=== PATIENT | male | born 1955 | race Caucasian/White ===

== ENCOUNTER 2020-06-22 22:18 | Emergency (ER) | payer OTHER, SELFPAY ==
[2020-06-22] VITALS (7 sets, daily range): BP systolic 136–199; BP diastolic 69–107; PULSE 109–160; RESP 16; TEMP 37.4; O2SAT 99–100; BMI 31.0; BMI 33.5
--- NOTE | 2020-06-22 | ECG_ITS ---
Test Reason : EKG CHANGES Blood Pressure : / mmHG Vent. Rate : 103 BPM Atrial Rate : 441 BPM P-R Int : 000 ms QRS Dur : 088 ms QT Int : 320 ms P-R-T Axes : 000 035 109 degrees QTc Int : 419 ms Atrial fibrillation with rapid ventricular response Anteroseptal infarct , age undetermined Nonspecific ST abnormality Lateral leads ST elevation in Anterior leads Abnormal ECG When compared with ECG of 17-NOV-2008 07:01, Atrial fibrillation has replaced Atrial flutter with 2 to 1 block Heart rate has decreased Nonspecific T wave abnormality Lateral leads Referred By: Daily Rivas Electronically Signed By:VITOR MATHEW MD
--- NOTE | 2020-06-22 | ECG_ITS ---
Test Reason : CP Blood Pressure : / mmHG Vent. Rate : 107 BPM Atrial Rate : 312 BPM P-R Int : 000 ms QRS Dur : 086 ms QT Int : 308 ms P-R-T Axes : 000 038 100 degrees QTc Int : 411 ms Atrial fibrillation with rapid ventricular response Anteroseptal infarct (cited on or before 22-JUN-2020) ST elevation in Anterior leads Nonspecific T wave abnormality Lateral leads Abnormal ECG When compared with ECG of 22-JUN-2020 23:03, No significant change was found Referred By: Daily Rivas Electronically Signed By:VITOR MATHEW MD
--- NOTE | 2020-06-22 22:44 | ED_ITS ---
HPI - Arrhythmia/Palpitations General Chief Complaint: Abdominal Pain Stated Complaint: abdominal pain Time Seen by Provider: 06/22/20 22:41 Source: patient Mode of arrival: ambulatory Limitations: no limitations History of Present Illness HPI narrative: chest pain, dyspnea, palpitations x 6 hours onset at home complaint: rapid heart beat and heart racing Onset (ago): hour(s) (6) Duration: constant Severity: moderate Context: occurred during rest Arrhythmia history: other (noted palpitations in the past but they went away - no workups) Associated symptoms: chest pain, shortness of breath, nausea, anxiety and other (acid reflux) Treatments prior to arrival: other (has been taking 1,000mg turmeric a day) Related Data Allergies Allergy/AdvReac Type Severity Reaction Status Date / Time No Known Allergies Allergy Verified 06/22/20 22:24 [No Known Allergies*] Review of Systems Review of Systems: Constitutional : No Weight loss, No Fever, No Chills ENT/Mouth : No sore throat, No Rhinorrhea Eyes: No Swelling, No Redness Cardiovascular : pos Chest Pain, pos SOB, NoEdema, pos palpitations Respiratory : No Cough, No Sputum, No Wheezing Gastrointestinal : Positive Nausea, no Vomiting, no Diarrhea, positive abdominal Pain, No Hematochezia, No Melena Genitourinary : No Dysuria, No Urinary Frequency, No Hematuria, No Urgency Musculoskeletal : No joint pain, No Myalgias, No Joint Swelling Skin : No Skin Lesions, No rash Neuro : No Weakness, No Numbness, No Dizziness, No Headache Psych : No Anxiety/Panic, No Depression Heme/Lymph: No Bruising, No Lymphadenopathy Endocrine : No Polyuria, No Polydipsia All other systems reviewed and are negative. [facility] Past Medical History Medical History (Updated 06/23/20 @ 00:51 by Daily Rivas DO) Hernia No active medical problems No known health problems Social History Social History (Updated 06/22/20 @ 22:47 by Daily Rivas DO) Alcohol intake: current Smoking Status: Never smoker Smoked in Last 30 Days: No Use of substances other than those prescribed or required for medical reasons: No Advance Directives: No Advance Directives Information Provided: No Physical Exam Vital Signs: Vital Signs: Vital Signs Temp Pulse Resp BP Pulse Ox 06/23/20 01:08 83 11 L 147/76 H 100 06/23/20 01:02 85 18 122/73 100 06/23/20 00:57 88 71/53 L 06/23/20 00:43 88 16 144/81 H 100 06/23/20 00:28 16 06/23/20 00:27 88 155/89 H 06/22/20 23:53 150 H 146/96 H 99 06/22/20 23:42 112 H 16 136/89 99 06/22/20 23:39 16 06/22/20 23:15 109 H 145/88 H 06/22/20 23:07 122 H 147/69 H 06/22/20 22:50 155 H 154/101 H 06/22/20 22:25 99.3 F 160 H 16 199/107 H 100 Body Mass Index 33.5 Appearance: Alert. Oriented X3. Mild acute distress. Anxious Eyes: Pupils equal, round and reactive to light. ENT: Pharynx normal. Neck: Normal inspection. Neck supple. CVS: irregular tachycardic heart rate and rhythm. Pulses normal. Respiratory: No respiratory distress. Breath sounds normal. Abdomen: Soft and mild epigastric ttp Skin: Skin warm and dry. Normal skin color. Normal skin turgor. Extremities: No lower extremity edema. No calf ttp Neuro: Oriented X 3. No motor deficit. No sensory deficit. Course Course Course Narrative: on dilt gtt, responding well BP stable HR down to low 100s still has CP, stat CTA ordered, IV fentanyl for pain, cardiology consulted given his EKG and DIANNA in V1-V3 concerning for STEMI once his rate has slowed down, pen shlomo call back from Dr. Fang 11:22pm Dr. Fang reviewed EKGs - not a STEMI though ?V1 and V3 morphology discussed EKG Cardiology felt not a STEMI patient broke now in NSR - c/o some mild chest pressure, dilt gtt held, ordered PO dilt 30mg, ASA, IV morphine labs pending anticipate admission will start on heparin at this time, troponin markedly elevated will discuss transfer for NSTEMI/UA his initial EKGs were concerning for ischemia though deemed not a STEMI by cardiology, HR in 150s x 6 hours, will consult [facility] Cardiology for possible transfer 1232am, statin, plavix load ordered accepted to [facility] 1245am for NSTEMI/UA - discussed with Dr. Nunez from Cardiology and Hiro from hospitalist team no chest pain after morphine but transient hypotension with dizziness - giving IVF x 1L now transient drop BP now 106/63 HR 70s NSR, chest pain resolved at this time COVID negative - transfer to [facility] now, patient stable on transfer no complaints MDM - Arrhythmia/Palpitations MDM Narrative Medical decision making narrative: 64 yo male with no significant PMH here with palpitations and gastritis x 6 hours, prior palpitations but resolved at home, no NSAID use, no AC therapy - will need labs, troponin, CXR, IV diltiazem, rate control likely admit dispo per results and findings Lab Data Result diagrams: 06/22/20 22:51 06/23/20 00:40 Labs: Lab Results 06/22/20 06/22/20 06/22/20 Range/Units 22:51 22:52 22:52 WBC 13.7 H (4.8-10.8) X10*3/uL RBC 5.10 (4.60-5.80) X10*6/uL Hgb 15.3 (14.0-18.0) g/dl Hct 45.2 (42-52) % MCV 88.6 (80-98) fL MCH 30.0 (27.0-33.0) pg MCHC 33.8 (31.0-36.0) g/dl RDW 12.0 (11.0-16.0) % Plt Count 400 (160-400) X10*3/uL MPV 9.8 (9.4-12.4) fL Immature Gran % (Auto) 0.4 (0.0-0.4) % Neut % (Auto) 70.8 (45-73) % Lymph % (Auto) 18.2 L (20-40) % Garza % (Auto) 9.5 (2-11) % Eos % (Auto) 0.9 (0-4) % Baso % (Auto) 0.2 (0-2) % Lymph # (Auto) 2.5 (1.2-4.9) X10*3/uL Garza # (Auto) 1.3 H (0.1-1.2) X10*3/uL Eos # (Auto) 0.1 (0.0-0.4) X10*3/uL Baso # (Auto) 0.0 (0.0-0.2) X10*3/uL Abs Immat Gran (auto) 0.05 H (0.00-0.03) X10*3/uL Absolute Neuts (auto) 9.7 H (2.0-8.3) X10*3/uL Absolute Nucleated RBC 0.000 (0.0-0.012) X10*3/uL Nucleated RBC % (auto) 0.0 (0.0-0.2) /100WBC PT INR APTT D-Dimer NG/ML Sodium Cancelled Potassium Cancelled Chloride Cancelled Carbon Dioxide Cancelled Anion Gap Cancelled BUN Cancelled Creatinine Cancelled Estim Creat Clear Calc Cancelled Estimated GFR Cancelled Random Glucose Cancelled Calcium Cancelled Magnesium Cancelled Total Bilirubin Cancelled Direct Bilirubin Cancelled AST Cancelled ALT Cancelled Alkaline Phosphatase Cancelled Troponin I High Sens 1777.6 H (<3.5-35.0) ng/L Total Protein Cancelled Albumin Cancelled Lipase Cancelled TSH Ethyl Alcohol mg/dL Coronavirus (PCR) (Negative) 06/22/20 06/22/20 06/22/20 Range/Units 22:52 22:53 23:04 WBC (4.8-10.8) X10*3/uL RBC (4.60-5.80) X10*6/uL Hgb (14.0-18.0) g/dl Hct (42-52) % MCV (80-98) fL MCH (27.0-33.0) pg MCHC (31.0-36.0) g/dl RDW (11.0-16.0) % Plt Count (160-400) X10*3/uL MPV (9.4-12.4) fL Immature Gran % (Auto) (0.0-0.4) % Neut % (Auto) (45-73) % Lymph % (Auto) (20-40) % Garza % (Auto) (2-11) % Eos % (Auto) (0-4) % Baso % (Auto) (0-2) % Lymph # (Auto) (1.2-4.9) X10*3/uL Garza # (Auto) (0.1-1.2) X10*3/uL Eos # (Auto) (0.0-0.4) X10*3/uL Baso # (Auto) (0.0-0.2) X10*3/uL Abs Immat Gran (auto) (0.00-0.03) X10*3/uL Absolute Neuts (auto) (2.0-8.3) X10*3/uL Absolute Nucleated RBC (0.0-0.012) X10*3/uL Nucleated RBC % (auto) (0.0-0.2) /100WBC PT Cancelled 12.1 INR Cancelled 1.0 APTT Cancelled 29.5 D-Dimer < 200 NG/ML Sodium Potassium Chloride Carbon Dioxide Anion Gap BUN Creatinine Estim Creat Clear Calc Estimated GFR Random Glucose Calcium Magnesium Total Bilirubin Direct Bilirubin AST ALT Alkaline Phosphatase Troponin I High Sens (<3.5-35.0) ng/L Total Protein Albumin Lipase TSH Cancelled Ethyl Alcohol mg/dL Coronavirus (PCR) (Negative) 06/22/20 06/23/20 06/23/20 Range/Units 23:04 00:16 00:40 WBC (4.8-10.8) X10*3/uL RBC (4.60-5.80) X10*6/uL Hgb (14.0-18.0) g/dl Hct (42-52) % MCV (80-98) fL MCH (27.0-33.0) pg MCHC (31.0-36.0) g/dl RDW (11.0-16.0) % Plt Count (160-400) X10*3/uL MPV (9.4-12.4) fL Immature Gran % (Auto) (0.0-0.4) % Neut % (Auto) (45-73) % Lymph % (Auto) (20-40) % Garza % (Auto) (2-11) % Eos % (Auto) (0-4) % Baso % (Auto) (0-2) % Lymph # (Auto) (1.2-4.9) X10*3/uL Garza # (Auto) (0.1-1.2) X10*3/uL Eos # (Auto) (0.0-0.4) X10*3/uL Baso # (Auto) (0.0-0.2) X10*3/uL Abs Immat Gran (auto) (0.00-0.03) X10*3/uL Absolute Neuts (auto) (2.0-8.3) X10*3/uL Absolute Nucleated RBC (0.0-0.012) X10*3/uL Nucleated RBC % (auto) (0.0-0.2) /100WBC PT INR APTT D-Dimer NG/ML Sodium Potassium Chloride Carbon Dioxide Anion Gap BUN Creatinine Estim Creat Clear Calc Estimated GFR Random Glucose Calcium Magnesium Total Bilirubin 0.8 Direct Bilirubin 0.2 AST 62 H ALT 21 Alkaline Phosphatase 50 Troponin I High Sens (<3.5-35.0) ng/L Total Protein 6.6 Albumin 4.1 Lipase TSH 0.82 Ethyl Alcohol < 10 mg/dL Coronavirus (PCR) NEGATIVE (Negative) ECG Data Attestation: I personally reviewed and interpreted this ECG as follows: ECG interpretation date: 06/22/20 ECG interpretation time: 22:46 Interpretation: Rate: 150s Rhythm: narrow regular complex tachycardia [place]: normal Normal P waves. Normal YE. Normal QRS complex. ST T wave : nonspecific qTC: normal prior studies: not available The study has been interpreted contemporaneously by me. . EKG #2 Rate: 103 Rhythm: afib with RVR [place]: normal Normal P waves. Normal YE. Normal QRS complex. Poor R wave progression ST T wave : T waves tall V1-V3 qTC: normal prior studies: slower rate The study has been interpreted contemporaneously by me. . EKG #3 Rate: 107 Rhythm: afib with RVR [place]: normal Normal P waves. Normal YE. Normal QRS complex. Poor R wave progression ST T wave : T waves tall V1-V3, nonspecific qTC: normal prior studies: unchanged The study has been interpreted contemporaneously by me. . Critical Care Time Critical Care Time Critical Care Time: Yes Total Critical Care Time: 90 Attestation: labs, transfer, IV dilt, medical consult I personally attest to this time spent taking care of the patient Discharge Plan Discharge Clinical Impression: Non-ST elevation [place] (NSTEMI), Atrial fibrillation and flutter Patient Disposition: [facility]
[2020-06-22] MEDS: Famotidine/PF 20 MG/2 ML VIAL IVPUSH (22:50)
[2020-06-22] MEDS: dilTIAZem HCL 50 MG/10 ML VIAL 10 MG IVPUSH (22:50)
[2020-06-22] MEDS: ondansetron HCL 4 MG/2 ML VIAL IVPUSH (22:50)
[2020-06-22] MEDS: dilTIAZem HCL 125 MG in 0.9 % Sodium Chloride 100 ML IVCONT (23:07)
[2020-06-22 23:09] LABS: MANUAL DIFF FLAG NO
[2020-06-22 23:10] LABS: Basophils Percent Auto 0.2 % (0-2); Eosinophils Absolute Auto 0.1 X10*3/uL (0.0-0.4); Eosinophils Percent Auto 0.9 % (0-4); Hematocrit 45.2 % (42-52); Hemoglobin 15.3 g/dl (14.0-18.0); Imm Gran Abs Auto 0.05 X10*3/uL (0.00-0.03); Imm Gran Pct Auto 0.4 % (0.0-0.4); Lymphocytes Absolute Auto 2.5 X10*3/uL (1.2-4.9); Lymphocytes Percent Auto 18.2 % (20-40); Mean Corpuscular HGB Conc 33.8 g/dl (31.0-36.0); Mean Corpuscular Volume 88.6 fL (80-98); Mean Platelet Volume 9.8 fL (9.4-12.4); Monocytes Absolute Auto 1.3 X10*3/uL (0.1-1.2); Monocytes Percent Auto 9.5 % (2-11); Neutrophils Absolute Auto 9.7 X10*3/uL (2.0-8.3); Neutrophils Percent Auto 70.8 % (45-73); Platelet Count 400 X10*3/uL (160-400); White Blood Count 13.7 X10*3/uL (4.8-10.8)
--- NOTE | 2020-06-22 23:15 | CT_ITS ---
EXAMINATION: CT ANGIOGRAM OF THE CHEST WITH AND WITHOUT CONTRAST (CT PULMONARY ANGIOGRAM FOR PE) CLINICAL INFORMATION: Chest pain COMPARISON: None TECHNIQUE: Prior to contrast administration, noncontrast localization images were obtained. Subsequently, multidetector volumetric imaging was performed from the thoracic inlet to below the diaphragms following the administration of 71 mLOmnipaque 350 intravenous contrast. No contrast reaction reported Sagittal, coronal, and MIP oblique sagittal reformatted images were obtained on the CT workstation, uploaded to PACS, and reviewed. This CT examination was performed using dose optimization techniques as appropriate, variously including the following: *Automated exposure control *Adjustment of mA and/or kV according to patient size (this includes techniques or standardized protocols for targeted exams where dose is matched to indication/reason for exam; i.e. extremities or head) *Use of iterative reconstruction technique Total exam dose-length product 388 mGy-cm FINDINGS: QUALITY OF STUDY/CONTRAST BOLUS: Satisfactory. PULMONARY ARTERIES: No central or segmental pulmonary emboli. THORACIC AORTA: No aneurysm or dissection. LUNG: No focal consolidation, nodules or masses. The central airways are patent. Minimal linear groundglass opacity in the lingula and right lower lobe, favoring atelectasis or scarring. PLEURA: No pleural effusion or pneumothorax. MEDIASTINUM: Normal heart size. No pericardial effusion. No hilar or mediastinal lymphadenopathy. No evidence of septal bowing or right heart strain. CHEST WALL/AXILLA: No axillary or internal mammary lymphadenopathy. OSSEOUS STRUCTURES: No acute or suspicious osseous abnormality. Degenerative changes of the spine. UPPER ABDOMEN: Left upper pole 1.8 cm renal cyst. No acute abnormality seen in the visualized upper abdomen. No reflux of contrast into the hepatic veins to suggest elevated right heart pressures. CT/CT angio chest PE protocol IMPRESSION: No pulmonary embolism or other acute intrathoracic abnormality. VTE: negative
[2020-06-22 23:29] LABS: Prothrombin Time 12.1 SEC (10.8-13.0)
[2020-06-22 23:32] LABS: Partial Thromboplastin Time 29.5 SEC (24.1-38.0)
[2020-06-22] MEDS: fentaNYL citrate/PF 100 MCG/2 ML VIAL 50 MCG IVPUSH (23:39)
[2020-06-22 23:47] LABS: D Dimer < 200 NG/ML
[2020-06-22] MEDS: iohexoL 350 MG/ML 100 ML INFUS..BTL 71 ML IV (23:49)
[2020-06-22 23:57] LABS: Ethanol < 10 mg/dL
--- NOTE | 2020-06-23 | ECG_ITS ---
Test Reason : CP Blood Pressure : / mmHG Vent. Rate : 157 BPM Atrial Rate : 314 BPM P-R Int : 000 ms QRS Dur : 084 ms QT Int : 228 ms P-R-T Axes : 250 030 128 degrees QTc Int : 368 ms Atrial flutter with 2:1 A-V conduction Anteroseptal infarct , age undetermined Marked ST abnormality, possible lateral subendocardial injury Abnormal ECG Significant changes have occurred Referred By: Daily Rivas Electronically Signed By:VITOR MATHEW MD
[2020-06-23 00:27] VITALS: BP 155/89; PULSE 88
[2020-06-23] MEDS: dilTIAZem HCL 30 MG TABLET PO (00:27)
[2020-06-23 00:28] VITALS: RESP 16
[2020-06-23] MEDS: Morphine Sulfate 4 MG/ML CARTRIDGE IVPUSH (00:28)
[2020-06-23] MEDS: Aspirin 81 MG TAB.CHEW 324 MG PO (00:28)
[2020-06-23 00:31] LABS: Troponin-I High Sensitivity 1777.6 ng/L (<3.5-35.0)
[2020-06-23 00:43] VITALS: BP 144/81; PULSE 88; RESP 16; O2SAT 100
[2020-06-23] MEDS: Clopidogrel Bisulfate 300 MG TABLET PO (00:54)
[2020-06-23] MEDS: Heparin Sodium,Porcine 5,000 UNIT/ML VIAL 4120 UNIT IVPUSH (00:55)
[2020-06-23 00:57] VITALS: BP 71/53; PULSE 88
[2020-06-23] MEDS: 0.9 % Sodium Chloride 1,000 ML 999 ML IVCONT (00:59)
[2020-06-23] MEDS: Heparin Sodium,Porcine/1/2NS 25,000 UNIT/250 ML IV.SOLN 10 UNIT IVCONT (01:00)
[2020-06-23 01:02] VITALS: BP 122/73; PULSE 85; RESP 18; O2SAT 100
--- NOTE | 2020-06-23 01:04 | PC.NURSE ---
Pt became light headed approx 7 mins s/p morphine, c/o near syncope head lowered and 1l ns infusing for hypotension of 70s/30s. Pt lightheadedness since resolved. pt reports his pain is 2/10 at this time. plan for transfer to [facility]. pt aware and agreeable to plan of care.,
[2020-06-23 01:08] VITALS: BP 147/76; PULSE 83; RESP 11; O2SAT 100
[2020-06-23 01:09] LABS: Alanine Aminotransferase 21 U/L (0-40); Albumin Level 4.1 g/dL (3.5-5.0); Alkaline Phosphatase 50 U/L (39-117); Aspartate Amino Transferase 62 U/L (5-37); Bilirubin Direct 0.2 mg/dL (0.0-0.5); Bilirubin Total 0.8 mg/dL (0.0-1.0); Total Protein 6.6 g/dL (6.5-8.0)
[2020-06-23 01:31] LABS: Thyroid Stimulating Hormone 0.82 mIU/mL (0.32-4.0)
[2020-06-23 01:43] LABS: SARS COV2 PCR INHOUSE NEGATIVE (Negative)
[2020-06-23 02:14] LABS: Anion Gap 17 (12-20); Blood Urea Nitrogen 13 mg/dL (9-16); Calcium 8.7 mg/dL (8.4-10.2); Carbon Dioxide 20 mmol/L (22-29); Chloride 99 mmol/L (96-108); Creatinine Clr Calc Pharmacy 107.6; Estimated Glomerular Filt Rate > 60; Glucose Random 125 mg/dL (60-115); Lipase 19 U/L (8-78); Magnesium 1.9 mg/dL (1.6-2.6); Potassium 4.7 mmol/l (3.3-5.1); Sodium 131 mmol/L (135-145)
--- NOTE | 2020-06-24 | ECG_ITS ---
Test Reason : CP Blood Pressure : / mmHG Vent. Rate : 080 BPM Atrial Rate : 080 BPM P-R Int : 144 ms QRS Dur : 092 ms QT Int : 340 ms P-R-T Axes : 047 024 094 degrees QTc Int : 392 ms Normal sinus rhythm Possible Inferior infarct , age undetermined Anteroseptal infarct (cited on or before 22-JUN-2020) ST elevation in Inferior leads Anterior leads Abnormal ECG When compared with ECG of 22-JUN-2020 23:11, Sinus rhythm has replaced Atrial fibrillation Borderline criteria for Inferior infarct are now Present ST less elevated in Anterior leads Referred By: Daily Rivas Electronically Signed By:VITOR MATHEW MD
== END 2020-06-23 02:20 | disposition short-term general hospital (02) ==
PROVIDERS: Emergency Provider Emergency Medicine; PCP Internal Medicine
DX: I21.4 Non-ST elevation (NSTEMI) myocardial infarction (principal); I48.91 Unspecified atrial fibrillation; I48.92 Unspecified atrial flutter; Z20.828 Contact with and (suspected) exposure to other viral communicable diseases; Z79.899 Other long term (current) drug therapy
CPT/HCPCS: 36415; 71275; 80048; 80076; 80320; 83690; 83735; 84443; 84484; 85025; 85379; 85610; 85730; 87635; 93005; 96361; 96374; 96375; 96376; 99285; 99291; 99292; J2270; J2405; J3010; Q9967

== ENCOUNTER 2020-07-13 10:35 | Outpatient (REF) | payer OTHER, SELFPAY | END 2020-07-13 10:36 | disposition home or self-care (01) | LOC: HO.LAB 10:35 | PROVIDERS: Visit Provider Internal Medicine | DX: Z20.828 Contact with and (suspected) exposure to other viral communicable diseases (principal) | CPT/HCPCS: C9803; U0003 ==

== ENCOUNTER 2020-12-26 08:01 | Day surgery (SDC) | payer BC, SELFPAY ==
[2020-12-19 14:48] VITALS: BMI 33.6
--- NOTE | 2020-12-21 12:22 | MHC.SHP ---
Pre-Procedural Eval Section A The patient is an INPATIENT: No The History & Physical has been completed within 30 days and I have reviewed it.: Yes Section B Chief Complaint: Cataract Right Eye Allergies: Allergies Allergy/AdvReac Type Severity Reaction Status Date / Time No Known Allergies Allergy Verified 12/19/20 13:30 [No Known Allergies*] Plan Diagnosis/Plan: Unchanged I have reviewed the history and physical and performed a pertinent physical examination on my patient. No changes have occurred unless specified.
--- NOTE | 2020-12-23 09:32 | HO.ANESPROP2 ---
Documented by User: Diana Geiger 12/23/20 09:33 HPI - Anesthesia Eval Consult details Narrative: 65yo M for Right Cataract Extraction IOL Insertion No prev cataract on record PCP cleared Eliquis for afib [facility] Past Medical History Medical History (Updated 12/26/20 @ 09:41 by Aliyah Her) Atrial fibrillation CAD (coronary artery disease) Gout Myocardial infarct On anticoagulant therapy Retinal tear of right eye Surgical History Surgical History History of surgery on right wrist History of tonsillectomy History of vitrectomy Hx of coronary artery bypass graft Hx of left inguinal hernia repair Hx of repair of left rotator cuff Hx of repair of right rotator cuff [place] teeth extracted Social History Social History Are you a primary home health care respiratory therapist to a significant other at home: No Do you presently have visiting nurse or other home services: No Alcohol intake: current Alcohol intake frequency: 0-2 drinks per day Smoking Status: Never smoker Smoked in Last 30 Days: No Second Hand Smoke Exposure: No Use of substances other than those prescribed or required for medical reasons: No Have you been hit, kicked, punched, or otherwise hurt by someone within the past year? If so, by whom?: No Are you DNR?: No Advance Directives: No Advance Directives Information Provided: No Advance Directives on File: No Recently lost weight without trying: No Eating poorly because of decreased appetite: No Nutrition Risks: No Nutritional Risk Poor oral hygiene: No Meds Allergies Allergy/AdvReac Type Severity Reaction Status Date / Time No Known Allergies Allergy Verified 12/19/20 13:30 [No Known Allergies*] Home Medications Medication Instructions Recorded Confirmed Last Taken Type apixaban [Eliquis] 1 tab PO BID 12/19/20 12/19/20 Unknown History aspirin 1 tab PO DAILY 12/19/20 12/19/20 Unknown History atorvastatin 1 tab PO BEDTIME 12/19/20 12/19/20 Unknown History carvedilol 1 tab PO BID 12/19/20 12/19/20 Unknown History lisinopril 1 tab PO DAILY 12/19/20 12/19/20 Unknown History Exam Exam Date and Time: December 23, 2020 0932 Height,Weight and Vital Signs: Height 5 ft 7 in Weight 97.522 kg Assessment and Plan Assessment Anesthesia Assessment: Chart Reviewed Documented by User: Aliyah Her 12/26/20 09:42 [facility] Past Medical History Medical History (Updated 12/26/20 @ 09:41 by Aliyah Her) Atrial fibrillation CAD (coronary artery disease) Gout Myocardial infarct On anticoagulant therapy Retinal tear of right eye Family History Family history of problems with anesthesia: No Surgical History Surgical History History of surgery on right wrist History of tonsillectomy History of vitrectomy Hx of coronary artery bypass graft Hx of left inguinal hernia repair Hx of repair of left rotator cuff Hx of repair of right rotator cuff [place] teeth extracted History of Problems with Anesthesia: No Social History Social History Are you a primary home health care respiratory therapist to a significant other at home: No Do you presently have visiting nurse or other home services: No Alcohol intake: current Alcohol intake frequency: 0-2 drinks per day Smoking Status: Never smoker Smoked in Last 30 Days: No Second Hand Smoke Exposure: No Use of substances other than those prescribed or required for medical reasons: No Have you been hit, kicked, punched, or otherwise hurt by someone within the past year? If so, by whom?: No Are you DNR?: No Advance Directives: No Advance Directives Information Provided: No Advance Directives on File: No Recently lost weight without trying: No Eating poorly because of decreased appetite: No Nutrition Risks: No Nutritional Risk Poor oral hygiene: No Meds Allergies Allergy/AdvReac Type Severity Reaction Status Date / Time No Known Allergies Allergy Verified 12/19/20 13:30 [No Known Allergies*] Home Medications Medication Instructions Recorded Confirmed Last Taken Type apixaban [Eliquis] 1 tab PO BID 12/19/20 12/19/20 Unknown History aspirin 1 tab PO DAILY 12/19/20 12/19/20 Unknown History atorvastatin 1 tab PO BEDTIME 12/19/20 12/19/20 Unknown History carvedilol 1 tab PO BID 12/19/20 12/19/20 Unknown History lisinopril 1 tab PO DAILY 12/19/20 12/19/20 Unknown History Exam Height,Weight and Vital Signs: Vital Signs Temp Pulse Resp BP Pulse Ox 12/26/20 09:32 98.2 F 62 20 134/69 99 Airway Mallampati Class: II TM Dist: >3cm Neck ROM: Full Heart: RRR Lungs: CTAB Assessment and Plan Assessment Anesthesia Assessment: Anesthesia Plan Discussed and Chart Reviewed Final Anesthetic Review NPO: Yes ASA Class: III Final Preanesthetic Review: No Changes in Pt Med Stat, Meds/Allgs Chart Reviewed, Consent Obtained/Reviewed and Anes Risks/Benef Reviewed Patient Risk: Intermediate Procedure Risk: Low Assessment/Block/Sedation in SS: Assess/Block/Sedation-SS Anesthetic Plan Anesthetic Plan: MAC: Disposition: Standard PACU
[2020-12-26] MEDS: Tetracaine HCl/PF 0.5% Oph Sol 4 ML DROPS 1 DROP EYE-RIGHT (09:19)
[2020-12-26] MEDS: Tropicamide 1 % Ophth Sol 3 ML BTL 1 DROP EYE-RIGHT ×3 (09:20→09:31)
[2020-12-26] MEDS: Phenylephrine HCL 2.5% Oph SoL 2 ML BOTTLE 1 DROP EYE-RIGHT ×2 (09:20→09:25)
[2020-12-26 09:32] VITALS: BP 134/69; PULSE 62; RESP 20; TEMP 36.8; O2SAT 99
--- NOTE | 2020-12-26 10:01 | HO.PNOPHT ---
Ophthalmology Procedure Procedure Date of Service: 12/26/20 Ophthalmology Viscoelastic: Kamila Dialt Dual Pack Pro Ophthalmology Lenses: TECAFUA [id number] (16) Procedure Notes: PREOPERATIVE DIAGNOSIS: Decreased visual acuity right eye secondary to cataract POSTOPERATIVE DIAGNOSIS: Same PROCEDURE: Right cataract extraction with intraocular lens insertion SURGEON: Scotty Mendez M.D. ANESTHESIA: Topical/MAC ESTIMATED BLOOD LOSS: None COMPLICATIONS: None After obtaining informed consent, the patient was brought to the operating room suite and placed in the supine position. After adequate sedation per anesthesia, topical drops of Tetracaine were given to the right eye. The eye was then prepped and draped in the usual sterile fashion. The operating room microscope was then positioned over the operative eye and a lid speculum placed. A paracentesis was created. Viscoelastic was then instilled into the anterior chamber. A three plane incision was then created temporally, utilizing a 2.85 mm keratome. Capsulotomy forceps were then utilized to create a circular tear capsulotomy. Hydrodissection and hydrodelineation were carried out until adequate mobilization of the nucleus occurred. Phacoemulsification was then utilized to remove the dense central nucleus followed by removal of the cortical material utilizing the automated aspiration irrigation unit. Viscoelastic was instilled into the posterior capsular bag followed by placement of a posterior chamber intraocular lens without difficulty. The residual Viscoelastic was then removed utilizing the automated IA machine. The wound was checked and found to be watertight. The patient tolerated the procedure well and the lid speculum was removed. Intracameral injection of Vigamox 0.1 mL followed by a subtenon injection of Kenalog-40 0.2 mL were administered. The patient will be seen in the a.m.
[2020-12-26 10:05] VITALS: BP 151/73; PULSE 65; RESP 16; TEMP 36.5; O2SAT 99
== END 2020-12-26 10:39 | disposition home or self-care (01) ==
PROVIDERS: PCP Internal Medicine; Visit Provider Ophthalmology
PROC: (CPT 66985; principal; 2020-12-26 10:00)
DX: H25.11 Age-related nuclear cataract, right eye (principal); H54.7 Unspecified visual loss; Z83.511 Family history of glaucoma; I25.2 Old myocardial infarction; I48.0 Paroxysmal atrial fibrillation; I25.10 Atherosclerotic heart disease of native coronary artery without angina pectoris; Z95.1 Presence of aortocoronary bypass graft; Z79.01 Long term (current) use of anticoagulants; Z79.82 Long term (current) use of aspirin; Z79.899 Other long term (current) drug therapy; Z87.891 Personal history of nicotine dependence
CPT/HCPCS: 66984; J2250; J3010; J3300; V2632

== ENCOUNTER 2021-01-09 07:39 | Day surgery (SDC) | payer MEDICARE, SELFPAY ==
[2020-12-19 15:03] VITALS: BMI 33.4
--- NOTE | 2021-01-04 12:29 | P.CONAN_ITS ---
Documented by User: Diana Geiger 01/04/21 12:30 HPI - Anesthesia Eval Consult details Narrative: 65yo M for Left Cataract Extraction IOL Insertion Right eye 5/3 with TIVA: Fent 50, Midaz 2 PCP cleared Eliquis for afib PMFSH Past Medical History Medical History Atrial fibrillation CAD (coronary artery disease) Gout Myocardial infarct On anticoagulant therapy Retinal tear of right eye Family History Family history of problems with anesthesia: No Surgical History Surgical History History of surgery on right wrist History of tonsillectomy History of vitrectomy Hx of cataract extraction Hx of coronary artery bypass graft Hx of left inguinal hernia repair Hx of repair of left rotator cuff Hx of repair of right rotator cuff [place] teeth extracted History of Problems with Anesthesia: No Social History Social History Are you a primary career professional to a significant other at home: No Do you presently have visiting nurse or other home services: No Alcohol intake: current Alcohol intake frequency: 0-2 drinks per day Smoking Status: Never smoker Second Hand Smoke Exposure: No Use of substances other than those prescribed or required for medical reasons: No Have you been hit, kicked, punched, or otherwise hurt by someone within the past year? If so, by whom?: No Are you DNR?: No Advance Directives: No Advance Directives Information Provided: No Advance Directives on File: No Recently lost weight without trying: No Eating poorly because of decreased appetite: No Nutrition Risks: No Nutritional Risk Poor oral hygiene: No Meds Allergies Allergy/AdvReac Type Severity Reaction Status Date / Time No Known Allergies Allergy Verified 12/19/20 13:30 [No Known Allergies*] Home Medications Medication Instructions Recorded Confirmed Last Taken Type apixaban [Eliquis] 1 tab PO BID 12/19/20 01/09/21 01/08/21 19:00 History aspirin 1 tab PO DAILY 12/19/20 01/09/21 01/08/21 06:45 History atorvastatin 1 tab PO BEDTIME 12/19/20 12/19/20 Unknown History carvedilol 1 tab PO BID 12/19/20 01/09/21 01/09/21 History lisinopril 1 tab PO DAILY 12/19/20 12/19/20 Unknown History Exam Exam Date and Time: January 04, 2021 1229 Height,Weight and Vital Signs: Height 5 ft 7.25 in Weight 97.522 kg Assessment and Plan Assessment Anesthesia Assessment: Chart Reviewed Documented by User: Aliyah Her 01/09/21 08:39 PMFSH Past Medical History Medical History Atrial fibrillation CAD (coronary artery disease) Gout Myocardial infarct On anticoagulant therapy Retinal tear of right eye Surgical History Surgical History History of surgery on right wrist History of tonsillectomy History of vitrectomy Hx of cataract extraction Hx of coronary artery bypass graft Hx of left inguinal hernia repair Hx of repair of left rotator cuff Hx of repair of right rotator cuff [place] teeth extracted Social History Social History Are you a primary career professional to a significant other at home: No Do you presently have visiting nurse or other home services: No Alcohol intake: current Alcohol intake frequency: 0-2 drinks per day Smoking Status: Never smoker Second Hand Smoke Exposure: No Use of substances other than those prescribed or required for medical reasons: No Have you been hit, kicked, punched, or otherwise hurt by someone within the past year? If so, by whom?: No Are you DNR?: No Advance Directives: No Advance Directives Information Provided: No Advance Directives on File: No Recently lost weight without trying: No Eating poorly because of decreased appetite: No Nutrition Risks: No Nutritional Risk Poor oral hygiene: No Meds Allergies Allergy/AdvReac Type Severity Reaction Status Date / Time No Known Allergies Allergy Verified 12/19/20 13:30 [No Known Allergies*] Home Medications Medication Instructions Recorded Confirmed Last Taken Type apixaban [Eliquis] 1 tab PO BID 12/19/20 01/09/21 01/08/21 19:00 History aspirin 1 tab PO DAILY 12/19/20 01/09/21 01/08/21 06:45 History atorvastatin 1 tab PO BEDTIME 12/19/20 12/19/20 Unknown History carvedilol 1 tab PO BID 12/19/20 01/09/21 01/09/21 History lisinopril 1 tab PO DAILY 12/19/20 12/19/20 Unknown History Exam Height,Weight and Vital Signs: Vital Signs Temp Pulse Resp BP Pulse Ox 01/09/21 08:32 97.3 F 62 16 137/71 99 Airway Mallampati Class: II TM Dist: >3cm Neck ROM: Full Heart: RRR Lungs: CTAB Assessment and Plan Assessment Anesthesia Assessment: Anesthesia Plan Discussed and Chart Reviewed Final Anesthetic Review NPO: Yes ASA Class: III Final Preanesthetic Review: No Changes in Pt Med Stat, Meds/Allgs Chart Reviewed, Consent Obtained/Reviewed and Anes Risks/Benef Reviewed Patient Risk: Intermediate Procedure Risk: Low Assessment/Block/Sedation in SS: Assess/Block/Sedation-SS Anesthetic Plan Anesthetic Plan: MAC: Disposition: Standard PACU
--- NOTE | 2021-01-04 14:54 | MHC.SHP ---
Pre-Procedural Eval Section A The patient is an INPATIENT: No The History & Physical has been completed within 30 days and I have reviewed it.: Yes Section B Chief Complaint: Cataract Left Eye Allergies: Allergies Allergy/AdvReac Type Severity Reaction Status Date / Time No Known Allergies Allergy Verified 12/19/20 13:30 [No Known Allergies*] Plan Diagnosis/Plan: Unchanged I have reviewed the history and physical and performed a pertinent physical examination on my patient. No changes have occurred unless specified.
[2021-01-09] MEDS: Tetracaine HCl/PF 0.5% Oph Sol 4 ML DROPS 1 DROP EYE-LEFT (08:21)
[2021-01-09] MEDS: Tropicamide 1 % Ophth Sol 3 ML BTL 1 DROP EYE-LEFT ×3 (08:23→08:35)
[2021-01-09] MEDS: Phenylephrine HCL 2.5% Oph SoL 2 ML BOTTLE 1 DROP EYE-LEFT ×3 (08:27→08:42)
[2021-01-09 08:32] VITALS: BP 137/71; PULSE 62; RESP 16; TEMP 36.3; O2SAT 99
[2021-01-09] MEDS: Lactated Ringers 500 ML 50 ML IV (08:42)
--- NOTE | 2021-01-09 09:18 | HO.PNOPHT ---
Ophthalmology Procedure Procedure Date of Service: 01/09/21 Ophthalmology Viscoelastic: Healon Duet Dual Pack Pro Ophthalmology Lenses: TECNIS [id number] (15.5) Procedure Notes: PREOPERATIVE DIAGNOSIS: Decreased visual acuity left eye secondary to cataract POSTOPERATIVE DIAGNOSIS: Same PROCEDURE: Left cataract extraction with intraocular lens insertion SURGEON: Scotty Mendez M.D. ANESTHESIA: Topical/MAC ESTIMATED BLOOD LOSS: None COMPLICATIONS: None After obtaining informed consent, the patient was brought to the operation room suite and placed in the supine position. After adequate sedation per anesthesia, topical drops of Tetracaine were given to the left eye. The eye was then prepped and draped in the usual sterile fashion. The operating room microscope was then positioned over the operative eye and a lid speculum placed. A paracentesis was created. Viscoelastic was then instilled into the anterior chamber. A three plane incision was then created temporally, utilizing a 2.85 mm keratome. Capsulotomy forceps were then utilized to create a circular tear capsulotomy. Hydrodissection and hydrodelineation were carried out until adequate mobilization of the nucleus occurred. Phacoemulsification was then utilized to remove the dense central nucleus followed by removal of the cortical material utilizing the automated aspiration irrigation unit. Viscoat elastic was instilled into the posterior capsular bag followed by placement of a posterior chamber intraocular lens without difficulty. The residual Viscoat elastic was then removed utilizing the automated IA machine. The wound was check and found to be watertight. The patient tolerated the procedure well and the lid speculum was removed. Intracameral injection of Vigamox 0.1 mL followed by a subtenon injection of Kenalog-40 0.2 mL were administered. The patient will be seen in the a.m.
[2021-01-09 09:38] VITALS: BP 145/61; PULSE 57; RESP 18; TEMP 36.2; O2SAT 99
== END 2021-01-09 09:59 | disposition home or self-care (01) ==
PROVIDERS: PCP Internal Medicine; Visit Provider Ophthalmology
PROC: (CPT 66985; principal; 2021-01-09 09:30)
DX: H25.12 Age-related nuclear cataract, left eye (principal); H54.7 Unspecified visual loss; Z83.511 Family history of glaucoma; I48.91 Unspecified atrial fibrillation; I25.10 Atherosclerotic heart disease of native coronary artery without angina pectoris; Z95.1 Presence of aortocoronary bypass graft; Z79.01 Long term (current) use of anticoagulants; Z79.899 Other long term (current) drug therapy; Z87.891 Personal history of nicotine dependence
CPT/HCPCS: 66984; J2250; J3010; J3300; V2632

== ENCOUNTER 2021-07-26 07:57 | Outpatient (REF) | payer MEDICARE, SELFPAY ==
[2021-07-26 11:19] LABS: MANUAL DIFF FLAG NO
[2021-07-26 11:23] LABS: Basophils Percent Auto 0.4 % (0-2); Eosinophils Absolute Auto 0.3 X10*3/uL (0.0-0.4); Hematocrit 42.7 % (42.0-52.0); Hemoglobin 13.8 g/dl (14.0-18.0); Imm Gran Abs Auto 0.03 X10*3/uL (0.00-0.03); Imm Gran Pct Auto 0.4 % (0.0-0.4); Lymphocytes Percent Auto 23.3 % (20-40); Mean Corpuscular HGB Conc 32.3 g/dl (31.0-36.0); Mean Corpuscular Hemoglobin 30.2 pg (27.0-33.0); Mean Corpuscular Volume 93.4 fL (80.0-98.0); Mean Platelet Volume 10.6 fL (9.4-12.4); Monocytes Absolute Auto 0.7 X10*3/uL (0.1-1.2); Monocytes Percent Auto 8.6 % (2-11); Neutrophils Absolute Auto 5.4 x10*3/uL (2.0-8.3); Neutrophils Percent Auto 64.3 % (45-73); Platelet Count 309 X10*3/uL (160-400); Red Blood Count 4.57 X10*6/uL (4.60-5.80); Red Cell Distribution Width 12.1 % (11.0-16.0); White Blood Count 8.4 X10*3/uL (4.8-10.8)
[2021-07-26 11:59] LABS: Alanine Aminotransferase 33 U/L (0-40); Albumin Level 4.1 g/dL (3.5-5.0); Alkaline Phosphatase 64 U/L (39-117); Anion Gap 16 (12-20); Aspartate Amino Transferase 17 U/L (5-37); Bilirubin Total 0.6 mg/dL (0.0-1.0); Blood Urea Nitrogen 21 mg/dL (9-16); Calcium 9.3 mg/dL (8.4-10.2); Carbon Dioxide 21 mmol/L (22-29); Chloride 109 mmol/L (96-108); Cholesterol 117 mg/dL; Estimated Glomerular Filt Rate > 60; Glucose Fasting 113 mg/dL (60-99); HDL Cholesterol 34 mg/dL; LDL Cholesterol Calculated 68 mg/dl; Potassium 4.8 mmol/L (3.3-5.1); Sodium 141 mmol/L (135-145); Total Protein 6.8 g/dL (6.5-8.0); Triglycerides 78 mg/dL
[2021-07-26 12:26] LABS: Thyroid Stimulating Hormone 0.79 uIU/mL (0.32-4.0); Vitamin D 25-OH Total 17.4 ng/mL (>30)
[2021-07-26 12:34] LABS: PSA,Total (Free>4and<10) 1.12 ng/mL (0.00-4.00)
== END 2021-07-26 07:58 | disposition home or self-care (01) ==
LOC: HO.HMGCLDS 07:57
PROVIDERS: PCP Internal Medicine; Visit Provider Internal Medicine
DX: Z00.00 Encounter for general adult medical examination without abnormal findings (principal); Z12.5 Encounter for screening for malignant neoplasm of prostate; I25.10 Atherosclerotic heart disease of native coronary artery without angina pectoris; I48.0 Paroxysmal atrial fibrillation; M10.00 Idiopathic gout, unspecified site; E66.01 Morbid (severe) obesity due to excess calories; Z68.35 Body mass index [BMI] 35.0-35.9, adult
CPT/HCPCS: 36415; 80053; 80061; 82306; 84153; 84443; 84550; 85025

== ENCOUNTER 2021-12-23 20:40 | Inpatient (IN) | payer MEDICARE, SELFPAY ==
--- NOTE | 2021-12-23 | ECG_ITS ---
Test Reason : nausea/vomitting Blood Pressure : / mmHG Vent. Rate : 148 BPM Atrial Rate : 000 BPM P-R Int : 000 ms QRS Dur : 078 ms QT Int : 286 ms P-R-T Axes : 000 048 025 degrees QTc Int : 449 ms Atrial fibrillation with rapid ventricular response Septal infarct (cited on or before 22-JUN-2020) Abnormal ECG When compared with ECG of 23-JUN-2020 00:03, Atrial fibrillation has replaced Sinus rhythm Vent. rate has increased BY 68 BPM Borderline criteria for Inferior infarct are no longer Present Referred By: Generic ED Physician Electronically Signed By:HELIO SERNA
--- NOTE | ~2021-12-23 | US_ITS ---
EXAMINATION: US ABDOMEN LIMITED CLINICAL INFORMATION: Cholecystitis.. COMPARISON: CT abdomen pelvis 12/23/2021. TECHNIQUE: Real-time imaging of the right upper quadrant abdominal viscera. FINDINGS: Targeted sonography of the gallbladder is performed. Partial visualization is made of anomaly anechoic free fluid along the anterior aspect of the gallbladder. Free fluid appears to communicate with the gallbladder lumen on several signs sales representative grayscale images (image 14/30). Within the gallbladder lumen, echogenic dependent sludge is noted. Furthermore, a 2.4 cm intermediate echogenicity region without posterior acoustic shadowing is present anteriorly in a nondependent configuration contiguous with the wall the gallbladder. No flow is noted within this region on color Doppler interrogation. The common bile duct measures 6 mm in diameter. US/US abdomen limited IMPRESSION: *Findings suspicious for perforation of the gallbladder. Free fluid is present adjacent to the gallbladder corresponding to findings noted on the comparison CT of 12/23/2021. Sonographic evaluation demonstrates possible communication between the free fluid and the lumen of the gallbladder suspicious for perforation. *Echogenic sludge within the gallbladder lumen. Furthermore, a 2.4 cm echogenic focus contiguous with the nondependent wall of the fundus of the gallbladder is present and may represent adherent sludge. No flow is noted in this region to specifically suggest the presence of a gallbladder wall tumor. This finding is without a definitive correlate on the CT of the abdomen and pelvis from 12/23/2021 based on contemporaneous review of that exam. *No cholelithiasis noted. *Normal common bile duct caliber.
--- NOTE | ~2021-12-23 | XR_ITS ---
EXAMINATION: XR ABDOMEN KUB CLINICAL INDICATION: Postop open cholecystectomy. Check for foreign body, right upper quadrant. COMPARISON: Selected images CT abdomen 12/23/2021. TECHNIQUE: AP view of the abdomen. 3 images. FINDINGS: Median sternotomy wires are demonstrated. A surgical drain is seen in the right upper quadrant with surgical clips and skin [place] identified. Detail is limited on these images provided without evidence of radiopaque/retained foreign body identified. No dilated bowel loops are seen. XR/XR KUB IMPRESSION: Abdominal skin [place], surgical clips and surgical drain are noted. No unexpected radiopaque foreign body is appreciated.
--- NOTE | ~2021-12-23 | XR_ITS ---
EXAMINATION: PORTABLE CHEST 1 VIEW CLINICAL INFORMATION: cough . COMPARISON: 06/14/[address] TECHNIQUE: Portable frontal view of the chest was obtained. FINDINGS: Hypoexpanded with linear basilar markings more likely reflecting a component of atelectasis. No superimposed focal infiltrate, edema, or pneumothorax. Patient status post sternotomy and CABG. No acute bony abnormality XR/XR chest 1V IMPRESSION: Hypoexpanded with linear basilar markings more likely due to atelectasis
--- NOTE | ~2021-12-23 | MR_ITS ---
EXAMINATION: MR ABDOMEN WITHOUT CONTRAST CLINICAL INFORMATION: Elevated liver enzymes COMPARISON: Previous CT of the abdomen and pelvis 12/23/2021 and limited abdominal ultrasound 12/24/2021 TECHNIQUE: MR abdomen is performed without gadolinium contrast. MRCP sequences were performed. FINDINGS: LUNG BASES: There is small bilateral pleural effusions. LIVER, GALLBLADDER, AND BILIARY TREE: The gallbladder is upper normal in size. The gallbladder wall appears thickened and there is wall edema. There is heterogeneous signal within the lumen of the gallbladder. No definite gallstones are seen. There is infiltration of the fat seen surrounding the gallbladder and a small focal fluid collection adjacent to the gallbladder left lobe of the liver, distal stomach and proximal duodenum. This measures approximately 1.5 x 4.5 cm for example axial image 9 series 5. This abuts the gallbladder wall and again there is question of discontinuity of the gallbladder wall and gallbladder perforation or pericholecystic abscess. This is similar to previous ultrasound and CT scan. There is low insertion of the cystic duct. There is mild intrahepatic biliary duct dilatation. There is infiltration of the fat in the juan hepatis. There is narrowing of the proximal extrahepatic bile ducts/common hepatic duct. This may be related to extrinsic compression from inflammatory process related to the gallbladder or Mirizzi syndrome. The distal extrahepatic bile duct/common bile duct is normal in caliber and measures 3 mm. No common bile duct stone is seen. PANCREAS: There is a tiny probable cyst in the tail the pancreas measuring 3 mm. The pancreas is otherwise normal in signal. The main pancreatic duct is normal in caliber measuring 2 mm. SPLEEN: Unremarkable. ADRENAL GLANDS: Unremarkable. KIDNEYS AND URETERS: There are small bilateral renal cysts. The kidneys are normal in size and shape. No hydronephrosis. No perinephric stranding. GASTROINTESTINAL TRACT: No bowel obstruction. No free ascites. ABDOMINAL WALL: No significant hernia is appreciated. LYMPH NODES: No lymphadenopathy. VASCULAR: Unremarkable. OSSEOUS STRUCTURES: Marrow signal normal. MR/MR MRCP IMPRESSION: Upper normal-size gallbladder with abnormally thickened edematous gallbladder wall and infiltration of the pericholecystic fat. Adjacent 1.5 x 4.5 cm fluid collection questionable for gallbladder perforation or pericholecystic abscess. Mild intrahepatic biliary duct dilatation. Narrowed proximal extrahepatic bile duct/common hepatic duct, question secondary to extrinsic extrinsic compression related to inflammatory changes from the gallbladder or Mirizzi syndrome. These findings were communicated to Dr. Bowman in person on 12/25/2021 exam 3:45 PM.
--- NOTE | ~2021-12-23 | CT_ITS ---
EXAMINATION: CT ABDOMEN AND PELVIS WITH CONTRAST CLINICAL INFORMATION: Abdominal pain. COMPARISON: None TECHNIQUE: Multidetector volumetric images were obtained from the superior aspect of the liver through the pubic symphysis following administration 85 mL of Omnipaque 350 intravenous contrast. Sagittal and coronal reformatted images were obtained on the technologist's workstation. Oral Contrast: No. This CT examination was performed using dose optimization techniques as appropriate, variously including the following: *Automated exposure control. *Adjustment of mA and/or kV according to patient size (this includes techniques or standardized protocols for targeted exams where dose is matched to indication/reason for exam; i.e. extremities or head). *Use of iterative reconstruction technique. DLP: 826 mGy-cm FINDINGS: LUNG BASES: Linear scarring within the lingula. LIVER, GALLBLADDER, AND BILIARY TREE: The liver is normal in size, shape, and attenuation. No focal hepatic lesion. The gallbladder is distended with mild circumferential wall thickening and adjacent fat stranding. There is lobulated, encapsulated fluid anterior to the gallbladder measuring up to 5.6 cm in AP dimension, likely representing a contained perforation. There is central biliary duct dilatation extending into the hepatic parenchyma and common bile ducts. A distal duct obstruction/ampullary lesion could be considered. PANCREAS: No pancreatic parenchymal lesion. No pancreatic inflammatory change or ductal dilatation. SPLEEN: Unremarkable. ADRENAL GLANDS: Unremarkable. KIDNEYS AND URETERS: The kidneys are normal in size, shape, and attenuation. No hydronephrosis, hydroureter, or calculi seen. Simple left upper pole renal cyst. Findings are not clinically significant and no follow-up imaging is recommended. Left midpole renal hypodensity, too small to characterize. No perinephric stranding. BLADDER: Unremarkable. GASTROINTESTINAL TRACT: Mild circumferential wall thickening of the distal esophagus. There is circumferential wall thickening involving the gastric antrum as well as the first and second portions of the duodenum. Findings may be reactive to the adjacent gallbladder pathology. There is mild adjacent fat stranding. No small or large bowel obstruction. Unremarkable appendix. Sigmoid diverticulosis without evidence of acute diverticulitis. ABDOMINAL WALL: Small, fat-containing left inguinal hernia. PERITONEAL CAVITY: No intra-abdominal free air or free fluid. LYMPH NODES: Small retroperitoneal lymph nodes. No significant lymphadenopathy. VASCULAR: Unremarkable. PELVIC VISCERA: The prostate and seminal vesicles are unremarkable. OSSEOUS STRUCTURES: Unremarkable. CT/CT abdomen pelvis w con IMPRESSION: 1. Distention of the central bile ducts and gallbladder with circumferential wall thickening and adjacent inflammatory change consistent with acute cholecystitis. There is loculated fluid extending anterior to the gallbladder which could indicate a contained perforation. Mild dilatation of the common bile duct. A distal duct obstruction/ampullary lesion could be considered. 2. Circumferential wall thickening of the gastric antrum as well as the adjacent duodenum, which is likely reactive to the gallbladder pathology. 3. Circumferential wall thickening of the distal esophagus. An underlying lesion could be considered and direct visualization could help further evaluate. Sigmoid diverticulosis without evidence of acute diverticulitis. 4. No intra-abdominal free air or free fluid. No significant lymphadenopathy. Fleischner guidelines were followed.
[2021-12-23 20:51] VITALS: BP 137/70; PULSE 70; RESP 14; TEMP 36.6; O2SAT 96; BMI 31.0
[2021-12-23 22:08] LABS: Basophils Absolute Auto 0.1 X10*3/uL (0.0-0.2); Basophils Percent Auto 0.2 % (0-2); Eosinophils Percent Auto 0.1 % (0-4); Hematocrit 38.3 % (42.0-52.0); Hemoglobin 12.8 g/dl (14.0-18.0); Imm Gran Abs Auto 0.18 X10*3/uL (0.00-0.03); Imm Gran Pct Auto 0.7 % (0.0-0.4); Lymphocytes Absolute Auto 1.2 X10*3/uL (1.2-4.9); Lymphocytes Percent Auto 4.6 % (20-40); MANUAL DIFF FLAG SCAN; Mean Corpuscular HGB Conc 33.4 g/dl (31.0-36.0); Mean Corpuscular Hemoglobin 30.1 pg (27.0-33.0); Mean Corpuscular Volume 90.1 fL (80.0-98.0); Monocytes Absolute Auto 1.7 X10*3/uL (0.1-1.2); Monocytes Percent Auto 6.9 % (2-11); Neutrophils Absolute Auto 22.1 x10*3/uL (2.0-8.3); Neutrophils Percent Auto 87.5 % (45-73); Platelet Count 442 X10*3/uL (160-400); Red Blood Count 4.25 X10*6/uL (4.60-5.80); Red Cell Distribution Width 13.7 % (11.0-16.0); SCAN SMEAR FLAG 1; White Blood Count 25.2 X10*3/uL (4.8-10.8)
[2021-12-23 22:15] LABS: INTERNATIONAL NORM RATIO 1.5 (0.9-1.1); Prothrombin Time 16.8 SEC (9.9-13.0)
--- NOTE | 2021-12-23 22:16 | ED.NAVMDI ---
HPI - Nausea/Vomiting/Diarrhea General Chief complaint: Nausea/Vomiting/Diarrhea Stated complaint: vomiting Time Seen by Provider: 12/23/21 21:46 History of Present Illness HPI Narrative: Patient is a 66-year-old male with a history of atrial fibrillation history hypertension history of coronary artery disease status post bypass. Currently on Eliquis. Presents today with having generalized malaise nausea vomiting diarrhea this been ongoing for about a week. Getting worse today patient claims symptoms got especially worse at approximately 16:00. He feels like he is skipping beats. Having epigastric pain. Feels diaphoretic. Diarrhea is mostly brown in color vomitings mostly food. There was no blood in the stool. Patient denies any loss of consciousness. Presents to the ED for further evaluation. Immunized for COVID. Related Data Home Medications Medication Instructions Recorded Confirmed apixaban 5 mg tablet (Eliquis) 1 tab PO BID 12/19/20 12/24/21 aspirin 81 mg tablet,delayed 1 tab PO DAILY 12/19/20 12/24/21 release atorvastatin 80 mg tablet 1 tab PO BEDTIME 12/19/20 12/24/21 carvedilol 12.5 mg tablet 1 tab PO BID 12/19/20 12/24/21 lisinopril 10 mg tablet 1 tab PO DAILY 12/19/20 12/24/21 Allergies Allergy/AdvReac Type Severity Reaction Status Date / Time No Known Allergies Allergy Verified 12/19/20 13:30 [No Known Allergies*] Review of Systems Review of Systems: Positive epigastric pain positive generalized malaise. Positive nausea vomiting. Positive abdominal pain. Positive diarrhea. Yes all other systems are reviewed and are negative PMFSH Past Medical History Attestation statement: The following information was validated with the patient. Medical History Atrial fibrillation CAD (coronary artery disease) Gout Myocardial infarct On anticoagulant therapy Retinal tear of right eye Surgical History History of surgery on right wrist History of tonsillectomy History of vitrectomy Hx of cataract extraction Hx of coronary artery bypass graft Hx of left inguinal hernia repair Hx of repair of left rotator cuff Hx of repair of right rotator cuff [place] teeth extracted Social History Social History Are you a primary housekeeper caregiver to a significant other at home: No Do you presently have visiting nurse or other home services: No Alcohol intake: current Alcohol intake frequency: 0-2 drinks per day Second Hand Smoke Exposure: No Advance Directives: No Advance Directives Information Provided: No Physical Exam Vital Signs: Vital Signs: Last Vital Signs Temp 97.9 F 12/23/21 20:51 Pulse 112 H 12/23/21 22:33 Resp 16 12/23/21 22:33 BP 115/56 L 12/23/21 22:33 Pulse Ox 97 12/23/21 22:33 BMI result Body Mass Index 31.0 Appearance: Alert. Oriented X3. No acute distress. Eyes: Pupils equal, round and reactive to light. ENT: Pharynx normal. Neck: Normal inspection. Neck supple. No lymph nodes noted. No crepitus CVS: Irregularly irregular. Pulses normal. Normal S1 and S2 Respiratory: No respiratory distress. Breath sounds normal. No Wheezing. No rales Abdomen: Soft and nontender. No rigidity. No distention. good BS x4 Skin: Skin warm and dry. Normal skin color. Normal skin turgor. Extremities: No lower extremity edema. Neurovascular intact to all extremities. No Lacerations. No Rash Neuro: Oriented X 3. No motor deficit. No sensory deficit. Moving all extermities. No slurred speech MDM - Nausea/Vomiting/Diarrhea MDM Narrative Medical decision making narrative: Patient in rapid atrial fibrillation heart rate was 140 initially on EKG. Given IV fluid as patient grossly appear dehydrated. Given Zofran for nausea. LFTs appears to have an obstructive picture. Has an elevated white count of 25. CT scan of the abdomen consistent with having acute cholecystitis. Cultures were ordered at 12:05 am. We suspect infection, likely cholecystitis. Heart rate however is most likely secondary to atrial fibrillation. Cultures were obtained. Patient in atrial fibrillation which is what is causing patient's elevated heart rate. Patient does not appear to be septic. Three doses metoprolol 5 mg was given. Heart rate is down to 110-130. Case discussed with surgery. Wanted patient to be admitted to the medical service as patient cannot be operated on acutely because of his Eliquis. Case discussed with the hospitalist team for admission. After 3 doses of Lopressor patient converted into a sinus pattern heart rate was 90 HI QRS QT within normal limits there is nonspecific ST segment elevation which is old in the anteriorly noted. Patient is in stable condition awaiting admission at point Medical Records Attestation: I reviewed the patient's medical records. Lab Data Attestation: I reviewed the patient's lab results. Result diagrams: 12/23/21 22:00 12/23/21 22:00 Labs: Lab Results 12/23/21 12/23/21 12/23/21 Range/Units 21:59 22:00 22:00 WBC 25.2 H (4.8-10.8) X10*3/uL RBC 4.25 L (4.60-5.80) X10*6/uL Hgb 12.8 L (14.0-18.0) g/dl Hct 38.3 L (42.0-52.0) % MCV 90.1 (80.0-98.0) fL MCH 30.1 (27.0-33.0) pg MCHC 33.4 (31.0-36.0) g/dl RDW 13.7 (11.0-16.0) % Plt Count 442 H D (160-400) X10*3/uL MPV 9.0 L (9.4-12.4) fL Immature Gran % (Auto) 0.7 H (0.0-0.4) % Neut % (Auto) 87.5 H (45-73) % Lymph % (Auto) 4.6 L (20-40) % [place] % (Auto) 6.9 (2-11) % Eos % (Auto) 0.1 (0-4) % Baso % (Auto) 0.2 (0-2) % Lymph # (Auto) 1.2 (1.2-4.9) X10*3/uL [place] # (Auto) 1.7 H (0.1-1.2) X10*3/uL Eos # (Auto) 0.0 (0.0-0.4) X10*3/uL Baso # (Auto) 0.1 (0.0-0.2) X10*3/uL Abs Immat Gran (auto) 0.18 H (0.00-0.03) X10*3/uL Absolute Neuts (auto) 22.1 H (2.0-8.3) x10*3/uL Absolute Nucleated RBC 0.000 (0.0-0.012) X10*3/uL Nucleated RBC % (auto) 0.0 (0.0-0.2) /100WBC Smear Tech's Comments VERIFIED PT (9.9-13.0) SEC INR (0.9-1.1) Sodium 138 (135-145) mmol/L Potassium 5.0 (3.3-5.1) mmol/L Chloride 103 (96-108) mmol/L Carbon Dioxide 22 (22-29) mmol/L Anion Gap 18 (12-20) BUN 19 H (9-16) mg/dL Creatinine 1.24 (0.5-1.4) mg/dL Estim Creat Clear Calc 66.7 Estimated GFR 58 Random Glucose 135 H (60-115) mg/dL Lactic Acid (0.5-2.0) mmol/L Calcium 9.1 (8.4-10.2) mg/dL Total Bilirubin 1.4 H (0.0-1.0) mg/dL AST 113 H (5-37) U/L ALT 105 H (0-40) U/L Alkaline Phosphatase 265 H D (39-117) U/L Troponin I High Sens 6.0 (<3.5-35.0) ng/L Total Protein 6.8 (6.5-8.0) g/dL Albumin 3.5 (3.5-5.0) g/dL Lipase 41 (8-78) U/L Influenza Type A (PCR) (Negative) Influenza Type B (PCR) (Negative) RSV RNA Qual (PCR) (Negative) SARS-CoV-2 RNA (RT-PCR) (Negative) 12/23/21 12/23/21 12/24/21 Range/Units 22:02 22:39 00:32 WBC (4.8-10.8) X10*3/uL RBC (4.60-5.80) X10*6/uL Hgb (14.0-18.0) g/dl Hct (42.0-52.0) % MCV (80.0-98.0) fL MCH (27.0-33.0) pg MCHC (31.0-36.0) g/dl RDW (11.0-16.0) % Plt Count (160-400) X10*3/uL MPV (9.4-12.4) fL Immature Gran % (Auto) (0.0-0.4) % Neut % (Auto) (45-73) % Lymph % (Auto) (20-40) % [place] % (Auto) (2-11) % Eos % (Auto) (0-4) % Baso % (Auto) (0-2) % Lymph # (Auto) (1.2-4.9) X10*3/uL [place] # (Auto) (0.1-1.2) X10*3/uL Eos # (Auto) (0.0-0.4) X10*3/uL Baso # (Auto) (0.0-0.2) X10*3/uL Abs Immat Gran (auto) (0.00-0.03) X10*3/uL Absolute Neuts (auto) (2.0-8.3) x10*3/uL Absolute Nucleated RBC (0.0-0.012) X10*3/uL Nucleated RBC % (auto) (0.0-0.2) /100WBC Smear Tech's Comments PT 16.8 H (9.9-13.0) SEC INR 1.5 H (0.9-1.1) Sodium (135-145) mmol/L Potassium (3.3-5.1) mmol/L Chloride (96-108) mmol/L Carbon Dioxide (22-29) mmol/L Anion Gap (12-20) BUN (9-16) mg/dL Creatinine (0.5-1.4) mg/dL Estim Creat Clear Calc Estimated GFR Random Glucose (60-115) mg/dL Lactic Acid 1.1 (0.5-2.0) mmol/L Calcium (8.4-10.2) mg/dL Total Bilirubin (0.0-1.0) mg/dL AST (5-37) U/L ALT (0-40) U/L Alkaline Phosphatase (39-117) U/L Troponin I High Sens (<3.5-35.0) ng/L Total Protein (6.5-8.0) g/dL Albumin (3.5-5.0) g/dL Lipase (8-78) U/L Influenza Type A (PCR) NEGATIVE (Negative) Influenza Type B (PCR) NEGATIVE (Negative) RSV RNA Qual (PCR) NEGATIVE (Negative) SARS-CoV-2 RNA (RT-PCR) NEGATIVE (Negative) Discharge Plan Discharge Clinical Impression: Cholecystitis Patient Disposition: Admitted As Inpatient
[2021-12-23] MEDS: 0.9 % Sodium Chloride 1,000 ML 999 ML IV (22:22)
[2021-12-23 22:24] VITALS: BP 124/57
[2021-12-23] MEDS: ondansetron HCL 4 MG/2 ML VIAL IVPUSH (22:24)
[2021-12-23] MEDS: Metoprolol Tartrate 5 MG/5 ML VIAL IVPUSH ×2 (22:24→23:52)
[2021-12-23 22:30] LABS: Alanine Aminotransferase 105 U/L (0-40); Albumin Level 3.5 g/dL (3.5-5.0); Alkaline Phosphatase 265 U/L (39-117); Anion Gap 18 (12-20); Aspartate Amino Transferase 113 U/L (5-37); Bilirubin Total 1.4 mg/dL (0.0-1.0); Blood Urea Nitrogen 19 mg/dL (9-16); Calcium 9.1 mg/dL (8.4-10.2); Carbon Dioxide 22 mmol/L (22-29); Chloride 103 mmol/L (96-108); Creatinine Clr Calc Pharmacy 66.7; Estimated Glomerular Filt Rate 58; Glucose Random 135 mg/dL (60-115); Lipase 41 U/L (8-78); SLIDE REVIEW VERIFIED; Sodium 138 mmol/L (135-145); Total Protein 6.8 g/dL (6.5-8.0)
[2021-12-23 22:33] VITALS: BP 115/56; PULSE 112; RESP 16; O2SAT 97
[2021-12-23] MEDS: iohexoL 350 MG/ML 100 ML INFUS..BTL IV (23:04)
[2021-12-23 23:21] LABS: Influenza A PCR NEGATIVE (Negative); Influenza B PCR NEGATIVE (Negative); Resp Syncy Virus RNA Qual PCR NEGATIVE (Negative); SARS COV2 PCR INHOUSE NEGATIVE (Negative)
[2021-12-24] VITALS (8 sets, daily range): BP systolic 106–139; BP diastolic 50–68; PULSE 67–85; RESP 12–16; TEMP 36.8–37.1; O2SAT 95–98; BMI 32.5
--- NOTE | 2021-12-24 | ECG_ITS ---
Test Reason : sinus Blood Pressure : / mmHG Vent. Rate : 093 BPM Atrial Rate : 093 BPM P-R Int : 154 ms QRS Dur : 084 ms QT Int : 348 ms P-R-T Axes : 048 056 024 degrees QTc Int : 432 ms Normal sinus rhythm Septal infarct (cited on or before 22-JUN-2020) Abnormal ECG When compared with ECG of 23-DEC-2021 21:35, Sinus rhythm has replaced Atrial fibrillation Vent. rate has decreased BY 55 BPM Referred By: Nadege Borges Electronically Signed By:HELIO SERNA
[2021-12-24] MEDS: Metoprolol Tartrate 5 MG/5 ML VIAL IVPUSH (00:42)
[2021-12-24] MEDS: cefTRIAXone sodium 2 GM in 0.9 % Sodium Chloride 50 ML IV ×2 (00:42→22:07)
[2021-12-24 00:49] LABS: Lactic Acid 1.1 mmol/L (0.5-2.0)
--- NOTE | 2021-12-24 01:24 | P.HPHOSP_ITS ---
History of Present Illness Date of Service: 12/24/21 Chief Complaint: Abd pain 66-year-old male with a past medical history of hypertension, hyperlipidemia, CAD, paroxysmal AFib on Eliquis presented to the hospital with a chief complaint of nausea/ vomiting /diarrhea /abdominal pain. Patient reported that on Saturday he had branch outside said that he has been having episodes of nausea vomiting and diarrhea; initially thought it is possibly viral gastroenteritis; slightly improved in the symptoms but continued to have nausea vomiting and diarrhea; had multiple episodes each day; Also had intermittent abdominal pain, body aches, chills at home. Today he had brought in the morning followed by the head severe abdominal pain located on the right upper quadrant; subsequently presented to the ER for further evaluation. Denies any blood in the vomitus or the stool. Denies any chest pain or palpitations. Mentions that he has been complaint with his home medications; has been taking his Eliquis- last dose was prior to coming to the hospital. Review of all other systems is negative except mentioned above ER course: Per ER team patient noted a right upper quadrant tenderness; also on the tele noted to be in AFib with rapid ventricular response; given metoprolol IV x3; on labs noted to elevated liver enzymes; CT abdomen consistent with possible acute cholecystitis. Spoke to General surgery- recommended admission to the medicine service [facility] Medical History Atrial fibrillation CAD (coronary artery disease) Gout Myocardial infarct On anticoagulant therapy Retinal tear of right eye Pertinent family history: father has COPD Mother has heart disease Surgical History History of surgery on right wrist History of tonsillectomy History of vitrectomy Hx of cataract extraction Hx of coronary artery bypass graft Hx of left inguinal hernia repair Hx of repair of left rotator cuff Hx of repair of right rotator cuff [place] teeth extracted Social History Are you a primary rehab care assistant to a significant other at home: No Do you presently have visiting nurse or other home services: No Alcohol intake: current Alcohol intake frequency: 0-2 drinks per day Second Hand Smoke Exposure: No Advance Directives: No Advance Directives Information Provided: No Meds Allergies Allergy/AdvReac Type Severity Reaction Status Date / Time No Known Allergies Allergy Verified 12/19/20 13:30 [No Known Allergies*] Active Medications: Current Medications Atorvastatin Calcium (Atorvastatin Calcium 80 Mg Tablet) 80 mg PO BEDTIME ANGELES Carvedilol (Carvedilol 3.125 Mg Tablet) 6.25 mg PO BID ANGELES; Protocol Hydromorphone HCl (Hydromorphone Hcl 1 Mg/Ml Syringe) 0.5 mg IVPUSH Q4H PRN; Protocol PRN Reason: Pain, Severe (Pain Scale 7-10) Dextrose/Sodium Chloride (D51/2ns) 1,000 mls @ 50 mls/hr IVCONT .Q20H ANGELES Ceftriaxone Sodium 2 gm/ (Sodium Chloride) 50 mls @ 100 mls/hr IV Q24H ANGELES Metronidazole (Flagyl) 500 mg in 100 mls @ 100 mls/hr IV Q8H [facility] Melatonin (Melatonin 3 Mg Tablet) 6 mg PO BEDTIME PRN PRN Reason: Insomnia Metoprolol Tartrate (Metoprolol Tartrate 5 Mg/5 Ml Vial) 5 mg IVPUSH Q4H PRN PRN Reason: HR>125 Sodium Chloride (0.9 % Sodium Chloride Flush 3 Ml Syringe) 3 ml IVFLUSH QSHIFT [facility] Home Medications Medication Instructions Recorded Confirmed Last Taken Type apixaban 5 mg tablet (Eliquis) 1 tab PO BID 12/19/20 12/24/21 01/08/21 19:00 History aspirin 81 mg tablet,delayed 1 tab PO DAILY 12/19/20 12/24/21 01/08/21 06:45 History release atorvastatin 80 mg tablet 1 tab PO BEDTIME 12/19/20 12/24/21 Unknown History carvedilol 12.5 mg tablet 1 tab PO BID 12/19/20 12/24/21 01/09/21 History lisinopril 10 mg tablet 1 tab PO DAILY 12/19/20 12/24/21 Unknown History Physical Exam Vital Signs and Narrative: Vital Signs: Last Vital Signs Temp 97.9 F 12/23/21 20:51 Pulse 112 H 12/23/21 22:33 Resp 16 12/23/21 22:33 BP 115/56 L 12/23/21 22:33 Pulse Ox 97 12/23/21 22:33 BMI result Body Mass Index 31.0 Gen: Appears be in no acute distress HEENT: NCAT, Moist mucosa. Pulmonary: Vesicular breath sounds, fair air entry CVS: Normal S1-S2 Abdomen: BS+, Soft, Tender in the right upper quadrant. No guarding or rigidity. Valdes sign positive. Extremities: Warm well perfused Neuro: Alert and awake. Grossly nonfocal Results Labs CBC and Chem 7: 12/23/21 22:00 12/23/21 22:00 Labs: Laboratory Results - last 24 hr 12/23/21 12/23/21 12/23/21 21:59 22:00 22:00 MCV 90.1 MCH 30.1 MCHC 33.4 RDW 13.7 Plt Count 442 H D MPV 9.0 L Immature Gran % (Auto) 0.7 H Neut % (Auto) 87.5 H Lymph % (Auto) 4.6 L Garland % (Auto) 6.9 Eos % (Auto) 0.1 Baso % (Auto) 0.2 Lymph # (Auto) 1.2 Garland # (Auto) 1.7 H Eos # (Auto) 0.0 Baso # (Auto) 0.1 Abs Immat Gran (auto) 0.18 H Absolute Neuts (auto) 22.1 H Absolute Nucleated RBC 0.000 Nucleated RBC % (auto) 0.0 Smear Tech's Comments VERIFIED PT INR Anion Gap 18 Estim Creat Clear Calc 66.7 Estimated GFR 58 Random Glucose 135 H Lactic Acid Calcium 9.1 Total Bilirubin 1.4 H AST 113 H ALT 105 H Alkaline Phosphatase 265 H D Troponin I High Sens 6.0 Total Protein 6.8 Albumin 3.5 Lipase 41 Influenza Type A (PCR) Influenza Type B (PCR) RSV RNA Qual (PCR) SARS-CoV-2 RNA (RT-PCR) 12/23/21 12/23/21 12/24/21 22:02 22:39 00:32 MCV MCH MCHC RDW Plt Count MPV Immature Gran % (Auto) Neut % (Auto) Lymph % (Auto) Garland % (Auto) Eos % (Auto) Baso % (Auto) Lymph # (Auto) Garland # (Auto) Eos # (Auto) Baso # (Auto) Abs Immat Gran (auto) Absolute Neuts (auto) Absolute Nucleated RBC Nucleated RBC % (auto) Smear Tech's Comments PT 16.8 H INR 1.5 H Anion Gap Estim Creat Clear Calc Estimated GFR Random Glucose Lactic Acid 1.1 Calcium Total Bilirubin AST ALT Alkaline Phosphatase Troponin I High Sens Total Protein Albumin Lipase Influenza Type A (PCR) NEGATIVE Influenza Type B (PCR) NEGATIVE RSV RNA Qual (PCR) NEGATIVE SARS-CoV-2 RNA (RT-PCR) NEGATIVE Imaging Radiologist's Impressions: Impressions Chest X-Ray 12/23/21 22:22 IMPRESSION: Hypoexpanded with linear basilar markings more likely due to atelectasis Abdomen/Pelvis CT 12/23/21 23:00 IMPRESSION: 1. Distention of the central bile ducts and gallbladder with circumferential wall thickening and adjacent inflammatory change consistent with acute cholecystitis. There is loculated fluid extending anterior to the gallbladder which could indicate a contained perforation. Mild dilatation of the common bile duct. A distal duct obstruction/ampullary lesion could be considered. 2. Circumferential wall thickening of the gastric antrum as well as the adjacent duodenum, which is likely reactive to the gallbladder pathology. 3. Circumferential wall thickening of the distal esophagus. An underlying lesion could be considered and direct visualization could help further evaluate. Sigmoid diverticulosis without evidence of acute diverticulitis. 4. No intra-abdominal free air or free fluid. No significant lymphadenopathy. Fleischner guidelines were followed. Assessment and Plan (1) Cholecystitis: Status: Acute (2) Atrial fibrillation with RVR: Status: Acute Plan 66-year-old male with a past medical history of hypertension, hyperlipidemia, paroxysmal AFib presented to the hospital with a chief complaint of nausea /vomiting / diarrhea/right upper quadrant abdominal pain. Noted to be in AFib with RVR/acute cholecystitis. Admitted for further management. Acute cholecystitis: CT scan showed ?Distention of the central bile ducts and gallbladder with circumferential wall thickening and adjacent inflammatory change consistent with acute cholecystitis. There is loculated fluid extending anterior to the gallbladder which could indicate a contained perforation. Mild dilatation of the common bile duct. A distal duct o bstruction/ampullary lesion could be considered. Dr. Bowman general surgery was notified -mentioned doesnot appear to be p erforation. No acute intervention for tonight. Pt has no peritoneal signs currently. Pain control NPO IV fluids Will obtain stool studies if any further episodes of diarrhea. Transaminitis: Trend liver enzymes. Will obtain acute hepatitis panel. Hold home statin for now. Distal esophageal wall thickening: pt denies any dysphagia. GI consult for possible EGD. Gall bladder wall tumor/Ampullary lesion: GI consult; Surgery consult for possible CCY AFib with RVR: patient heart rate went up as high as 150s. Received metoprolol IV x3; converted to sinus. with heart rate improved to 90s. But patient is in and out of AFib. Denies any palpitations or chest pain. Continue metoprolol IV p.r.n. continue home carvedilol - dose reduced to 6.25 mg BID with holding parameters given normal blood pressure and concerns for sepsis. home Eliquis on hold in anticipation for procedure ( large dose of Eliquis was on PM but pt reports that he probably vomited it.) cardiology consult preop evaluation: Patient is moderate to high risk for high risk surgery. Continue home beta-jade see the perioperative period. Cardiology consulted history of hypertension: Hold home lisinopril. Reduced dose of carvedilol given blood pressure of the soft side. History of CAD: Aspirin on hold in anticipation for procedure. DVT prophylaxis: SCD boots Code status: Full code plan of care discussed with the patient and patient's family at bedside, expressed agreement to the above plan Quality Stroke Does the patient have a stroke diagnosis?: No VTE Prior VTE?: No VTE Risk Level:: Medical - moderate - high VTE Device Contraindication: N/A - Device Ordered VTE Drug Contraindication: Treatment Not Indicated
[2021-12-24] MEDS: HYDROmorphone HCl 1 MG/ML SYRINGE 0.5 MG IVPUSH ×2 (01:39→05:28)
[2021-12-24] MEDS: 0.9 % Sodium Chloride 1,000 ML 999 ML IV (01:41)
[2021-12-24] MEDS: metroNIDAZOLE/NS 500 MG/100 ML PIGGYBACK 100 MG IV ×3 (01:53→18:45)
[2021-12-24] MEDS: Dextrose 5 % and 0.45 % NaCl 1,000 ML 50 ML IVCONT (01:53)
--- NOTE | 2021-12-24 03:21 | PC.NURSE ---
I assumed care of Rashaad at 2300. At that time he was sitting upright in bed, alert and oriented x 3, admittedly grumpy due to feeling unwell. He appeared pale, clammy and was having occcasional dry heaving and diffuse abdominal pain. At that time his was at the bedside with him and he was fully monitored. Bedside monitor revealed Afib with a rate mostly in the 130's and 140's. Due to this RVR three doses of Metoprolol 5mg IVP were requested by Dr Borges and they were all given (see Emar for times of administration.) His HR did not respond well until approximately ten minutes after the third dose at which time he converted from Afib/Aflutter in the 140's to a SR in the 80's and 90's. Repeat EKG was performed and MD Borges and hospitalist aware. Rashaad is now sleeping, wakes to verbal stimuli at which time he is oriented x 3. There is no chest pain. Skin remains pale and intermittently clammy. Dry heaving has subsided. IVF's are infusing. Rashaad is aware that he has been admitted to the hospital and verbalizes an understanding of this. He has been to ultrasound and has returned without incident, continues to await a bed assignment.
[2021-12-24] MEDS: ondansetron HCL 4 MG/2 ML VIAL IVPUSH ×2 (04:53→10:21)
[2021-12-24 06:50] LABS: Basophils Percent Auto 0.1 % (0-2); Hematocrit 36.6 % (42.0-52.0); Hemoglobin 12.1 g/dl (14.0-18.0); Imm Gran Abs Auto 0.32 X10*3/uL (0.00-0.03); Imm Gran Pct Auto 1.1 % (0.0-0.4); Lymphocytes Absolute Auto 0.9 X10*3/uL (1.2-4.9); Lymphocytes Percent Auto 2.9 % (20-40); MANUAL DIFF FLAG SCAN; Mean Corpuscular HGB Conc 33.1 g/dl (31.0-36.0); Mean Corpuscular Hemoglobin 30.1 pg (27.0-33.0); Mean Platelet Volume 9.3 fL (9.4-12.4); Monocytes Absolute Auto 1.8 X10*3/uL (0.1-1.2); Neutrophils Absolute Auto 26.5 x10*3/uL (2.0-8.3); Neutrophils Percent Auto 89.9 % (45-73); Platelet Count 447 X10*3/uL (160-400); Red Blood Count 4.02 X10*6/uL (4.60-5.80); Red Cell Distribution Width 13.9 % (11.0-16.0); SCAN SMEAR FLAG 1; White Blood Count 29.5 X10*3/uL (4.8-10.8)
[2021-12-24 07:17] LABS: Anion Gap 15 (12-20); Blood Urea Nitrogen 18 mg/dL (9-16); Calcium 8.4 mg/dL (8.4-10.2); Carbon Dioxide 21 mmol/L (22-29); Chloride 106 mmol/L (96-108); Creatinine Clr Calc Pharmacy 75.2; Estimated Glomerular Filt Rate > 60; Glucose Random 148 mg/dL (60-115); Potassium 4.8 mmol/L (3.3-5.1); Sodium 137 mmol/L (135-145)
[2021-12-24 07:23] LABS: SLIDE REVIEW VERIFIED
[2021-12-24] MEDS: carvediloL 3.125 MG TABLET 6.25 MG PO (09:02)
--- NOTE | 2021-12-24 10:05 | P.CONGS_ITS ---
History of Present Illness Consult details Consult date: 12/24/21 Narrative: 66M admitted early this morning for vomitting and abdominal pain. He says he has had vague abdominal pain on the upper abdomen for a week now. He says he has had periodic vomitting with this along with diarrhea. He had thought that he had some food poisoning or a stomach bug so he had been hoping this would resolve. This had persisted throughout the week and seemed to improve markedly last Saturday. However, yesterday, he says this seemed to worsen again, with pain on the upper abdomen and multiple episodes of vomitting, so he decided to come to the ED. He denies any fever but says he did have some chills about 6 days ago. He has a hx of an CT in the past. He has atrial fibrillation and is on Eliquis. He says he took Eliquis last night. 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 He says he feels much better this morning. He says his pain is down to minimal and that he has no nausea or vomitting currently. Review of Systems Constitutional: Constitutional: Reports chills and Denies fever(s) Cardiovascular: Cardiovascular: Denies chest pain, Denies dyspnea and Denies dyspnea on exertion Respiratory: Respiratory: Denies cough, Denies dyspnea and Denies dyspnea on exertion Gastrointestinal: Gastrointestinal: Denies hematochezia, Denies change in bowel habits and Reports diarrhea Genitourinary: Genitourinary: Denies hematuria and Denies difficulty urinating Musculoskeletal: Musculoskeletal: Denies back pain and Denies limited range of motion Neurologic: Denies focal weakness and Denies convulsions Psychiatric: Psychiatric: Denies depression and Denies mood swings [facility] Past Medical History Medical History (Updated 12/26/21 @ 12:37 by Avril Rivas RN) Atrial fibrillation CAD (coronary artery disease) Gout Hypercholesteremia Myocardial infarct On anticoagulant therapy Retinal tear of right eye Family History Family History (Updated 12/24/21 @ 12:10 by Xiang Fang MD) Mother CAD (coronary artery disease) Surgical History Surgical History (Updated 12/24/21 @ 12:12 by Xiang Fang MD) History of surgery on right wrist History of tonsillectomy History of vitrectomy Hx of cataract extraction Hx of coronary artery bypass graft Hx of left inguinal hernia repair Hx of repair of left rotator cuff Hx of repair of right rotator cuff [place] teeth extracted Social History Social History Household Members: Spouse Housing: House Are you a primary child care supervisor to a significant other at home: No Do you presently have visiting nurse or other home services: No Alcohol intake: current Alcohol intake frequency: 0-2 drinks per day Patient Tobacco Use Status: Never used Tobacco Second Hand Smoke Exposure: No service: No Current occupational status: retired [employer] Allergies Allergy/AdvReac Type Severity Reaction Status Date / Time No Known Allergies Allergy Verified 12/19/20 13:30 [No Known Allergies*] Active Medications: Current Medications Carvedilol (Carvedilol 3.125 Mg Tablet) 6.25 mg PO BID [facility]; Protocol Last Admin: 12/24/21 09:02 Dose: 6.25 mg Documented by: Hydromorphone HCl (Hydromorphone Hcl 1 Mg/Ml Syringe) 0.5 mg IVPUSH Q4H PRN; Protocol PRN Reason: Pain, Severe (Pain Scale 7-10) Last Admin: 12/24/21 05:28 Dose: 0.5 mg Documented by: Dextrose/Sodium Chloride (D51/2ns) 1,000 mls @ 50 mls/hr IVCONT .Q20H [facility] Last Admin: 12/24/21 01:53 Dose: 50 mls/hr Documented by: Ceftriaxone Sodium 2 gm/ (Sodium Chloride) 50 mls @ 100 mls/hr IV Q24H [place] Metronidazole (Flagyl) 500 mg in 100 mls @ 100 mls/hr IV Q8H [facility] Last Admin: 12/24/21 09:03 Dose: 100 mls/hr Documented by: Melatonin (Melatonin 3 Mg Tablet) 6 mg PO BEDTIME PRN PRN Reason: Insomnia Metoprolol Tartrate (Metoprolol Tartrate 5 Mg/5 Ml Vial) 5 mg IVPUSH Q4H PRN PRN Reason: HR>125 Ondansetron HCl (Ondansetron Hcl 4 Mg/2 Ml Vial) 4 mg IVPUSH Q8H PRN PRN Reason: Nausea and Vomiting Last Admin: 12/24/21 04:53 Dose: 4 mg Documented by: Sodium Chloride (0.9 % Sodium Chloride Flush 3 Ml Syringe) 3 ml IVFLUSH QSHIFT [facility] Last Admin: 12/24/21 06:56 Dose: Not Given Documented by: Home Medications Medication Instructions Recorded Confirmed Last Taken Type apixaban 5 mg tablet (Eliquis) 1 tab PO BID 12/19/20 12/24/21 01/08/21 19:00 History aspirin 81 mg tablet,delayed 1 tab PO DAILY 12/19/20 12/24/21 01/08/21 06:45 History release atorvastatin 80 mg tablet 1 tab PO BEDTIME 12/19/20 12/24/21 Unknown History carvedilol 12.5 mg tablet 1 tab PO BID 12/19/20 12/24/21 01/09/21 History lisinopril 10 mg tablet 1 tab PO DAILY 12/19/20 12/24/21 Unknown History Physical Exam Vital Signs: Vital Signs: Last Vital Signs Temp 97.9 F 12/23/21 20:51 Pulse 85 12/24/21 06:09 Resp 12 12/24/21 06:09 BP 111/55 L 12/24/21 06:09 Pulse Ox 95 12/24/21 06:09 BMI result Body Mass Index 31.0 Const: General: comfortable and no acute distress Orienta tion/consciousness: patient oriented x3 Neck: Neck: Yes no lymphadenopathy Resp: Auscultation: clear to auscultation bilaterally Cardio: Rate: regular rate Rhythm: abnormal rhythm GI: Other: minimal tenderness to deep palpation, RUQ, no Valdes's sign Palpation (GI): Soft to palpation, nontender and no guarding Neuro: General: patient oriented x3 Results Labs Result diagrams: 12/27/21 06:56 12/25/21 06:24 Labs: Abnormal lab results 12/23/21 12/23/21 12/23/21 Range/Units 22:00 22:00 22:02 WBC 25.2 H (4.8-10.8) X10*3/uL RBC 4.25 L (4.60-5.80) X10*6/uL Hgb 12.8 L (14.0-18.0) g/dl Hct 38.3 L (42.0-52.0) % Plt Count 442 H D (160-400) X10*3/uL MPV 9.0 L (9.4-12.4) fL Immature Gran % (Auto) 0.7 H (0.0-0.4) % Neut % (Auto) 87.5 H (45-73) % Lymph % (Auto) 4.6 L (20-40) % Lymph # (Auto) (1.2-4.9) X10*3/uL [place] # (Auto) 1.7 H (0.1-1.2) X10*3/uL Abs Immat Gran (auto) 0.18 H (0.00-0.03) X10*3/uL Absolute Neuts (auto) 22.1 H (2.0-8.3) x10*3/uL PT 16.8 H (9.9-13.0) SEC INR 1.5 H (0.9-1.1) Carbon Dioxide (22-29) mmol/L BUN 19 H (9-16) mg/dL Random Glucose 135 H (60-115) mg/dL Total Bilirubin 1.4 H (0.0-1.0) mg/dL AST 113 H (5-37) U/L ALT 105 H (0-40) U/L Alkaline Phosphatase 265 H D (39-117) U/L 12/24/21 12/24/21 Range/Units 06:16 06:16 WBC 29.5 H (4.8-10.8) X10*3/uL RBC 4.02 L (4.60-5.80) X10*6/uL Hgb 12.1 L (14.0-18.0) g/dl Hct 36.6 L (42.0-52.0) % Plt Count 447 H (160-400) X10*3/uL MPV 9.3 L (9.4-12.4) fL Immature Gran % (Auto) 1.1 H (0.0-0.4) % Neut % (Auto) 89.9 H (45-73) % Lymph % (Auto) 2.9 L (20-40) % Lymph # (Auto) 0.9 L (1.2-4.9) X10*3/uL [place] # (Auto) 1.8 H (0.1-1.2) X10*3/uL Abs Immat Gran (auto) 0.32 H (0.00-0.03) X10*3/uL Absolute Neuts (auto) 26.5 H (2.0-8.3) x10*3/uL PT (9.9-13.0) SEC INR (0.9-1.1) Carbon Dioxide 21 L (22-29) mmol/L BUN 18 H (9-16) mg/dL Random Glucose 148 H (60-115) mg/dL Total Bilirubin (0.0-1.0) mg/dL AST (5-37) U/L ALT (0-40) U/L Alkaline Phosphatase (39-117) U/L Short CBC 12/23/21 12/24/21 Range/Units 22:00 06:16 WBC 25.2 H 29.5 H (4.8-10.8) X10*3/uL Hgb 12.8 L 12.1 L (14.0-18.0) g/dl Hct 38.3 L 36.6 L (42.0-52.0) % Plt Count 442 H D 447 H (160-400) X10*3/uL BMP 12/23/21 12/24/21 22:00 06:16 Sodium 138 137 Potassium 5.0 4.8 Chloride 103 106 Carbon Dioxide 22 21 L BUN 19 H 18 H Creatinine 1.24 1.10 Calcium 9.1 8.4 D Liver Function 12/23/21 Range/Units 22:00 Total Bilirubin 1.4 H (0.0-1.0) mg/dL AST 113 H (5-37) U/L ALT 105 H (0-40) U/L Alkaline Phosphatase 265 H D (39-117) U/L Albumin 3.5 (3.5-5.0) g/dL All other labs normal. Imaging Additional studies: Laboratory Results WBC 29.5 X10*3/uL (4.8-10.8) H 12/24/21 06:16 RBC 4.02 X10*6/uL (4.60-5.80) L 12/24/21 06:16 Hgb 12.1 g/dl (14.0-18.0) L 12/24/21 06:16 Hct 36.6 % (42.0-52.0) L 12/24/21 06:16 MCV 91.0 fL (80.0-98.0) 12/24/21 06:16 MCH 30.1 pg (27.0-33.0) 12/24/21 06:16 MCHC 33.1 g/dl (31.0-36.0) 12/24/21 06:16 RDW 13.9 % (11.0-16.0) 12/24/21 06:16 Plt Count 447 X10*3/uL (160-400) H 12/24/21 06:16 MPV 9.3 fL (9.4-12.4) L 12/24/21 06:16 Immature Gran % (Auto) 1.1 % (0.0-0.4) H 12/24/21 06:16 Neut % (Auto) 89.9 % (45-73) H 12/24/21 06:16 Lymph % (Auto) 2.9 % (20-40) L 12/24/21 06:16 [place] % (Auto) 6.0 % (2-11) 12/24/21 06:16 Eos % (Auto) 0.0 % (0-4) 12/24/21 06:16 Baso % (Auto) 0.1 % (0-2) 12/24/21 06:16 Lymph # (Auto) 0.9 X10*3/uL (1.2-4.9) L 12/24/21 06:16 [place] # (Auto) 1.8 X10*3/uL (0.1-1.2) H 12/24/21 06:16 Eos # (Auto) 0.0 X10*3/uL (0.0-0.4) 12/24/21 06:16 Baso # (Auto) 0.0 X10*3/uL (0.0-0.2) 12/24/21 06:16 Abs Immat Gran (auto) 0.32 X10*3/uL (0.00-0.03) H 12/24/21 06:16 Absolute Neuts (auto) 26.5 x10*3/uL (2.0-8.3) H 12/24/21 06:16 Absolute Nucleated RBC 0.000 X10*3/uL (0.0-0.012) 12/24/21 06:16 Nucleated RBC % (auto) 0.0 /100WBC (0.0-0.2) 12/24/21 06:16 Smear Tech's Comments VERIFIED 12/24/21 06:16 PT 16.8 SEC (9.9-13.0) H 12/23/21 22:02 INR 1.5 (0.9-1.1) H 12/23/21 22:02 Sodium 137 mmol/L (135-145) 12/24/21 06:16 Potassium 4.8 mmol/L (3.3-5.1) 12/24/21 06:16 Chloride 106 mmol/L (96-108) 12/24/21 06:16 Carbon Dioxide 21 mmol/L (22-29) L 12/24/21 06:16 Anion Gap 15 (12-20) 12/24/21 06:16 BUN 18 mg/dL (9-16) H 12/24/21 06:16 Creatinine 1.10 mg/dL (0.5-1.4) 12/24/21 06:16 Estim Creat Clear Calc 75.2 12/24/21 06:16 Estimated GFR > 60 12/24/21 06:16 Random Glucose 148 mg/dL (60-115) H 12/24/21 06:16 Lactic Acid 1.1 mmol/L (0.5-2.0) 12/24/21 00:32 Calcium 8.4 mg/dL (8.4-10.2) D 12/24/21 06:16 Total Bilirubin 1.4 mg/dL (0.0-1.0) H 12/23/21 22:00 AST 113 U/L (5-37) H 12/23/21 22:00 ALT 105 U/L (0-40) H 12/23/21 22:00 Alkaline Phosphatase 265 U/L (39-117) H D 12/23/21 22:00 Troponin I High Sens 6.0 ng/L (<3.5-35.0) 12/23/21 21:59 Total Protein 6.8 g/dL (6.5-8.0) 12/23/21 22:00 Albumin 3.5 g/dL (3.5-5.0) 12/23/21 22:00 Lipase 41 U/L (8-78) 12/23/21 22:00 Influenza Type A (PCR) NEGATIVE (Negative) 12/23/21 22:39 Influenza Type B (PCR) NEGATIVE (Negative) 12/23/21 22:39 RSV RNA Qual (PCR) NEGATIVE (Negative) 12/23/21 22:39 SARS-CoV-2 RNA (RT-PCR) NEGATIVE (Negative) 12/23/21 22:39 Impressions Chest X-Ray 12/23/21 22:22 IMPRESSION: Hypoexpanded with linear basilar markings more likely due to atelectasis Abdomen/Pelvis CT 12/23/21 23:00 IMPRESSION: 1. Distention of the central bile ducts and gallbladder with circumferential wall thickening and adjacent inflammatory change consistent with acute cholecystitis. There is loculated fluid extending anterior to the gallbladder which could indicate a contained perforation. Mild dilatation of the common bile duct. A distal duct obstruction/ampullary lesion could be considered. 2. Circumferential wall thickening of the gastric antrum as well as the adjacent duodenum, which is likely reactive to the gallbladder pathology. 3. Circumferential wall thickening of the distal esophagus. An underlying lesion could be considered and direct visualization could help further evaluate. Sigmoid diverticulosis without evidence of acute diverticulitis. 4. No intra-abdominal free air or free fluid. No significant lymphadenopathy. Fleischner guidelines were followed. Abdomen Ultrasound 12/24/21 03:05 IMPRESSION: *Findings suspicious for perforation of the gallbladder. Free fluid is present adjacent to the gallbladder corresponding to findings noted on the comparison CT of 12/23/2021. Sonographic evaluation demonstrates possible communication between the free fluid and the lumen of the gallbladder suspicious for perforation. *Echogenic sludge within the gallbladder lumen. Furthermore, a 2.4 cm echogenic focus contiguous with the nondependent wall of the fundus of the gallbladder is present and may represent adherent sludge. No flow is noted in this region to specifically suggest the presence of a gallbladder wall tumor. This finding is without a definitive correlate on the CT of the abdomen and pelvis from 12/23/2021 based on contemporaneous review of that exam. *No cholelithiasis noted. *Normal common bile duct caliber. Assessment and Plan (1) Cholecystitis: Status: Acute He has had upper abdominal pain and vomitting for [address] shows thickening of the GB wall with distension c/w acute cholecystitis. There is sympathetic inflammatory changes of the adjacent stomach. There is question of a contained perforation, but review of his images to not reveal any free fluid. His current exam is benign. and he feels much more comfortable. he does have markedly elevated WBC but does not have any fever. I would await for about 48 hours after cessation of Eliquis prior to surgical intervention. He should be continued on IV abx. He should be evaluated by the ophthalmic lens inspector as well for possible optimization prior to surgical intervention. I reviewed with him the technqiue of lap cassandra and possible conversion to open. I explained the risks including but not limited to bleeding, infections, injury to bowel,liver and bile duct, as well as the benefits and alternatives. His otherwise looks comfortable now and clinically stable. I have discussed the above with his Mely Love. (2) Atrial fibrillation with RVR: Status: Acute Currently his heart rate is well controlled. He will be seen by the ophthalmic lens inspector. Procedures Date of Service Date of Service: 12/24/21
--- NOTE | 2021-12-24 10:13 | PM.EVENT ---
Event Note Date of Service: 12/24/21 Event Note: 66-year-old male with a past medical history of hypertension, hyperlipidemia, paroxysmal AFib presented to the hospital with a chief complaint of nausea /vomiting / diarrhea/right upper quadrant abdominal pain.? Noted to be in AFib with RVR/acute cholecystitis.? Admitted for further management. Acute cholecystitis General surgery was notified -mentioned does not appear to be perforation that was mentioned on CT. No acute? intervention overnight Pt has no peritoneal signs Pain control NPO changed to clears as procedure will likely be on Saturday after Eliquis held for 48hrs IV fluids Transaminitis Trend liver enzymes.? Will obtain acute hepatitis panel.? Hold home statin for now. AFib with RVR. HR 150's Received metoprolol IV x3; converted to sinus Continue metoprolol? IV p.r.n. continue home carvedilol - dose reduced to 6.25 mg BID with holding parameters given normal blood pressure and concerns for sepsis. home Eliquis on hold in anticipation for procedure (last dose of Eliquis was on? PM cardiology consult Hypertension Hold home lisinopril.? Reduced dose of carvedilol given blood pressure of the soft side. History of CAD Aspirin on hold in anticipation for procedure. DVT prophylaxis: SCD boots Code status:? Full code Attending Dr. Delong
--- NOTE | 2021-12-24 11:11 | PC.NURSE ---
Addendum entered by Maria Ines Truong 12/24/21 11:40: pt is alert and oriented. resting in bed. no signs of acute distress notice. breathing equally unlabored. pt on continous cardiac monitoring Original Note: report received from PARKER Rodriguez.
--- NOTE | 2021-12-24 11:18 | MHC.CM.PN ---
CM met with Patient at bedside and addressed IMM with him, providing him with the original and placing a copy on the chart. 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 Home/no services is the goal for dc and CM has initiated and will follow for dc planning and possible need to adjust the dc plan. Patient has received [employer] CovHydrocapsule vax X4 and his PCP is Dr. Shree Gonzalez.
--- NOTE | 2021-12-24 12:03 | PM.CNCAR ---
History of Present Illness History of Present Illness Date of Service: 12/24/21 Chief complaint: Afib with RVR Narrative: This is a cardiology consultation regarding preoperative risk stratification for gallbladder surgery. He also has a history of paroxysmal atrial fibrillation and had atrial fibrillation rapid rate here-but now back in sinus rhythm. Old records reviewed. He has a history of coronary disease. In 2019, he underwent coronary artery bypass surgery. The follow-up echocardiogram after that had shown significant improvement in LVEF to near normal as described in the office note. He did have anteroseptal/inferior wall motion abnormalities. Otherwise, he also has paroxysmal atrial fibrillation for which she is on anticoagulation with Eliquis. Currently, he is hospitalized mainly for GI discomfort including nausea/vomiting and diarrhea and in that context found to have acute cholecystitis. From the cardiac standpoint, denies any angina or in fact any cardiac symptoms whatsoever. He did have atrial fibrillation episodes since arrival but now back in sinus rhythm. Review of Systems Review of Systems: Yes all other systems are reviewed and are negative Constitutional: Constitutional: Reports as per HPI Eyes: Eyes: Reports as per HPI ENT: Reports as per HPI Cardiovascular: Cardiovascular: Reports as per HPI, Denies acrocyanosis, Denies cool extremities, Denies chest pain, Denies leg edema, Denies lightheadedness, Denies palpitations and Denies dyspnea Respiratory: Respiratory: Reports as per HPI, Reports no additional respiratory complaints and Denies dyspnea Gastrointestinal: Gastrointestinal: Reports as per HPI, Reports no additional gastrointestinal complaints, Reports abdominal pain, Reports GI cramping, Reports nausea and Reports vomiting Genitourinary: Genitourinary: Reports no additional male genitourinary complaints and Reports as per HPI Musculoskeletal: Musculoskeletal: Reports no additional musculoskeletal complaints and Reports as per HPI Integumentary/Breasts: Skin/Breast: Reports system reviewed and no additional complaints, except as docu Neurologic: Reports system reviewed and no additional complaints, except as documented and Reports as per HPI Psychiatric: Psychiatric: Reports no additional psychiatric complaints and Reports as per HPI Endocrine: Endocrine: Reports no additional endocrine complaints, Reports as per HPI and Denies palpitations Hematologic/Lymphatic: Hematologic/Lymphatic: Reports no additional hematologic/lymphatic complaints and Reports as per HPI Allergic/Immunologic: Allergic/Immunologic: Reports no additional allergic/immunologic complaints and Reports as per HPI [facility] Past Medical History Medical History (Updated 12/24/21 @ 12:12 by Xiang Fang MD) Atrial fibrillation CAD (coronary artery disease) Gout Myocardial infarct On anticoagulant therapy Retinal tear of right eye Family History Family History (Updated 12/24/21 @ 12:10 by Xiang Fang MD) Mother CAD (coronary artery disease) Surgical History Surgical History (Updated 12/24/21 @ 12:12 by Xiang Fang MD) History of surgery on right wrist History of tonsillectomy History of vitrectomy Hx of cataract extraction Hx of coronary artery bypass graft Hx of left inguinal hernia repair Hx of repair of left rotator cuff Hx of repair of right rotator cuff [place] teeth extracted Social History Social History Are you a primary animal caretaker supervisor to a significant other at home: No Do you presently have visiting nurse or other home services: No Alcohol intake: current Alcohol intake frequency: 0-2 drinks per day Second Hand Smoke Exposure: No Advance Directives: No Advance Directives Information Provided: No service: No Current occupational status: retired [employer] Allergies Allergy/AdvReac Type Severity Reaction Status Date / Time No Known Allergies Allergy Verified 12/19/20 13:30 [No Known Allergies*] Active Medications: Current Medications Carvedilol (Carvedilol 3.125 Mg Tablet) 6.25 mg PO BID ANGELES; Protocol Last Admin: 12/24/21 09:02 Dose: 6.25 mg Documented by: Hydromorphone HCl (Hydromorphone Hcl 1 Mg/Ml Syringe) 0.5 mg IVPUSH Q4H PRN; Protocol PRN Reason: Pain, Severe (Pain Scale 7-10) Last Admin: 12/24/21 05:28 Dose: 0.5 mg Documented by: Dextrose/Sodium Chloride (D51/2ns) 1,000 mls @ 50 mls/hr IVCONT .Q20H ANGELES Last Admin: 12/24/21 01:53 Dose: 50 mls/hr Documented by: Ceftriaxone Sodium 2 gm/ (Sodium Chloride) 50 mls @ 100 mls/hr IV Q24H ANGELES Metronidazole (Flagyl) 500 mg in 100 mls @ 100 mls/hr IV Q8H ANGELES Last Admin: 12/24/21 09:03 Dose: 100 mls/hr Documented by: Melatonin (Melatonin 3 Mg Tablet) 6 mg PO BEDTIME PRN PRN Reason: Insomnia Metoprolol Tartrate (Metoprolol Tartrate 5 Mg/5 Ml Vial) 5 mg IVPUSH Q4H PRN PRN Reason: HR>125 Ondansetron HCl (Ondansetron Hcl 4 Mg/2 Ml Vial) 4 mg IVPUSH Q4H PRN PRN Reason: Nausea and Vomiting Last Admin: 12/24/21 10:21 Dose: 4 mg Documented by: Sodium Chloride (0.9 % Sodium Chloride Flush 3 Ml Syringe) [facility] Last Admin: 12/24/21 06:56 Dose: Not Given Documented by: Home Medications Medication Instructions Recorded Confirmed Last Taken Type apixaban 5 mg tablet (Eliquis) 1 tab PO BID 12/19/20 12/24/21 01/08/21 19:00 History aspirin 81 mg tablet,delayed 1 tab PO DAILY 12/19/20 12/24/21 01/08/21 06:45 History release atorvastatin 80 mg tablet 1 tab PO BEDTIME 12/19/20 12/24/21 Unknown History carvedilol 12.5 mg tablet 1 tab PO BID 12/19/20 12/24/21 01/09/21 History lisinopril 10 mg tablet 1 tab PO DAILY 12/19/20 12/24/21 Unknown History Physical Exam Vital Signs: Vital Signs: Last Vital Signs Temp 98.6 F 12/24/21 11:39 Pulse 81 12/24/21 11:39 Resp 16 12/24/21 11:39 BP 135/68 12/24/21 11:39 Pulse Ox 97 12/24/21 11:39 BMI result Body Mass Index 31.0 Const: General: cooperative, alert, awake and tired appearing Orientation/consciousness: patient oriented x3 HEENT: Other: Unremarkable Head: Yes normal to inspection Neck: Neck: Yes normal visual inspection Chest: Chest palpation & inspection: normal inspection of the chest Resp: Auscultation: clear to auscultation bilaterally Cardio: Palpation: normal PMI Heart sounds: S1 normal heart sound present, S2 normal heart sound present, no gallops, no murmurs and no rubs GI: Inspection: Yes distended Back/Spine/Pelvis: Other: unremarkable Skin: General skin exam: no rashes or lesions noted Neuro: General: patient oriented x3 Extrem: General: Yes normal to inspection Psych: Mental Status: mental status grossly normal Objective Labs and Meds Result diagrams: 12/24/21 06:16 12/24/21 06:16 Lab results: Laboratory Results - last 24 hr 12/23/21 12/23/21 12/23/21 21:59 22:00 22:00 WBC 25.2 H RBC 4.25 L Hgb 12.8 L Hct 38.3 L MCV 90.1 MCH 30.1 MCHC 33.4 RDW 13.7 Plt Count 442 H D MPV 9.0 L Immature Gran % (Auto) 0.7 H Neut % (Auto) 87.5 H Lymph % (Auto) 4.6 L Cannon % (Auto) 6.9 Eos % (Auto) 0.1 Baso % (Auto) 0.2 Lymph # (Auto) 1.2 Cannon # (Auto) 1.7 H Eos # (Auto) 0.0 Baso # (Auto) 0.1 Abs Immat Gran (auto) 0.18 H Absolute Neuts (auto) 22.1 H Absolute Nucleated RBC 0.000 Nucleated RBC % (auto) 0.0 Smear Tech's Comments VERIFIED PT INR Sodium 138 Potassium 5.0 Chloride 103 Carbon Dioxide 22 Anion Gap 18 BUN 19 H Creatinine 1.24 Estim Creat Clear Calc 66.7 Estimated GFR 58 Random Glucose 135 H Lactic Acid Calcium 9.1 Total Bilirubin 1.4 H AST 113 H ALT 105 H Alkaline Phosphatase 265 H D Troponin I High Sens 6.0 Total Protein 6.8 Albumin 3.5 Lipase 41 Influenza Type A (PCR) Influenza Type B (PCR) RSV RNA Qual (PCR) SARS-CoV-2 RNA (RT-PCR) 12/23/21 12/23/21 12/24/21 22:02 22:39 00:32 WBC RBC Hgb Hct MCV MCH MCHC RDW Plt Count MPV Immature Gran % (Auto) Neut % (Auto) Lymph % (Auto) Cannon % (Auto) Eos % (Auto) Baso % (Auto) Lymph # (Auto) Cannon # (Auto) Eos # (Auto) Baso # (Auto) Abs Immat Gran (auto) Absolute Neuts (auto) Absolute Nucleated RBC Nucleated RBC % (auto) Smear Tech's Comments PT 16.8 H INR 1.5 H Sodium Potassium Chloride Carbon Dioxide Anion Gap BUN Creatinine Estim Creat Clear Calc Estimated GFR Random Glucose Lactic Acid 1.1 Calcium Total Bilirubin AST ALT Alkaline Phosphatase Troponin I High Sens Total Protein Albumin Lipase Influenza Type A (PCR) NEGATIVE Influenza Type B (PCR) NEGATIVE RSV RNA Qual (PCR) NEGATIVE SARS-CoV-2 RNA (RT-PCR) NEGATIVE 12/24/21 12/24/21 06:16 06:16 WBC 29.5 H RBC 4.02 L Hgb 12.1 L Hct 36.6 L MCV 91.0 MCH 30.1 MCHC 33.1 RDW 13.9 Plt Count 447 H MPV 9.3 L Immature Gran % (Auto) 1.1 H Neut % (Auto) 89.9 H Lymph % (Auto) 2.9 L Cannon % (Auto) 6.0 Eos % (Auto) 0.0 Baso % (Auto) 0.1 Lymph # (Auto) 0.9 L Cannon # (Auto) 1.8 H Eos # (Auto) 0.0 Baso # (Auto) 0.0 Abs Immat Gran (auto) 0.32 H Absolute Neuts (auto) 26.5 H Absolute Nucleated RBC 0.000 Nucleated RBC % (auto) 0.0 Smear Tech's Comments VERIFIED PT INR Sodium 137 Potassium 4.8 Chloride 106 Carbon Dioxide 21 L Anion Gap 15 BUN 18 H Creatinine 1.10 Estim Creat Clear Calc 75.2 Estimated GFR > 60 Random Glucose 148 H Lactic Acid Calcium 8.4 D Total Bilirubin AST ALT Alkaline Phosphatase Troponin I High Sens Total Protein Albumin Lipase Influenza Type A (PCR) Influenza Type B (PCR) RSV RNA Qual (PCR) SARS-CoV-2 RNA (RT-PCR) ECG Interpretation: EKG from his today with atrial fibrillation with rapid rate 148/Min; old septal infarct and nonspecific ST-T changes. In the repeat EKG, sinus rhythm at 93/Min with old septal infarct. Imaging Radiologist's impression: Impressions Chest X-Ray 12/23/21 22:22 IMPRESSION: Hypoexpanded with linear basilar markings more likely due to atelectasis Abdomen/Pelvis CT 12/23/21 23:00 IMPRESSION: 1. Distention of the central bile ducts and gallbladder with circumferential wall thickening and adjacent inflammatory change consistent with acute cholecystitis. There is loculated fluid extending anterior to the gallbladder which could indicate a contained perforation. Mild dilatation of the common bile duct. A distal duct obstruction/ampullary lesion could be considered. 2. Circumferential wall thickening of the gastric antrum as well as the adjacent duodenum, which is likely reactive to the gallbladder pathology. 3. Circumferential wall thickening of the distal esophagus. An underlying lesion could be considered and direct visualization could help further evaluate. Sigmoid diverticulosis without evidence of acute diverticulitis. 4. No intra-abdominal free air or free fluid. No significant lymphadenopathy. Fleischner guidelines were followed. Abdomen Ultrasound 12/24/21 03:05 IMPRESSION: *Findings suspicious for perforation of the gallbladder. Free fluid is present adjacent to the gallbladder corresponding to findings noted on the comparison CT of 12/23/2021. Sonographic evaluation demonstrates possible communication between the free fluid and the lumen of the gallbladder suspicious for perforation. *Echogenic sludge within the gallbladder lumen. Furthermore, a 2.4 cm echogenic focus contiguous with the nondependent wall of the fundus of the gallbladder is present and may represent adherent sludge. No flow is noted in this region to specifically suggest the presence of a gallbladder wall tumor. This finding is without a definitive correlate on the CT of the abdomen and pelvis from 12/23/2021 based on contemporaneous review of that exam. *No cholelithiasis noted. *Normal common bile duct caliber. Assessment and Plan (1) Preoperative cardiovascular examination: Status: Acute (2) Atrial fibrillation with RVR: Status: Acute (3) Atherosclerotic cardiovascular disease: Status: Acute (4) Status post coronary artery bypass graft: Status: Acute Plan Currently, he is in sinus rhythm on telemetry. High sensitivity troponin is 6 which is well within normal limits. Other labs reviewed including abnormal LFTs. Old records from [facility] reviewed as well including the last office note. Overall, it seems that he has acute cholecystitis and will require cholecystectomy. His cardiac issues include history of coronary artery disease and coronary artery bypass surgery from 2020 as well as paroxysmal atrial fibrillation. Prior to this hospitalization, he states that he was actually doing quite well with no limitations from cardiac standpoint and was unrestricted in his physical activity capacity. Hence cardiac risk would be considered intermediate. With regard to beta-blockers use, Coreg has the higher propensity to cause low blood pressures and hence can switch to metoprolol at 25 mg q.6 for rate as well as rhythm control. He is currently in sinus rhythm. However there is an increased risk of developing atrial fibrillation episodes perioperatively. Discussed about this specifically with the patient as well as at the bedside. Rationale for perioperative cardiac care/cardiac risks from surgery discussed as well. All questions answered to their satisfaction. Procedures Date of Service Date of Service: 12/24/21
[2021-12-24] MEDS: Metoprolol Tartrate 25 MG TABLET PO ×3 (12:56→22:44)
--- NOTE | 2021-12-24 15:06 | PM.EVENT ---
Event Note Date of Service: 12/24/21 Event Note: feels ok very minimal pain some nausea vitals stable HR remains well controlled abd soft, minimal tenderness RUQ to deep palpation looks comfortable continue IV abx follow CBC, LFTs plan cholecystectomy this admission
[2021-12-25] MEDS: metroNIDAZOLE/NS 500 MG/100 ML PIGGYBACK 100 MG IV ×3 (02:16→17:27)
[2021-12-25 03:46] VITALS: BP 124/59; PULSE 65; RESP 16; TEMP 37; O2SAT 95
[2021-12-25] MEDS: Dextrose 5 % and 0.45 % NaCl 1,000 ML 50 ML IVCONT ×2 (04:34→17:28)
[2021-12-25 07:07] LABS: Hematocrit 33.3 % (42.0-52.0); Hemoglobin 10.8 g/dl (14.0-18.0); Mean Corpuscular HGB Conc 32.4 g/dl (31.0-36.0); Mean Corpuscular Volume 92.5 fL (80.0-98.0); Mean Platelet Volume 9.5 fL (9.4-12.4); Platelet Count 367 X10*3/uL (160-400); Red Cell Distribution Width 13.8 % (11.0-16.0); White Blood Count 18.6 X10*3/uL (4.8-10.8)
[2021-12-25 07:32] LABS: Anion Gap 11 (12-20); Blood Urea Nitrogen 13 mg/dL (9-16); Carbon Dioxide 21 mmol/L (22-29); Chloride 107 mmol/L (96-108); Creatinine Clr Calc Pharmacy 87.2; Estimated Glomerular Filt Rate > 60; Glucose Random 121 mg/dL (60-115); Potassium 4.1 mmol/L (3.3-5.1); Sodium 135 mmol/L (135-145)
[2021-12-25 08:00] VITALS: BP 116/68; PULSE 75; RESP 20; TEMP 36.6; O2SAT 98
[2021-12-25 08:44] LABS: HBS Num1 7.97 mIU/mL (0-7.99); HBc Num1 0.19 S/CO (0.00-0.79); HBsAGNum1 0.17 S/CO (0.00-0.99); Hepatitis B Core Antibody Nonreactive (Nonreactive); Hepatitis B Surface Antigen Negative (Negative); ~HepC Num1 0.07 S/CO (0.00-0.79); ~Hepatitis B Surface Antibody NONREACTIVE (Nonreactive); ~Hepatitis C Antibody Nonreactive (Nonreactive)
[2021-12-25] MEDS: Omeprazole 20 MG CAPSULE.DR PO (09:56)
[2021-12-25] MEDS: Metoprolol Tartrate 25 MG TABLET PO ×4 (09:56→21:08)
--- NOTE | 2021-12-25 10:06 | HO.PM.IMPN ---
Subjective Subjective Date of Service: 12/25/21 Review of Systems Follow up Cholecystitis No pain, nausea Sitting up in a chair Physical Exam Vital Signs: Vital Signs: Last Vital Signs Temp 97.8 F 12/25/21 08:00 Pulse 75 12/25/21 08:00 Resp 20 12/25/21 08:00 BP 116/68 12/25/21 08:00 Pulse Ox 98 12/25/21 08:00 BMI result Body Mass Index 32.5 Appearing in no acute distress lung sounds are clear to auscultation heart regular rate rhythm, clear S1, S2 positive bowel sounds, abdomen is soft, nontender neuro patient is alert x3, no focal deficits Objective Data Active Medications Hydromorphone HCl (Hydromorphone Hcl 1 Mg/Ml Syringe) 0.5 mg IVPUSH Q4H PRN; Protocol PRN Reason: Pain, Severe (Pain Scale 7-10) Last Admin: 12/24/21 05:28 Dose: 0.5 mg Documented by: ELIGIO Dextrose/Sodium Chloride (D51/2ns) 1,000 mls @ 50 mls/hr IVCONT .Q20H [facility] Last Admin: 12/25/21 04:34 Dose: 50 mls/hr Documented by: ANDCORY Ceftriaxone Sodium 2 gm/ (Sodium Chloride) 50 mls @ 100 mls/hr IV Q24H [facility] Last Infusion: 12/24/21 22:47 Dose: 0 mls/hr Documented by: ANDCORY Metronidazole (Flagyl) 500 mg in 100 mls @ 100 mls/hr IV Q8H [facility] Last Admin: 12/25/21 09:56 Dose: 100 mls/hr Documented by: NATALIE Melatonin (Melatonin 3 Mg Tablet) 6 mg PO BEDTIME PRN PRN Reason: Insomnia Metoprolol Tartrate (Metoprolol Tartrate 25 Mg Tablet) 25 mg PO QID [facility]; Protocol Last Admin: 12/25/21 09:56 Dose: 25 mg Documented by: NATALIE Omeprazole (Omeprazole 20 Mg Capsule.) 20 mg PO DAILY@0630 [facility] Last Admin: 12/25/21 09:56 Dose: 20 mg Documented by: NATALIE Ondansetron HCl (Ondansetron Hcl 4 Mg/2 Ml Vial) 4 mg IVPUSH Q4H PRN PRN Reason: Nausea and Vomiting Last Admin: 12/24/21 10:21 Dose: 4 mg Documented by: SIL Sodium Chloride (0.9 % Sodium Chloride Flush 3 Ml Syringe) 3 ml IVFLUSH QSHIFT ANGEL[facility] Last Admin: 12/25/21 09:57 Dose: Not Given Documented by: NATALIE Non-Admin Reason: IV Running Labs CBC & Chem 7: 12/25/21 06:24 12/25/21 06:24 Labs: Laboratory Results - last 24 hr 12/24/21 12/25/21 12/25/21 06:16 06:24 06:24 MCV 92.5 MCH 30.0 MCHC 32.4 RDW 13.8 Plt Count 367 MPV 9.5 Absolute Nucleated RBC 0.000 Nucleated RBC % (auto) 0.0 Anion Gap 11 L Estim Creat Clear Calc 87.2 Estimated GFR > 60 Random Glucose 121 H Calcium 8.0 L Hep Bs Antigen Negative Hep Bs Antibody NONREACTIVE Hep B Core Total Ab Nonreactive Hepatitis C Ab (EIA) Nonreactive Microbiology Microbiology Results: Microbiology 12/24/21 01:57 Blood Culture - Preliminary Blood - Venous No growth after 24 hours. 12/24/21 00:32 Blood Culture - Preliminary Blood - Venous No growth after 24 hours. Assessment and Plan (1) Cholecystitis: Status: Acute Plan 66-year-old male with a past medical history of hypertension, hyperlipidemia, paroxysmal AFib presented to the hospital with a chief complaint of nausea /vomiting / diarrhea/right upper quadrant abdominal pain.? Noted to be in AFib with RVR/acute cholecystitis.? Admitted for further management. Acute cholecystitis General surgery was notified -mentioned does not appear to be perforation that was mentioned on CT. No acute? intervention overnight Pt has no peritoneal signs Pain control NPO changed to clears as procedure will likely be on Saturday after Eliquis held for 48hrs IV fluids abd MRI today NPO after midnight Transaminitis Trend liver enzymes.? acute hepatitis panel neg Hold home statin for now. AFib with RVR. HR 150's Received metoprolol IV x3; converted to sinus started metoprolol 25mg Q6 home Eliquis on hold in anticipation for procedure (last dose of Eliquis was on? PM cardiology following Hypertension Hold home lisinopril.? Reduced dose of carvedilol given blood pressure of the soft side. History of CAD Aspirin on hold in anticipation for procedure. DVT prophylaxis: SCD boots Code status:? Full code Attending Dr. Delong Quality Stroke Does the patient have a stroke diagnosis?: No VTE Prior VTE?: No VTE Risk Level:: Medical - moderate - high VTE Device Contraindication: N/A - Device Ordered VTE Drug Contraindication: Treatment Not Indicated
[2021-12-25 10:48] LABS: Alanine Aminotransferase 43 U/L (0-40); Albumin Level 2.7 g/dL (3.5-5.0); Alkaline Phosphatase 139 U/L (39-117); Aspartate Amino Transferase 18 U/L (5-37); Bilirubin Direct 0.2 mg/dL (0.0-0.5); Bilirubin Total 0.4 mg/dL (0.0-1.0); Total Protein 5.1 g/dL (6.5-8.0)
--- NOTE | 2021-12-25 11:56 | P.PNGS_ITS ---
Subjective Subjective Date of Service: 12/26/21 Interval history: Feels well Says he slept well overnight Denies any abdominal pain now No further vomiting Physical Exam Vital Signs: Vital Signs: Last Vital Signs Temp 97.8 F 12/25/21 08:00 Pulse 75 12/25/21 08:00 Resp 20 12/25/21 08:00 BP 116/68 12/25/21 08:00 Pulse Ox 98 12/25/21 08:00 BMI result Body Mass Index 32.5 Const: Other: Sitting up on chair General: comfortable and no acute distress Resp: Effort & Inspection: normal respiratory effort Cardio: Other: irregular rhythm GI: Other: Soft, nontender, nondistended, no Valdes sign Objective Data Active Medications Hydromorphone HCl (Hydromorphone Hcl 1 Mg/Ml Syringe) 0.5 mg IVPUSH Q4H PRN; Protocol PRN Reason: Pain, Severe (Pain Scale 7-10) Last Admin: 12/24/21 05:28 Dose: 0.5 mg Documented by: ELIGIO Dextrose/Sodium Chloride (D51/2ns) 1,000 mls @ 50 mls/hr IVCONT .Q20H [facility] Last Admin: 12/25/21 04:34 Dose: 50 mls/hr Documented by: MARIA L Ceftriaxone Sodium 2 gm/ (Sodium Chloride) 50 mls @ 100 mls/hr IV Q24H [facility] Last Infusion: 12/24/21 22:47 Dose: 0 mls/hr Documented by: MARIA L Metronidazole (Flagyl) 500 mg in 100 mls @ 100 mls/hr IV Q8H [facility] Last Infusion: 12/25/21 10:58 Dose: 0 mls/hr Documented by: NATALIE Melatonin (Melatonin 3 Mg Tablet) 6 mg PO BEDTIME PRN PRN Reason: Insomnia Metoprolol Tartrate (Metoprolol Tartrate 25 Mg Tablet) 25 mg PO QID [facility]; Pro tocol Last Admin: 12/25/21 09:56 Dose: 25 mg Documented by: NATALIE Omeprazole (Omeprazole 20 Mg Capsule.) 20 mg PO DAILY@0630 [facility] Last Admin: 12/25/21 09:56 Dose: 20 mg Documented by: NATALIE Ondansetron HCl (Ondansetron Hcl 4 Mg/2 Ml Vial) 4 mg IVPUSH Q4H PRN PRN Reason: Nausea and Vomiting Last Admin: 12/24/21 10:21 Dose: 4 mg Documented by: SIL Sodium Chloride (0.9 % Sodium Chloride Flush 3 Ml Syringe) [facility] Last Admin: 12/25/21 09:57 Dose: Not Given Documented by: NATALIE Non-Admin Reason: IV Running Labs CBC & Chem 7: 12/25/21 06:24 12/25/21 06:24 Labs: Laboratory Results - last 24 hr 12/24/21 12/25/21 12/25/21 06:16 06:24 06:24 MCV 92.5 MCH 30.0 MCHC 32.4 RDW 13.8 Plt Count 367 MPV 9.5 Absolute Nucleated RBC 0.000 Nucleated RBC % (auto) 0.0 Anion Gap 11 L Estim Creat Clear Calc 87.2 Estimated GFR > 60 Random Glucose 121 H Calcium 8.0 L Total Bilirubin 0.4 Direct Bilirubin 0.2 AST 18 D ALT 43 H Alkaline Phosphatase 139 H D Total Protein 5.1 L D Albumin 2.7 L D Hep Bs Antigen Negative Hep Bs Antibody NONREACTIVE Hep B Core Total Ab Nonreactive Hepatitis C Ab (EIA) Nonreactive Microbiology Microbiology Results: Microbiology 12/24/21 01:57 Blood Culture - Preliminary Blood - Venous No growth after 24 hours. 12/24/21 00:32 Blood Culture - Preliminary Blood - Venous No growth after 24 hours. Procedures Date of Service Date of Service: 12/25/21 Progress Note: A&P Assessment and plan (1) Cholecystitis: Status: Acute (2) Atrial fibrillation with RVR: Status: Acute Assessment and Plan: Cholecystitis on CT scan Currently much improved No abdominal pain or tenderness Eliquis held White count much improved Check LFTs Possible OR tomorrow/Wed Looks well Seen by Cardiology Mely updated Time Spent With Patient Time: Total time spent is greater than 50% in coordination of care (as documented) at patient's floor/unit and/or counseling patient: Quality Stroke Does the patient have a stroke diagnosis?: No VTE Prior VTE?: No VTE Risk Level:: Medical - moderate - high VTE Device Contraindication: N/A - Device Ordered VTE Drug Contraindication: Treatment Not Indicated
[2021-12-25 12:00] VITALS: BP 134/72; PULSE 66; RESP 20; TEMP 36.4; O2SAT 100
[2021-12-25 15:33] VITALS: BP 149/68; PULSE 64; RESP 18; TEMP 37.1; O2SAT 97
[2021-12-25] MEDS: 0.9 % Sodium Chloride Flush 3 ML SYRINGE IVFLUSH (17:28)
[2021-12-25 19:42] VITALS: BP 150/70; PULSE 61; RESP 18; TEMP 36.9; O2SAT 99
--- NOTE | 2021-12-25 20:32 | CONS_ITS ---
DATE OF SERVICE: 12/25/2021 REFERRING PHYSICIAN: Gabriel Rivero MD REASON FOR CONSULTATION: Cholecystitis with elevated liver function tests and abnormal imaging of the GI tract. HISTORY OF PRESENT ILLNESS: The patient is a pleasant 66-year-old man, who was admitted to the hospital after presenting to the emergency room on December 24 with complaints of abdominal pain, vomiting, and diarrhea. Symptoms began a couple of weeks prior to admission when he thought was a GI bug with diarrhea and nausea and vomiting. He had recurrent symptoms the day of admission and presented to the emergency room. He was evaluated with laboratory studies and imaging, which are reviewed. CT scanning and ultrasound imaging are obtained and are interpreted as showing changes of acute cholecystitis with mild dilation of the common bile duct as well as gastric antral thickening and thickening of the duodenum. Also noted was thickening of the distal esophagus. The patient has had some reflux symptoms recently and has taken [id number] antacids. He denies undergoing prior endoscopy. He did have a colonoscopy with removal of polyps several years ago. PAST MEDICAL HISTORY: 1. Hypertension. 2. Hyperlipidemia. 3. Atrial fibrillation. 4. Coronary artery disease with history of ID. 5. Gout. CURRENT MEDICATIONS: Current medication list is reviewed in the chart. ALLERGIES: THERE ARE NONE REPORTED. FAMILY HISTORY: This is reviewed with the patient and is noncontributory. SOCIAL HISTORY: There is no current tobacco, alcohol, or substance abuse. REVIEW OF SYSTEMS: SKIN: No pruritus. HEENT: Negative. CARDIOPULMONARY: He denies shortness of breath or chest pain. GASTROINTESTINAL: As above. GENITOURINARY: Negative. NEUROPSYCHIATRIC: Negative. PHYSICAL EXAMINATION: GENERAL: Shows a pleasant male, in no acute distress. VITAL SIGNS: Reviewed in electronic medical record and are stable. Skin: Pale. HEENT: Shows no scleral icterus. NECK: Without lymphadenopathy or thyromegaly. LUNGS: Clear. HEART: Shows a regular rate and rhythm. S1, S2. No murmur. ABDOMEN: Soft. No focal masses or tenderness. Bowel sounds are present. No organomegaly is noted. EXTREMITIES: Without edema. LABORATORY DATA: Shows a white blood cell count of 18.6, down from 29 on admission. Liver function tests are elevated with a total bilirubin of 1.4. IMPRESSION: 1. Cholecystitis with elevated liver function tests. 2. Distal esophageal thickening. His elevated liver function tests may simply represent his underlying cholecystitis. I have recommended MRI for further evaluation of his biliary tree. If this does show a common duct stone, then ERCP would be recommended. I discussed the ERCP with him including risks and benefits. His distal esophageal thickening likely represents reflux changes and I have recommended treatment with a proton pump inhibitor. Thanks for asking me to see him. I will follow him in the hospital with you. MD MIRYAM Bryant/SHADI / [id number]
[2021-12-25] MEDS: cefTRIAXone sodium 2 GM in 0.9 % Sodium Chloride 50 ML IV (21:08)
[2021-12-26] VITALS (13 sets, daily range): BP systolic 110–157; BP diastolic 50–74; PULSE 54–65; RESP 12–20; TEMP 36.2–37.1; O2SAT 95–99
[2021-12-26] MEDS: metroNIDAZOLE/NS 500 MG/100 ML PIGGYBACK 100 MG IV ×3 (02:09→18:18)
--- NOTE | 2021-12-26 09:36 | P.PNIM_ITS ---
Subjective Subjective Date of Service: 12/26/21 Review of Systems Follow up Cholecystitis No pain, nausea Sitting up in a chair Physical Exam Vital Signs: Vital Signs: Last Vital Signs Temp 97.6 F 12/26/21 07:42 Pulse 59 12/26/21 07:42 Resp 20 12/26/21 07:42 BP 151/74 H 12/26/21 07:42 Pulse Ox 98 12/26/21 07:42 BMI result Body Mass Index 32.5 Appearing in no acute distress lung sounds are clear to auscultation heart regular rate rhythm, clear S1, S2 positive bowel sounds, abdomen is soft, nontender neuro patient is alert x3, no focal deficits Objective Data Active Medications Hydromorphone HCl (Hydromorphone Hcl 1 Mg/Ml Syringe) 0.5 mg IVPUSH Q4H PRN; Protocol PRN Reason: Pain, Severe (Pain Scale 7-10) Last Admin: 12/24/21 05:28 Dose: 0.5 mg Documented by: ELIGIO Dextrose/Sodium Chloride (D51/2ns) 1,000 mls @ 50 mls/hr IVCONT .Q20H [facility] Last Admin: 12/25/21 17:28 Dose: 50 mls/hr Documented by: GINGER-KAYLEY Ceftriaxone Sodium 2 gm/ (Sodium Chloride) 50 mls @ 100 mls/hr IV Q24H [facility] Last Infusion: 12/25/21 21:50 Dose: 0 mls/hr Documented by: DELVIN Metronidazole (Flagyl) 500 mg in 100 mls @ 100 mls/hr IV Q8H [facility] Last Infusion: 12/26/21 03:12 Dose: 0 mls/hr Documented by: DELVIN Cefotetan Disodium 2 gm/ (Sodium Chloride) 50 mls @ 100 mls/hr IV PREOP ONE Stop: 12/26/21 14:26 Melatonin (Melatonin 3 Mg Tablet) 6 mg PO BEDTIME PRN PRN Reason: Insomnia Metoprolol Tartrate (Metoprolol Tartrate 25 Mg Tablet) 25 mg PO QID [facility]; Protocol Last Admin: 12/25/21 21:08 Dose: 25 mg Documented by: DELVIN Omeprazole (Omeprazole 20 Mg Capsule.Dr) 20 mg PO DAILY@0630 [facility] Last Admin: 12/26/21 06:31 Dose: Not Given Documented by: DELVIN Non-Admin Reason: NPO Ondansetron HCl (Ondansetron Hcl 4 Mg/2 Ml Vial) 4 mg IVPUSH Q4H PRN PRN Reason: Nausea and Vomiting Last Admin: 12/24/21 10:21 Dose: 4 mg Documented by: SIL Sodium Chloride (0.9 % Sodium Chloride Flush 3 Ml Syringe) 3 ml IVFLUSH QSHIFT [facility] Last Admin: 12/26/21 09:17 Dose: Not Given Documented by: KEEGAN Non-Admin Reason: IV Running Labs CBC & Chem 7: 12/25/21 06:24 12/25/21 06:24 Labs: Laboratory Results - last 24 hr 12/25/21 12/26/21 06:24 08:04 Total Bilirubin 0.4 Direct Bilirubin 0.2 AST 18 D ALT 43 H Alkaline Phosphatase 139 H D Total Protein 5.1 L D Albumin 2.7 L D Blood Type A Positive Antibody Screen NEGATIVE Microbiology Microbiology Results: Microbiology 12/24/21 01:57 Blood Culture - Preliminary Blood - Venous No growth after 48 hours. 12/24/21 00:32 Blood Culture - Preliminary Blood - Venous No growth after 48 hours. Assessment and Plan (1) Cholecystitis: Status: Acute Plan 66-year-old male with a past medical history of hypertension, hyperlipidemia, paroxysmal AFib presented to the hospital with a chief complaint of nausea /vomiting / diarrhea/right upper quadrant abdominal pain.? Noted to be in AFib with RVR/acute cholecystitis.? Admitted for further management. Acute cholecystitis Pain control Eliquis held for 48hrs IV fluids abd MRI done NPO after midnight, CCY today Transaminitis secondary to acute cassandra Trend liver enzymes.? acute hepatitis panel neg Hold home statin for now. AFib with RVR. HR 150's. resolved Received metoprolol IV x3; converted to sinus started metoprolol 25mg Q6 home Eliquis on hold in anticipation for procedure (last dose of Eliquis was on? PM cardiology following Hypertension Hold home lisinopril for now in anticipation of surgery History of CAD Aspirin on hold in anticipation for procedure. DVT prophylaxis: SCD boots Code status:? Full code Attending Dr. Silverman Patient requires continued hospitalization for cholecystectomy today Quality Stroke Does the patient have a stroke diagnosis?: No VTE Prior VTE?: No VTE Risk Level:: Medical - moderate - high VTE Device Contraindication: N/A - Device Ordered VTE Drug Contraindication: Treatment Not Indicated
[2021-12-26] MEDS: Metoprolol Tartrate 25 MG TABLET PO ×2 (09:49→20:45)
--- NOTE | 2021-12-26 13:38 | P.CONAN_ITS ---
HPI - Anesthesia Eval Consult details Narrative: Lap cholecystectomy PMFSH Active Problems Active Problems: All Active Problems (Updated 12/24/21 @ 12:12 by Xiang Fang MD) Cholecystitis (Acute) Atrial fibrillation with RVR (Acute) Preoperative cardiovascular examination (Acute) Atherosclerotic cardiovascular disease (Acute) Status post coronary artery bypass graft (Acute) Past Medical History Medical History (Updated 12/26/21 @ 12:37 by Avril Rivas RN) Atrial fibrillation CAD (coronary artery disease) Gout Hypercholesteremia Myocardial infarct On anticoagulant therapy Retinal tear of right eye Family History Family History (Updated 12/24/21 @ 12:10 by Xiang Fang MD) Mother CAD (coronary artery disease) Family history of problems with anesthesia: No Surgical History Surgical History (Updated 12/24/21 @ 12:12 by Xiang Fang MD) History of surgery on right wrist History of tonsillectomy History of vitrectomy Hx of cataract extraction Hx of coronary artery bypass graft Hx of left inguinal hernia repair Hx of repair of left rotator cuff Hx of repair of right rotator cuff [place] teeth extracted History of Problems with Anesthesia: No Social History Social History Household Members: Spouse Housing: House Are you a primary nursing care attendant to a significant other at home: No Do you presently have visiting nurse or other home services: No Alcohol intake: current Alcohol intake frequency: 0-2 drinks per day Patient Tobacco Use Status: Never used Tobacco Second Hand Smoke Exposure: No service: No Current occupational status: retired Meds Allergies Allergy/AdvReac Type Severity Reaction Status Date / Time No Known Allergies Allergy Verified 12/19/20 13:30 [No Known Allergies*] Active Medications: Current Medications Hydromorphone HCl (Hydromorphone Hcl 1 Mg/Ml Syringe) 0.5 mg IVPUSH Q4H PRN; Protocol PRN Reason: Pain, Severe (Pain Scale 7-10) Last Admin: 12/24/21 05:28 Dose: 0.5 mg Documented by: Dextrose/Sodium Chloride (D51/2ns) 1,000 mls @ 50 mls/hr IVCONT .Q20H [facility] Last Admin: 12/25/21 17:28 Dose: 50 mls/hr Documented by: Ceftriaxone Sodium 2 gm/ (Sodium Chloride) 50 mls @ 100 mls/hr IV Q24H [facility] Last Infusion: 12/25/21 21:50 Dose: Infused Documented by: Metronidazole (Flagyl) 500 mg in 100 mls @ 100 mls/hr IV Q8H [facility] Last Infusion: 12/26/21 11:10 Dose: Infused Documented by: Cefotetan Disodium 2 gm/ (Sodium Chloride) 50 mls @ 100 mls/hr IV PREOP ONE Stop: 12/26/21 14:26 Melatonin (Melatonin 3 Mg Tablet) 6 mg PO BEDTIME PRN PRN Reason: Insomnia Metoprolol Tartrate (Metoprolol Tartrate 25 Mg Tablet) 25 mg PO QID [facility]; Protocol Last Admin: 12/26/21 13:22 Dose: Not Given Documented by: Omeprazole (Omeprazole 20 Mg Capsule.Dr) 20 mg PO DAILY@0630 [facility] Last Admin: 12/26/21 06:31 Dose: Not Given Documented by: Ondansetron HCl (Ondansetron Hcl 4 Mg/2 Ml Vial) 4 mg IVPUSH Q4H PRN PRN Reason: Nausea and Vomiting Last Admin: 12/24/21 10:21 Dose: 4 mg Documented by: Sodium Chloride (0.9 % Sodium Chloride Flush 3 Ml Syringe) 3 ml IVFLUSH QSHIFT [facility] Last Admin: 12/26/21 09:17 Dose: Not Given Documented by: Home Medications Medication Instructions Recorded Confirmed Last Taken Type apixaban 5 mg tablet (Eliquis) 1 tab PO BID 12/19/20 12/24/21 01/08/21 19:00 History aspirin 81 mg tablet,delayed 1 tab PO DAILY 12/19/20 12/24/21 01/08/21 06:45 History release atorvastatin 80 mg tablet 1 tab PO BEDTIME 12/19/20 12/24/21 Unknown History carvedilol 12.5 mg tablet 1 tab PO BID 12/19/20 12/24/21 01/09/21 History lisinopril 10 mg tablet 1 tab PO DAILY 12/19/20 12/24/21 Unknown History Exam Exam Date and Time: December 26, 2021 1338 Height,Weight and Vital Signs: Height 5 ft 9 in Weight 99.9 kg Last Vital Signs Temp 98.4 F 12/26/21 12:42 Pulse 63 12/26/21 12:42 Resp 16 05/03/22 12:42 BP 157/71 H 12/26/21 12:42 Pulse Ox 99 12/26/21 12:42 Pertinent Lab Results Pertinent Lab Results: Laboratory Tests 12/23/21 12/23/21 12/23/21 21:59 22:00 22:00 WBC 25.2 H RBC 4.25 L Hgb 12.8 L Hct 38.3 L MCV 90.1 MCH 30.1 MCHC 33.4 RDW 13.7 Plt Count 442 H D MPV 9.0 L Immature Gran % (Auto) 0.7 H Neut % (Auto) 87.5 H Lymph % (Auto) 4.6 L [place] % (Auto) 6.9 Eos % (Auto) 0.1 Baso % (Auto) 0.2 Lymph # (Auto) 1.2 [place] # (Auto) 1.7 H Eos # (Auto) 0.0 Baso # (Auto) 0.1 Abs Immat Gran (auto) 0.18 H Absolute Neuts (auto) 22.1 H Absolute Nucleated RBC 0.000 Nucleated RBC % (auto) 0.0 Smear Tech's Comments VERIFIED PT INR Sodium 138 Potassium 5.0 Chloride 103 Carbon Dioxide 22 Anion Gap 18 BUN 19 H Creatinine 1.24 Estim Creat Clear Calc 66.7 Estimated GFR 58 Random Glucose 135 H Lactic Acid Calcium 9.1 Total Bilirubin 1.4 H Direct Bilirubin AST 113 H ALT 105 H Alkaline Phosphatase 265 H D Troponin I High Sens 6.0 Total Protein 6.8 Albumin 3.5 Lipase 41 Hep Bs Antigen Hep Bs Antibody Hep B Core Total Ab Hepatitis C Ab (EIA) Influenza Type A (PCR) Influenza Type B (PCR) RSV RNA Qual (PCR) SARS-CoV-2 RNA (RT-PCR) Blood Type Antibody Screen 12/23/21 12/23/21 12/24/21 22:02 22:39 00:32 WBC RBC Hgb Hct MCV MCH MCHC RDW Plt Count MPV Immature Gran % (Auto) Neut % (Auto) Lymph % (Auto) [place] % (Auto) Eos % (Auto) Baso % (Auto) Lymph # (Auto) [place] # (Auto) Eos # (Auto) Baso # (Auto) Abs Immat Gran (auto) Absolute Neuts (auto) Absolute Nucleated RBC Nucleated RBC % (auto) Smear Tech's Comments PT 16.8 H INR 1.5 H Sodium Potassium Chloride Carbon Dioxide Anion Gap BUN Creatinine Estim Creat Clear Calc Estimated GFR Random Glucose Lactic Acid 1.1 Calcium Total Bilirubin Direct Bilirubin AST ALT Alkaline Phosphatase Troponin I High Sens Total Protein Albumin Lipase Hep Bs Antigen Hep Bs Antibody Hep B Core Total Ab Hepatitis C Ab (EIA) Influenza Type A (PCR) NEGATIVE Influenza Type B (PCR) NEGATIVE RSV RNA Qual (PCR) NEGATIVE SARS-CoV-2 RNA (RT-PCR) NEGATIVE Blood Type Antibody Screen 12/24/21 12/24/21 12/24/21 06:16 06:16 06:16 WBC 29.5 H RBC 4.02 L Hgb 12.1 L Hct 36.6 L MCV 91.0 MCH 30.1 MCHC 33.1 RDW 13.9 Plt Count 447 H MPV 9.3 L Immature Gran % (Auto) 1.1 H Neut % (Auto) 89.9 H Lymph % (Auto) 2.9 L [place] % (Auto) 6.0 Eos % (Auto) 0.0 Baso % (Auto) 0.1 Lymph # (Auto) 0.9 L [place] # (Auto) 1.8 H Eos # (Auto) 0.0 Baso # (Auto) 0.0 Abs Immat Gran (auto) 0.32 H Absolute Neuts (auto) 26.5 H Absolute Nucleated RBC 0.000 Nucleated RBC % (auto) 0.0 Smear Tech's Comments VERIFIED PT INR Sodium 137 Potassium 4.8 Chloride 106 Carbon Dioxide 21 L Anion Gap 15 BUN 18 H Creatinine 1.10 Estim Creat Clear Calc 75.2 Estimated GFR > 60 Random Glucose 148 H Lactic Acid Calcium 8.4 D Total Bilirubin Direct Bilirubin AST ALT Alkaline Phosphatase Troponin I High Sens Total Protein Albumin Lipase Hep Bs Antigen Negative Hep Bs Antibody NONREACTIVE Hep B Core Total Ab Nonreactive Hepatitis C Ab (EIA) Nonreactive Influenza Type A (PCR) Influenza Type B (PCR) RSV RNA Qual (PCR) SARS-CoV-2 RNA (RT-PCR) Blood Type Antibody Screen 12/25/21 12/25/21 12/26/21 06:24 06:24 08:04 WBC 18.6 H RBC 3.60 L Hgb 10.8 L Hct 33.3 L MCV 92.5 MCH 30.0 MCHC 32.4 RDW 13.8 Plt Count 367 MPV 9.5 Immature Gran % (Auto) Neut % (Auto) Lymph % (Auto) [place] % (Auto) Eos % (Auto) Baso % (Auto) Lymph # (Auto) [place] # (Auto) Eos # (Auto) Baso # (Auto) Abs Immat Gran (auto) Absolute Neuts (auto) Absolute Nucleated RBC 0.000 Nucleated RBC % (auto) 0.0 Smear Tech's Comments PT INR Sodium 135 Potassium 4.1 Chloride 107 Carbon Dioxide 21 L Anion Gap 11 L BUN 13 Creatinine 0.97 Estim Creat Clear Calc 87.2 Estimated GFR > 60 Random Glucose 121 H Lactic Acid Calcium 8.0 L Total Bilirubin 0.4 Direct Bilirubin 0.2 AST 18 D ALT 43 H Alkaline Phosphatase 139 H D Troponin I High Sens Total Protein 5.1 L D Albumin 2.7 L D Lipase Hep Bs Antigen Hep Bs Antibody Hep B Core Total Ab Hepatitis C Ab (EIA) Influenza Type A (PCR) Influenza Type B (PCR) RSV RNA Qual (PCR) SARS-CoV-2 RNA (RT-PCR) Blood Type A Positive Antibody Screen NEGATIVE Airway Mallampati Class: II TM Dist: >3cm Neck ROM: Full Loose/Missing/Broken Teeth: No Heart: ok Lungs: ok Assessment and Plan Final Anesthetic Review Family History of Problems with Anesthesia: No History of Problems with Anesthesia: No NPO: Yes ASA Class: III Final Preanesthetic Review: No Changes in Pt Med Stat, Meds/Allgs Chart Reviewed, Consent Obtained/Reviewed and Anes Risks/Benef Reviewed Patient Risk: High Procedure Risk: Intermediate Anesthetic Plan Anesthetic Plan: GA and Agree w/ Assess. and Plan Disposition: Standard PACU
--- NOTE | 2021-12-26 16:11 | P.OP_ITS ---
Operative Note Operative Note Date of Service: 12/26/21 Narrative: Preop diagnosis: acute cholecystitis Postop diagnosis: acute cholecystitis, with the GB encased in omentum and indurated fatty areolar tissue; GB did not appear distended; unable to expose the gallbladder - severe bleeding from a torn vein, controlled by Dr. Pham of Vascular surgery with clips Procedure: attempted laparoscopic cholecystectomy, attempted open cholecystectomy, control of vigorousbleeding vein; cholecystectomy aborted in view of severe bleeding, markedly indurated fat encasing the GB Surgeon: MD Danika Iraheta asst: MD RAFA Johnson Intraop consult - Vascular surgery - Dr. Ras Pham The patient is a 66M admitted for a 1 week hx of RUQ pain and vomtting. His CT scan showed what appeared to be a markedly distended GB with wallthickening, pericholecystic inflammatory changes, and what appeared to be a possible contained perforation. he also had a WBC of 25. His Eliquis was stopped for 48 hours. He actually imrpoved markedly with resolution of his pain and tenderness. He however wanted to proceed with cheolcystectomy. I had multiple discussions with him and his Harmony about the technique of lap cassandra/open cassandra along with the risks, benefits an alternatives. I had also explained to them that I anticipated a difficult procedure in view of CT images. I had reviewed this CT scan images with the radiologist Dr. Mendoza. He was brought to the OR and placed supine under general anesthesia via ET tube. The abdomen was prepped and draped in the usual fashion. A surgical timeout was done. The patient received Cefotan 2 g IV. I made a short supraumbilical incision using a blae 15 and this was carried down through the ful thickness of the skin and subcutaneout. The fascia was incised and peritoneum was entered. Through this incision a Otto port introduced. Pneumoperitoneum was introduced to a pressure of 15 mmHg. With laparoscopic visualization I proceeded to insert a 5/12 mm port in the epigastric area just below the subcostal margin. 5 mm port introduced the small incisions below the subcostal margin along the anterior axillary and the midclavicular line. Graspers were placed through these working ports I examined the subhepatic space. There was note of a lot of matted omentum this area. We attempted release this from the liver edge but there was note of just a lot of densely adherent and indurated fat the do the area. We could not even identify the gallbladder or visualize the wall so I decided at this point that we would convert to an open procedure. I therefore made a generous subcostal incision using blade number 15 and this was carried down through the full-thickness skin subcutaneous fat. I incised the anterior with electrocautery and divided the anterior rectus way to just lateral to this. I then incised the posterior sheath to enter the peritoneum. The Bookwalter retractor was then positioned. Examination of the subhepatic space showed very densely adherent omentum in indurated fatty tissue. There was no free fluid. There is no pus that was seen. I proceeded to apply a packing surrounding the area of the indurated gallbladder to allow visualization exposure. However, there was note of a lot of indurated fatty tissue surrounding the entire gallbladder so with to proceed slowly to free this up. After packing the colon and most of the omentum, I e xamined the area of the subhepatic space. Again, the gallbladder seemed to be encased in very thickened, indurated fatty tissue. The gallbladder did not appear to be dilated, and this did not correlate with the initial CT scan finding. We therefore attempted to peel off this thick indurated fatty areolar tissue surrounding the gallbladder. We had to proceed mm by mm fashion using the right angle clamp because of bleeding each time we were peeling off this tissue. We were really unable to really visualize the gallbladder wall. During the dissection of this dated fat, we encountered some bleeding on the medial inferior aspect. We applied clamps on the indurated fat tied off this bleeding air but we had no success. It then appeared that the bleeding seemed to be coming from underneath this fatty areolar tissue. We attempted appose this by dissecting the fat on this with no success. We encountered more bleeding. At some point, we had to apply pressure medial to this area of bleeding using the sponge on a stick. We could actually see the bleeding area and this appeared to be for thin walled vessel with a tear consistent with a vein. Initially, I attempted to apply a [id number] polyps are all stitch to control this without any success. We had persistent bleeding and at some point, I decided to call in the vascular surgeon. Dr. Pham therefore did an intraop consult. We applied packing around the area of the bleeding to explosive this. Eventually were able to identify this bleeding vessel. By isolating this, he was able to apply clips on this bleeding to achieve control. We observed for about 2 minutes and we had good hemostasis thereafter. At this point, who had lost about 350-400 cc of blood. Examination of the area of the subhepatic space showed more of this indurated fatty tissue casing the gallbladder. We had not actually achieved any visualization of the gallbladder. In view of the higher risk of bleeding again from all this indurated tissue, I decided to abort the procedure as that we would be exposing the patient to more risks of harm with potential bleeding with further dissection. Furthermore, the patient had actually improved significantly with IV antibiotics already. I therefore copiously irrigated. Position TRISTA 7. Drain on this area of the just adjacent to the area of the gallbladder in the subhepatic space. This was bro ught out through 1 of the port sites laterally as an exit site. This was secured to the skin with anchoring sutures using nylon 3-0 I then we observed the subhepatic space. This time it remained hemostatic. There was no evidence of any bowel injury or any bile leak. I therefore closed the posterior she has to running Dexon 0 stitch. The anterior sheath was closed with a Maxon 1 stitch. I also closed the fascia of the umbilical incision with a figure 8 Dexon 0 stitch Skin closure was achieved on all incisions using skin jamaica. All incisions were infiltrated with Marcaine 0.5% for postop analgesia. Dressings were applied and the procedure was completed The patient tolerated procedure well. The complication noted. Initial and final counts of sponges and instruments were correct. Estimated blood loss was about 350 cc to 400 cc. The patient was extubated without difficulty and transferred to the recovery room with stable vital signs
--- NOTE | 2021-12-26 16:37 | PM.OP ---
Brief Operative Note Date of Service: 12/26/21 <Emma Anthony PA-C - Last Filed: 12/26/21 16:40> Pre-op diagnosis: acute cholecystitis <Emma Anthony PA-C - Last Filed: 12/26/21 16:40> Post-op diagnosis: same <Emma Anthony PA-C - Last Filed: 12/26/21 16:40> Procedure: laparoscopic converted to open attempted cholecystectomy (aborted), ligation of bleeding vessel <Emma Anthony PA-C - Last Filed: 12/26/21 16:40> Surgeon: JANIE FORD MD OTHER ASSISTANTS: INOCENCIO RENE MD; PALMER PAPPAS MD <Emma Anthony PA-C - Last Filed: 12/26/21 16:40> Anesthesia: GETA <Emma Anthony PA-C - Last Filed: 12/26/21 16:40> Was an Deckhand Crab Boat used for this Procedure?: Yes <Emma Anthony PA-C - Last Filed: 12/26/21 16:40> No <Janie Ford MD - Last Filed: 12/26/21 16:54> Deckhand Crab Boat: Emma Anthony <KARLA Rosado Last Filed: 12/26/21 16:40> Estimated blood loss (mL): 350 <KARLA Rosado Last Filed: 12/26/21 16:40> Pathology: none sent <KARLA Rosado Last Filed: 12/26/21 16:40> Condition: stable <KARLA Rosado Last Filed: 12/26/21 16:40> Disposition: PACU <KARLA Rosado Last Filed: 12/26/21 16:40>
[2021-12-26] MEDS: Dextrose 5 % and 0.45 % NaCl 1,000 ML 50 ML IVCONT (17:55)
[2021-12-26] MEDS: 0.9 % Sodium Chloride Flush 3 ML SYRINGE IVFLUSH ×2 (17:59→23:30)
--- NOTE | 2021-12-26 18:03 | PM.EVENT ---
Event Note Date of Service: 12/26/21 Event Note: seen postop attempted cholecystectomy this afternoon - unsuccesful in view of the GB being encased in indurated fat with heavy bleeding cholecystectomy therefore aborted TRISTA in place seems to have adequate pain control TRISTA drain - dark old blood, not heavy output explained above to Harmony and to pt plan is to continue IV abx pain control clear liquids
[2021-12-26] MEDS: cefTRIAXone sodium 2 GM in 0.9 % Sodium Chloride 50 ML IV (20:45)
[2021-12-26] MEDS: oxyCODONE HCl Immed Release 5 MG TABLET 10 MG PO (21:06)
[2021-12-27] VITALS (8 sets, daily range): BP systolic 119–159; BP diastolic 58–71; PULSE 58–67; RESP 16–18; TEMP 35.5–36.6; O2SAT 97–100
[2021-12-27] MEDS: metroNIDAZOLE/NS 500 MG/100 ML PIGGYBACK 100 MG IV ×3 (01:50→17:39)
[2021-12-27] MEDS: Omeprazole 20 MG CAPSULE.DR PO (05:44)
[2021-12-27 07:41] LABS: Hepatitis A Antibody IgM 0.14 Index (0-0.79); ~Hepatitis A Antibody IgM Nonreactive (Nonreactive)
[2021-12-27 07:46] LABS: MANUAL DIFF FLAG NO
[2021-12-27 07:51] LABS: Basophils Percent Auto 0.2 % (0-2); Eosinophils Percent Auto 0.1 % (0-4); Hematocrit 38.3 % (42.0-52.0); Hemoglobin 12.4 g/dl (14.0-18.0); Imm Gran Pct Auto 0.6 % (0.0-0.4); Lymphocytes Percent Auto 5.8 % (20-40); Mean Corpuscular HGB Conc 32.4 g/dl (31.0-36.0); Mean Corpuscular Hemoglobin 30.8 pg (27.0-33.0); Mean Platelet Volume 10.8 fL (9.4-12.4); Monocytes Absolute Auto 0.6 X10*3/uL (0.1-1.2); Monocytes Percent Auto 3.3 % (2-11); Neutrophils Absolute Auto 15.1 x10*3/uL (2.0-8.3); Platelet Count 401 X10*3/uL (160-400); Red Blood Count 4.03 X10*6/uL (4.60-5.80); Red Cell Distribution Width 13.5 % (11.0-16.0); White Blood Count 16.8 X10*3/uL (4.8-10.8)
--- NOTE | 2021-12-27 07:55 | PM.PNGS ---
Subjective Subjective Date of Service: 12/27/21 Interval history: Says he has good pain control No events reported overnight No vomiting Report some burping Physical Exam Vital Signs: Vital Signs: Last Vital Signs Temp 96.5 F L 12/27/21 03:25 Pulse 58 12/27/21 03:25 Resp 18 12/27/21 03:25 BP 125/62 12/27/21 03:25 Pulse Ox 97 12/27/21 03:25 BMI result Body Mass Index 32.5 Const: Other: Sitting up on recliner General: comfortable and no acute distress Eyes: Sclerae: sclerae normal Resp: Effort & Inspection: normal respiratory effort Cardio: Rhythm: abnormal rhythm GI: Other: Soft, dressings dry, TRISTA drain with minimal dark old blood Objective Data Active Medications Hydromorphone HCl (Hydromorphone Hcl 0.5 Mg/0.5 Ml Syringe) 0.5 mg IVPUSH Q3H PRN; Protocol PRN Reason: Pain, Severe (Pain Scale 7-10) Dextrose/Sodium Chloride (D51/2ns) 1,000 mls @ 50 mls/hr IVCONT .Q20H [facility] Last Admin: 12/26/21 17:55 Dose: 50 mls/hr Documented by: KEEGAN Ceftriaxone Sodium 2 gm/ (Sodium Chloride) 50 mls @ 100 mls/hr IV Q24H [facility] Last Infusion: 12/26/21 21:48 Dose: 0 mls/hr Documented by: DELVIN Metronidazole (Flagyl) 500 mg in 100 mls @ 100 mls/hr IV Q8H [facility] Last Infusion: 12/27/21 03:00 Dose: 0 mls/hr Documented by: DELVIN Acetaminophen (Ofirmev) 1,000 mg in 100 mls @ 400 mls/hr IV Q6H [facility] Last Infusion: 12/27/21 06:07 Dose: 0 mls/hr Documented by: DELVIN Melatonin (Melatonin 3 Mg Tablet) 6 mg PO BEDTIME PRN PRN Reason: Insomnia Metoprolol Tartrate (Metoprolol Tartrate 25 Mg Tablet) 25 mg PO QID [facility]; Protocol Last Admin: 12/26/21 20:45 Dose: 25 mg Documented by: DELVIN Omeprazole (Omeprazole 20 Mg Capsule.) 20 mg PO DAILY@0630 [facility] Last Admin: 12/27/21 05:44 Dose: 20 mg Documented by: DELVIN Ondansetron HCl (Ondansetron Hcl 4 Mg/2 Ml Vial) 4 mg IVPUSH Q4H PRN PRN Reason: Nausea and Vomiting Last Admin: 12/24/21 10:21 Dose: 4 mg Documented by: SIL Oxycodone HCl (Oxycodone Hcl Immed Release 5 Mg Tablet) 5 mg PO Q4H PRN PRN Reason: Pain, Moderate (Pain Scale 4-6 Oxycodone HCl (Oxycodone Hcl Immed Release 5 Mg Tablet) 10 mg PO Q4H PRN PRN Reason: Pain, Severe (Pain Scale 7-10) Last Admin: 12/26/21 21:06 Dose: 10 mg Documented by: DELVIN Sodium Chloride (0.9 % Sodium Chloride Flush 3 Ml Syringe) 3 ml IVFLUSH QSHIFT [facility] Last Admin: 12/26/21 23:30 Dose: 3 ml Documented by: DELVIN Labs CBC & Chem 7: 12/27/21 06:56 12/25/21 06:24 Labs: Laboratory Results - last 24 hr 12/26/21 12/27/21 08:04 06:56 MCV 95.0 MCH 30.8 MCHC 32.4 RDW 13.5 Plt Count 401 H MPV 10.8 Immature Gran % (Auto) 0.6 H Neut % (Auto) 90.0 H Lymph % (Auto) 5.8 L [place] % (Auto) 3.3 Eos % (Auto) 0.1 Baso % (Auto) 0.2 Lymph # (Auto) 1.0 L [place] # (Auto) 0.6 Eos # (Auto) 0.0 Baso # (Auto) 0.0 Abs Immat Gran (auto) 0.10 H Absolute Neuts (auto) 15.1 H Absolute Nucleated RBC 0.000 Nucleated RBC % (auto) 0.0 Blood Type A Positive Antibody Screen NEGATIVE Crossmatch See Detail Microbiology Microbiology Results: Microbiology 12/24/21 01:57 Blood Culture - Preliminary Blood - Venous No growth after 48 hours. Procedures Date of Service Date of Service: 12/27/21 Progress Note: A&P Assessment and plan (1) Cholecystitis: Status: Acute Assessment and Plan: Status post attempted cholecystectomy, with difficult intraoperative bleeding due to inflammatory changes surrounding the gallbladder Procedure therefore aborted after repair of a bleeding vessel Pain management Clear liquids today, advance slowly as tolerated Continue IV antibiotics Otherwise he looks portable with good pain control at this time Incentive spirometry updated Time Spent With Patient Time: Total time spent is greater than 50% in coordination of care (as documented) at patient's floor/unit and/or counseling patient: Quality Stroke Does the patient have a stroke diagnosis?: No VTE Prior VTE?: No VTE Risk Level:: Medical - moderate - high VTE Device Contraindication: N/A - Device Ordered VTE Drug Contraindication: Treatment Not Indicated
--- NOTE | 2021-12-27 09:21 | HO.PM.IMPN ---
Subjective Subjective Date of Service: 12/27/21 Interval History: Unsuccessful cholecystectomy, heavy bleeding yesterday Review of Systems Has abdominal pain. Physical Exam Vital Signs: Vital Signs: Last Vital Signs Temp 96.5 F L 12/27/21 03:25 Pulse 63 12/27/21 08:00 Resp 16 12/27/21 08:00 BP 119/58 L 12/27/21 08:00 Pulse Ox 99 12/27/21 08:00 BMI result Body Mass Index 32.5 Appearing in no acute distress ?lung sounds are clear to auscultation ?heart regular rate rhythm, clear? S1, S2 ?positive bowel sounds, abdomen is soft, nontender-procedure site, clean no discharge has some soreness in the area, drain draining moderate amount of serosanguineous fluid. ?neuro patient is alert x3, no focal deficits Objective Data Active Medications Hydromorphone HCl (Hydromorphone Hcl 0.5 Mg/0.5 Ml Syringe) 0.5 mg IVPUSH Q3H PRN; Protocol PRN Reason: Pain, Severe (Pain Scale 7-10) Dextrose/Sodium Chloride (D51/2ns) 1,000 mls @ 50 mls/hr IVCONT .Q20H [facility] Last Admin: 12/26/21 17:55 Dose: 50 mls/hr Documented by: KEEGAN Ceftriaxone Sodium 2 gm/ (Sodium Chloride) 50 mls @ 100 mls/hr IV Q24H [facility]PL[facility] BY [facility] Last Infusion: 12/26/21 21:48 Dose: 0 mls/hr Documented by: DELVIN Metronidazole (Flagyl) 500 mg in 100 mls @ 100 mls/hr IV Q8H [facility] Last Infusion: 12/27/21 03:00 Dose: 0 mls/hr Documented by: DELVIN Acetaminophen (Ofirmev) 1,000 mg in 100 mls @ 400 mls/hr IV Q6H [facility] Last Infusion: 12/27/21 06:07 Dose: 0 mls/hr Documented by: DELVIN Melatonin (Melatonin 3 Mg Tablet) 6 mg PO BEDTIME PRN PRN Reason: Insomnia Metoprolol Tartrate (Metoprolol Tartrate 25 Mg Tablet) 25 mg PO QID [facility] BY [facility]; Protocol Last Admin: 12/26/21 20:45 Dose: 25 mg Documented by: DELVIN Omeprazole (Omeprazole 20 Mg Capsule.Dr) 20 mg PO DAILY@0630 [facility]PL[facility] Last Admin: 12/27/21 05:44 Dose: 20 mg Documented by: DELVIN Ondansetron HCl (Ondansetron Hcl 4 Mg/2 Ml Vial) 4 mg IVPUSH Q4H PRN PRN Reason: Nausea and Vomiting Last Admin: 12/24/21 10:21 Dose: 4 mg Documented by: SIL Oxycodone HCl (Oxycodone Hcl Immed Release 5 Mg Tablet) 5 mg PO Q4H PRN PRN Reason: Pain, Moderate (Pain Scale 4-6 Oxycodone HCl (Oxycodone Hcl Immed Release 5 Mg Tablet) 10 mg PO Q4H PRN PRN Reason: Pain, Severe (Pain Scale 7-10) Last Admin: 12/26/21 21:06 Dose: 10 mg Documented by: DELVIN Sodium Chloride (0.9 % Sodium Chloride Flush 3 Ml Syringe) 3 ml IVFLUSH QSHIFT [facility]PLACED BY [facility] Last Admin: 12/27/21 09:08 Dose: Not Given Documented by: KEEGAN Non-Admin Reason: IV Running Labs CBC & Chem 7: 12/27/21 06:56 12/25/21 06:24 Labs: Laboratory Results - last 24 hr 12/24/21 12/26/21 12/27/21 06:16 08:04 06:56 MCV 95.0 MCH 30.8 MCHC 32.4 RDW 13.5 Plt Count 401 H MPV 10.8 Immature Gran % (Auto) 0.6 H Neut % (Auto) 90.0 H Lymph % (Auto) 5.8 L [place] % (Auto) 3.3 Eos % (Auto) 0.1 Baso % (Auto) 0.2 Lymph # (Auto) 1.0 L [place] # (Auto) 0.6 Eos # (Auto) 0.0 Baso # (Auto) 0.0 Abs Immat Gran (auto) 0.10 H Absolute Neuts (auto) 15.1 H Absolute Nucleated RBC 0.000 Nucleated RBC % (auto) 0.0 Hepatitis A IgM Ab Nonreactive Blood Type A Positive Antibody Screen NEGATIVE Crossmatch See Detail Assessment and Plan (1) Atrial fibrillation with RVR: Status: Acute (2) Cholecystitis: Status: Acute Plan 66-year-old male with a past medical history of hypertension, hyperlipidemia, paroxysmal AFib presented to the hospital with a chief complaint of nausea /vomiting / diarrhea/right upper quadrant abdominal pain.? Noted to be in AFib with RVR/acute cholecystitis.? Admitted for further management. Acute cholecystitis Pain control Eliquis held for 48hrs since had bleeding during CCY and CCY unsuccessful. IV fluids and antibiotics surgery following Transaminitis secondary to acute cassandra Trend liver enzymes.? acute hepatitis panel neg Hold home statin for now. AFib with RVR. HR 150's. resolved Received metoprolol IV x3; converted to sinus started metoprolol 25mg Q6 home Eliquis on hold for now due to CCY (procedure bleeding) cardiology following Hypertension: acceptable Hold home lisinopril for now,may need to restart tomorrow. continue metoprolol. History of CAD Aspirin on hold in anticipation for procedure. DVT prophylaxis: SCD boots need for inaptient: CCY unsuccessful and bleeding yesterday during procedure-need monitering,iv antibiotics , Quality Stroke Does the patient have a stroke diagnosis?: No VTE Prior VTE?: No VTE Risk Level:: Medical - moderate - high VTE Device Contraindication: N/A - Device Ordered VTE Drug Contraindication: Treatment Not Indicated
[2021-12-27] MEDS: Metoprolol Tartrate 25 MG TABLET PO ×3 (09:44→17:39)
[2021-12-27] MEDS: Dextrose 5 % and 0.45 % NaCl 1,000 ML 50 ML IVCONT (14:15)
--- NOTE | 2021-12-27 15:24 | HO.POSTANES ---
Post Anesthesia Evaluation Post Anesthesia Evaluation Vital Signs: Vital Signs Temp Pulse Resp BP Pulse Ox 12/27/21 15:22 97.9 F 63 16 142/71 H 99 12/27/21 14:21 159/68 H 12/27/21 11:40 97.4 F 62 16 142/65 H 98 12/27/21 08:00 97.2 F 63 16 119/58 L 99 12/27/21 03:25 96.5 F L 58 18 125/62 97 Anesthesia: General Endotracheal-GETA Mental Status: Awake Pain Control: Satisfactory (pain) Nausea/Vomiting: Mild Hydration: Adequate Anesthesia-Related Issues: No Anes. Related Issues
[2021-12-27] MEDS: 0.9 % Sodium Chloride Flush 3 ML SYRINGE IVFLUSH ×2 (17:44→21:34)
[2021-12-27] MEDS: cefTRIAXone sodium 2 GM in 0.9 % Sodium Chloride 50 ML IV (21:27)
[2021-12-28] VITALS (7 sets, daily range): BP systolic 95–147; BP diastolic 60–76; PULSE 60–160; RESP 16–18; TEMP 36.4–36.7; O2SAT 96–100
[2021-12-28] MEDS: metroNIDAZOLE/NS 500 MG/100 ML PIGGYBACK 100 MG IV ×3 (01:10→18:25)
[2021-12-28] MEDS: Omeprazole 20 MG CAPSULE.DR PO (06:24)
[2021-12-28 06:33] LABS: Hematocrit 31.6 % (42.0-52.0); Hemoglobin 10.3 g/dl (14.0-18.0); Mean Corpuscular HGB Conc 32.6 g/dl (31.0-36.0); Mean Corpuscular Hemoglobin 29.9 pg (27.0-33.0); Mean Corpuscular Volume 91.6 fL (80.0-98.0); Mean Platelet Volume 9.4 fL (9.4-12.4); Platelet Count 402 X10*3/uL (160-400); Red Blood Count 3.45 X10*6/uL (4.60-5.80); Red Cell Distribution Width 13.5 % (11.0-16.0); White Blood Count 12.9 X10*3/uL (4.8-10.8)
[2021-12-28 06:49] LABS: Anion Gap 10 (12-20); Blood Urea Nitrogen 11 mg/dL (9-16); Calcium 8.1 mg/dL (8.4-10.2); Carbon Dioxide 23 mmol/L (22-29); Chloride 108 mmol/L (96-108); Creatinine Clr Calc Pharmacy 97.3; Estimated Glomerular Filt Rate > 60; Glucose Random 98 mg/dL (60-115); Potassium 4.1 mmol/L (3.3-5.1); Sodium 137 mmol/L (135-145)
--- NOTE | 2021-12-28 08:06 | P.PNGS_ITS ---
Subjective Subjective Date of Service: 12/28/21 <Emma Anthony PA-C - Last Filed: 12/28/21 08:12> 12/28/21 <Davide Bowman MD - Last Filed: 12/28/21 11:13> Interval history: Feeling better today. Hungry and wants solid food. Tolerating clear liquids without nausea, vomiting. Reports abdominal pain but only incisional. Has been OOB and ambulating. <Emma Anthony PA-C - Last Filed: 12/28/21 08:12> Physical Exam Vital Signs: Vital Signs: Last Vital Signs Temp 98.0 F 12/28/21 08:00 Pulse 79 12/28/21 08:00 Resp 16 12/28/21 08:00 BP 147/76 H 12/28/21 08:00 Pulse Ox 100 12/28/21 08:00 BMI result Body Mass Index 32.5 <KARLA Rosado Last Filed: 12/28/21 08:12> Const: General: comfortable, no acute distress and alert <KARLA Rosado Last Filed: 12/28/21 08:12> Orientation/consciousness: patient oriented x3 <KARLA Rosado Last Filed: 12/28/21 08:12> Resp: Effort & Inspection: normal respiratory effort <KARLA Rosado Last Filed: 12/28/21 08:12> GI: Other: TRISTA drain with scanty serosanguineous drainage <KARLA Rosado Last Filed: 12/28/21 08:12> Inspection: No distended and Yes incision (clean) <KARLA Rosado Last Filed: 12/28/21 08:12> Palpation (GI): Soft to palpation, Tenderness to palpation present (GI) (mild, incisional), no guarding and not rigid <KARLA Rosado Last Filed: 12/28/21 08:12> Skin: General skin exam: no rashes or lesions noted <KARLA Rosado Last Filed: 12/28/21 08:12> Neuro: General: patient oriented x3 <Emma Anthony PA-C - Last Filed: 12/28/21 08:12> Extrem: General: Yes no clubbing, cyanosis or edema <Emma Anthony PA-C - Last Filed: 12/28/21 08:12> Objective Data Active Medications Hydromorphone HCl (Hydromorphone Hcl 0.5 Mg/0.5 Ml Syringe) 0.5 mg IVPUSH Q3H PRN; Protocol PRN Reason: Pain, Severe (Pain Scale 7-10) Ceftriaxone Sodium 2 gm/ (Sodium Chloride) 50 mls @ 100 mls/hr IV Q24H [facility] Last Infusion: 12/27/21 22:13 Dose: 0 mls/hr Documented by: BECK Metronidazole (Flagyl) 500 mg in 100 mls @ 100 mls/hr IV Q8H [facility] Last Infusion: 12/28/21 02:11 Dose: 0 mls/hr Documented by: BECK Acetaminophen (Ofirmev) 1,000 mg in 100 mls @ 400 mls/hr IV Q6H [facility] Last Admin: 12/28/21 05:32 Dose: Not Given Documented by: BECK Non-Admin Reason: Patient Refused Melatonin (Melatonin 3 Mg Tablet) 6 mg PO BEDTIME PRN PRN Reason: Insomnia Metoprolol Tartrate (Metoprolol Tartrate 25 Mg Tablet) 25 mg PO QID [facility]; Protocol Last Admin: 12/27/21 20:10 Dose: Not Given Documented by: BECK Non-Admin Reason: Decreased Heart Rate Omeprazole (Omeprazole 20 Mg Capsule.) 20 mg PO DAILY@0630 [facility] Last Admin: 12/28/21 06:24 Dose: 20 mg Documented by: BECK Ondansetron HCl (Ondansetron Hcl 4 Mg/2 Ml Vial) 4 mg IVPUSH Q4H PRN PRN Reason: Nausea and Vomiting Last Admin: 12/24/21 10:21 Dose: 4 mg Documented by: SIL Oxycodone HCl (Oxycodone Hcl Immed Release 5 Mg Tablet) 5 mg PO Q4H PRN PRN Reason: Pain, Moderate (Pain Scale 4-6 Oxycodone HCl (Oxycodone Hcl Immed Release 5 Mg Tablet) 10 mg PO Q4H PRN PRN Reason: Pain, Severe (Pain Scale 7-10) Last Admin: 12/26/21 21:06 Dose: 10 mg Documented by: DELVIN Sodium Chloride (0.9 % Sodium Chloride Flush 3 Ml Syringe) [address] [facility] Last Admin: 12/27/21 21:34 Dose: 3 ml Documented by: BECK <Emma Anthony PA-C - Last Filed: 12/28/21 08:12> Labs CBC & Chem 7: : 12/28/21 06:11 12/28/21 06:11 <Emma Anthony PA-C - Last Filed: 12/28/21 08:12> Labs: Laboratory Results - last 24 hr 12/24/21 12/28/21 12/28/21 06:16 06:11 06:11 MCV 91.6 MCH 29.9 MCHC 32.6 RDW 13.5 Plt Count 402 H MPV 9.4 Absolute Nucleated RBC 0.000 Nucleated RBC % (auto) 0.0 Anion Gap 10 L Estim Creat Clear Calc 97.3 Estimated GFR > 60 Random Glucose 98 Calcium 8.1 L Hepatitis A IgM Ab Nonreactive <Emma Anthony PA-C - Last Filed: 12/28/21 08:12> Procedures Date of Service Date of Service: 12/28/21 <Emma Anthony PA-C - Last Filed: 12/28/21 08:12> Progress Note: A&P Assessment and plan (1) Cholecystitis: Status: Acute <Emma Anthony PA-C - Last Filed: 12/28/21 08:12> Assessment and Plan: Feels well Denies significant pain Wants to eat Good BMs TRISTA drain scanty He looks well Advance diet Likely DC drain tomorrow Okay to restart Eliquis tomorrow Seen and examined independently - agree with RAFA Anthony <Davide Bowman MD - Last Filed: 12/28/21 11:13> (2) Atrial fibrillation with RVR: Status: Acute <KARLA Rosado Last Filed: 12/28/21 08:12> Plan 66 year old male who presented to the ED for RUQ pain and admitted with a fib with RVR, on eliquis, and cholecystitis with possible perforation. He was treated with IV abx initially given last eliquis dose. He is now POD #2 s/p attempted cholecystectomy. Procedure aborted due to significant inflammatory changes surrounding the gallbladder. Patient continues to improve clinically with supportive measures. Only with incisional pain. WBC continues to improve. Continue IV antibiotics, pain control, OOB/ambulation. Will remove TRISTA drain tomorrow. Will advance to cardiac/low fat diet. Incentive spirometry <Emma Anthony PA-C - Last Filed: 12/28/21 08:12> Time Spent With Patient Time: Total time spent is greater than 50% in coordination of care (as documented) at patient's floor/unit and/or counseling patient: <Emma Anthony PA-C - Last Filed: 12/28/21 08:12> Quality Stroke Does the patient have a stroke diagnosis?: No <KARLA Rosado Last Filed: 12/28/21 08:12> VTE Prior VTE?: No <Emma Anthony PA-C - Last Filed: 12/28/21 08:12> VTE Risk Level:: Medical - moderate - high <KARLA Rosado Last Filed: 12/28/21 08:12> VTE Device Contraindication: N/A - Device Ordered <KARLA Rosado Last Filed: 12/28/21 08:12> VTE Drug Contraindication: Treatment Not Indicated <KARLA Rosado Last Filed: 12/28/21 08:12>
--- NOTE | 2021-12-28 08:22 | P.PNIM_ITS ---
Subjective Subjective Date of Service: 12/28/21 Interval History: acute cholecystitis, afib with rvr Review of Systems Unsuccessful cholecystectomy, heavy bleeding day before yesterday Denies any abdominal pain or fever chills or cough or phlegm. Physical Exam Vital Signs: Vital Signs: Last Vital Signs Temp 98.0 F 12/28/21 08:00 Pulse 79 12/28/21 08:00 Resp 16 12/28/21 08:00 BP 147/76 H 12/28/21 08:00 Pulse Ox 100 12/28/21 08:00 BMI result Body Mass Index 32.5 ?Appearing in no acute distress ?lung sounds are clear to auscultation ?heart regular rate rhythm, clear? S1, S2 ?positive bowel sounds, abdomen is soft, nontender-procedure site, clean no discharge has some soreness in the area, TRISTA drain with scanty serosanguineous drainage. ?neuro patient is alert x3, no focal deficits Objective Data Active Medications Hydromorphone HCl (Hydromorphone Hcl 0.5 Mg/0.5 Ml Syringe) 0.5 mg IVPUSH Q3H PRN; Protocol PRN Reason: Pain, Severe (Pain Scale 7-10) Ceftriaxone Sodium 2 gm/ (Sodium Chloride) 50 mls @ 100 mls/hr IV Q24H [facility] Last Infusion: 12/27/21 22:13 Dose: 0 mls/hr Documented by: BECK Metronidazole (Flagyl) 500 mg in 100 mls @ 100 mls/hr IV Q8H [facility] Last Infusion: 12/28/21 02:11 Dose: 0 mls/hr Documented by: BECK Acetaminophen (Ofirmev) 1,000 mg in 100 mls @ 400 mls/hr IV Q6H [facility] Last Admin: 12/28/21 05:32 Dose: Not Given Documented by: BECK Non-Admin Reason: Patient Refused Melatonin (Melatonin 3 Mg Tablet) 6 mg PO BEDTIME PRN PRN Reason: Insomnia Metoprolol Tartrate (Metoprolol Tartrate 25 Mg Tablet) 25 mg PO QID [facility]; Protocol Last Admin: 12/27/21 20:10 Dose: Not Given Documented by: BECK Non-Admin Reason: Decreased Heart Rate Omeprazole (Omeprazole 20 Mg Jaxon.) 20 mg PO DAILY@0630 [facility] Last Admin: 12/28/21 06:24 Dose: 20 mg Documented by: BECK Ondansetron HCl (Ondansetron Hcl 4 Mg/2 Ml Vial) 4 mg IVPUSH Q4H PRN PRN Reason: Nausea and Vomiting Last Admin: 12/24/21 10:21 Dose: 4 mg Documented by: TOCNAPOLEON Oxycodone HCl (Oxycodone Hcl Immed Release 5 Mg Tablet) 5 mg PO Q4H PRN PRN Reason: Pain, Moderate (Pain Scale 4-6 Oxycodone HCl (Oxycodone Hcl Immed Release 5 Mg Tablet) 10 mg PO Q4H PRN PRN Reason: Pain, Severe (Pain Scale 7-10) Last Admin: 12/26/21 21:06 Dose: 10 mg Documented by: NAUMOC Sodium Chloride (0.9 % Sodium Chloride Flush 3 Ml Syringe) [facility] Last Admin: 12/27/21 21:34 Dose: 3 ml Documented by: BECK Labs CBC & Chem 7: 12/28/21 12:50 12/28/21 06:11 Labs: Laboratory Results - last 24 hr 12/28/21 12/28/21 06:11 06:11 MCV 91.6 MCH 29.9 MCHC 32.6 RDW 13.5 Plt Count 402 H MPV 9.4 Absolute Nucleated RBC 0.000 Nucleated RBC % (auto) 0.0 Anion Gap 10 L Estim Creat Clear Calc 97.3 Estimated GFR > 60 Random Glucose 98 Calcium 8.1 L Assessment and Plan (1) Cholecystitis: Status: Acute (2) Atrial fibrillation with RVR: Status: Acute Plan 66-year-old male with a past medical history of hypertension, hyperlipidemia, paroxysmal AFib presented to the hospital with a chief complaint of nausea /vomiting / diarrhea/right upper quadrant abdominal pain.? Noted to be in AFib with RVR/acute cholecystitis.? Admitted for further management. Acute cholecystitis Pain control Eliquis held for 48hrs since had bleeding during? CCY and? CCY unsuccessful. IV antibiotics surgery following Transaminitis secondary to acute cassandra Trend liver enzymes.? acute hepatitis panel neg Hold home statin for now. AFib with RVR. HR 150-160s. resolved started on iv cardizem, also received IV Cardizem 10 mg before IV drip, Also received IV metoprolol earlier hold metoprolol 25mg Q6 Eliquis and AC on hold -due to recent bleed CCY unsuccessful and bleeding Discussed with surgery and patient- currently hold AC until tomorrow considering recent bleed, patient is in agreement-risks discussed with patient in detail. Hypertension: acceptable Hold home lisinopril for now,may need to restart tomorrow. continue metoprolol. History of CAD Aspirin on hold due to recent due to recent bleed as above. DVT prophylaxis: SCD boots need for inaptient: afib with rvr. Quality Stroke Does the patient have a stroke diagnosis?: No VTE Prior VTE?: No VTE Risk Level:: Medical - moderate - high VTE Device Contraindication: N/A - Device Ordered VTE Drug Contraindication: Treatment Not Indicated
[2021-12-28] MEDS: Metoprolol Tartrate 25 MG TABLET PO (10:21)
[2021-12-28] MEDS: 0.9 % Sodium Chloride Flush 3 ML SYRINGE IVFLUSH ×2 (10:22→23:28)
[2021-12-28] MEDS: Metoprolol Tartrate 5 MG in 0.9 % Sodium Chloride 50 ML 220 MG IV (10:57)
--- NOTE | 2021-12-28 11:31 | ECG_ITS ---
Test Reason : rhythm change Blood Pressure : / mmHG Vent. Rate : 139 BPM Atrial Rate : 000 BPM P-R Int : 000 ms QRS Dur : 072 ms QT Int : 308 ms P-R-T Axes : 000 008 058 degrees QTc Int : 468 ms Atrial fibrillation with rapid ventricular response Septal infarct (cited on or before 22-JUN-2020) Abnormal ECG When compared with ECG of 24-DEC-2021 01:01, Atrial fibrillation has replaced Sinus rhythm Vent. rate has increased BY 46 BPM Nonspecific T wave abnormality, worse in Lateral leads Referred By: Tom Manning Electronically Signed By:TOM MANNING MD
--- NOTE | 2021-12-28 11:46 | PM.PNCARD ---
Subjective Subjective Date of Service: 12/28/21 Principal diagnosis: cholecystitis, atrial fibrillation with rapid ventricular response Interval history: I was requested to see Shree again today because he developed atrial fibrillation on 10:00 this morning. He said he was doing well and then suddenly notice palpitations started noticing heart rate going fast and was confirm with developing atrial fibrillation. However currently despite his heart rate went to 150 beats per minute he is not feeling any palpitations. He is anxious about this finding. He currently has a percutaneous drain. He has not had any bleeding issues. Denies any anginal symptoms. No shortness of breath, orthopnea, PND, lightheadedness. Blood pressure stable Review of Systems Constitutional: Reports no additional constitutional complaints Eyes: Reports no additional eye complaints Cardiovascular: Denies chest pain, Denies lightheadedness, Denies Loss of Consciousness, Reports palpitations and Denies dyspnea Respiratory: Reports no additional respiratory complaints and Denies dyspnea Gastrointestinal: Reports no additional gastrointestinal complaints Musculoskeletal: Reports no additional musculoskeletal complaints Skin/Breast: Reports system reviewed and no additional complaints, except as docu Reports system reviewed and no additional complaints, except as documented Psychiatric: Reports no additional psychiatric complaints Endocrine: Reports no additional endocrine complaints and Reports palpitations Hematologic/Lymphatic: Reports no additional hematologic/lymphatic complaints Allergic/Immunologic: Reports no additional allergic/immunologic complaints Physical Exam Vital Signs: Last Vital Signs Temp 98.0 F 12/28/21 08:00 Pulse 79 12/28/21 08:00 Resp 16 12/28/21 08:00 BP 147/76 H 12/28/21 08:00 Pulse Ox 100 12/28/21 08:00 BMI result Body Mass Index 32.5 Const General: cooperative, comfortable, no acute distress, alert, awake and anxious Nutritional Appearance: overweight Orientation/consciousness: patient oriented x3 Neck Neck: Yes trachea midline, Yes supple and Yes no JVD Resp Effort & Inspection: normal respiratory effort Auscultation: clear to auscultation bilaterally Cardio Jugular venous distension: no JVD Rate: tachycardic Rhythm: abnormal rhythm irregularly irregular Heart sounds: S1 normal heart sound present, S2 normal heart sound present, no click, no gallops, no murmurs and no rubs GI Auscultation: normal bowel sounds Neuro General: patient oriented x3 and no focal motor deficits Extrem General: Yes no clubbing, cyanosis or edema Psych Appearance: grossly normal Affect: Anxious affect present Objective Labs and Meds Result diagrams: 12/28/21 06:11 12/28/21 06:11 Lab results: Laboratory Results - last 24 hr 12/28/21 12/28/21 06:11 06:11 WBC 12.9 H RBC 3.45 L Hgb 10.3 L Hct 31.6 L MCV 91.6 MCH 29.9 MCHC 32.6 RDW 13.5 Plt Count 402 H MPV 9.4 Absolute Nucleated RBC 0.000 Nucleated RBC % (auto) 0.0 Sodium 137 Potassium 4.1 Chloride 108 Carbon Dioxide 23 Anion Gap 10 L BUN 11 Creatinine 0.87 Estim Creat Clear Calc 97.3 Estimated GFR > 60 Random Glucose 98 Calcium 8.1 L Progress Note: A&P Assessment and plan (1) Atrial fibrillation with RVR: Status: Acute Assessment and Plan: atrial fibrillation rapid ventricular response in this gentleman with minimal symptoms at current time with no hemodynamic instability and no signs or symptoms of heart failure, triggered by his acute medical/ surgical illness with prior history of paroxysmal atrial fibrillation. At this point time will pursue rate control with IV Cardizem. Given a bolus of 10 mg followed by drip which can be escalated. Goal is to try to control his rate and he may convert to sinus rhythm which would be ideal. Continue p.o. metoprolol therapy. Also discussed with surgery to start anticoagulants, question IV heparin which can be held sensation can undergo removal of his percutaneous drain if necessary at this point time. If he remains difficult control and/or develops other symptoms may require synchronized cardioversion however this will probably need to be done with JAN guidance given that he is off anticoagulants since admission. Resume oral anticoagulant as soon as possible. (2) CAD (coronary artery disease): Status: Acute Assessment and Plan: CAD which is stable currently not having anginal symptoms despite rapid ventricular response with atrial fibrillation. Continue his usual medications. Continue high-intensity statin therapy. Continue metoprolol therapy. Patient advised to report any new symptoms. Will continue to follow with you Time Spent With Patient Time: Total time spent is greater than 50% in coordination of care (as documented) at patient's floor/unit and/or counseling patient: Progress Note: Quality Stroke Does the patient have a stroke diagnosis?: No Procedures Date of Service Date of Service: 12/28/21
[2021-12-28] MEDS: dilTIAZem HCL 50 MG/10 ML VIAL 10 MG IVPUSH (12:31)
[2021-12-28] MEDS: dilTIAZem HCL 125 MG in 0.9 % Sodium Chloride 100 ML 10 MG IVCONT (12:32)
[2021-12-28 13:28] LABS: Hematocrit 39.3 % (42.0-52.0); Hemoglobin 12.6 g/dl (14.0-18.0); Mean Corpuscular HGB Conc 32.1 g/dl (31.0-36.0); Mean Corpuscular Hemoglobin 29.6 pg (27.0-33.0); Mean Corpuscular Volume 92.5 fL (80.0-98.0); Mean Platelet Volume 10.1 fL (9.4-12.4); Platelet Count 533 X10*3/uL (160-400); Red Blood Count 4.25 X10*6/uL (4.60-5.80); Red Cell Distribution Width 13.6 % (11.0-16.0); White Blood Count 16.5 X10*3/uL (4.8-10.8)
[2021-12-28 13:35] LABS: INTERNATIONAL NORM RATIO 1.3 (0.9-1.1); Prothrombin Time 14.9 SEC (9.9-13.0)
[2021-12-28 13:38] LABS: PTT Heparin Drip 27.7 SEC (53-77.9)
[2021-12-28] MEDS: Melatonin 3 MG TABLET 6 MG PO (21:40)
[2021-12-28] MEDS: cefTRIAXone sodium 2 GM in 0.9 % Sodium Chloride 50 ML IV (21:40)
[2021-12-28] MEDS: dilTIAZem HCL 125 MG in 0.9 % Sodium Chloride 100 ML 15 MG IVCONT (22:17)
[2021-12-28] MEDS: traZODone HCL 50 MG TABLET PO (23:54)
--- NOTE | 2021-12-29 00:29 | PC.NURSE ---
Patient given melatonin for sleep, did not help. Pt requested something else, 50 mg PO trazodone ordered and pt noted to be snoring in bed at 0030.
[2021-12-29] MEDS: metroNIDAZOLE/NS 500 MG/100 ML PIGGYBACK 100 MG IV ×3 (01:43→17:38)
[2021-12-29 03:07] VITALS: BP 117/63; PULSE 89; RESP 16; TEMP 36.4; O2SAT 99
[2021-12-29] MEDS: Omeprazole 20 MG CAPSULE.DR PO (05:28)
[2021-12-29 05:30] VITALS: PULSE 90
[2021-12-29 06:48] LABS: Hematocrit 35.2 % (42.0-52.0); Hemoglobin 11.5 g/dl (14.0-18.0); Mean Corpuscular HGB Conc 32.7 g/dl (31.0-36.0); Mean Corpuscular Volume 91.9 fL (80.0-98.0); Mean Platelet Volume 9.4 fL (9.4-12.4); Platelet Count 407 X10*3/uL (160-400); Red Blood Count 3.83 X10*6/uL (4.60-5.80); Red Cell Distribution Width 13.5 % (11.0-16.0); White Blood Count 10.4 X10*3/uL (4.8-10.8)
[2021-12-29 07:11] LABS: Anion Gap 15 (12-20); Blood Urea Nitrogen 10 mg/dL (9-16); Carbon Dioxide 20 mmol/L (22-29); Chloride 108 mmol/L (96-108); Creatinine Clr Calc Pharmacy 99.6; Estimated Glomerular Filt Rate > 60; Glucose Random 115 mg/dL (60-115); Potassium 4.2 mmol/L (3.3-5.1); Sodium 139 mmol/L (135-145)
[2021-12-29 07:20] LABS: INTERNATIONAL NORM RATIO 1.3 (0.9-1.1); Prothrombin Time 14.8 SEC (9.9-13.0)
[2021-12-29 07:51] VITALS: BP 116/63; PULSE 100; RESP 20; TEMP 36.3; O2SAT 97
--- NOTE | 2021-12-29 08:34 | P.PNGS_ITS ---
Subjective Subjective Date of Service: 12/29/21 <Emma Anthony PA-C - Last Filed: 12/29/21 08:41> 12/29/21 <Davide Bowman MD - Last Filed: 12/29/21 11:00> Interval history: Did not have a good day yesterday due to A fib. He is tolerating a solid diet without worsening pain, nausea or vomiting. He is moving his bowels. Pain is minimal and at incision site. <Emma Anthony PA-C - Last Filed: 12/29/21 08:41> Physical Exam Vital Signs: Vital Signs: Last Vital Signs Temp 97.4 F 12/29/21 07:51 Pulse 100 12/29/21 07:51 Resp 20 12/29/21 07:51 BP 116/63 12/29/21 07:51 Pulse Ox 97 12/29/21 07:51 BMI result Body Mass Index 32.5 <KARLA Rosado Last Filed: 12/29/21 08:41> Const: General: comfortable, no acute distress and alert <Emma Anthony PA-C - Last Filed: 12/29/21 08:41> Orientation/consciousness: patient oriented x3 <KARLA Rosado Last Filed: 12/29/21 08:41> Resp: Effort & Inspection: normal respiratory effort <KARLA Rosado Last Filed: 12/29/21 08:41> GI: Other: TRISTA with scanty serous drainage <KARLA Rosado Last Filed: 12/29/21 08:41> Inspection: No distended, Yes incision ([place] intact, clean) and Yes obesity <KARLA Rosado Last Filed: 12/29/21 08:41> Palpation (GI): Soft to palpation, Tenderness to palpation present (GI) (mild, incisional), no guarding and not rigid <KARLA Rosado Last Filed: 12/29/21 08:41> Percussion: Yes normal to percussion <KARLA Rosado Last Filed: 12/29/21 08:41> Skin: General skin exam: no rashes or lesions noted <Emma Anthony PA-C - Last Filed: 12/29/21 08:41> Neuro: General: patient oriented x3 and moves all extremities <Emma Anthony PA-C - Last Filed: 12/29/21 08:41> Objective Data Active Medications Hydromorphone HCl (Hydromorphone Hcl 0.5 Mg/0.5 Ml Syringe) 0.5 mg IVPUSH Q3H PRN; Protocol PRN Reason: Pain, Severe (Pain Scale 7-10) Ceftriaxone Sodium 2 gm/ (Sodium Chloride) 50 mls @ 100 mls/hr IV Q24H [facility] Last Infusion: 12/28/21 22:18 Dose: 0 mls/hr Documented by: MARIA L Metronidazole (Flagyl) 500 mg in 100 mls @ 100 mls/hr IV Q8H [facility] Last Infusion: 12/29/21 02:49 Dose: 0 mls/hr Documented by: MARIA L Acetaminophen (Ofirmev) 1,000 mg in 100 mls @ 400 mls/hr IV Q6H [facility] Last Admin: 12/29/21 05:28 Dose: Not Given Documented by: MARIA L Non-Admin Reason: Patient Refused Diltiazem HCl 125 mg/ Sodium (Chloride) 125 mls @ 0 mls/hr IVCONT .Q0M [facility]; Protocol Last Titration: 12/29/21 05:29 Dose: 5 mg/hr, 5 mls/hr Documented by: MARIA L Melatonin (Melatonin 3 Mg Tablet) 6 mg PO BEDTIME PRN PRN Reason: Insomnia Last Admin: 12/28/21 21:40 Dose: 6 mg Documented by: MARIA L Metoprolol Tartrate (Metoprolol Tartrate 25 Mg Tablet) 25 mg PO QID [facility]; Protocol Last Admin: 12/28/21 10:21 Dose: 25 mg Documented by: DOBROB Omeprazole (Omeprazole 20 Mg Capsule.Dr) 20 mg PO DAILY@0630 [facility] Last Admin: 12/29/21 05:28 Dose: 20 mg Documented by: MARIA L Ondansetron HCl (Ondansetron Hcl 4 Mg/2 Ml Vial) 4 mg IVPUSH Q4H PRN PRN Reason: Nausea and Vomiting Last Admin: 12/24/21 10:21 Dose: 4 mg Documented by: TOCNAPOLEON Oxycodone HCl (Oxycodone Hcl Immed Release 5 Mg Tablet) 5 mg PO Q4H PRN PRN Reason: Pain, Moderate (Pain Scale 4-6 Oxycodone HCl (Oxycodone Hcl Immed Release 5 Mg Tablet) 10 mg PO Q4H PRN PRN Reason: Pain, Severe (Pain Scale 7-10) Last Admin: 12/26/21 21:06 Dose: 10 mg Documented by: NAUMOC Sodium Chloride (0.9 % Sodium Chloride Flush 3 Ml Syringe) 3 ml IVFLUSH QSHIFT [facility] Last Admin: 12/28/21 23:28 Dose: 3 ml Documented by: MARIA L <Emma Anthony PA-C - Last Filed: 12/29/21 08:41> Labs CBC & Chem 7: : 12/29/21 06:23 12/29/21 06:23 <Emma Anthony PA-C - Last Filed: 12/29/21 08:41> Labs: Laboratory Results - last 24 hr 12/28/21 12/28/21 12/29/21 12:50 12:50 06:23 MCV 92.5 MCH 29.6 MCHC 32.1 RDW 13.6 Plt Count 533 H D MPV 10.1 Absolute Nucleated RBC 0.000 Nucleated RBC % (auto) 0.0 PT 14.9 H INR 1.3 H aPTT Heparin Protocol 27.7 L Anion Gap 15 Estim Creat Clear Calc 99.6 Estimated GFR > 60 Random Glucose 115 Calcium 8.0 L 12/29/21 12/29/21 06:23 06:23 MCV 91.9 MCH 30.0 MCHC 32.7 RDW 13.5 Plt Count 407 H MPV 9.4 Absolute Nucleated RBC 0.000 Nucleated RBC % (auto) 0.0 PT 14.8 H INR 1.3 H aPTT Heparin Protocol Anion Gap Estim Creat Clear Calc Estimated GFR Random Glucose Calcium <Emma Anthony PA-C - Last Filed: 12/29/21 08:41> Microbiology Microbiology Results: Microbiology 12/24/21 01:57 Blood Culture - Final Blood - Venous No growth after 5 days. 12/24/21 00:32 Blood Culture - Final Blood - Venous No growth after 5 days. <Emma Anthony PA-C - Last Filed: 12/29/21 08:41> Procedures Date of Service Date of Service: 12/29/21 <Emma Anthony PA-C - Last Filed: 12/29/21 08:41> Progress Note: A&P Assessment and plan (1) Cholecystitis: Status: Acute <Emma Anthony PA-C - Last Filed: 12/29/21 08:41> Assessment and Plan: Looks well Denies significant pain TRISTA drain output scanty - removed Incision looks healing well Abdomen soft Tolerating diet Okay to start Eliquis Okay to DC home once medically cleared Follow-up in the office Seen and examined independently - agree with RAFA Anthony Harmony carey <Davide Bowman MD - Last Filed: 12/29/21 11:00> (2) Atrial fibrillation with RVR: Status: Acute <Emma Anthony PA-C - Last Filed: 12/29/21 08:41> Plan 66 year old male who presented to the ED for RUQ pain and admitted with a fib with RVR, on eliquis, and cholecystitis with possible perforation. He was treated with IV abx initially while awaiting surgery given last eliquis dose. He is now POD #3 s/p attempted cholecystectomy. Procedure aborted due to significant inflammatory changes surrounding the gallbladder. Patient continues to improve clinically with supportive measures. Tolerating solid diet without RUQ pain, nausea or vomiting. Only with incisional pain. WBC now normalized. Continue IV antibiotics, OOB/ambulation, IS use. TRISTA drain with scanty serous output and removed this morning. Remains on IV diltiazem for A fib. He is doing well from surgical standpoint. Can d/c to home on PO abx when medically cleared with f/u in office with Dr. Bowman. <Emma Anthony PA-C - Last Filed: 12/29/21 08:41> Time Spent With Patient Time: Total time spent is greater than 50% in coordination of care (as documented) at patient's floor/unit and/or counseling patient: <Emma Anthony PA-C - Last Filed: 12/29/21 08:41> Quality Stroke Does the patient have a stroke diagnosis?: No <Emma Anthony PA-C - Last Filed: 12/29/21 08:41> VTE Prior VTE?: No <Emma Anthony PA-C - Last Filed: 12/29/21 08:41> VTE Risk Level:: Medical - moderate - high <Emma Anthony PA-C - Last Filed: 12/29/21 08:41> VTE Device Contraindication: N/A - Device Ordered <Emma Anthony PA-C - Last Filed: 12/29/21 08:41> VTE Drug Contraindication: Treatment Not Indicated <Emma Anthony PA-C - Last Filed: 12/29/21 08:41>
--- NOTE | 2021-12-29 08:41 | P.PNIM_ITS ---
Subjective Subjective Date of Service: 12/29/21 Interval History: acute cholecystitis, afib with rvr Review of Systems Unsuccessful cholecystectomy, heavy [id number] back Denies any abdominal pain or fever chills or cough or phlegm. Physical Exam Vital Signs: Vital Signs: Last Vital Signs Temp 97.4 F 12/29/21 07:51 Pulse 100 12/29/21 07:51 Resp 20 12/29/21 07:51 BP 116/63 12/29/21 07:51 Pulse Ox 97 12/29/21 07:51 BMI result Body Mass Index 32.5 ?Appearing in no acute distress ?lung sounds are clear to auscultation ?heart irrgular rythem, clear? S1, S2 ?positive bowel sounds, abdomen is soft, nontender-procedure site, drain is out ?neuro patient is alert x3, no focal deficits Objective Data Active Medications Hydromorphone HCl (Hydromorphone Hcl 0.5 Mg/0.5 Ml Syringe) 0.5 mg IVPUSH Q3H PRN; Protocol PRN Reason: Pain, Severe (Pain Scale 7-10) Ceftriaxone Sodium 2 gm/ (Sodium Chloride) 50 mls @ 100 mls/hr IV Q24H [facility] Last Infusion: 12/28/21 22:18 Dose: 0 mls/hr Documented by: MARIA L Metronidazole (Flagyl) 500 mg in 100 mls @ 100 mls/hr IV Q8H [facility] Last Infusion: 12/29/21 02:49 Dose: 0 mls/hr Documented by: MARIA L Acetaminophen (Ofirmev) 1,000 mg in 100 mls @ 400 mls/hr IV Q6H [facility] Last Admin: 12/29/21 05:28 Dose: Not Given Documented by: MARIA L Non-Admin Reason: Patient Refused Diltiazem HCl 125 mg/ Sodium (Chloride) 125 mls @ 0 mls/hr IVCONT .Q0M [facility]; Protocol Last Titration: 12/29/21 05:29 Dose: 5 mg/hr, 5 mls/hr Documented by: MARIA L Melatonin (Melatonin 3 Mg Tablet) 6 mg PO BEDTIME PRN PRN Reason: Insomnia Last Admin: 12/28/21 21:40 Dose: 6 mg Documented by: MARIA L Metoprolol Tartrate (Metoprolol Tartrate 25 Mg Tablet) 25 mg PO QID [facility]; Protocol Last Admin: 12/28/21 10:21 Dose: 25 mg Documented by: DOBROB Omeprazole (Omeprazole 20 Mg Capsule.Dr) 20 mg PO DAILY@0630 [facility] Last Admin: 12/29/21 05:28 Dose: 20 mg Documented by: MARIA L Ondansetron HCl (Ondansetron Hcl 4 Mg/2 Ml Vial) 4 mg IVPUSH Q4H PRN PRN Reason: Nausea and Vomiting Last Admin: 12/24/21 10:21 Dose: 4 mg Documented by: TOCNAPOLEON Oxycodone HCl (Oxycodone Hcl Immed Release 5 Mg Tablet) 5 mg PO Q4H PRN PRN Reason: Pain, Moderate (Pain Scale 4-6 Oxycodone HCl (Oxycodone Hcl Immed Release 5 Mg Tablet) 10 mg PO Q4H PRN PRN Reason: Pain, Severe (Pain Scale 7-10) Last Admin: 12/26/21 21:06 Dose: 10 mg Documented by: NAUMOC Sodium Chloride (0.9 % Sodium Chloride Flush 3 Ml Syringe) [facility] Admin: 12/28/21 23:28 Dose: 3 ml Documented by: MARIA L Labs CBC & Chem 7: 12/29/21 06:23 12/29/21 06:23 Labs: Laboratory Results - last 24 hr 12/28/21 12/28/21 12/29/21 12:50 12:50 06:23 MCV 92.5 MCH 29.6 MCHC 32.1 RDW 13.6 Plt Count 533 H D MPV 10.1 Absolute Nucleated RBC 0.000 Nucleated RBC % (auto) 0.0 PT 14.9 H INR 1.3 H aPTT Heparin Protocol 27.7 L Anion Gap 15 Estim Creat Clear Calc 99.6 Estimated GFR > 60 Random Glucose 115 Calcium 8.0 L 12/29/21 12/29/21 06:23 06:23 MCV 91.9 MCH 30.0 MCHC 32.7 RDW 13.5 Plt Count 407 H MPV 9.4 Absolute Nucleated RBC 0.000 Nucleated RBC % (auto) 0.0 PT 14.8 H INR 1.3 H aPTT Heparin Protocol Anion Gap Estim Creat Clear Calc Estimated GFR Random Glucose Calcium Microbiology Microbiology Results: Microbiology 12/24/21 01:57 Blood Culture - Final Blood - Venous No growth after 5 days. 12/24/21 00:32 Blood Culture - Final Blood - Venous No growth after 5 days. Assessment and Plan (1) Cholecystitis: Status: Acute (2) Atrial fibrillation with RVR: Status: Acute (3) Right arm cellulitis: Status: Acute Plan 66-year-old male with a past medical history of hypertension, hyperlipidemia, paroxysmal AFib presented to the hospital with a chief complaint of nausea /vomiting / diarrhea/right upper quadrant abdominal pain.? Noted to be in AFib with RVR/acute cholecystitis.? Admitted for further management. Acute cholecystitis Pain control Eliquis held for 48hrs since had bleeding during? CCY and? CCY unsuccessful. IV? antibiotics surgery following Right forearm clelulitis at iv site: already on ceftrixone,will add id eval. Transaminitis secondary to acute cassandra Trend liver enzymes.? acute hepatitis panel neg Hold home statin for now. AFib with RVR. Still started on IV Cardizem-converted to sinus rhythm, added Multaq, continuemetoprolol 25mg Q6 Discussed with the surgery-started on Eliquis back. Hypertension: acceptable Hold home lisinopril for now continue metoprolol. History of CAD Aspirin on hold due to recent due to recent bleed as above. DVT prophylaxis: Eliquis. need for inaptient: afib with rvr. Quality Stroke Does the patient have a stroke diagnosis?: No VTE Prior VTE?: No VTE Risk Level:: Medical - moderate - high VTE Device Contraindication: N/A - Device Ordered VTE Drug Contraindication: Treatment Not Indicated
[2021-12-29] MEDS: dilTIAZem HCL 125 MG in 0.9 % Sodium Chloride 100 ML 15 MG IVCONT (08:43)
[2021-12-29] MEDS: 0.9 % Sodium Chloride Flush 3 ML SYRINGE IVFLUSH ×3 (08:44→20:13)
--- NOTE | 2021-12-29 09:16 | MHC.CM.PN ---
Male 66dx s/p surg abort Renee 2 days ago. Now patient being treat for AFIB w RVR. He is on Cardizem and beta blockers. TRISTA drain removed this am. DP home with family support and transport.
--- NOTE | 2021-12-29 10:11 | ECG_ITS ---
Test Reason : rhythm change Blood Pressure : / mmHG Vent. Rate : 090 BPM Atrial Rate : 090 BPM P-R Int : 154 ms QRS Dur : 072 ms QT Int : 356 ms P-R-T Axes : 023 030 043 degrees QTc Int : 435 ms Normal sinus rhythm Septal infarct (cited on or before 22-JUN-2020) Abnormal ECG When compared with ECG of 28-DEC-2021 11:46, Sinus rhythm has replaced Atrial fibrillation Vent. rate has decreased BY 49 BPM Referred By: Tom Manning Electronically Signed By:TOM MANNING MD
--- NOTE | 2021-12-29 10:15 | PM.PNCARD ---
Subjective Subjective Date of Service: 12/29/21 Principal diagnosis: cholecystitis, atrial fibrillation with rapid ventricular response Interval history: Patient was having atrial fibrillation with rapid ventricular response all morning. He was on maximal Cardizem dose. His right arm IV was leaking and then was switched while I was in the room to the left arm. About 15 minutes after that patient converted back to sinus rhythm. He does have symptoms with atrial fibrillation and new when he converted back to sinus rhythm. Patient denies any other symptoms of chest pain or shortness of breath. No lightheadedness, syncope. Does complain of palpitations. Has been cleared by surgery to get oral anticoagulation. His drain was removed this morning. Review of Systems Constitutional: Reports no additional constitutional complaints Cardiovascular: Denies chest pain, Denies lightheadedness, Denies Loss of Consciousness, Reports palpitations and Denies dyspnea Respiratory: Reports no additional respiratory complaints and Denies dyspnea Gastrointestinal: Reports no additional gastrointestinal complaints Genitourinary: Reports no additional male genitourinary complaints Musculoskeletal: Reports no additional musculoskeletal complaints Skin/Breast: Reports system reviewed and no additional complaints, except as docu Reports system reviewed and no additional complaints, except as documented Psychiatric: Reports no additional psychiatric complaints Endocrine: Reports no additional endocrine complaints and Reports palpitations Hematologic/Lymphatic: Reports no additional hematologic/lymphatic complaints Physical Exam Vital Signs: Last Vital Signs Temp 97.4 F 12/29/21 07:51 Pulse 100 12/29/21 07:51 Resp 20 12/29/21 07:51 BP 116/63 12/29/21 07:51 Pulse Ox 97 12/29/21 07:51 BMI result Body Mass Index 32.5 Const General: cooperative, comfortable, alert and anxious Nutritional Appearance: obese Orientation/consciousness: patient oriented x3 Neck Neck: Yes trachea midline, Yes supple and Yes no JVD Resp Effort & Inspection: normal respiratory effort Auscultation: clear to auscultation bilaterally Cardio Jugular venous distension: no JVD Rate: tachycardic Rhythm: abnormal rhythm irregularly irregular Heart sounds: S1 normal heart sound present, S2 normal heart sound present, no click, no gallops, no murmurs and no rubs GI Auscultation: normal bowel sounds Skin General skin exam: no rashes or lesions noted Neuro General: patient oriented x3 and no focal motor deficits Extrem General: Yes no clubbing, cyanosis or edema Psych Appearance: grossly normal Affect: Anxious affect present Objective Labs and Meds Result diagrams: 12/29/21 06:23 12/29/21 06:23 Lab results: Laboratory Results - last 24 hr 12/28/21 12/28/21 12/29/21 12:50 12:50 06:23 WBC 16.5 H RBC 4.25 L D Hgb 12.6 L D Hct 39.3 L D MCV 92.5 MCH 29.6 MCHC 32.1 RDW 13.6 Plt Count 533 H D MPV 10.1 Absolute Nucleated RBC 0.000 Nucleated RBC % (auto) 0.0 PT 14.9 H INR 1.3 H aPTT Heparin Protocol 27.7 L Sodium 139 Potassium 4.2 Chloride 108 Carbon Dioxide 20 L Anion Gap 15 BUN 10 Creatinine 0.85 Estim Creat Clear Calc 99.6 Estimated GFR > 60 Random Glucose 115 Calcium 8.0 L 12/29/21 12/29/21 06:23 06:23 WBC 10.4 RBC 3.83 L Hgb 11.5 L Hct 35.2 L MCV 91.9 MCH 30.0 MCHC 32.7 RDW 13.5 Plt Count 407 H MPV 9.4 Absolute Nucleated RBC 0.000 Nucleated RBC % (auto) 0.0 PT 14.8 H INR 1.3 H aPTT Heparin Protocol Sodium Potassium Chloride Carbon Dioxide Anion Gap BUN Creatinine Estim Creat Clear Calc Estimated GFR Random Glucose Calcium Progress Note: A&P Assessment and plan (1) Atrial fibrillation with RVR: Status: Acute Assessment and Plan: Atrial fibrillation rapid ventricular response, triggered by his recent acute medical/surgical illness. With prior history of paroxysmal atrial fibrillation with patient symptomatic. Converted spontaneously this morning with rate control with IV Cardizem once he starts getting it. He has not received magnesium or digoxin. This will be discontinued. Because he has converted spontaneously to sinus rhythm and symptomatic I think he will benefit rhythm control agent with antiarrhythmic drug therapy. reports his last EF about 50%. Will start him on Multaq 400 mg b.i.d. given his post-conversion EKG shows normal QT interval in years no signs of heart failure. Continue full oral anticoagulation, patient has been cleared by surgery for Eliquis. He should be on Eliquis for long-term given his risk for recurrent atrial fibrillation as well as CHADSVASc score of at least 3. understands this management plan. Ambulate today after getting his oral doses and by tomorrow if his EKGs unremarkable can be discharged home. Follow-up with Dr. 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 No symptoms currently. Continue aggressive risk factor modification. Blood pressure is optimized. Continue high-intensity statin therapy. Continue full oral anticoagulation Eliquis. Will sign of the case at this point in time. Time Spent With Patient Time: Total time spent is greater than 50% in coordination of care (as documented) at patient's floor/unit and/or counseling patient: Progress Note: Quality Stroke Does the patient have a stroke diagnosis?: No Procedures Date of Service Date of Service: 12/29/21
[2021-12-29] MEDS: Dronedarone HCl 400 MG TABLET PO ×2 (10:57→20:13)
[2021-12-29] MEDS: Apixaban 5 MG TABLET PO ×2 (10:57→20:13)
--- NOTE | 2021-12-29 10:58 | W.PM.OPN ---
Operative Note Operative Note Date of Service: 12/29/21 Narrative: Operative note by [facility] Preoperative diagnosis: Acute cholecystitis Postoperative diagnosis: Same Procedure: Control of right upper quadrant venous bleeding Vascular Surgeon:Ras Pham M.D. Estimated blood loss: 350 cc Indications: This was a 66-year-old gentleman originally seen and treated by the General surgery team. The patient had acute cholecystitis with gallbladder encased in omentum and indurated fatty areolar tissue. Originally was a laparoscopic converted to open cholecystectomy. During the procedure they attempted to remove the gallbladder which was clearly indurated in adhesed with omentum. They attempted dissection and encountered venous bleeding. Intraoperative consult was requested by the General surgery team. Procedure in detail: At the time of my arrival bleeding was controlled with proximal and distal sponge sticks. The right upper quadrant was open and Bookwalter retractor was in position. We were able to obtain better visualization with fine malleable retractors. There appeared to be a right upper quadrant venous branch which was avulsed. We were able to get proximal and distal control once again with the sponge sticks. Initially we tried to place a figure of 8 suture with a 6 0 Prolene. Due to the location and the depth we were unable to get good control. At this time we decided to use clips we initially placed a small clip proximally. We continue to have bleeding. We were able to isolate the vein with a right angle. Medium size clips were placed proximally and distally. This appeared to provide control. The area was returned to its normal anatomic position. We packed the area with snow. And we packed the area and observed this for over 2 minutes in duration. This appeared to have completely control the venous bleeding. We thoroughly irrigated out the area. We noted clear affluent with no blood within. Snow was removed and a new piece of snow packing approximately posted stamp size was placed within the wound bed. Once adequate hemostasis was achieved care was returned to the general surgery team who did final closure. The patient was hemodynamically stable at that time. Thank you for allowing me to assist in the care of this patient. This note is constructed using voice recognition software. While every effort has been made to ensure accuracy, shift coordinator errors may have been included. Thank you for allowing me to participate in the care of your patient. Yours sincerely, Ras Pham MD, FACS, R.P.V.I.
[2021-12-29] MEDS: Metoprolol Tartrate 25 MG TABLET PO ×3 (14:26→20:14)
[2021-12-29 15:20] VITALS: BP 121/58; PULSE 91; RESP 16; TEMP 37.1; O2SAT 98
--- NOTE | 2021-12-29 18:03 | PM.DS ---
DS: Providers Provider Date of Service: 12/29/21 Date of admission: 12/24/21 01:20 Primary care physician: Shree Gonzalez MD, DO Consults: 12/24/21 01:20 Consult to Cardiology Routine Consulting Provider: Xiang Fang Reason for consultation: afib with RVR; pre op eval Consult to General Surgery Routine Consulting Provider: Davide Bowman Reason for consultation: cholecystitis 12/24/21 03:22 Consult to Gastroenterology Routine Consulting Provider: Jonn Yang Reason for consultation: Transaminitis; CBD dilated; Distal esophageal thickening; cholecystitis 12/29/21 11:17 Consult to Infectious Diseases Routine Consulting Provider: Jenniffer Nur Reason for consultation: right forearm cellulitis at iv site Has provider been notified: No DS: Diagnosis Discharge Diagnosis (1) Cholecystitis: Status: Acute (2) Atrial fibrillation with RVR: Status: Acute (3) Right arm cellulitis: Status: Acute DS: Summary Hospital Course Hospital Course: 66-year-old male with a past medical history of hypertension, hyperlipidemia, CAD, paroxysmal AFib on Eliquis presented to the hospital with a chief complaint of nausea/ vomiting /diarrhea /abdominal pain.? Patient reported that on Saturday he had branch outside said that he has been having episodes of nausea vomiting and diarrhea; initially thought it is possibly viral gastroenteritis; slightly improved in the symptoms but continued to have nausea vomiting and diarrhea; had multiple episodes each day; Also had intermittent abdominal pain, body aches, chills at home.? Today he had brought in the morning followed by the head severe abdominal pain located on the right upper quadrant; subsequently presented to the ER for further evaluation.? Denies any blood in the vomitus or the stool.? Denies any chest pain or palpitations.? Mentions that he has been complaint with his home medications; has been taking his Eliquis- last dose was prior to coming to the hospital.? Review of all other systems is negative except mentioned above Per ER team patient noted a right upper quadrant tenderness; also on the tele noted to be in AFib with rapid ventricular response; given metoprolol IV x3; on labs noted to elevated liver enzymes; CT abdomen consistent with possible acute cholecystitis.? Spoke to General surgery- recommended admission to the medicine service. Hospital course:Patient admitted due to abdominal pain found to to have acute cholecystitis, also AFib with RVR: Subsequently patient was started on IV antibiotic-abdominal pain seems to be improving and cholecystostomy was tried which was unsuccessful and had bleeding during procedure -initially abdominal drain was placed which was removed subsequently since the patient seem improved-received iv antibiotics for chlecystitis. His vitals are stable, H&H stable, no fever. Tolerating solid diet. Recommended cardiac/low-fat diet. AFib with RVR: Patient required IV Cardizem drip now converted back to sinus, her his Eliquis is also started-continue Multaq and metoprolol. Started Eliquis . start asprin back outpatiently in few days with pcp. Also patient has right forearm area mild cellulitis at IV site today : no fever and wbc normal, arm cellulitis area improving ,patient will go home with po antibiotics. blood cultures pending but patient seems improving ,so switched to po antibiotcs . moniter cbc , bmp anf lft's with pcp in 1 week outpatient with pcp. Spoke to patient and patient's : They want 2nd opinion for his cholecystectomy in [facility], discussed with the surgery yesterday initial plan was to transfer but patient is feeling better today family requested for discharge and they will take him to [facility] for 2nd opinion for cholecystectomy. Above management discussed with the patient and his in detail -both length she understand and in agreement with the above plan, time spent 50 minutes and 50% time spent on counseling. Significant findings: As above. Procedures performed: None. Treatment and response: As above. Complications: None. Time Spent with Patient Time attestation: Total time spent providing and/or coordinating discharge services: Discharge coordination time: Greater than 30 minutes Quality: Safe Use of Opioids Does Pt have an Active Cancer Diagnosis on the Problem List?: No Quality: Stroke Does the patient have a stroke diagnosis?: No Physical Exam Vital Signs: Vital Signs: Last Vital Signs Temp 98.8 F 12/29/21 15:20 Pulse 91 12/29/21 15:20 Resp 16 12/29/21 15:20 BP 121/58 L 12/29/21 15:20 Pulse Ox 98 12/29/21 15:20 BMI result Body Mass Index 32.5 ? Appearing in no acute distress ?lung :sounds are clear to auscultation ?heart: regular rate rhythm, clear? S1, S2 ?abdomen:positive bowel sounds, abdomen is soft, nontender-procedure site, clean no discharge has some soreness in the area, drain draining moderate amount of serosanguineous fluid. ?neuro patient is alert x3, no focal deficits DS: Data Data Completed and Pending Labs on day of discharge: Laboratory Results - last 24 hr 12/29/21 12/29/21 12/29/21 06:23 06:23 06:23 WBC 10.4 RBC 3.83 L Hgb 11.5 L Hct 35.2 L MCV 91.9 MCH 30.0 MCHC 32.7 RDW 13.5 Plt Count 407 H MPV 9.4 Absolute Nucleated RBC 0.000 Nucleated RBC % (auto) 0.0 PT 14.8 H INR 1.3 H Sodium 139 Potassium 4.2 Chloride 108 Carbon Dioxide 20 L Anion Gap 15 BUN 10 Creatinine 0.85 Estim Creat Clear Calc 99.6 Estimated GFR > 60 Random Glucose 115 Calcium 8.0 L Additional Comments Additional comments: Ordered: Blood Cult(2nd) Procedure Result Verified Site Blood Culture (Second) Final 12/29/21-401 No growth after 5 days. MR/MR MRCP IMPRESSION: Upper normal-size gallbladder with abnormally thickened edematous gallbladder wall and infiltration of the pericholecystic fat. Adjacent 1.5 x 4.5 cm fluid collection questionable for gallbladder perforation or pericholecystic abscess. Mild intrahepatic biliary duct dilatation. Narrowed proximal extrahepatic bile duct/common hepatic duct, question secondary to extrinsic extrinsic compression related to inflammatory changes from the gallbladder or Mirizzi syndrome. US/US abdomen limited IMPRESSION: *Findings suspicious for perforation of the gallbladder. Free fluid is present adjacent to the gallbladder corresponding to findings noted on the comparison CT of 12/23/2021. Sonographic evaluation demonstrates possible communication between the free fluid and the lumen of the gallbladder suspicious for perforation. *Echogenic sludge within the gallbladder lumen. Furthermore, a 2.4 cm echogenic focus contiguous with the nondependent wall of the fundus of the gallbladder is present and may represent adherent sludge. No flow is noted in this region to specifically suggest the presence of a gallbladder wall tumor. This finding is without a definitive correlate on the CT of the abdomen and pelvis from 12/23/2021 based on contemporaneous review of that exam. *No cholelithiasis noted. *Normal common bile duct caliber. CT/CT abdomen pelvis w con IMPRESSION: 1. Distention of the central bile ducts and gallbladder with circumferential wall thickening and adjacent inflammatory change consistent with acute cholecystitis. There is loculated fluid extending anterior to the gallbladder which could indicate a contained perforation. Mild dilatation of the common bile duct. A distal duct obstruction/ampullary lesion could be considered. ? 2. Circumferential wall thickening of the gastric antrum as well as the adjacent duodenum, which is likely reactive to the gallbladder pathology. ? 3. Circumferential wall thickening of the distal esophagus. An underlying lesion could be considered and direct visualization could help further evaluate. Sigmoid diverticulosis without evidence of acute diverticulitis. ? 4. No intra-abdominal free air or free fluid. No significant lymphadenopathy.? ? Fleischner guidelines were followed. Discharge Plan Discharge Patient Disposition: Home, Self-Care Discharge Diagnosis: Acute cholecystitis, AFib with RVR, right arm cellulitis. Referrals: Shree Gonzalez MD, DO [Primary Care Provider] - 1 Week Discharge Medications: New Multaq 400 mg Tablet 400 mg PO BID Qty: 60 0RF doxycycline hyclate 100 mg tablet 100 mg PO BID Qty: 14 0RF amoxicillin-pot clavulanate 875-125 mg tablet 1 tab PO BID Qty: 14 0RF metoprolol tartrate 50 mg Tablet 50 mg PO BID Qty: 60 0RF Protocol: Hold for SBP/HR < HOLD for SBP < : 90 HOLD for HR < : 60 omeprazole 20 mg Capsule,Delayed Release(Dr/Ec) 20 mg PO DAILY@0630 Qty: 30 0RF Continued atorvastatin 80 mg tablet 1 tab PO BEDTIME 0RF Eliquis 5 mg tablet 1 tab PO BID 0RF Changed lisinopril 10 mg tablet 0.5 tab PO DAILY Qty: 15 0RF Held aspirin 81 mg tablet,delayed release (DR/EC) 1 tab PO DAILY 0RF Hold Instructions: Resume on 01/01/22. Until cleared by surgery. Discontinued carvedilol 12.5 mg tablet 1 tab PO BID 0RF Discharge Orders: Discharge Order (Routine); Ordered 12/29/21 Ordered By: Ashley Molina Diet: advance to usual diet Activity on Discharge: As tolerated Stand Alone Forms: Patient Portal Discharge page Activity Restrictions/Additional Instructions: If the incision area is tender, you may apply an ice pack for short intervals (No more than 20 minutes on, followed by at least 20 minutes off). Do not apply heat. Do not use creams, lotions, or topical antibiotics unless instructed to do so by your surgeon. These can cause infection or allergic reaction. Ok to shower. You have jamaica closing your incision and these will be removed approximately 10-14 days after surgery. NO HEAVY LIFTING (>10lbs) or strenuous activity. Follow up in office with Dr. Bowman. ([phone]) Call Your Doctor If: -Your temperature exceeds 101.5? F -You experience excessive pain or swelling -You have an unexpected reaction to medication -You have excessive bleeding -You experience continued vomiting/nausea -Your incision begins to separate -Your incision shows signs of infection such as increased redness, swelling, excessive pain, drainage (light blood or clear fluid is normal) or heat Care Plan Goals: Patient admitted due to abdominal pain found to to have acute cholecystitis, also AFib with RVR: Subsequently patient was started on IV antibiotic-abdominal pain seems to be improving and cholecystostomy was tried which was unsuccessful and had some bleeding-initially abdominal drain was placed which was removed subsequently since the patient seem improved-received iv antibiotics for chlecystitis. AFib with RVR: Patient required IV Cardizem drip now converted back to sinus, her his Eliquis is also started-continue Multaq and metoprolol. Started Eliquis . start asprin back outpatiently in few days with pcp. Also patient has right forearm area mild cellulitis at IV site today : no fever and wbc normal, arm cellulitis area improving ,patient will go home with po antibiotics. blood cultures pending but patient seems improving ,so switched to po antibiotcs . moniter cbc , bmp anf lft's with pcp in 1 week outpatient with pcp. htn : lisinopril adjusted to 5 mg daily due to flacutaing blood pressure,may adjust further outpatiently if blood pressure consistently above 140's outpatiently. Health Concerns: As above. Plan of Treatment: As above. Assessment: As above. Discharge Date/Time: 12/30/21 13:28
[2021-12-29 18:59] VITALS: BP 121/62; PULSE 75; RESP 14; TEMP 36.8; O2SAT 99
--- NOTE | 2021-12-29 19:08 | MHC.CM.PN ---
Nursing supervisor roving department requested CM call this patient's insurance company, [employer], regarding insurance coverage for this patient to transfer to [facility] in [facility] for a second opinion. CM called [employer] at [phone] and was given the Service Center number. CM called the service center number at [phone]. The Service center is closed and requested to call back during regular business hours. CM then called the Medicare number at [phone]. The office is closed and requested that we call back during regular business hours. Regular business hours are Saturday through Saturday from 8-4pm. Nursing supervisor roving department aware of above.
[2021-12-29] MEDS: vancomycin HCL 1,500 MG in 0.9 % Sodium Chloride 500 ML 333.33 MG IV (20:08)
[2021-12-29] MEDS: cefTRIAXone sodium 2 GM in 0.9 % Sodium Chloride 50 ML IV (21:43)
[2021-12-30] VITALS: BP 115/67; PULSE 87; RESP 16; TEMP 36.7; O2SAT 97
--- NOTE | 2021-12-30 | ECG_ITS ---
Test Reason : aflutter Blood Pressure : / mmHG Vent. Rate : 065 BPM Atrial Rate : 065 BPM P-R Int : 170 ms QRS Dur : 076 ms QT Int : 424 ms P-R-T Axes : 033 015 038 degrees QTc Int : 440 ms Poor data quality, interpretation may be adversely affected Normal sinus rhythm Normal ECG When compared with ECG of 29-DEC-2021 10:12, Criteria for Septal infarct are no longer Present Referred By: Ashley Molina Electronically Signed By:Kevin Parks
[2021-12-30] MEDS: metroNIDAZOLE/NS 500 MG/100 ML PIGGYBACK 100 MG IV ×2 (02:56→10:46)
[2021-12-30 03:34] VITALS: BP 131/62; PULSE 71; RESP 16; TEMP 36.6; O2SAT 97
[2021-12-30] MEDS: Omeprazole 20 MG CAPSULE.DR PO (06:12)
[2021-12-30 08:00] VITALS: BP 141/64; PULSE 78; RESP 20; TEMP 36.9; O2SAT 97
[2021-12-30] MEDS: vancomycin HCL 1,000 MG in 0.9 % Sodium Chloride 250 ML 180 MG IV (08:27)
[2021-12-30] MEDS: Apixaban 5 MG TABLET PO (08:28)
[2021-12-30] MEDS: Dronedarone HCl 400 MG TABLET PO (08:28)
[2021-12-30] MEDS: 0.9 % Sodium Chloride Flush 3 ML SYRINGE IVFLUSH (08:28)
[2021-12-30] MEDS: Metoprolol Tartrate 50 MG TABLET PO (09:10)
--- NOTE | 2021-12-30 09:40 | MHC.CM.PN ---
CM MET WITH PTS WHO REPORTS THEY HAD REQUESTED PT BE TRANSFERRED TO ANOTHER HOSPITAL YESTERDAY HOWEVER DUE TO THE TIME OF DAY, INSURANCE AUTH WAS NOT AVAILABLE. SHE IS ALSO AWARE THAT BECAUSE THE TRANSFER WAS NOT INITIATED BY ONE OF THE [facility], IT MAY NOT BE AUTH'D. SHE REPORTS SHE DOES NOT WANT TO WAIT UNTIL SATURDAY (WHEN THE INSURANCE COMPANY OPENS) SHE WOULD PREFER TO JUST TAKE HIM THERE HERSELF. SHE REQUESTS PT BE DISCHARGED SOON POSSIBLE MD AND RN NOTIFIED VIA [facility] [employer]. PT WILL DC HOME TODAY WITH PLANS TO GET A SECOND OPINION AT ANOTHER HOSPITAL WILL TRANSPORT
[2021-12-30] MEDS: Amoxicillin/Potassium Clav 875 MG TABLET PO (10:46)
--- NOTE | 2021-12-30 13:09 | PM.PNCARD ---
Subjective Subjective Date of Service: 12/30/21 Principal diagnosis: cholecystitis, atrial fibrillation with rapid ventricular response Interval history: Feeling good, had run of atrial flutter overnight, Physical Exam Vital Signs: Last Vital Signs Temp 98.5 F 12/30/21 08:00 Pulse 78 12/30/21 08:00 Resp 20 12/30/21 08:00 BP 141/64 H 12/30/21 08:00 Pulse Ox 97 12/30/21 08:00 BMI result Body Mass Index 32.5 GENERAL APPEARANCE: in no acute distress, pleasant. NECK: no carotid bruit, no jugular venous distention. SKIN: no suspicious lesions, warm and dry. HEART: no murmurs, regular rate and rhythm. LUNGS: clear to auscultation bilaterally. ABDOMEN: soft, nontender. jamaica RUQ EXTREMITIES: 1+ edema. PERIPHERAL PULSES: equal. NEUROLOGIC: No gross deficits, AAO X 3 Objective Labs and Meds Result diagrams: 12/29/21 06:23 12/29/21 06:23 Progress Note: A&P Assessment and plan (1) Atrial fibrillation with RVR: Status: Acute Plan 66 year old gentleman with PAF. Was started on multaq yesterday. Overall stable. Can dc home with multaq and f/u with Dr Workman at [facility]. Time Spent With Patient Time: Total time spent is greater than 50% in coordination of care (as documented) at patient's floor/unit and/or counseling patient: Progress Note: Quality Stroke Does the patient have a stroke diagnosis?: No Procedures Date of Service Date of Service: 12/30/21
== END 2021-12-30 13:28 | disposition home or self-care (01) | DRG 421 ==
LOC: HO.ED 12-24 00:13 → HO.EDOVER 12-24 01:28 → HO.IMC 12-24 18:12
PROVIDERS: Nurse Practitioner Acute Care; Physician Assistant Surgical; Surgery; Admitting Provider Hospitalist; Emergency Provider Emergency Medicine Emergency Medical Services; PCP Internal Medicine; Visit Provider Internal Medicine
PROC: 0FT44ZZ Resection of Gallbladder, Percutaneous Endoscopic Approach (ICD-10-PCS; CPT 47562; principal; 2021-12-26 14:10)
DX: K81.0 Acute cholecystitis (principal); T82.7XXA Infection and inflammatory reaction due to other cardiac and vascular devices, implants and grafts, initial encounter; L03.113 Cellulitis of right upper limb; I97.52 Accidental puncture and laceration of a circulatory system organ or structure during other procedure; I25.10 Atherosclerotic heart disease of native coronary artery without angina pectoris; I10 Essential (primary) hypertension; E78.5 Hyperlipidemia, unspecified; E86.0 Dehydration; I48.0 Paroxysmal atrial fibrillation; Z20.822 Contact with and (suspected) exposure to COVID-19; I25.2 Old myocardial infarction; Z79.01 Long term (current) use of anticoagulants; Z79.82 Long term (current) use of aspirin; Z79.899 Other long term (current) drug therapy
CPT/HCPCS: 0241U; 36415; 71045; 74018; 74177; 74181; 76705; 80048; 80053; 80076; 83605; 83690; 84484; 85025; 85027; 85610; 85730; 86704; 86706; 86709; 86803; 86850; 86900; 86901; 86923; 87040; 87340; 93005; 96361; 96365; 96375; 96376; 99024; 99284; 99285; J0131; J0696; J1100; J1170; J2405; J3010; J3370; Q9967

== ENCOUNTER 2022-02-01 06:10 | Outpatient (REF) | payer MEDICARE, SELFPAY ==
[2022-02-01 11:23] LABS: MANUAL DIFF FLAG NO
[2022-02-01 11:33] LABS: Basophils Percent Auto 0.5 % (0-2); Eosinophils Absolute Auto 0.4 X10*3/uL (0.0-0.4); Hematocrit 33.8 % (42.0-52.0); Imm Gran Abs Auto 0.05 X10*3/uL (0.00-0.03); Imm Gran Pct Auto 0.6 % (0.0-0.4); Lymphocytes Absolute Auto 2.5 X10*3/uL (1.2-4.9); Lymphocytes Percent Auto 28.8 % (20-40); Mean Corpuscular HGB Conc 32.5 g/dl (31.0-36.0); Mean Corpuscular Hemoglobin 30.5 pg (27.0-33.0); Mean Corpuscular Volume 93.6 fL (80.0-98.0); Mean Platelet Volume 10.5 fL (9.4-12.4); Monocytes Absolute Auto 0.8 X10*3/uL (0.1-1.2); Monocytes Percent Auto 9.5 % (2-11); Neutrophils Percent Auto 56.6 % (45-73); Platelet Count 279 X10*3/uL (160-400); Red Blood Count 3.61 X10*6/uL (4.60-5.80); Red Cell Distribution Width 13.9 % (11.0-16.0); White Blood Count 8.8 X10*3/uL (4.8-10.8)
[2022-02-01 11:46] LABS: Alanine Aminotransferase 13 U/L (0-40); Albumin Level 3.7 g/dL (3.5-5.0); Alkaline Phosphatase 58 U/L (39-117); Anion Gap 11 (12-20); Aspartate Amino Transferase 11 U/L (5-37); Bilirubin Direct 0.2 mg/dL (0.0-0.5); Bilirubin Total 0.3 mg/dL (0.0-1.0); Blood Urea Nitrogen 24 mg/dL (9-16); Calcium 8.4 mg/dL (8.4-10.2); Carbon Dioxide 20 mmol/L (22-29); Chloride 112 mmol/L (96-108); Estimated Glomerular Filt Rate > 60; Glucose Random 113 mg/dL (60-115); Lipase 32 U/L (8-78); Potassium 4.1 mmol/L (3.3-5.1); Sodium 139 mmol/L (135-145); Total Protein 6.2 g/dL (6.5-8.0)
[2022-02-01 11:52] LABS: Amylase 44 U/L (28-100)
== END 2022-02-01 06:11 | disposition home or self-care (01) ==
LOC: HO.HMGCLDS 06:10
PROVIDERS: PCP Internal Medicine; Visit Provider Internal Medicine
DX: K81.9 Cholecystitis, unspecified (principal); I48.0 Paroxysmal atrial fibrillation; I25.10 Atherosclerotic heart disease of native coronary artery without angina pectoris
CPT/HCPCS: 36415; 80048; 80076; 82150; 83690; 85025

== ENCOUNTER 2022-07-26 06:04 | Outpatient (REF) | payer MEDICARE, SELFPAY ==
[2022-07-26 11:17] LABS: MANUAL DIFF FLAG NO
[2022-07-26 11:23] LABS: Basophils Percent Auto 0.3 % (0-2); Eosinophils Absolute Auto 0.2 X10*3/uL (0.0-0.4); Eosinophils Percent Auto 3.1 % (0-4); Hematocrit 41.1 % (42.0-52.0); Hemoglobin 13.1 g/dl (14.0-18.0); Imm Gran Abs Auto 0.02 X10*3/uL (0.00-0.03); Imm Gran Pct Auto 0.3 % (0.0-0.4); Lymphocytes Absolute Auto 2.3 X10*3/uL (1.2-4.9); Lymphocytes Percent Auto 30.9 % (20-40); Mean Corpuscular HGB Conc 31.9 g/dl (31.0-36.0); Mean Corpuscular Hemoglobin 29.7 pg (27.0-33.0); Mean Corpuscular Volume 93.2 fL (80.0-98.0); Mean Platelet Volume 10.6 fL (9.4-12.4); Monocytes Absolute Auto 0.9 X10*3/uL (0.1-1.2); Monocytes Percent Auto 11.7 % (2-11); Neutrophils Percent Auto 53.7 % (45-73); Platelet Count 266 X10*3/uL (160-400); Red Blood Count 4.41 X10*6/uL (4.60-5.80); Red Cell Distribution Width 12.8 % (11.0-16.0); White Blood Count 7.4 X10*3/uL (4.8-10.8)
[2022-07-26 12:20] LABS: Alanine Aminotransferase 19 U/L (0-40); Albumin Level 3.9 g/dL (3.5-5.0); Alkaline Phosphatase 65 U/L (39-117); Anion Gap 13 (12-20); Aspartate Amino Transferase 15 U/L (5-37); Bilirubin Total 0.6 mg/dL (0.0-1.0); Blood Urea Nitrogen 22 mg/dL (9-16); Carbon Dioxide 22 mmol/L (22-29); Chloride 108 mmol/L (96-108); Cholesterol 125 mg/dL; Estimated Glomerular Filt Rate > 60; Glucose Fasting 114 mg/dL (60-99); HDL Cholesterol 34 mg/dL; LDL Cholesterol Calculated 76 mg/dl; Potassium 4.8 mmol/L (3.3-5.1); Sodium 138 mmol/L (135-145); Thyroid Stimulating Hormone 1.37 uIU/mL (0.32-4.0); Total Protein 6.7 g/dL (6.5-8.0); Triglycerides 79 mg/dL
== END 2022-07-26 06:05 | disposition home or self-care (01) ==
LOC: HO.HMGCLDS 06:04
PROVIDERS: PCP Internal Medicine; Visit Provider Internal Medicine
DX: I48.0 Paroxysmal atrial fibrillation (principal); I25.10 Atherosclerotic heart disease of native coronary artery without angina pectoris
CPT/HCPCS: 36415; 80053; 80061; 84443; 85025

== ENCOUNTER → 2022-09-05 09:54 | Outpatient (BNVA) | payer MEDICARE, SELFPAY | PROVIDERS: PCP Internal Medicine; Visit Provider Internal Medicine | DX: G47.33 Obstructive sleep apnea (adult) (pediatric) (principal); E66.9 Obesity, unspecified; I48.91 Unspecified atrial fibrillation; Z95.1 Presence of aortocoronary bypass graft; Z68.33 Body mass index [BMI] 33.0-33.9, adult | CPT/HCPCS: 99202 ==

== ENCOUNTER → 2022-09-19 10:39 | Outpatient (REF) | payer MEDICARE, SELFPAY | LOC: HO.SL 10:39 | PROVIDERS: PCP Internal Medicine; Visit Provider Internal Medicine | DX: G47.33 Obstructive sleep apnea (adult) (pediatric) (principal); E66.9 Obesity, unspecified; I48.91 Unspecified atrial fibrillation | CPT/HCPCS: 95806 ==

== ENCOUNTER → 2022-10-31 10:24 | Outpatient (BNVA) | payer MEDICARE, SELFPAY | PROVIDERS: PCP Internal Medicine; Visit Provider Internal Medicine | DX: R06.83 Snoring (principal); I48.0 Paroxysmal atrial fibrillation; E66.9 Obesity, unspecified; Z68.33 Body mass index [BMI] 33.0-33.9, adult | CPT/HCPCS: 99212 ==

== ENCOUNTER 2022-11-19 06:52 | Outpatient (REF) | payer MEDICARE, SELFPAY ==
[2022-11-19 07:04] LABS: MANUAL DIFF FLAG NO
[2022-11-19 08:00] LABS: Basophils Absolute Auto 0.1 X10*3/uL (0.0-0.2); Basophils Percent Auto 0.6 % (0-2); Eosinophils Absolute Auto 0.3 X10*3/uL (0.0-0.4); Eosinophils Percent Auto 3.5 % (0-4); Hematocrit 41.1 % (42.0-52.0); Hemoglobin 13.2 g/dl (14.0-18.0); Imm Gran Abs Auto 0.03 X10*3/uL (0.00-0.03); Imm Gran Pct Auto 0.4 % (0.0-0.4); Lymphocytes Absolute Auto 2.2 X10*3/uL (1.2-4.9); Lymphocytes Percent Auto 27.1 % (20-40); Mean Corpuscular HGB Conc 32.1 g/dl (31.0-36.0); Mean Corpuscular Hemoglobin 29.5 pg (27.0-33.0); Mean Corpuscular Volume 91.7 fL (80.0-98.0); Monocytes Absolute Auto 0.7 X10*3/uL (0.1-1.2); Monocytes Percent Auto 8.9 % (2-11); Neutrophils Absolute Auto 4.9 x10*3/uL (2.0-8.3); Neutrophils Percent Auto 59.5 % (45-73); Platelet Count 280 X10*3/uL (160-400); Red Blood Count 4.48 X10*6/uL (4.60-5.80); Red Cell Distribution Width 12.9 % (11.0-16.0); White Blood Count 8.2 X10*3/uL (4.8-10.8)
[2022-11-19 08:10] LABS: Prothrombin Time 11.9 SEC (10.0-13.1)
[2022-11-19 08:33] LABS: Anion Gap 13 (12-20); Blood Urea Nitrogen 24 mg/dL (9-16); Calcium 8.9 mg/dL (8.4-10.2); Carbon Dioxide 22 mmol/L (22-29); Chloride 108 mmol/L (96-108); Estimated Glomerular Filt Rate > 60; Glucose Random 172 mg/dL (60-115); Potassium 4.9 mmol/L (3.3-5.1); Sodium 138 mmol/L (135-145)
== END 2022-11-19 06:53 | disposition home or self-care (01) ==
LOC: HO.LAB 06:52
PROVIDERS: PCP Internal Medicine; Visit Provider Internal Medicine
DX: R94.39 Abnormal result of other cardiovascular function study (principal); I25.2 Old myocardial infarction
CPT/HCPCS: 36415; 80048; 85025; 85610

== ENCOUNTER 2023-03-18 11:58 | Outpatient (REF) | payer MEDICARE, SELFPAY ==
[2023-03-18 12:54] VITALS: BP 107/64; PULSE 76; RESP 16; TEMP 36.3; O2SAT 98
[2023-03-18 12:55] VITALS: BMI 32.7
== END 2023-03-18 11:59 | disposition home or self-care (01) ==
LOC: HO.MS 11:58
PROVIDERS: PCP Internal Medicine; Visit Provider Ophthalmology
PROC: (CPT 66821; principal; 2023-03-18 14:10)
DX: H26.491 Other secondary cataract, right eye (principal)
CPT/HCPCS: 66821

== ENCOUNTER 2023-03-30 07:12 | Outpatient (REF) | payer MEDICARE, SELFPAY ==
[2023-03-30 07:32] LABS: MANUAL DIFF FLAG NO
[2023-03-30 07:41] LABS: Basophils Percent Auto 0.5 % (0-2); Eosinophils Absolute Auto 0.2 X10*3/uL (0.0-0.4); Eosinophils Percent Auto 3.2 % (0-4); Hematocrit 41.4 % (42.0-52.0); Hemoglobin 13.8 g/dl (14.0-18.0); Imm Gran Abs Auto 0.02 X10*3/uL (0.00-0.03); Imm Gran Pct Auto 0.3 % (0.0-0.4); Lymphocytes Absolute Auto 1.7 X10*3/uL (1.2-4.9); Lymphocytes Percent Auto 24.9 % (20-40); Mean Corpuscular HGB Conc 33.3 g/dl (31.0-36.0); Mean Corpuscular Hemoglobin 30.1 pg (27.0-33.0); Mean Corpuscular Volume 90.2 fL (80.0-98.0); Mean Platelet Volume 9.6 fL (9.4-12.4); Monocytes Absolute Auto 0.6 X10*3/uL (0.1-1.2); Monocytes Percent Auto 8.5 % (2-11); Neutrophils Absolute Auto 4.2 x10*3/uL (2.0-8.3); Neutrophils Percent Auto 62.6 % (45-73); Platelet Count 221 X10*3/uL (160-400); Red Blood Count 4.59 X10*6/uL (4.60-5.80); Red Cell Distribution Width 12.9 % (11.0-16.0); White Blood Count 6.6 X10*3/uL (4.8-10.8)
[2023-03-30 07:49] LABS: Estimated Average Glucose 126 mg/dL; Hemoglobin A1C 148.3537 umol/L
[2023-03-30 08:55] LABS: Alanine Aminotransferase 20 U/L (0-40); Albumin Level 3.6 g/dL (3.5-5.0); Alkaline Phosphatase 57 U/L (39-117); Anion Gap 14 (12-20); Aspartate Amino Transferase 16 U/L (5-37); Bilirubin Total 0.7 mg/dL (0.0-1.0); Blood Urea Nitrogen 19 mg/dL (9-16); Calcium 8.7 mg/dL (8.4-10.2); Carbon Dioxide 18 mmol/L (22-29); Chloride 111 mmol/L (96-108); Cholesterol 108 mg/dL; Estimated Glomerular Filt Rate > 60; Glucose Fasting 133 mg/dL (60-99); HDL Cholesterol 35 mg/dL; LDL Cholesterol Calculated 63 mg/dl; Potassium 4.3 mmol/L (3.3-5.1); Sodium 139 mmol/L (135-145); Total Protein 6.7 g/dL (6.5-8.0); Triglycerides 51 mg/dL
[2023-03-30 09:00] LABS: Appearance Urine Clear; Color Urine Yellow; Glucose Urine UA Negative (Negative); Leukocyte Esterase Urine Negative (Negative); Nitrite Urine Negative (Negative); PH 5.5 (5.0-9.0); Specific Gravity - Urine 1.015 (1.005-1.025); Urine Blood Negative (Negative); Urine Ketones Negative (Negative); Urine Protein Negative (Neg-Trace)
[2023-03-30 09:12] LABS: Thyroid Stimulating Hormone 0.97 uIU/mL (0.32-4.0)
[2023-03-30 09:17] LABS: Bacteria Urine None Seen (None Seen); Hyaline Casts Urine 0-2 /LPF (0-2); RBC Urine 0-2 /HPF (0-2); Squamous Epithelial Cell Urine 0-2 /HPF (0-2); WBC Urine 0-5 /HPF (0-5)
[2023-03-30 09:53] LABS: Creatinine Urine 93.37 mg/dL; Microalbumin Urine < 5.0 mg/L
[2023-04-02 11:54] LABS: Free Prostate Spec Ag 0.2 ng/mL; Percent Free Prostate Spec Ag 20 % (calc) (>25)
== END 2023-03-30 07:13 | disposition home or self-care (01) ==
LOC: HO.LAB 07:12
PROVIDERS: PCP Internal Medicine; Visit Provider Internal Medicine
DX: Z00.00 Encounter for general adult medical examination without abnormal findings (principal); I25.10 Atherosclerotic heart disease of native coronary artery without angina pectoris; I48.0 Paroxysmal atrial fibrillation; E66.01 Morbid (severe) obesity due to excess calories; R73.9 Hyperglycemia, unspecified
CPT/HCPCS: 36415; 80053; 80061; 81001; 82043; 83036; 84154; 84443; 85025

== ENCOUNTER 2023-04-04 11:27 | Outpatient (REF) | payer MEDICARE, SELFPAY ==
--- NOTE | ~2023-04-04 | XR_ITS ---
EXAMINATION: XR cervical spine 4V CLINICAL INFORMATION: Pain COMPARISON: CT cervical spine 04/01/2020 TECHNIQUE: 5 views of the cervical spine were obtained. FINDINGS: The cervical spine is visualized to the level of C6 on the lateral view. Vertebral body alignment is maintained. Vertebral body heights are maintained. Lateral masses of C1 are well aligned on C2. Visualized portion of the dens is intact. Mild degenerative disc disease at C4-C5 through C6-C7, manifested by small anterior disc osteophyte complexes with multilevel facet arthropathy similar to prior. Uncovertebral hypertrophy and facet arthropathy results in mild to moderate multilevel bilateral neural foraminal narrowing. No prevertebral soft tissue swelling. Partially imaged median sternotomy wires. XR/XR cervical spine 4V IMPRESSION: 1. Mild degenerative disc disease at C4-C5 through C6-C7, manifested by small anterior disc osteophyte complexes with multilevel facet arthropathy similar to prior. 2. Uncovertebral hypertrophy and facet arthropathy results in mild to moderate multilevel bilateral neural foraminal narrowing.
== END 2023-04-04 11:28 | disposition home or self-care (01) ==
LOC: HO.XRAY 11:27
PROVIDERS: Visit Provider Internal Medicine
DX: M54.2 Cervicalgia (principal)
CPT/HCPCS: 72050

== ENCOUNTER 2023-12-19 17:12 | Outpatient (REF) | payer MEDICARE, SELFPAY ==
--- NOTE | ~2023-12-19 | MR_ITS ---
EXAMINATION: MR CERVICAL SPINE WITHOUT CONTRAST CLINICAL INFORMATION: Cervicalgia, evaluate for herniated disc COMPARISON: Cervical radiographs 04/04/2023, CT cervical spine 04/01/2020 TECHNIQUE: MRI of the cervical spine was obtained using routine sequences without contrast. FINDINGS: Straightening of the normal cervical lordosis with dextrocurvature of the cervical spine. Trace retrolisthesis of C3-C4 and C5-C6. Cervical vertebral body heights are maintained. Mild degenerative marrow edema at C3-C4. Mild multilevel posterior element edema is likely on the basis of facet arthropathy. The cervical spinal cord is normal in signal intensity. C2-C3: The spinal canal is patent. Asymmetric left-sided uncovertebral and facet arthropathy with moderate to severe left neural foraminal stenosis. The right neural foramen is patent. C3-C4: No disc osteophyte complex and ligamentum flavum infolding with mild narrowing of the thecal sac. Uncovertebral and facet arthropathy with severe left and moderate right neural foraminal stenosis. C4-C5: Shallow disc osteophyte complex with mild narrowing of the thecal sac. Uncovertebral and facet arthropathy with moderate left and mild right neural foraminal stenosis. C5-C6: Disc osteophyte complex without significant spinal canal stenosis. Uncovertebral and facet arthropathy with minimal narrowing of the left neural foramen. C6-C7: Disc bulge and facet arthropathy. The spinal canal is patent. The neural foramen are not significantly narrowed. C7-T1: No significant spinal canal or neural foraminal stenosis. MR/MR cervical spine wo con IMPRESSION: Multilevel degenerative changes of the cervical spine without high-grade spinal canal stenosis. Neural foraminal stenoses as described above including moderate to severe left neural foraminal stenosis at C2-C3 and severe left neural foraminal stenosis at C3-C4.
== END 2023-12-19 17:13 | disposition home or self-care (01) ==
LOC: HO.MRI 17:12
PROVIDERS: PCP Internal Medicine; Visit Provider Physical Medicine & Rehabilitation
DX: M50.20 Other cervical disc displacement, unspecified cervical region (principal)
CPT/HCPCS: 72141

== ENCOUNTER 2024-07-14 06:03 | Outpatient (REF) | payer MEDICARE, SELFPAY ==
[2024-07-14 06:18] LABS: MANUAL DIFF FLAG NO
[2024-07-14 07:27] LABS: Basophils Percent Auto 0.4 % (0-2); Eosinophils Absolute Auto 0.4 X10*3/uL (0.0-0.4); Eosinophils Percent Auto 4.7 % (0-4); Hematocrit 42.8 % (42.0-52.0); Hemoglobin 14.1 g/dl (14.0-18.0); Imm Gran Abs Auto 0.02 X10*3/uL (0.00-0.03); Imm Gran Pct Auto 0.2 % (0.0-0.4); Lymphocytes Percent Auto 23.3 % (20-40); Mean Corpuscular HGB Conc 32.9 g/dl (31.0-36.0); Mean Corpuscular Hemoglobin 30.5 pg (27.0-33.0); Mean Corpuscular Volume 92.6 fL (80.0-98.0); Mean Platelet Volume 10.4 fL (9.4-12.4); Monocytes Absolute Auto 0.8 X10*3/uL (0.1-1.2); Monocytes Percent Auto 9.6 % (2-11); Neutrophils Absolute Auto 5.3 x10*3/uL (2.0-8.3); Neutrophils Percent Auto 61.8 % (45-73); Platelet Count 249 X10*3/uL (160-400); Red Blood Count 4.62 X10*6/uL (4.60-5.80); Red Cell Distribution Width 12.3 % (11.0-16.0); White Blood Count 8.6 X10*3/uL (4.8-10.8)
[2024-07-14 07:48] LABS: Alanine Aminotransferase 22 U/L (0-40); Alkaline Phosphatase 73 U/L (39-117); Anion Gap 11 (12-20); Aspartate Amino Transferase 20 U/L (5-37); Bilirubin Total 0.5 mg/dL (0.0-1.0); Blood Urea Nitrogen 16 mg/dL (9-16); Carbon Dioxide 21 mmol/L (22-29); Chloride 111 mmol/L (96-108); Cholesterol 123 mg/dL (<200); Estimated Glomerular Filt Rate > 60; Glucose Fasting 129 mg/dL (60-99); HDL Cholesterol 39 mg/dL (>40); LDL Cholesterol Calculated 70 mg/dL (<100); Potassium 4.1 mmol/L (3.3-5.1); Sodium 139 mmol/L (135-145); Triglycerides 73 mg/dL (<150)
[2024-07-14 08:07] LABS: Thyroid Stimulating Hormone 1.33 uIU/mL (0.32-4.0); Vitamin D 25-OH Total 13.8 ng/mL (>30)
[2024-07-15 11:04] LABS: Free Prostate Spec Ag 0.3 ng/mL; Percent Free Prostate Spec Ag 18 % (calc) (>25); Prostate Specific Ag Total 1.7 ng/mL (< OR = 4.0)
== END 2024-07-14 06:04 | disposition home or self-care (01) ==
LOC: HO.LAB 06:03
PROVIDERS: PCP Internal Medicine; Visit Provider Internal Medicine
DX: Z00.00 Encounter for general adult medical examination without abnormal findings (principal); I25.10 Atherosclerotic heart disease of native coronary artery without angina pectoris; I48.0 Paroxysmal atrial fibrillation
CPT/HCPCS: 36415; 80053; 80061; 82306; 84154; 84443; 85025

== ENCOUNTER → 2024-09-29 10:29 | Outpatient (BNVA) | payer MEDICARE, SELFPAY | PROVIDERS: PCP Internal Medicine; Visit Provider Physician Assistant Medical | DX: R05.9 Cough, unspecified (principal); R09.89 Other specified symptoms and signs involving the circulatory and respiratory systems; J32.9 Chronic sinusitis, unspecified; G47.33 Obstructive sleep apnea (adult) (pediatric); E66.9 Obesity, unspecified; I25.10 Atherosclerotic heart disease of native coronary artery without angina pectoris; I48.91 Unspecified atrial fibrillation; I25.2 Old myocardial infarction; E55.9 Vitamin D deficiency, unspecified; Z95.1 Presence of aortocoronary bypass graft | CPT/HCPCS: 99202 ==

== ENCOUNTER 2025-01-13 15:41 | Outpatient (AMB) | payer MEDICARE, SELFPAY ==
--- OUTSIDE RECORDS SUMMARY | 2025-01-13 15:44 | XMS_ITS | Encounter Summary ---
Author Organization [facility] Address [address] [place] [id number] Care Team Providers Care Bottom Scrubber Name Role Phone LisaShree DO Primary Care Provider + [phone] CaodaismCarmen sosa Unavailable Luis Glover MD Unavailable Unknown Primary Care Provider [phone] Reason for Referral * Cardiology (Routine) - Closed Specialty Diagnoses / Procedures Referred By Contact Referred To Contact Cardiac Electrophysiology / Cardiology Diagnoses Atrial fibrillation, unspecified type (HCC) Luis Glover MD [address] [place] [address] [address] [place] [address] Phone: tel:[phone] fax:[phone] [facility] V[facility] [place] - Electrophysiology [address] [place] [phone] Phone: tel: fax: Referral ID Status Reason Start Date Expiration Date V isits Requested Visits Authorized [id number] Closed Consult 04/17/2023 04/17/2024 1 1 Comments DX A FIB Encounter Details Date Type Department Care Team (Late st Contact Info) Description 04/17/2023 Community Orders Consulting Cardiologists, [address] [phone] Luis Glover MD [address] [place] [address] [address] [place] [address] Atrial fibrillation, unspecified type (HCC) (Primary Dx) Social History Tobacco Use Types Packs/Day Years Used Date Smoking Tobacco: Never Smokeless Tobacco: Never Alcohol Use Standard Drinks/Week Comments Not Currently 14 (1 standard drink = 0.6 oz pure alcohol) Used to drink, but has laid off caffeine and alcohol since being told. AUDIT-C Answer Date Recorded Q1: How often do you have a drink containing alcohol? Never 11/20/2022 Q2: How many drinks containi ng alcohol do you have on a typical day when you are drinking? Patient does not drink Q3: How often do you have si x or more drinks on one occasion? Never 11/20/2022 Sex and Gender Information Value Date Recorded Sex Assigned at Male 11/20/2022 8:05 AM EDT Legal Sex Male 9:04 AM EDT Gender Identity Male 11/20/2022 8:05 AM EDT Sexual Orientation Heterosexual (straight) 11/20 8:05 AM EDT documented as of this encounter Plan of Treatment Upcoming Encounters Date Type Department Care Team (Late st Contact Info) Description 02/08/2025 9:30 AM EDT Office Visit [facility] [place] - Electrophysiology [address] [place] [phone] Latasha Monsalve, TONY [address] [place] [address] Scheduled Referrals Name Type Priority Associated Diagnoses Order Schedule Amb Referral to Cardiac Electrophysiology Outpatient Referral Routine Atrial fibrillation, unspecified type (HCC) Ordered: 04/17/2023 documented as of this encounter Visit Diagnoses Diagnosis Atrial fibrillation, unspecified type (HCC)- Primary documented in this encounter Care Teams Bottom Scrubber Relationship Specialty Start Date End Date Shree Gonzalez DO [address] [place] [id number] PCP - General Internal Medicine 12/28/21 10/29/24 Unknown Unknow Provider Address PCP - General 10/30/24 Carmen Workman [address], [address] [place] [address] Senior Marketing Data Analyst 01/08/22 Luis Glover MD [address] [place] [address] [address] [place] [address] Primary Senior Marketing Data Analyst Cardiovascular Disease 06/29/22 documented as of this encounter
--- OUTSIDE RECORDS SUMMARY | 2025-01-13 15:44 | XMS_ITS | Encounter Summary ---
Author Organization [facility] Address [address] [place] [address] Care Team Providers Care Oyster Worker Name Role Phone Shree Gonzalze DO Primary Care Provider + [phone] Carmen Workman Unavailable Luis Glover MD Unavailable [phone] Unknown Primary Care Provider [phone] Encounter Details Date Type Department Care Team (Late st Contact Info) Description 06/21/2023 Prep for Surgery [facility] Heart & Vascular [place] - Electrophysiology [address] [facility] [address] [place] [address] Antonia Chilel, UNDERGRADUATE ADVISOR [address] [address] Social History Tobacco Use Types Packs/Day Years Used Date Smoking Tobacco: Never Smokeless Tobacco: Never Alcohol Use Standard Drinks/Week Comments Not Currently 14 (1 standard drink = 0.6 oz pure alcohol) Used to drink, but has laid off caffeine and alcohol since being told. [facility] Utilities Answer Date Recorded In the past 12 months has [employer], gas, oil, or water [facility] threatened to shut off services in your home? No 06/25/2023 AUDIT-C Answer Date Recorded Q1: How often do you have a drink containing alcohol? Never 06/24/2023 Q2: How many drinks containi ng alcohol do you have on a typical day when you are drinking? Patient does not drink Q3: How often do you have si x or more drinks on one occasion? Never 06/24/2023 PHQ-2 Answer Date Recorded PHQ-2 Total Score 0 06/24/2023 Hunger Vital Sign Answer Date Recorded Within the past 12 months, y ou worried that your food would run out before you got the money to buy more. Never true 06/25/20 23 Within the past 12 months, t he food you bought just didn't last and you didn't have money to get more. Never true 06/25/2023 PRAPARE - Transportation Answer Date Re corded In the past 12 months, has l ack of transportation kept you from medical appointments or from getting medications? No 05/28 In the past 12 months, has l ack of transportation kept you from meetings, work, or from getting things needed for daily living? No 06/25/2023 Housing Stability Vital Sign Answer Ian e Recorded In the last 12 months, was t here a time when you were not able to pay the mortgage or rent on time? No 06/25/2023 In the last 12 months, how many places have you lived? 1 06/25/2023 In the last 12 months, was t here a time when you did not have a steady place to sleep or slept in a senior living (including now)? No 06/25/2023 Sex and Gender Information Value Date Recorded Sex Assigned at Male 11/20/2022 8:05 AM EDT Legal Sex Male 9:04 AM EDT Gender Identity Male 11/20/2022 8:05 AM EDT Sexual Orientation Heterosexual (straight) 11/20 8:05 AM EDT documented as of this encounter Functional Status * Audit-C Score Answer Date of Assessment Author 0 06/24/2023 4:12 PM Magda Angela RN * Question Answer Date of Assessment Author Q1: How often do you have a drink containing alcohol? Never 06/24/2023 4:12 PM Magda Angela , PARKER Q2: How many drinks containing alcohol do you have on a typical day when you are drinking? Patient does not drink 06/24/2023 4:12 PM Magda Angela, PARKER Q3: How often do you have six or more drinks on one occasion? Never 06/24/2023 4:12 PM EDT Magda Santiago , PARKER * Question Answer Date of Assessment Author Little interest or pleasure in doing things Not at all 06/24/2023 4:12 PM EDT Magda Santiago RN Feeling down, depressed, or hopeless Not at all 06/24/2023 4:12 PM EDT Magda Santiago RN * Over the past 2 weeks, how often have you been bothered by any of the following problems? Question Answer Date of Assessment Author Patient Health Questionnaire -2 Score 0 06/24/2023 4:12 PM EDT Magda Santiago RN documented as of this encounter Plan of Treatment Upcoming Encounters Date Type Department Care Team (Late st Contact Info) Description 02/08/2025 9:30 AM EDT Office Visit [facility] Heart & Vascular [place] - Electrophysiology [address] [place] [phone] Latasha Monsalve, TONY [address] [place] [address] documented as of this encounter Visit Diagnoses Not on filedocumented in this encounter Care Teams Oyster Worker Relationship Specialty Start Date End Date Shree Gonzalez DO [address] [place] [address] PCP - General Internal Medicine 12/28/21 10/29/24 Unknown Unknow Provider Address PCP - General 10/30/24 Carmen Workman [address], [address] [place] [address] Residential Mental Health Worker 01/08/22 Luis Glover MD [address] [place] [address] [address] [place] [address] Primary Residential Mental Health Worker Cardiovascular Disease 06/29/22 documented as of this encounter
--- OUTSIDE RECORDS SUMMARY | 2025-01-13 15:44 | XMS_ITS | Encounter Summary ---
Author Organization [facility] Address [address] [place] [address] Care Team Providers Care Special Shopper Name Role Phone Shree Gonzalez DO Primary Care Provider + [phone] Carmen Workman Unavailable Lusi Glover MD Unavailable [phone] Unknown Primary Care Provider [phone] Encounter Details Date Type Department Care Team (Late st Contact Info) Description 10/27/2024 Documentation [facility] Heart & Vascular [place] - Electrophysiology [address] [place] [address] Alfredo Beckham, PARKER [address] [place] [address] Social History Tobacco Use Types Packs/Day Years Used Date Smoking Tobacco: Never Smokeless Tobacco: Never Alcohol Use Standard Drinks/Week Comments Not Currently 0 (1 standard drink = 0.6 oz pure alcohol) Used to drink, but has laid off caffeine and alcohol since being told. [facility] Utilities Answer Date Recorded In the past 12 months has [employer], gas, oil, or water [employer] threatened to shut off services in your home? No 06/25/2023 AUDIT-C Answer Date Recorded Q1: How often do you have a drink containing alcohol? Never 10/21/2024 Q2: How many drinks containi ng alcohol do you have on a typical day when you are drinking? Patient does not drink Q3: How often do you have si x or more drinks on one occasion? Never 10/21/2024 PHQ-2 Answer Date Recorded PHQ-2 Total Score [...] to sleep or slept in a senior care (including now)? No 06/25/2023 Sex and Gender [...] Description 02/08/2025 9:30 AM EDT Office Visit [facility] Heart & Vascular [place] - Electrophysiology [address] [place] [phone] Latasha Monsalve, GLOBAL HEAD ADVERTISER [employer] [address] [place] [address] documented as of this encounter Visit Diagnoses Not on filedocumented in this encounter Care Teams Special Shopper Relationship Specialty Start Date End Date Shree Gonzalez DO [address] [place] [address] PCP - General Internal Medicine 12/28/21 10/29/24 Unknown Unknow Provider Address PCP - General 10/30/24 Carmen Workman [facility] [address], [address] [place] [address] Social Psychologist 01/08/22 Luis Glover MD [address] [place] [address] [address] [place] [address] Primary Social Psychologist Cardiovascular Disease 06/29/22 documented as of this encounter
--- OUTSIDE RECORDS SUMMARY | 2025-01-13 15:44 | XMS_ITS | Encounter Summary ---
Author Organization [facility] Address [address] [place] [address] Care Team Providers Care Lacquer Mixer Name Role Phone Shree Gonzalez DO Primary Care Provider + [phone] Carmen Workman Unavailable Luis Glover MD Unavailable [phone] Unknown Primary Care Provider [phone] Reason for Visit * Reason Comments Appointment Encounter Details Date Type Department Care Team (Late st Contact Info) Description 03/08/2022 Telephone [facility] Heart & Vascular [place] - Electrophysiology [address] [place] [address] Ozzy Rodriguez MD [address] [place], [place] [phone] Appointment Social History Tobacco Use Types Packs/Day Years Used Date Smoking Tobacco: Never Smokeless Tobacco: Never Alcohol Use Standard Drinks/Week Comments Yes 14 (1 standard drink = 0.6 oz pu re alcohol) AUDIT-C Answer Date Recorded Q1: How often do you have a drink containing alcohol? 4 or more times a week 03/01/2022 Q2: How many drinks containi ng alcohol do you have on a typical day when you are drinking? 1 or 2 Q3: How often do you have si x or more drinks on one occasion? Never 03/01/2022 Sex and Gender Information Value Date Recorded Sex Assigned at Male 11/20/2022 8:05 AM EDT Legal Sex Male 9:04 AM EDT Gender Identity Male 11/20/2022 8:05 AM EDT Sexual Orientation Heterosexual (straight) 11/20 8:05 AM EDT COVID-19 Exposure Response Date Recorded In the last 10 days, have yo u been in contact with someone who was confirmed or suspected to have Coronavirus/COVID-19? No / Unsure 02/27/2022 12:37 PM EDT documented as of this encounter Plan of Treatment Upcoming Encounters Date Type Department Care Team (Late st Contact Info) Description 02/08/2025 9:30 AM EDT Office Visit [facility] Heart & Vascular [place] - Electrophysiology [address] [place] [phone] Latasha Monsalve, SHEET COMBINING OPERATOR [address] [place] [address] documented as of this encounter Visit Diagnoses Not on filedocumented in this encounter Care Teams Lacquer Mixer Relationship Specialty Start Date End Date Shree Gonzalez DO [address] [place] [address] PCP - General Internal Medicine 12/28/21 10/29/24 Unknown Unknow Provider Address PCP - General 10/30/24 Carmen Workman [address], [address] [place] [address] Food Critic 01/08/22 Luis Glover MD [address] [place] [address] [address] [place] [address] Primary Food Critic Cardiovascular Disease 06/29/22 documented as of this encounter
--- OUTSIDE RECORDS SUMMARY | 2025-01-13 15:44 | XMS_ITS | Encounter Summary ---
Author Organization [facility] Address [address] [place] [address] Care Team Providers Care Nurse Transplant Name Role Phone Shree Gonzalez DO Primary Care Provider + [phone] Carmen Workman Unavailable Luis Glover MD Unavailable [phone] Unknown Primary Care Provider [phone] Reason for Visit * Reason Comments Appointment Encounter Details Date Type Department Care Team (Late st Contact Info) Description 03/07/2022 Telephone [facility] Heart & Vascular [place] [address] [address] Ozzy Rodriguez MD [address] [place] [id number] Appointment Social History Tobacco Use Types Packs/Day [...] Description 02/08/2025 9:30 AM EDT Office Visit [facility] Heart & Vascular [place] - Electrophysiology [address] [place] [address] Latasha Monsalve, BUTTON FACING MACHINE OPERATOR [address] [place] [address] documented as of this encounter Visit Diagnoses Not on filedocumented in this encounter Care Teams Nurse Transplant Relationship Specialty Start Date End Date Shree Gonzalez DO [address] [place] [address] PCP - General Internal Medicine 12/28/21 10/29/24 Unknown Unknow Provider Address PCP - General 10/30/24 Carmen Workman [address], [address] [place] [address] Alumni Relations Coordinator 01/08/22 Luis Glover MD [address] [place] [address] [address] [place] [address] Primary Alumni Relations Coordinator Cardiovascular Disease 06/29/22 documented as of this encounter
--- OUTSIDE RECORDS SUMMARY | 2025-01-13 15:44 | XMS_ITS | Encounter Summary ---
Author Organization [facility] Address [address] [place] [address] Care Team Providers Care Slate Picker Name Role Phone Shree Gonzalez DO Primary Care Provider + [phone] Carmen Workman Unavailable Luis Glover MD Unavailable [phone] Unknown Primary Care Provider [phone] Encounter Details Date Type Department Care Team (Late st Contact Info) Description 06/10/2024 Scanned Document [facility] [address] [address] Elen Hunter [address] [place] [address] Social History Tobacco Use Types Packs/Day Years Used Date Smoking Tobacco: Never Smokeless Tobacco: Never Alcohol Use Standard Drinks/Week Comments Not Currently 14 (1 standard drink = 0.6 oz pure alcohol) Used to drink, but has laid off caffeine and alcohol since being told. [facility] Utilities Answer Date Recorded In the past 12 months has [employer], gas, oil, or water [employer] threatened to shut off services in your [...] place to sleep or slept in a chcf (including now)? No 06/25/2023 Sex and Gender [...] Description 02/08/2025 9:30 AM EDT Office Visit [facility] Heart & Vascular [place] - Electrophysiology [address] [place] [phone] Latasha Monsalve, MICROSOFT EXCHANGE ARCHITECT [address] [place] [address] documented as of this encounter Visit Diagnoses Not on filedocumented in this encounter Care Teams Slate Picker Relationship Specialty Start Date End Date Shree Gonzalez DO [address] [place] [address] 2 [place] [address] PCP - General Internal Medicine 12/28/21 10/29/24 Unknown Unknow Provider Address PCP - General 10/30/24 Carmen Workman [address], [address] [place] [address] Barrel Burner 01/08/22 Luis Glover MD [address] [place] [address] [address] [place] [address] Primary Barrel Burner Cardiovascular Disease 06/29/22 documented as of this encounter
--- OUTSIDE RECORDS SUMMARY | 2025-01-13 15:44 | XMS_ITS | Encounter Summary ---
Author Organization [facility] Address [address] [place] [address] Care Team Providers Care Press Tender Incendiary Grenade Name Role Phone Shree Gonzalez DO Primary Care Provider + [phone] Oriental OrthodoxCarmen sosa Unavailable Luis Glover MD Unavailable [phone] Unknown Primary Care Provider [phone] Reason for Referral * Cardiology (Routine) - Closed Specialty Diagnoses / Procedures Referred By Contact Referred To Contact Cardiac Electrophysiology / Cardiology Diagnoses Atrial fibrillation, unspecified type (HCC) Luis Glover MD [address] [place] [address] [address] [place] [address] Phone: tel:[phone] fax:[phone] [facility] Heart & Vascular [place] - Electrophysiology [address] [place] [address] Phone: tel: fax: Referral ID Status Reason Start Date Expiration Date V isits Requested Visits Authorized [id number] Closed Consult 11/28/2022 11/29/2023 1 1 Comments DX NSVT/ ATRIAL FIB HISTORY OF CAD Encounter Details Date Type Department Care Team (Late st Contact Info) Description 11/28/2022 Community Orders Consulting Cardiologists, [address] [address] Luis Glover MD [address] [place] [address] [address] [place] [address] Atrial fibrillation, unspecified type (HCC) (Primary Dx) [...] suspected to have Coronavirus/COVID-19? No / Unsure 11/20/2022 8:37 AM EDT documented as of this encounter Plan of Treatment Upcoming Encounters Date Type Department Care Team (Late st Contact Info) Description 02/08/2025 9:30 AM EDT Office Visit [facility] Heart & Vascular [place] - Electrophysiology [address] [place] [phone] Latasha Monsalve, TONY [address] [place] [address] Scheduled Referrals Name Type Priority Associated Diagnoses Order Schedule Amb Referral to Cardiac Electrophysiology Outpatient Referral Routine Atrial fibrillation, unspecified type (HCC) Ordered: 11/28/2022 documented as of this encounter Visit Diagnoses Diagnosis Atrial fibrillation, unspecified type (HCC)- Primary documented in this encounter Care Teams Press Tender Incendiary Grenade Relationship Specialty Start Date End Date Shree Gonzalez DO [address] [place] [address] 2 [place] [address] PCP - General Internal Medicine 12/28/21 10/29/24 Unknown Unknow Provider Address PCP - General 10/30/24 Carmen Workman [address] [place] [address], [address] [place] [address] Harness Inspector 01/08/22 Luis Glover MD [address] [place] [address] [address] [place] [address] Primary Harness Inspector Cardiovascular Disease 06/29/22 documented as of this encounter
--- OUTSIDE RECORDS SUMMARY | 2025-01-13 15:44 | XMS_ITS | Clinical Summary ---
Author Organization [facility] Address [address] [place] [address] Care Team Providers Care Printer Slotter Helper Name Role Phone Carmen Workman Unavailable Luis Glover MD Unavailable Unknown Primary Care Provider [phone] Allergies No known active allergies Medications atorvastatin (LIPITOR) 80 MG tablet Take 1 tablet (80 mg total) by mouth every evening. Active lisinopril (PRINIVIL,ZeSTRIL ) 10 MG tablet Take 1 tablet (10 mg total) by mouth daily. 3 Active metoPROLOL SUCCINATE (TOPROL-XL) 50 MG 24 hr tablet Take 1 tablet (50 mg total) by mouth daily. Active dofetilide (TIKOSYN) 500 MCG capsuleIndication s:Persistent atrial fibrillation (HCC) Take 1 capsule (500 mcg total) by mouth 2 (two) times a day. Take 1 tablet by mouth every 12 hours 180 capsule 1 4 Active Vitamin D3 (CHOLECALCIFEROL) 50 MCG (2000 UT) tablet Take 1 tablet (2,000 Units total) by mouth daily. Active magnesium (MAGTAB) 84 MG (7MEQ) Tab CR Take 1 tablet (84 mg total) by mouth daily. Active apixaban (ELIQUIS) 5 MG tabletIndications :Paroxysmal atrial fibrillation (HCC) Take 1 tablet (5 mg total) by mouth 2 (two) times a day. Do not start before October 31, 2024. Active Active Problems Problem Noted Date Diagnosed Date Paroxysmal atrial fibrillation 08/03/2024 A-fib 06/24/2023 Abnormal cardiovascular stress test 11/09/2022 Overview (11/09/2022): Added automatically from request for surgery [id number] Cholelithiasis with choledocholithiasis 02/29/20 RYAN (acute kidney injury) 02/27/2022 S/P CABG (coronary artery bypass graft) 12/31/19 Atrial fibrillation 12/30/2021 Class 1 obesity 12/30/2021 Hypercholesterolemia 12/30/2021 Hypertension 12/30/2021 Acute on chronic cholecystitis 12/30/2021 Tubular adenoma of colon 04/17/2019 Overview (12/30/2021): repeat screening colonoscopy in 2023 Encounters Date Type Department Care Team Description 12/01/2024 9:30 AM EDT Office Visit [facility] - Electrophysiology [address] [place] [phone] Latasha Monsalve APRN Paroxysmal atrial fibrillation (HCC) (Primary Dx) 12/01/2024 Travel 11/02/2024 Documentation [facility] - Electrophysiology [address] [place] [phone] Rebecca Vital RN 10/30/2024 7:48 AM EST Anesthesia Event [facility] Electrophysiology Laboratory [address] [place] [phone] Farrukh Andrade MD Gogna, Mohit, 10/30/2024 7:30 AM EST - 10/30/2024 10:27 AM EST Surgery [facility] Electrophysiology [address] [phone] Олег Rocha MD Atrial fibrillation ablation/PFA; [id number] 10/30/2024 6:13 AM EST - 10/30/2024 2:55 PM EST Hospital Encounter [facility] [place] [facility] - Electrophysiology Laboratory [address] [place] [phone] Олег Rocha MD Discharge Disposition: Home or Self Care 10/30/2024 Travel 10/27/2024 Documentation [facility] Heart V[facility] - Electrophysiology [address] [facility] [place] [phone] Alfredo Bekcham RN 10/21/2024 Travel 10/19/2024 10:30 AM EST Office Visit [facility] & [facility] - Electrophysiology [address] [facility] [phone] Олег Rocha MD Persistent atrial fibrillation (HCC) (Primary Dx); Paroxysmal atrial fibrillation (HCC); Encounter for monitoring dofetilide therapy 10/19/2024 Travel from Last 3 Months Immunizations Immunization Administration Dates Next Due Covid-19 MRNA Vaccine - Pfiz er 12+ (Purple Cap) 12/06/2021,05/23/2021,10/21/2020,2020 Family History Medical History Relation Name Comments COPD Father Emphysema Father Heart disease Mother Relation Name Status Comments Father Mother Social History Tobacco Use Types Packs/Day Years Used Date Smoking Tobacco: Never Smokeless Tobacco: Never Tobacco Cessation:Counseling Given: Not Answered Alcohol Use Standard Drinks/Week Comments Not Currently 0 (1 standard drink = 0.6 oz pure alcohol) Used to drink, but has laid off caffeine and alcohol since being told. [facility] Utilities Answer Date Recorded In the past 12 months has [employer], [employer], oil, or water [employer] threatened to shut off services in your [...] place to sleep or slept in a [place] facility (including now)? No 06/25/2023 Sex and Gender Information Value Date Recorded Sex Assigned at Male 11/20/2022 8:05 AM EDT Legal Sex Male 9:04 AM EDT Gender Identity Male 11/20/2022 8:05 AM EDT Sexual Orientation Heterosexual (straight) 11/20 8:05 AM EDT Last Filed Vital Signs Vital Sign Reading Time Taken Comments Blood Pressure 132/64 12/01/2024 9:14 AM EDT Pulse 67 12/01/2024 9:14 AM EDT Temperature 35.7 ??C (96.3 ??F) 10/30/2024 2:00 PM ES T Respiratory Rate 12 10/30/2024 2:45 PM EST Oxygen Saturation 97% 12/01/2024 9:14 AM EDT Inhaled Oxygen Concentration - - Weight 103 kg (227 lb) 12/01/2024 9:14 AM EDT Height 172.7 cm (5' 8 ) 12/01/2024 9:14 AM EDT Body Mass Index 34.52 12/01/2024 9:14 AM EDT Plan of Treatment Upcoming Encounters Date Type Department Care Team (Late st Contact Info) Description 02/08/2025 9:30 AM EDT Office Visit [facility] & [facility] [place] - Electrophysiology [address] [place] [phone] Latasha Monsalve, ALLIANCES CONSULTANT [address] [place] [address] Health Maintenance Due Date Last Done Comments Hepatitis C Virus Screening 1955 DTaP/Tdap/Td Vaccines (1 - Tdap) 1974 Colonoscopy 2000 Pneumococcal Vaccines 50+ (1 of 1 - PCV) 2005 Zoster (Shingles) Vaccine (1 of 2) 2005 RSV Vaccine 60 years and older and Patients (1 - Risk 60-74 years 1-dose series) 2015 COVID-19 Vaccine ( season) 2024 12/06/2021, 05/23/2021, 10/21/2020, Additional history exists Influenza Vaccine 03/26/2025 Hepatitis B Vaccines Aged Out No long er eligible based on patient's age to complete this topic Procedures Procedure Name Priority Date/Time Associated Diagnosis Comments ECG 12-LEAD Routine 12/01/2024 9:22 AM EDT Paroxysmal atrial fibrillation (HCC) ABLATION A-FIB Routine 10/30/2024 9:52 AM EST Paroxysmal atrial fibrillation (HCC) ISTAT ACTIVATED CLOTTING TIME, CELITE (CHARGE) Routine 10/30/2024 9:19 AM EST ISTAT ACTIVATED CLOTTING TIME, CELITE (CHARGE) Routine 10/30/2024 9:04 AM EST ANES INTUBATION Routine 10/30/2024 8:47 AM EST TYPE AND SCREEN Routine 10/30/2024 6:24 AM EST MAGNESIUM Routine 10/30/2024 6:24 AM EST BASIC METABOLIC PANEL Routine 10/30/2024 6:24 AM EST COMPLETE BLOOD COUNT, WITH DIFFERENTIAL Routine 10/30/2024 6:24 AM EST ECG 12-LEAD Routine 10/19/2024 11:38 AM EST Paroxysmal atrial fibrillation (HCC) from Last 3 Months Results * ECG 12 lead (12/01/2024 9:22 AM EDT) Only the most recent of2 resultswithin the time period is included. Pathologist [facility] Ventricular rate 65 BPM EKG [facility] Atrial rate 65 BPM EKG [facility] P-R interval 164 ms [facility] QRS [facility] 74 ms [facility] Q-T interval 420 ms [facility] QTC calculation (Bazett) 436 ms EKG [facility] P axis 41 degrees EKG [facility] R axis 34 degrees EKG [facility] T axis 69 degrees [facility] 12/01/2024 9:22 AM EDT Narrative EKG [facility] - 12/16/2024 3:40 PM EDT Normal sinus rhythm Nonspecific T wave abnormality Abnormal ECG When compared with ECG of 19-Oct-2024 11:38, No significant change was found Confirmed by MD Rocha Eric ([id number]) on 12/16/2024 3:40:44 PM Procedure Note Олег Rocha MD - 12/16/2024 Normal sinus rhythm Nonspecific T wave abnormality Abnormal ECG When compared with ECG of 19-Oct-2024 11:38, No significant change was found Confirmed by MD Rocha Eric ([id number]) on 12/16/2024 3:40:44 PM Олег Rocha MD ECG ORDERABLES Final Result [facility] * ABLATION A-FIB (10/30/2024 9:52 AM EST) Anatomical Region Laterality Modality Cardiac Electrop hysiology Addenda Addendum by Олег Rocha MD on 10/30/2024 10:45 AM EST Table formatting from the original result was not included. Images from the original result were not included. History: Mr. Love is a 69-year-old gentleman with a history of CAD s/p CABG (2019), hypertension, dyslipidemia, obesity (BMI 33), and persistent AF. He was referred to see me in May 2023. He was subsequently admitted for JAN-guided cardioversion + dofetilide loading later that month. Since being on dofetilide he has had intermittent recurrences of AF. These last minutes to hours. He has not needed another cardioversion. He has decided to move forward with AF ablation. Consent Informed consent was obtained prior to entering the EP lab. The procedure was discussed with the patient in great detail. The risks of the procedure, including but not limited to, bleeding, infection, vascular injury, cardiac perforation, WA, thromboembolism, pulmonary vein stenosis, gastroparesis, phrenic nerve injury, atrioesophageal fistula, stroke, heart block requiring pacemaker implantation, and were discussed. Alternatives were discussed and all questions were answered. The patient signed informed consent. Procedure The procedure was performed under general anesthesia.The patient was prepped and draped in the usual sterile fashion. The groins were anesthetized with 1% lidocaine and 0.5% bupivacaine. Sheaths were placed in the right and left femoral veins using the modified Seldinger technique and ultrasound guidance. A Heparin bolus was given and an infusion were begun to keep the ACT 300-400 seconds. The CARTO3 electroanatomical mapping system was utilized. Insertion Site Sheath Catheter Site RFV 8F ?? RFV 15 F Flexcath Contour Pentary Pulse Select PFA Map PFA LFV 8F Decapolar CS LFV 11F Soundstar ICE RA Baseline Measurements: Rhythm: Sinus Cycle length: ??1090 ms AH interval: ?? 81 ms HV interval: ?? 57 ms A trans-septal puncture was performed under fluoroscopic and ICE guidance using the FlexCatWorkTouch Cross system. The sheath and dilator were advanced to the SVC over an 0.32 wire. The system was then pulled down to the fossa ovalis. The needle was advanced out of the tip of the dilator and immediately entered the left atrium. A wire was advanced into the LA and the needle was retracted. The dilator and sheath were advanced into the left atrium over the wire. The needle and dilator were removed and the sheath was flushed. The sheath was continuously flushed with heparinized saline. Using the pentary catheter, an electroanatomical map of the left atrium and pulmonary veins (PVs)was created. The shell was compared with the pre-procedure imaging to ensure accuracy. There were 4 pulmonary veins. Ablation: Using ICE, electroanatomic mapping, and fluoroscopic guidance, 50 biphasic PFA applications were utilized to isolate the pulmonary veins and LA posterior wall. Both entrance and exit block were confirmed from all PVs. A repeat voltage map of the posterior LA revealed wide area PVI and posterior wall isolation. The catheter and sheath were pulled back to the RA. RA pacing revealed antegrade AV node conduction to 340 ms. Repeated burst pacing from the CS did not induce AT/flutter. Conclusion of the procedure: Protamine was given to reverse the heparin and then catheters and sheaths were pulled. Hemostasis was achieved with manual compression. The patient left the EP lab in good condition. Fluoroscopy time: 3.5 min ?? mGy: 17 microGym2: 140.2 Conclusions Complications during procedure: None Summary: Pulmonary vein isolation LA posterior wall isolation Recommendations/Plan: Bed rest x 4-5 hours. Anticoagulation: Continue Eliquis. Resume dofetilide. Will plan to continue for at least 1 month post-ablation. Furosemide 20 mg x3-5 days for post-ablation fluid retention Resume home medications. Follow-up in clinic in 4 weeks. Signed: Олег Rocha MD 10/30/2024 ??9:46 AM Desi Maldonado APRN CV ELECTROPHYSIOLOGY ORDERA BLES Edited Result - Final * (ABNORMAL) ISTAT Activated Clotting Time, Celite (10/30/2024 9:19 AM EST) Only the most recent of2 resultswithin the time period is included. Activated Clotting Time (Celite), I-STAT 331(H) 84 - 139 seconds 10/30/2024 10:56 AM EST Blood specimen / Unknown 10/30/2024 9:19 AM EST 10/30/2024 10:56 AM EST Олег Rocha MD POCT ORDERABLES - DEVICE Final Result HOSPITAL LAB See Below * ANES INTUBATION (10/30/2024 8:47 AM EST) Darshan Garcia, DO - 10/30/2024 8:47 AM EST Darshan Reed, DO ? 10/30/2024 ??8:54 AM Anesthesia Procedure Note - Elective intubation Patient Name: Shree Love Jr. : 1955 Patient location: OR Procedure indications: airway protection Procedure diagnosis: Anesthesia Performed by: Resident/VIDEO PRESENTATION OPERATOR ? Farrukh Andrade MD ? Darshan Reed, DO ? Chart Verification Airway: airway not difficult Preanesthetic Checklist monitors and equipment checked. Patient's pre-procedure mental status: awake The patient was sedated prior to procedure. Current level of sedation: general anesthesia Airway not difficult - NPO status: > 8 hours Procedure Details Intubation route: oral Intubation method: direct laryngoscopy ??Mac 3 Number of attempts: 2 Patient status for intubation: paralyzed and sedated Patient position: supine Preoxygenation: BVM Quality of BVM: easy, oral airway and 1 person Tube size: 8.0 mm Tube: standard ??- cuffed and cuff inflated Ventilation between attempts via BVM Cricoid pressure not applied or not required Cord visualization: Grade IIb Placement confirmation method: chest rise and ETCO2 monitor Breath sounds: equal bilaterally ETT to lip: 22 cm Dentition: same as baseline Complications: no complications Additional comments: Floppy epiglottis obscuring view of the laryngeal inlet requiring blade placement past and on top of the epiglottis in order to obtain a grade IIb view. us Farrukh Andrade MD MS ANESTHESIA Edited R esult - Final * Complete Blood Count, with Differential (10/30/2024 6:24 AM EST) White Blood Cell Count 6.9 4.0 - 11.0 Thou/uL 10/30/2024 7:12 AM [facility] Platelet Count 263 150 - 450 Thou/uL 10/30/2024 7:12 AM [facility] Hemoglobin 13.8 13.0 - 17.7 g/dL 10/30/2024 7:12 AM [facility] Hematocrit 43.1 39.0 - 54.0 % 10/30/2024 7:12 AM [facility] Red Blood Cell Count 4.60 4.50 - 6.20 Mil/uL 10/30/2024 7:12 AM [facility] MCV 94 80 - 100 fL 10/30/2024 7:12 AM [facility] MCH 30.0 27.0 - 31.0 pg 10/30/2024 7:12 AM [facility] MCHC 32.0 30.0 - 36.0 g/dL 10/30/2024 7:12 AM [facility] RDW 13.2 11.5 - 14.5 % 10/30/2024 7:12 AM [facility] MPV 10.0 7.5 - 12.5 fL 10/30/2024 7:12 AM [facility] Neutrophils Auto 53.9 % 10/31/19 7:12 AM [facility] Immature Granulocytes 0.3 % 10/30/2024 7:12 AM [facility] Lymphocytes Auto 29.9 % 10/31/19 7:12 AM [facility] Monocytes Auto 12.5 % 10/30/2024 7:12 AM [facility] Eosinophils Auto 3.0 % 10/31/19 7:12 AM [facility] Basophils Auto 0.4 % 10/30/2024 7:12 AM [facility] Abs Neutrophils Auto 3.72 2.00 - 7.50 Thou/uL 10/30/2024 7:12 AM [facility] Abs Immature Granulocytes 0.02 0.00 - 0.10 Thou/uL 10/30/2024 7:12 AM [facility] Abs Lymphocytes Auto 2.06 1.50 - 4.50 Thou/uL 10/30/2024 7:12 AM [facility] Abs Monocytes Auto 0.86 0.20 - 1.50 Thou/uL 10/30/2024 7:12 AM [facility] Abs Eosinophils Auto 0.21 0.00 - 0.70 Thou/uL 10/30/2024 7:12 AM [facility] Abs Basophils Auto 0.03 0.00 - 0.20 Thou/uL 10/30/2024 7:12 AM [facility] Blood Blood specimen / Unknown 10/30/2024 6:24 AM EST 10/30/2024 6:55 AM EST Zaida Borja APRN LAB BLOOD ORDERABLES Final Result Performing Organization Address [facility]/ZIP Co de Phone Number [address] [address], [address] [address] * Type and Screen (10/30/2024 6:24 AM EST) ABO/Rh A POSITIVE 10/30/2024 8:34 AM [facility] Antibody Screen NEGATIVE 8:34 AM [facility] Specimen Expiration 11/02/2024 10/30/2024 8:34 AM [facility] Blood Blood specimen / Unknown 10/30/2024 6:24 AM EST 10/30/2024 7:12 AM EST Zaida Borja APRN BLOOD BANK TEST ORDERABLES Final Result Performing Organization Address City/[facility]/ZIP Co de Phone Number [address] [address], [address] [address] * Magnesium (10/30/2024 6:24 AM EST) Magnesium 2.0 1.6 - 2.7 mg/dL 10/30/2024 7:29 AM [facility] Blood Blood specimen / Unknown 10/30/2024 6:24 AM EST 10/30/2024 6:55 AM EST Zaida Borja APRN LAB BLOOD ORDERABLES Final Result [address] [address], [address] [address] * (ABNORMAL) Basic Metabolic Panel (10/30/2024 6:24 AM EST) Glucose 132(H) 65 - 99 mg/dL 10/30/2024 7:29 AM [facility] Comment:Fasting: <100 mg/dL, Non-Fasting: <200 mg/dL (ADA 2004) Blood Urea Nitrogen (BUN) 20 8 - 21 mg/dL 10/30/2024 7:29 AM [facility] Creatinine 1.0 0.5 - 1.3 mg/dL 10/30/2024 7:29 AM [facility] eGFR 81 >59 10/30/2024 7:29 AM [facility] Comment:CKD-EPI (2020) in mL /min/1.73 sq meters. Sodium 140 136 - 145 mmol/L 10/30/2024 7:29 AM [facility] Potassium 5.4(H) 3.4 - 5.3 mmol/L 10/30/2024 7:29 AM [facility] Chloride 108(H) 98 - 107 mmol/L 10/30/2024 7:29 AM [facility] CO2 22 22 - 33 mmol/L 10/30/2024 7:29 AM [facility] Anion Gap 10 7 - 17 10/30/2024 7:29 AM [facility] Calcium 8.9 8.7 - 10.5 mg/dL 10/30/2024 7:29 AM [facility] BUN/Creatinine Ratio 20 10.0 - 25.0 Ratio 10/30/2024 7:29 AM [facility] Blood Blood specimen / Unknown 10/30/2024 6:24 AM EST 10/30/2024 6:55 AM EST Zaida Borja ALLIANCES CONSULTANT LAB BLOOD ORDERABLES Final Result [address] [address], [address] [address] from Last 3 Months Insurance [employer] MEDICARE OUT OF NETWORK [place] D MEDICARE OUT OF NETWORK Advance Directives * Full Code (Latest Code Status on File) Date Activated Date Inactivated Comments 10/30/2024 10:09 AM * Full Code Date Activated Date Inactivated Comments 06/24/2023 6:36 AM 06/26/2023 10:40 PM * Full Code Date Activated Date Inactivated Comments 11/20/2022 8:20 AM 06/24/2023 6:36 AM * Full Code Date Activated Date Inactivated Comments 02/28/2022 1:45 PM 11/20/2022 8:07 AM Question Answer Comments Decision Thoroughly Discussed with: Unable to Di scuss * Full Code Date Activated Date Inactivated Comments 02/27/2022 12:28 PM 02/28/2022 1:45 PM Care Teams Printer Slotter Helper Relationship Specialty Start Date End Date Unknown Unknow Provider Address PCP - General 10/30/24 Carmen Workman [address], [address] [place] [address] Sample Box Maker 01/08/22 Luis Glover MD [address] [place] [address] [address] [place] [address] Primary Sample Box Maker Cardiovascular Disease 06/29/22
--- OUTSIDE RECORDS SUMMARY | 2025-01-13 15:44 | XMS_ITS | Encounter Summary ---
Author Organization [facility] Address [address] [place] [address] Care Team Providers Care Take Away Man Name Role Phone Shree Gonzalez DO Primary Care Provider + [phone] Carmen Workman Unavailable Luis Glover MD Unavailable [phone] Unknown Primary Care Provider [phone] Encounter Details Date Type Department Care Team (Late st Contact Info) Description 10/07/2024 Scanned Document [facility] Heart & Vascular [place] - Electrophysiology [address] [place] [address] [place] [address] [place] [address] Social History Tobacco Use Types Packs/Day Years Used Date Smoking Tobacco: Never Smokeless Tobacco: Never Alcohol Use Standard Drinks/Week Comments Not Currently 14 (1 standard drink = 0.6 oz pure alcohol) Used to drink, but has laid off caffeine and alcohol since being told. [facility] Utilities Answer Date Recorded In the past 12 months has [employer], oil, or water [employer] threatened to shut off services in your [...] place to sleep or slept in a detention (including now)? No 06/25/2023 Sex and Gender [...] Description 02/08/2025 9:30 AM EDT Office Visit [facility] Heart & Vascular [place] - Electrophysiology [address] [place] [phone] Latasha Monsalve, PERFECT BINDER OPERATOR [address] [place] [address] documented as of this encounter Visit Diagnoses Not on filedocumented in this encounter Care Teams Take Away Man Relationship Specialty Start Date End Date Shree Gonzalez DO [address] [place] [address] [address] [place] [address] PCP - General Internal Medicine 12/28/21 10/29/24 Unknown Unknow Provider Address PCP - General 10/30/24 Carmen Workman [address] [place] [address], [address] [place] [address] Hr Administrative Assistant 01/08/22 Luis Glover MD [address] [place] [address] [address] [place] [address] Primary Hr Administrative Assistant Cardiovascular Disease 06/29/22 documented as of this encounter
[2025-01-13 15:50] VITALS: BP 152/67; PULSE 74; RESP 16; TEMP 36.4; O2SAT 99; BMI 35.6
--- NOTE | 2025-01-13 15:50 | A.OFFPC_ITS ---
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 Plumbing Required: No Accompanied by: Self / Same As Patient Allergies No Known Allergies [No Known Allergies*] Allergy (Verified 01/13/25 16:07) Medication List - Last Reconciled 01/13/25 by Marielena Valdez PA-C apixaban (Eliquis) 1 tab PO BID atorvastatin 1 tab PO BEDTIME cholecalciferol (vitamin D3) 50 mcg PO DAILY dofetilide 500 mcg PO BID lisinopril 10 mg PO DAILY magnesium L-lactate ER 84 mg PO BID metoprolol succinate ER 100 mg PO DAILY Tobacco use date assessed: 01/13/25 Fall risk assessment: No Falls in past year Last assessed Fall Risk: 01/13/25 Dental Screening Dental Screen Date: 01/13/25 Did you have a dental visit in the last 12 months?: Yes Did you have a dental problem in the last 6 months where you did not have access to dental care?: No Was dental information given to patient?: Patient has dentist HPI 6 month follow up HPI Details The patient is a 69-year-old male presenting for a six-month follow-up visit. His recent medical intervention includes a pulse field ablation on October 30 for atrial fibrillation, and postoperative recovery has been favorable with the patient feeling return of normalcy and reporting the ability to partake in everyday activities such as consuming alcohol responsibly. He has also undergone a retinal procedure on October 12 for the removal of scar tissue, which has not resulted in further complications. The patient is dealing with hypertension and acknowledges lifestyle choices, such as a high-salt diet, contribute to episodic elevation in blood pressure. Dyslipidemia is being managed with atorvastatin. The patient has a goal of losing weight and is currently exploring the use of coffee as a deterrent to appetite. He is also managing his magnesium supplementation independently due to cost factors and chooses to purchase vitamin D [id number]. Social History - Reports the goal of living to age 89 and maintaining autonomy over personal health. - Currently managing weight with coffee to suppress appetite, intending to continue weight loss. - Dietary intake includes high-salt and strong coffee consumption. - Obtains magnesium supplements directly due to cost, and vitamin D [id number]. [facility] Medical History (Updated 01/13/25 @ 16:44 by Marielena Valdez PA-C) Dyslipidemia Hypertension Vitamin D deficiency History of myocardial infarction Tubular adenoma Snoring BRYAN (obstructive sleep apnea) Obesity (BMI 30-39.9) Hypercholesteremia On anticoagulant therapy Retinal tear of right eye Atrial fibrillation CAD (coronary artery disease) Myocardial infarct Gout Surgical History H/O eye surgery (~10/12/24) History of cardiac ablation for atrial fibrillation (~10/30/24) History of colonoscopy (~08/10/24) Hx of cataract extraction History of vitrectomy Hx of coronary artery bypass graft History of tonsillectomy [place] teeth extracted Hx of repair of right rotator cuff Hx of repair of left rotator cuff History of surgery on right wrist Hx of left inguinal hernia repair Family History Mother CAD (coronary artery disease) Social History Household Members: Spouse Housing: House Are you a primary landcare facilitator to a significant other at home: No Do you presently have visiting nurse or other home services: No Alcohol intake: current Alcohol intake frequency: holidays/special occasions only Comment: for nstemi Patient Tobacco Use Status: Never used Tobacco Second Hand Smoke Exposure: No service: No Current occupational status: employed Cognitive needs: No Hearing needs: No Vision needs: Yes (reading glasses) Questionnaire PHQ-9 Over the last 2 weeks, how often have you been bothered by any of the following problems? 1. Little interest or pleasure in doing things: not at all 2. Feeling down, depressed, or hopeless: not at all 3. Trouble falling or staying asleep, or sleeping too much: not at all 4. Feeling tired or having little energy: not at all 5. Poor appetite or overeating: not at all 6. Feeling bad about yourself - or that you are a failure or have let yourself or your family down: not at all 7. Trouble concentrating on things, such as reading the newspaper or watching television: not at all 8. Moving or speaking so slowly that other people could have noticed. Or the o pposite - being so fidgety or restless that you have been moving around a lot more than usual: not at all 9. Thoughts that you would be better off or of hurting yourself in some way: not at all Total score: 0 Depression Screening Interpretation: Negative Depression Screening Done: Yes 25651 - PHQ-9 Billing: Yes Source: Developed by Drs. Shree Marshall, Marian Eaton, Iron Mcghee and colleagues, with an educational casie from [employer]. Thrive Questionnaire Date Thrive assessed: 01/13/25 I am a: Patient What is your living situation today?: I have a steady place to live Within the past 12 months, did the food you bought not last and you didn't have the money to get more?: Never true Within the past 12 months, did you worry whether your food would run out before you got money to buy more?: Never true Do you have trouble paying for medicines?: No Do you have trouble getting transportation to medical appointments?: No Do you have trouble paying your heating and electricity bill?: No Do you have trouble taking care of your child, family member or friend?: No Do you have trouble with day-to-day activities such as bathing, preparing meals, shopping, managing finances, etc.?: No Are you currently unemployed and looking for a job?: No Are you interested in more education?: No Please select the resources that you would like help with: None THRIVE Score: 0 AUDIT C Alcohol Use Questionnaire (AUDIT-C) 1. How often do you have a drink containing alcohol?: Monthly or less 2. How many drinks containing alcohol do you have on a typical day when you are drinking?: 1 or 2 3. How often do you have six or more drinks on one occasion?: Never Total Score: 1 Score Reviewed/Action Taken: No ERIN-7 AMB Questionnaire ERIN-7 Date ERIN - 7 assessed: 01/13/25 Feeling nervous, anxious, or on edge: 0 = Not at all Not being able to stop or control worryin = Not at all Worrying too much about different things: 0 = Not at all Trouble relaxin = Not at all Being so restless that it is hard to sit still: 0 = Not at all Becoming easily annoyed or irritable: 0 = Not at all Feeling afraid as if something awful might happen: 0 = Not at all Total ERIN-7 score (0-4 normal; 5-9 mild; 10-14 moderate; 15-21 severe): 0 Source: Developed by Drs. Shree Marshall, Marian Eaton, Iron Mcghee and colleagues, with an educational casie from [employer]. ERIN-7 Assessment Billing ERIN-7 Assessment Tool: ERIN-7 Assessment 35133 Review of Systems Const Details: - Cardiovascular: Reports elevated blood pressure. - Ophthalmologic: Reports eye swelling and irritation due to allergies. - Gastrointestinal: Denies dietary restrictions post-ablation. - Neurological: Denies changes post-ablation. - Psychiatric: Denies mood disturbances or confusion. Physical exam (Primary Care) Vital Signs: Last Vital Signs Temp 97.6 F 01/13/25 15:50 Pulse 74 01/13/25 15:50 Resp 16 01/13/25 15:50 BP 152/67 H 01/13/25 15:50 Pulse Ox 99 01/13/25 15:50 Oxygen Delivery Method Room Air 01/13/25 15:50 Care Plan Goal for BP management: <140/90 patient to continue blood pressure medication and to decrease coffee intake BMI result Body Mass Index 35.6 BMI Assessment/Plan discussion: High BMI High, discussed plan: lifestyle, weight reduction, dietary, physical activity and alcohol moderation Tobacco/Smoking Status: Tobacco use Status Tobacco use date assessed 01/13/25 01/13/25 16:02 Patient Tobacco Use Status Never used Tobacco 01/13/25 16:02 PHQ-9: PHQ-9 Score PHQ-9: Total score 0 01/13/25 16:02 Depression Screening Interpretation: Negative Thrive Assessment: Date of Thrive Assessment Date Thrive assessed 01/13/25 01/13/25 16:02 Const Other: Appearance: Alert. Oriented X3. No acute distress. Head: Normal external exam. Normocephalic. Atraumatic. Eyes: Pupils are equal, round, and reactive to light. Extraocular movements intact. Conjunctiva and sclera normal. Eyelids normal. Patient reports swollen eye due to allergies and rubbing, not pink eye, but a blocked gland. Ears: External auditory canal normal. Tympanic membranes normal. Throat: Pharynx normal. Uvula midline. Moist mucous membranes. Neck: Normal inspection. Neck supple. Full range of motion. No adenopathy. Thyroid Normal. No meningeal signs. No neck mass noted. Cardiovascular: Normal heart rate and rhythm. Heart sound normal. No murmurs noted. Pulses normal throughout. Blood pressure noted to be a little high today. Respiratory: No respiratory distress. Painless inspiration. Breath sounds normal. No wheezes/rales/rhonchi noted. Chest nontender. No accessory muscle usage noted or decreased air movement noted. Abdomen: Soft and nontender. Bowel sounds normal in all 4 quadrants. No distention noted. No organomegaly noted. No visible injury noted. Back: No costovertebral angle tenderness. Full range of motion noted. Skin: Skin warm and dry. Normal skin color. Normal skin turgor. No rashes/lesions/lacerations noted. Extremities: No lower extremity edema. Extremities exhibit normal range of motion. Extremities nontender. Neuro: Oriented X 3. No motor deficit. No sensory deficit. Reflexes normal. Results Reviewed Results Reviewed: - Labs: CBC, CMP, hemoglobin A1c, lipid panel, liver function tests, magnesium, PSA, TSH, vitamin B12, and vitamin D ordered with instructions to fast. - Procedures: Pulse field ablation on October 30, right retina scar tissue removal on October 12. Coding Level of Care Code Est Pt Level 4 (37311) Complex EM visit Add On G2211 Diagnoses Hypertension I10 Dyslipidemia E78.5 Atrial fibrillation with RVR I48.91 Additional Codes PHQ-9 - 95277 - PHQ-9 Billing: Yes ([id number]) ERIN-7 Assessment Billing - ERIN-7 Assessment Tool: ERIN-7 Assessment [id number] ([id number]) Assessment & Plan Assessment & Plan (1) Hypertension: Code(s): I10 - Essential (primary) hypertension Category: Medical Plan: Continued Lisinopril with 90-day refill. Advised reducing salt and careful monitoring of blood pressure. Condition is chronic and stable will continue to monitor. (2) Dyslipidemia: Code(s): E78.5 - Hyperlipidemia, unspecified Category: Medical Plan: Atorvastatin as prescribed, continued lipid monitoring as per scheduled labs. Condition is chronic and stable continue to monitor. (3) Atrial fibrillation with RVR: Comment: As noted in the history, he is being treated for paroxysmal atrial fibrillation, Patient is being followed by Cardiology, Code(s): I48.91 - Unspecified atrial fibrillation Category: Medical Plan: Post-ablation follow-up with cardiology on-going, symptom monitoring encouraged. Condition is chronic and improved will continue to monitor. Plan Plan Patient was informed and verbally consented to the use of an ambient scribe for clinic note documentation during this visit. 1. Hypertension Continued Lisinopril with 90-day refill. Advised reducing salt and careful monitoring of blood pressure. 2. Dyslipidemia Atorvastatin as prescribed, continued lipid monitoring as per scheduled labs. 3. Atrial Fibrillation Post-ablation follow-up with cardiology on-going, symptom monitoring encouraged. 4. Post-Operative Status After Pulse Field Ablation Satisfactory recovery noted, ongoing observation for complications necessary. 5. Status Post Retinal Surgery For Scar Tissue Removal In Right Eye No postoperative issues currently. Monitoring to continue if symptoms present. During our discussion, I emphasized the importance of managing lifestyle factors, such as dietary salt intake and caffeine use, on hypertension control. We reviewed medication management and renewed the prescription for Lisinopril. I discussed the significance of adhering to atorvastatin therapy for dyslipidemia and the patient's current lipid management was satisfactory with scheduled lab draws. I clarified the post-ablation care plan and the need for regular cardiology follow-ups, especially due to the patient's history of atrial fibrillation. Patient understands the necessity of following up with both primary care and specialty providers, and a clear path forward was agreed upon for the continued management of his health conditions and monitoring lab work. Medications: New lisinopril 10 mg PO DAILY 90 tabs 1RF Patient Instructions: - Continue taking Lisinopril as prescribed. - Monitor blood pressure regularly, especially after consuming salt or strong coffee. - Follow up with scientific technical writer and primary care as planned. - Keep using [id number] vitamin D. - Complete fasting labs as ordered before next visit. - Aim to continue weight loss efforts with a balanced diet. - Seek medical attention if new symptoms arise or conditions worsen.
== END 2025-01-13 16:20 | disposition home or self-care (01) ==
LOC: HO.HMCSH 15:41
PROVIDERS: PCP Internal Medicine; Visit Provider Physician Assistant Medical
DX: I10 Essential (primary) hypertension (principal); E78.5 Hyperlipidemia, unspecified; I48.91 Unspecified atrial fibrillation

== ENCOUNTER → 2025-01-13 15:41 | Outpatient (BNVA) | payer MEDICARE, SELFPAY | PROVIDERS: PCP Internal Medicine; Visit Provider Physician Assistant Medical | DX: I10 Essential (primary) hypertension (principal); E78.5 Hyperlipidemia, unspecified; I48.91 Unspecified atrial fibrillation | CPT/HCPCS: 96127; 99212 ==

== ENCOUNTER 2025-01-16 07:00 | Outpatient (REF) | payer MEDICARE, SELFPAY ==
[2025-01-16 07:19] LABS: MANUAL DIFF FLAG NO
[2025-01-16 07:34] LABS: Basophils Percent Auto 0.4 % (0-2); Eosinophils Absolute Auto 0.3 X10*3/uL (0.0-0.4); Eosinophils Percent Auto 3.3 % (0-4); Hematocrit 40.7 % (42.0-52.0); Hemoglobin 13.9 g/dl (14.0-18.0); Imm Gran Abs Auto 0.02 X10*3/uL (0.00-0.03); Imm Gran Pct Auto 0.3 % (0.0-0.4); Lymphocytes Absolute Auto 1.8 X10*3/uL (1.2-4.9); Lymphocytes Percent Auto 23.9 % (20-40); Mean Corpuscular HGB Conc 34.2 g/dl (31.0-36.0); Mean Corpuscular Hemoglobin 30.8 pg (27.0-33.0); Mean Corpuscular Volume 90.2 fL (80.0-98.0); Mean Platelet Volume 9.6 fL (9.4-12.4); Monocytes Absolute Auto 0.7 X10*3/uL (0.1-1.2); Monocytes Percent Auto 9.4 % (2-11); Neutrophils Absolute Auto 4.7 x10*3/uL (2.0-8.3); Neutrophils Percent Auto 62.7 % (45-73); Platelet Count 271 X10*3/uL (160-400); Red Blood Count 4.51 X10*6/uL (4.60-5.80); Red Cell Distribution Width 12.8 % (11.0-16.0); White Blood Count 7.6 X10*3/uL (4.8-10.8)
[2025-01-16 08:04] LABS: Estimated Average Glucose 134 mg/dL; Hemoglobin A1c % 6.3 % (<6.0); Total Hemoglobin (HGBA1C) 3632.8305 umol/L
[2025-01-16 08:15] LABS: Alanine Aminotransferase 37 U/L (0-40); Alkaline Phosphatase 64 U/L (39-117); Anion Gap 11 (12-20); Aspartate Amino Transferase 53 U/L (5-37); Bilirubin Direct 0.2 mg/dL (0.0-0.5); Bilirubin Total 0.7 mg/dL (0.0-1.0); Blood Urea Nitrogen 19 mg/dL (9-16); Carbon Dioxide 20 mmol/L (22-29); Chloride 112 mmol/L (96-108); Cholesterol 130 mg/dL (<200); Estimated Glomerular Filt Rate > 60; Glucose Fasting 131 mg/dL (60-99); HDL Cholesterol 39 mg/dL (>40); LDL Cholesterol Calculated 78 mg/dL (<100); Magnesium 1.8 mg/dL (1.6-2.6); Potassium 4.4 mmol/L (3.3-5.1); Sodium 139 mmol/L (135-145); Total Protein 6.9 g/dL (6.5-8.0); Triglycerides 68 mg/dL (<150)
[2025-01-16 08:32] LABS: PSA,Total (Free>4and<10) 2.46 ng/mL (0.00-4.00)
[2025-01-16 08:33] LABS: TSH reflex Free T4 1.17 uIU/mL (0.32-4.0); Vitamin D 25-OH Total 39.9 ng/mL (>30)
[2025-01-16 08:46] LABS: Folate 10.4 ng/mL (> or = 4.0); Vitamin B12 302 pg/mL (200-900)
== END 2025-01-16 07:01 | disposition home or self-care (01) ==
LOC: HO.LAB 07:00
PROVIDERS: PCP Internal Medicine; Visit Provider Physician Assistant Medical
DX: Z00.00 Encounter for general adult medical examination without abnormal findings (principal); Z12.5 Encounter for screening for malignant neoplasm of prostate; Z13.1 Encounter for screening for diabetes mellitus; Z13.6 Encounter for screening for cardiovascular disorders
CPT/HCPCS: 36415; 80053; 80061; 80076; 82248; 82306; 82607; 82746; 83036; 83735; 84153; 84443; 85025

== ENCOUNTER 2025-03-23 09:55 | Outpatient (AMB) | payer MEDICARE, SELFPAY ==
[2025-03-23 10:08] VITALS: BP 142/82; PULSE 72; RESP 20; TEMP 36.6; O2SAT 97; BMI 34.8
--- NOTE | 2025-03-23 10:08 | A.OFFPC_ITS ---
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 Accompanied by: Self / Same As Patient Allergies No Known Allergies (No Known Allergies*) Allergy (Verified 03/23/25 12:51) Medication List - Last Reconciled 03/23/25 by Marielena Valdez PA-C apixaban (Eliquis) 1 tab PO BID atorvastatin 1 tab PO BEDTIME cholecalciferol (vitamin D3) 50 mcg PO DAILY lisinopril 10 mg PO DAILY magnesium L-lactate ER 84 mg PO BID metoprolol succinate ER 100 mg PO DAILY Tobacco use date assessed: 01/13/25 Fall risk assessment: No Falls in past year Last assessed Fall Risk: 01/13/25 Dental Screening Dental Screen Date: 01/13/25 Did you have a dental visit in the last 12 months?: Yes Did you have a dental problem in the last 6 months where you did not have access to dental care?: No Was dental information given to patient?: Patient has dentist HPI neck pain HPI Details The patient is a 69-year-old male presenting with neck pain. He reports a history of cervical spinal stenosis and degenerative disc disease, with previous cervical fusion surgery performed last year. The patient describes worsening pain in the lower neck region, suspecting further disc degeneration and presence of bone spurs. An MRI conducted last year revealed mild degenerative changes of the cervical spine, with severe left neuroforaminal stenosis at C2-C3 and C3-C4. The patient has not experienced recent falls, numbness, or tingling in the arms, but reports significant neck pain and discomfort in the shoulders. The patient has a history of atrial fibrillation, which was treated with pulse field ablation, and he is no longer on dofetilide. He maintains an active lifestyle, capable of performing 25 push-ups, and is attempting to manage his weight. Social History - Employment: Retired but continues to w [employer] at [employer]. - Exercise: Capable of performing 25 pus h-ups, indicating a good level of physical fitness. - Weight Management: Actively trying to manage weight. [facility] Medical History (Updated 03/23/25 @ 12:55 by Marielena Valdez PA-C) Degenerative disc disease Neuroforaminal stenosis of cervical spine Cervical stenosis of spine Neck pain Dyslipidemia Hypertension Vitamin D deficiency History of myocardial infarction Tubular adenoma Snoring BRYAN (obstructive sleep apnea) Obesity (BMI 30-39.9) Hypercholesteremia On anticoagulant therapy Retinal tear of right eye Atrial fibrillation CAD (coronary artery disease) Myocardial infarct Gout Surgical History (Updated 03/23/25 @ 12:54 by Marielena Valdez PA-C) History of fusion of cervical spine S/P cervical spinal fusion H/O eye surgery (~10/12/24) History of cardiac ablation for atrial fibrillation (~10/30/24) History of colonoscopy (~08/10/24) Hx of cataract extraction History of vitrectomy Hx of coronary artery bypass graft History of tonsillectomy [place] teeth extracted Hx of repair of right rotator cuff Hx of repair of left rotator cuff History of surgery on right wrist Hx of left inguinal hernia repair Family History Mother CAD (coronary artery disease) Social History Household Members: Spouse Housing: House Are you a primary palliative care physician to a significant other at home: No Do you presently have visiting nurse or other home services: No Alcohol intake: current Alcohol intake frequency: holidays/special occasions only Comment: for nstemi Patient Tobacco Use Status: Never used Tobacco Second Hand Smoke Exposure: No service: No Current occupational status: employed Cognitive needs: No Hearing needs: No Vision needs: Yes (reading glasses) Questionnaire PHQ-9 Over the last 2 weeks, how often have you been bothered by any of the following problems? 1. Little interest or pleasure in doing things: not at all 2. Feeling down, depressed, or hopeless: not at all 3. Trouble falling or staying asleep, or sleeping too much: not at all 4. Feeling tired or having little energy: not at all 5. Poor appetite or overeating: not at all 6. Feeling bad about yourself - or that you are a failure or have let yourself or your family down: not at all 7. Trouble concentrating on things, such as reading the newspaper or watching television: not at all 8. Moving or speaking so slowly that other people could have noticed. Or the opposite - being so fidgety or restless that you have been moving around a lot more than usual: not at all 9. Thoughts that you would be better off or of hurting yourself in some way: not at all Total score: 0 Depression Screening Interpretation: Negative Depression Screening Done: Yes 03868 - PHQ-9 Billing: Yes Source: Developed by Drs. Shree Marshall, Marian Eaton, Iron Mcghee and colleagues, with an educational casie from [employer]. Thrive Questionnaire Date Thrive assessed: 01/13/25 I am a: Patient What is your living situation today?: I have a steady place to live Within the past 12 months, did the food you bought not last and you didn't have the money to get more?: Never true Within the past 12 months, did you worry whether your food would run out before you got money to buy more?: Never true Do you have trouble paying for medicines?: No Do you have trouble getting transportation to medical appointments?: No Do you have trouble paying your heating and electricity bill?: No Do you have trouble taking care of your child, family member or friend?: No Do you have trouble with day-to-day activities such as bathing, preparing meals, shopping, managing finances, etc.?: No Are you currently unemployed and looking for a job?: No Are you interested in more education?: No Please select the resources that you would like help with: None THRIVE Score: 0 AUDIT C Alcohol Use Questionnaire (AUDIT-C) 1. How often do you have a drink containing alcohol?: Monthly or less 2. How many drinks containing alcohol do you have on a typical day when you are drinking?: 1 or 2 3. How often do you have six or more drinks on one occasion?: Never Total Score: 1 Score Reviewed/Action Taken: No ERIN-7 AMB Questionnaire ERIN-7 Date ERIN - 7 assessed: 01/13/25 Feeling nervous, anxious, or on edge: 0 = Not at all Not being able to stop or control worryin = Not at all Worrying too much about different things: 0 = Not at all Trouble relaxin = Not at all Being so restless that it is hard to sit still: 0 = Not at all Becoming easily annoyed or irritable: 0 = Not at all Feeling afraid as if something awful might happen: 0 = Not at all Total ERIN-7 score (0-4 normal; 5-9 mild; 10-14 moderate; 15-21 severe): 0 Source: Developed by Drs. Shree Marshall, Marian Eaton, Iron Mcghee and colleagues, with an educational casie from [employer]. ERIN-7 Assessment Billing ERIN-7 Assessment Tool: ERIN-7 Assessment 71857 Review of Systems Const Details: - Musculoskeletal: Reports neck pain and shoulder discomfort. Denies recent falls, numbness, or tingling in the arms. - Cardiovascular: Denies chest pain. All systems reviewed & are unremarkable except as noted in HPI and below Physical exam (Primary Care) Vital Signs: Last Vital Signs Temp 98 F 03/23/25 10:08 Pulse 72 03/23/25 10:08 Resp 20 03/23/25 10:08 BP 142/82 H 03/23/25 10:08 Pulse Ox 97 03/23/25 10:08 Oxygen Delivery Method Room Air 03/23/25 10:08 Care Plan Goal for BP management: <140/90 BMI result Body Mass Index 34.8 BMI Assessment/Plan discussion: High BMI High, discussed plan: lifestyle, weight reduction, dietary, physical activity and alcohol moderation Tobacco/Smoking Status: Tobacco use Status Tobacco use date assessed 01/13/25 03/23/25 10:11 Patient Tobacco Use Status Never used Tobacco 03/23/25 10:11 PHQ-9: PHQ-9 Score PHQ-9: Total score 0 03/23/25 11:58 Depression Screening Interpretation: Negative Thrive Assessment: Date of Thrive Assessment Date Thrive assessed 01/13/25 03/23/25 10:11 Const Other: Appearance: Alert. Oriented X3. No acute distress. Head: Normal external exam. Normocephalic. Atraumatic. Eyes: Pupils are equal, round, and reactive to light. Extraocular movements intact. Conjunctiva and sclera normal. Eyelids normal. Throat: Pharynx normal. Uvula midline. Moist mucous membranes. Neck: Normal inspection. Neck supple. Full range of motion. No adenopathy. Thyroid Normal. No meningeal signs. No neck mass noted. Patient reports neck pain and history of cervical fusion last year. Mild tenderness to palpation to the left paracervical musculature. No mid cervical tenderness step-offs or deformities are noted. No signs of infection. No fluctuance, lesions, induration noted. Cardiovascular: Normal heart rate and rhythm. Respiratory: No respiratory distress. Painless inspiration. Back: Full range of motion noted. Skin: Skin warm and dry. Normal skin color. Normal skin turgor. No rashes/lesions/lacerations noted. Extremities: Extremities exhibit normal range of motion. Neuro: Oriented X 3. No motor deficit. No sensory deficit. Reflexes normal. Results Reviewed Results Reviewed: - MRI 11/2023 prior to surgery: Mild degenerative changes of the cervical spine, severe left neuroforaminal stenosis at C2-C3 and C3-C4. Coding Level of Care Code Est Pt Level 4 (70869) Complex EM visit Add On G2211 Diagnoses Cervical stenosis of spine M48.02 Degenerative disc disease Neuroforaminal stenosis of cervical spine M48.02 History of fusion of cervical spine Z98.1 Atrial fibrillation with RVR I48.91 Additional Codes ERIN-7 Assessment Billing - ERIN-7 Assessment Tool: ERIN-7 Assessment 15202 ([id number]) PHQ-9 - 91459 - PHQ-9 Billing: Yes ([id number]) Assessment & Plan Assessment & Plan (1) Cervical stenosis of spine: Code(s): M48.02 - Spinal stenosis, cervical region Category: Medical Plan: The patient will be referred back to Dr. Suazo for further evaluation and management of cervical spinal stenosis. An MRI of the cervical spine with and without contrast has been ordered to assess current status and progression. Basic blood work will be ordered to ensure readiness for any potential procedures. (2) Degenerative disc disease: Category: Medical Plan: The patient suspects further disc degeneration and will be evaluated with the ordered MRI to confirm the current condition. (3) Neuroforaminal stenosis of cervical spine: Code(s): M48.02 - Spinal stenosis, cervical region Category: Medical Plan: The MRI will help determine the severity and need for further intervention regarding the severe left neuroforaminal stenosis. (4) History of fusion of cervical spine: Comment: By Dr. Trevino at [facility] 2023 Code(s): Z98.1 - Arthrodesis status Category: Surgical Plan: The patient's history of cervical fusion will be considered in the evaluation of current symptoms and imaging results. (5) Atrial fibrillation with RVR: Comment: As noted in the history, he is being treated for paroxysmal atrial fibrillation, Patient is being followed by Cardiology, Code(s): I48.91 - Unspecified atrial fibrillation Category: Medical Plan: The patient has successfully undergone pulse field ablation for atrial fibrillation and is no longer on dofetilide. Plan Plan Patient was informed and verbally consented to the use of an ambient scribe for clinic note documentation during this visit. 1. Cervical Spinal Stenosis The patient will be referred back to Dr. Suazo for further evaluation and management of cervical spinal stenosis. An MRI of the cervical spine with and without contrast has been ordered to assess current status and progression. Basic blood work will be ordered to ensure readiness for any potential procedures. 2. Degenerative Disc Disease The patient suspects further disc degeneration and will be evaluated with the ordered MRI to confirm the current condition. 3. Severe Left Neuroforaminal Stenosis At C2-C3 And C3-C4 The MRI will help determine the severity and need for further intervention regarding the severe left neuroforaminal stenosis. 4. History Of Cervical Fusion The patient's history of cervical fusion will be considered in the evaluation of current symptoms and imaging results. 5. History Of Atrial Fibrillation Treated With Pulse Field Ablation The patient has successfully undergone pulse field ablation for atrial fibrillation and is no longer on dofetilide. I discussed with the patient the need for an updated MRI of the cervical spine with and without contrast to evaluate the progression of his cervical spinal stenosis and degenerative disc disease. We also talked about the referral to Dr. Suazo for further management and the possibility of needing basic blood work prior to any procedures. The patient was informed about the process of scheduling the MRI and the importance of follow-up if the results indicate significant changes. Orders: Orders MR cervical spine wo/w con Today M54.2 - Cervicalgia, Z98.1 - Arthrodesis status Complete Blood Count no Diff Today M54.2 - Cervicalgia Basic Metabolic Panel Today M54.2 - Cervicalgia Referrals Neurosurgery Referral M54.2 - Cervicalgia, Z98.1 - Arthrodesis status Patient Instructions: - Schedule the MRI with and without contrast as soon as possible. - Follow up with Dr. Trevino after the MRI results are available. - Complete basic blood work if instructed before any procedures. - Contact the office if the MRI is not scheduled within 30 days.
--- OUTSIDE RECORDS SUMMARY | 2025-03-23 10:33 | XMS_ITS | Encounter Summary ---
Author Organization [facility] Address [address] [place] [phone] Phone Care Team Providers Care Thin Film Technician Name Role Phone Shree Gonzalez DO Primary Care Provider [phone] Encounter Details Date Type Department Care Team (Late st Contact Info) Description 06/13/2024 Ancillary Orders [facility], X-Ray - [address] [address] Shree Gonzalez DO [address] [place] [address] Left wrist pain (Primary Dx) Social History Tobacco Use Types Packs/Day Years Used Date Smoking Tobacco: Never Assessed Education Answer Date Recorded Are you interested in more education? Not on arvind e 06/13/2024 Are you concerned about learning? Not on file 06/13/2024 No 06/13/2024 No 06/13/2024 Digital Access Answer Date Recorded No 06/13/2024 No 06/13/2024 Reliable internet access at home? Not on file 06/13/2024 Device with a working camera? Not on file Sex and Gender Information Value Date Recorded Sex Assigned at Not on file Legal Sex Male 9:55 PM EDT Gender Identity Not on file Sexual Orientation Not on file documented as of this encounter Plan of Treatment Not on file documented as of this encounter Results * XR Forearm 2 Views (Left) (06/13/2024 8:23 AM EDT) Anatomical Region Laterality Modality Forearm Left Computed Radiogr aphy 06/15/2024 9:13 AM EDT Impressions 06/15/2024 9:14 AM EDT Degenerative changes. No acute osseous abnormality. Narrative 06/15/2024 9:14 AM EDT XR FOREARM 2 VIEWS (LEFT), XR WRIST 3 OR MORE VIEWS (LEFT) Referring clinician's provided indication for this examination in Epic: Pain COMPARISON: None FINDINGS: Severe first carpometacarpal degenerative changes. No acute fracture or dislocation. No soft tissue swelling. Distal triceps enthesophyte. Surgical clip in the radial, distal forearm soft tissues. Procedure Note Janey Walters MD - 06/15/2024 XR FOREARM 2 VIEWS (LEFT), XR WRIST 3 OR MORE VIEWS (LEFT) Referring clinician's provided indication for this examination in Epic:Pain COMPARISON: None FINDINGS: Severe first carpometacarpal degenerative changes. No acute fracture ordislocation. No soft tissue swelling. Distal triceps enthesophyte.Surgical clip in the radial, distal forearm soft tissues. IMPRESSION: Degenerative changes. No acute osseous abnormality. Shree Gonzalez DO IMG XR UPPER EXTREMITY Final Result documented in this encounter Visit Diagnoses Diagnosis Left wrist pain- Primary Pain in joint, forearm Left wrist pain Pain in joint, forearm documented in this encounter Care Teams Thin Film Technician Relationship Specialty Start Date End Date Shree Gonzalez DO [address] [place] [phone] PCP - General 06/13/24 documented as of this encounter Additional Source Comments The information contained in this document represents components of the legal health record. It is not the complete legal health record.[facility]
--- OUTSIDE RECORDS SUMMARY | 2025-03-23 10:33 | XMS_ITS ---
Author Name [facility] Organization Unknown Results Test Name/Text Value Interpretation Date Range Source ISTAT Activated Clotting Time,Celite 331.0 seconds Above high normal 10/30/2024 84 - 139 H [facility] ISTAT Activated Clotting Time,Celite 344.0 seconds Above high normal 10/30/2024 84 - 139 H [facility] Magnesium SerPl-mCnc 2.0 mg/dL Normal 10/30/2024 1.6 - 2. 7 [facility] GFR/BSA.pred SerPlBld [id number] 81.0 Normal 10/30/2024 59 - H[facility]CT Calcium SerPl-mCnc 8.9 mg/dL Normal 10/30/2024 8.7 - 10.5 [facility] Anion Gap Bld-sCnc 10.0 Normal 10/30/2024 7 - 17 [facility] Chloride SerPl-sCnc 108.0 mmol/L Above high normal 98 - 107 H[facility]CT Potassium SerPl-sCnc 5.4 mmol/L Above high normal 10/30/2024 3.4 - 5.3 H[facility]CT Creat SerPl-mCnc 1.0 mg/dL Normal 10/30/2024 0.5 - 1.3 HH CCT CO2 SerPl-sCnc 22.0 mmol/L Normal 10/30/2024 22 - 33 HH CCT BUN SerPl-mCnc 20.0 mg/dL Normal 10/30/2024 8 - [address] Glucose SerPl-mCnc 132.0 mg/dL Above high normal 10/30/2024 65 - 99 [facility] BUN/Creat SerPl 20.0 Ratio Normal 10/30/2024 10 - 25 HH CCT Sodium SerPl-sCnc 140.0 mmol/L Normal 10/30/2024 136 - 14 5 H[facility]CT Imm Granulocytes num Bld Auto 0.02 Thou/uL Normal 10/30/2024 0 - 0.1 [facility] Platelet num Bld Auto 263.0 Thou/uL Normal 10/30/2024 150 - 450 H[facility] Neutrophils num Bld Auto 3.72 Thou/uL Normal 10/30/2024 2 - 7.5 HHCCT Hct VFr Bld Auto 43.1 % Normal 10/30/2024 39 - 54 HH CCT Monocytes/leuk NFr Bld Auto 12.5 % Normal 10/30/2024 H[facility]CT MCHC RBC Auto-mCnc 32.0 g/dL Normal 10/30/2024 30 - 36 H[facility]CT Hgb Bld-mCnc 13.8 g/dL Normal 10/30/2024 13 - 17.7 H[facility]CT Basophils/leuk NFr Bld Auto 0.4 % Normal 10/30/2024 H[facility]CT Basophils num Bld Auto 0.03 Thou/uL Normal 10/30/2024 0 - 0.2 H[facility]CT MCV RBC Auto 94.0 fL Normal 10/30/2024 80 - 100 [facility] Imm Granulocytes/leuk NFr Bld Auto 0.3 % Normal 10/30/2024 H[facility]CT MCH RBC Qn Auto 30.0 pg Normal 10/30/2024 27 - [address] RBC num Bld Auto 4.6 Mil/uL Normal 10/30/2024 4.5 - 6.2 H HCCT Lymphocytes/leuk NFr Bld Auto 29.9 % Normal 10/30/2024 H[facility]CT PMV Bld Auto 10.0 fL Normal 10/30/2024 7.5 - 12.5 [facility]CT Monocytes num Bld Auto 0.86 Thou/uL Normal 10/30/2024 0.2 - 1.5 [facility]CT Eosinophil/leuk NFr Bld Auto 3.0 % Normal 10/30/2024 H[facility]CT RDW RBC Auto-Rto 13.2 % Normal 10/30/2024 11.5 - 14.5 [facility] Neutrophils/leuk NFr Bld Auto 53.9 % Normal 10/30/2024 H[facility]CT Lymphocytes num Bld Auto 2.06 Thou/uL Normal 10/30/2024 1.5 - 4.5 H[facility]CT WBC num Bld Auto 6.9 Thou/uL Normal 10/30/2024 4 - 11 [facility] Eosinophil num Bld Auto 0.21 Thou/uL Normal 10/30/2024 0 - 0.7 [facility] MCV RBC Auto 92.0 fL Normal 09/20/2024 80 - 100 [facility] Neutrophils # Bld Auto 4586.0 cells/uL Normal 09/20/2024 1500 - 7800 [facility] Eosinophil/leuk NFr Bld Auto 2.9 % Normal 09/20/2024 [facility] PMV Bld [place] 10.8 fL Normal 09/20/2024 7.5 - 12.5 [facility] MCHC RBC Auto-mCnc 33.3 g/dL Normal 09/20/2024 32 - 36 [facility] MCH RBC Qn Auto 30.6 pg Normal 09/20/2024 27 - [address] Neutrophils/leuk NFr Bld Auto 63.7 % Normal 09/20/2024 [facility] Basophils # Bld Auto 22.0 cells/uL Normal 09/20/2024 0 - 200 [facility] Lymphocytes # Bld Auto 1699.0 cells/uL Normal 09/20/2024 850 - 3900 [facility] Hct VFr Bld Auto 41.5 % Normal 09/20/2024 38.5 - 50 QU EST Hgb Bld-mCnc 13.8 g/dL Normal 09/20/2024 13.2 - 17.1 [facility] T Eosinophil # Bld Auto 209.0 cells/uL Normal 09/20/2024 15 - 500 [facility] Lymphocytes/leuk NFr Bld Auto 23.6 % Normal 09/20/2024 [facility] RBC # Bld Auto 4.51 Million/uL Normal 09/20/2024 4.2 - 5. 8 [facility] Monocytes/leuk NFr Bld Auto 9.5 % Normal 09/20/2024 [facility] Platelet # Bld Auto 254.0 Thousand/uL Normal 09/20/2024 140 - 400 [facility] Basophils/leuk NFr Bld Auto 0.3 % Normal 09/20/2024 [facility] WBC # Bld Auto 7.2 Thousand/uL Normal 09/20/2024 3.8 - 10 .8 [facility] Monocytes # Bld Auto 684.0 cells/uL Normal 09/20/2024 200 - 950 [facility] RDW RBC Auto-Rto 12.4 % Normal 09/20/2024 11 - 15 QU EST Chloride SerPl-sCnc 107.0 mmol/L Normal 09/20/2024 98 - 1 10 [facility] Glucose SerPl-mCnc 114.0 mg/dL Above high normal 09/20/2024 65 - 99 [facility] BUN/Creat SerPl SEE NOTE: Normal 09/20/2024 6 - [address] Sodium SerPl-sCnc 137.0 mmol/L Normal 09/20/2024 135 - 14 6 [facility] Creat SerPl-mCnc 0.96 mg/dL Normal 09/20/2024 0.7 - 1.35 [facility] CO2 SerPl-sCnc 23.0 mmol/L Normal 09/20/2024 20 - 32 QU EST eGFRcr SerPlBld CKD-EPI 2020 86.0 mL/min/1.73m2 Normal 09/20/2024 - [facility] Potassium SerPl-sCnc 4.5 mmol/L Normal 09/20/2024 3.5 - 5 .3 [facility] Calcium SerPl-mCnc 8.8 mg/dL Normal 09/20/2024 8.6 - 10.3 [facility] BUN SerPl-mCnc 16.0 mg/dL Normal 09/20/2024 7 - [address] History of Medication Use Medication Directions Dispensed Refills Start Date End Date Stat us furosemide (LASIX) 20 MG tablet Take one tablet (20 mg) daily x 3 days post ablation. If your weight is up or if you have shortness of breath, then take one tablet daily x 2 additional days for a total of 5 days post ablation. 10/30/2024 active Magnesium Citrate 85 MG Chew Tab Chew 85 mg. 10/06/2024 active ofloxacin (OCUFLOX) 0.3 % ophthalmic solution INSTILL 1 DROP INTO THE RIGHT EYE 4 TIMES A DAY 3 DAYS BEFORE SURGERY AND CONTINUING THE DAY AFTER 10/06/2024 active prednisoLONE acetate (PRED FORTE) 1 % ophthalmic suspension INSTILL 1 DROP INTO THE RIGHT EYE 4 TIMES A DAY STARTING THE DAY AFTER SURGERY 10/06/2024 active betamethasone acetate-betamethason e sodium phosphate (CELESTONE) injection 3 mg 08/12/2024 active atorvastatin 80 mg tablet TAKE 1 TABLET BY MOUTH EVERY DAY 09/20/2023 active metoprolol succinate ER 50 mg tablet,extended release 24 hr TAKE 1 TABLET BY MOUTH EVERY DAY 09/20/2023 active amoxicillin 875 mg-potassium clavulanate 125 mg tablet TAKE 1 TABLET BY MOUTH TWICE A DAY 09/18/2022 completed carvedilol 12.5 mg tablet TAKE 1 TABLET BY MOUTH TWICE A DAY 09/18/2022 completed Multaq 400 mg tablet TAKE 1 TABLET BY MOUTH TWICE A DAY 09/18/2022 completed aspirin enteric coated (ECOTRIN LOW STRENGTH) 81 MG EC tablet Take 81 mg by mouth daily. active Problems Problem Status Onset Date Problem Type Date of Resolution Source Tubular adenoma of colon active 2019-04-17 ProblemAct [facility] A-fib active 2023-06-24 ProblemAct [facility] Cholelithiasis with choledocholithiasis active 2022-02-28 ProblemAct [facility] Class 1 obesity active 2021-12-30 ProblemAct [facility] Abnormal cardiovascular stress test active 2022-11-09 ProblemAct [facility] Acute on chronic cholecystitis active 2021-12-30 ProblemAct [facility] S/P CABG (coronary artery bypass graft) active 2021-12-30 ProblemAct [facility] Paroxysmal atrial fibrillation active 2024-08-03 ProblemAct [facility] Hypertension active 2021-12-30 ProblemAct [facility] Hypercholesterolemia active 2021-12-30 ProblemAct [facility] RYAN (acute kidney injury) active 2022-02-27 ProblemAct [facility] Coronary artery bypass grafts x 3 active 2022-09-[address] [facility] [facility] Atrial fibrillation active 2022-09-[address] [facility] [facility] Hypertensive disorder active 2022-09-14 ProblemAct [facility] Hypercholesterolemia active 2022-09-14 [facility]Act [facility] Cardiomyopathy active 2023-10-[address] [facility] [facility] Immunizations Vaccine Date Source Lot Number Status Covid-19 MRNA Vaccine - Pfiz er 12+ (Purple Cap) 12/06/2021 [facility] completed Covid-19 MRNA Vaccine - Pfiz er 12+ (Purple Cap) 05/23/2021 [facility] completed Covid-19 MRNA Vaccine - Pfiz er 12+ (Purple Cap) 10/21/2020 [facility] completed Covid-19 MRNA Vaccine - Pfiz er 12+ (Purple Cap) 09/27/2020 [facility] completed Encounters Encounter Type Encounter Reason Primary Diagnosis Location Date Ambulatory Paroxysmal atrial fibrillation Paroxysmal atrial fibrillation [facility] 02/08/2025 Ambulatory Paroxysmal atrial fibrillation Paroxysmal atrial fibrillation [facility] 12/01/2024 Ambulatory [facility] 11/08/2024 Ambulatory Paroxysmal atrial fibrillation Paroxysmal atrial fibrillation [facility] 10/30/2024 Ambulatory Paroxysmal atrial fibrillation Paroxysmal atrial fibrillation [facility] 10/19/2024 Ambulatory [facility] 10/08/2024 Ambulatory Pain in left wrist Pain in left wrist [facility] 08/12/2024 Ambulatory Paroxysmal atrial fibrillation Paroxysmal atrial fibrillation [facility] 08/03/2024 Ambulatory Pain in left wrist Pain in left wrist [facility] 06/17/2024 Ambulatory [facility] 05/18/2024 Ambulatory [facility] 04/15/2024 Ambulatory Paroxysmal atrial fibrillation Paroxysmal atrial fibrillation [facility] 01/31/2024 Ambulatory [facility] 12/31/2023 Ambulatory [facility] 11/11/2023 Ambulatory [facility] 10/24/2023 Ambulatory Paroxysmal atrial fibrillation Paroxysmal atrial fibrillation [facility] 07/26/2023 Inpatient Other persistent atrial fibrillation Other persistent atrial fibrillation [facility] 06/24/2023 Ambulatory Other persistent atrial fibrillation Other persistent atrial fibrillation [facility] 06/11/2023 Ambulatory [facility] 06/09/2023 Ambulatory Presence of aortocoronary bypass graft [facility] 11/20/2022 Ambulatory Unspecified atri al fibrillation [facility] 06/29/2022 Ambulatory Unspecified atri al fibrillation [facility] 03/30/2022 Inpatient Enterocolitis du e to Clostridium difficile, not specified as recurrent [facility] 02/28/2022 Inpatient Nausea [facility] 02/27/2022 Ambulatory Chronic cholecystitis [facility] 02/19/2022 Ambulatory Acute cholecysti tis with chronic cholecystitis [facility] 01/08/2022 Inpatient Acute cholecysti tis with chronic cholecystitis [facility] 12/30/2021 Care Team Organization Name Specialty Phone Email Start Date End Da te [facility] 02/08/2025 03/09/2025 [facility] 10/30/2024 [facility] 10/21/2023 [facility] 06/29/2022 025 [facility] 12/30/2021 022
--- OUTSIDE RECORDS SUMMARY | 2025-03-23 10:33 | XMS_ITS | Encounter Summary ---
Author Organization [facility] Address [address] [place] [address] Care Team Providers Care Loss Claim Clerk Name Role Phone Shree Gonzalez DO Primary Care Provider + [phone] Carmen Workman Unavailable Luis Glvoer MD Unavailable [phone] Unknown Primary Care Provider [phone] Encounter Details Date Type Department Care Team (Late st Contact Info) Description 10/27/2024 Documentation [facility] Heart & Vascular [place] - Electrophysiology [address] [place] [address] Alfredo Beckham, PARKER [address] [place] [address] Social History Tobacco Use Types Packs/Day Years Used Date Smoking Tobacco: Never Smokeless Tobacco: Never Alcohol Use Standard Drinks/Week Comments Not Currently 0 (1 standard drink = 0.6 oz pure alcohol) Used to drink, but has laid off caffeine and alcohol since being told. [facility] Utilities Answer Date Recorded In the past 12 months has [employer], gas, oil, or water [employer] threatened to shut off services in your [...] place to sleep or slept in a fci (including now)? No 06/25/2023 Sex and Gender Information Value Date Recorded Sex Assigned at Male 11/20/2022 8:05 AM EDT Legal Sex Male 9:04 AM EDT Gender Identity Male 11/20/2022 8:05 AM EDT Sexual Orientation Heterosexual (straight) 11/20 8:05 AM EDT documented as of this encounter Plan of Treatment Upcoming Encounters Date Type Department Care Team (Late st Contact Info) Description 05/12/2025 8:30 AM EDT Office Visit [facility] Heart & Vascular [place] - Electrophysiology [address] [place] [phone] Gertrude Weldon APRN [address] [place], [place] [phone] documented as of this encounter Visit Diagnoses Not on filedocumented in this encounter Care Teams Loss Claim Clerk Relationship Specialty Start Date End Date Shree Gonzalez DO [address] [place] [address] [address] [place] [address] PCP - General Internal Medicine 12/28/21 10/29/24 Unknown Unknow Provider Address PCP - General 10/30/24 Carmen Workman [address], [address] [place] [address] Seconds Inspector 01/08/22 Luis Glover MD [address] [place] [address] [address] [place] [address] Primary Seconds Inspector Cardiovascular Disease 06/29/22 documented as of this encounter
== END 2025-03-23 12:09 | disposition home or self-care (01) ==
LOC: HO.HMCSH 09:55
PROVIDERS: PCP Internal Medicine; Visit Provider Physician Assistant Medical
DX: M48.02 Spinal stenosis, cervical region (principal); Z98.1 Arthrodesis status; I48.91 Unspecified atrial fibrillation

== ENCOUNTER → 2025-03-23 09:55 | Outpatient (BNVA) | payer MEDICARE, SELFPAY | PROVIDERS: PCP Internal Medicine; Visit Provider Physician Assistant Medical | DX: M48.02 Spinal stenosis, cervical region (principal); I48.91 Unspecified atrial fibrillation; Z98.1 Arthrodesis status; Z13.31 Encounter for screening for depression | CPT/HCPCS: 96127; 99212 ==

== ENCOUNTER 2025-06-09 19:38 | Outpatient (REF) | payer MEDICARE, SELFPAY ==
--- NOTE | ~2025-06-09 | MR_ITS ---
EXAMINATION: MR CERVICAL SPINE WITHOUT CONTRAST CLINICAL INFORMATION: Neck pain COMPARISON: December 19, 2023. TECHNIQUE: MRI of the cervical spine was obtained using routine sequences without contrast. FINDINGS: Paramagnetic field distortion secondary to anterior metallic hardware plate at C3-4. Craniocervical junction is intact. Normal position of the cerebellar tonsils. No bone marrow STIR signal abnormality. Normal alignment. Small marginal osteophyte formation C4-5, C5-6 levels. Cervical spinal cord signal is normal. C2-3: No central spinal canal stenosis. Left neuroforamina narrowing on a degenerative basis. C3-4: Postsurgical changes. No cord compression. Bilateral neuroforamina narrowing. C4-5: Broad-based disc osteophyte compresses formation. No cord compression. No neuroforamina stenosis. C5-6: Central disc osteophyte compresses formation. No cord compression. No neuroforamina stenosis. C6-7: Central disc osteophyte complex formation. No cord compression. No neuroforamina stenosis. C7-T1: No disc herniation or neuroforamina stenosis. No prevertebral compartment hematoma, mass or fluid collection. Flow-void signal within the main vessels is normal. Codominant vertebral arteries. MR/MR cervical spine wo con IMPRESSION: Status post arthrodesis C3-4. Mild to moderate cervical spondylosis C4-5 C5-6 without cord compression, cord edema and or myelopathy. Electronically signed by: Sal Guzman MD 06/10/2025 07:13 AM EDT
--- OUTSIDE RECORDS SUMMARY | 2025-06-09 19:42 | XMS_ITS | Encounter Summary ---
Author Organization [facility] Address [address] [place] [address] Care Team Providers Care Honing Machine Operator Name Role Phone LisaShree DO Primary Care Provider + [phone] ChristianCarmen sosa Unavailable Luis Glover MD Unavailable [phone] Unknown Primary Care Provider [phone] Reason for Referral * Cardiology (Routine) - Closed Specialty Diagnoses / Procedures Referred By Contact Referred To Contact Cardiac Electrophysiology / Cardiology Diagnoses Atrial fibrillation, unspecified type (HCC) Luis Glover MD [address] [place] [address] [address] [place] [address] Phone: tel:[phone] fax:[phone] [facility] Heart & Vascular [place] - Electrophysiology [address] [place] [address] Phone: tel: fax: Referral ID Status Reason Start Date Expiration Date V isits Requested Visits Authorized [id number] Closed Consult 11/28/2022 11/29/2023 1 1 Comments DX NSVT/ ATRIAL FIB HISTORY OF CAD Encounter Details Date Type Department Care Team (Late st Contact Info) Description 11/28/2022 Community Orders [facility], [address] [address] Luis Glover MD [address] [place] [address] [address] [place] [address] Atrial fibrillation, unspecified type (HCC) (Primary Dx) [...] Care Team (Late st Contact Info) Description 11/09/2025 8:30 AM EDT Office Visit [facility] Heart & Vascular [place] - Electrophysiology [address] [place] [address] Shiraz, Gertrude Beaulieu APRN [address] [place] [address] Scheduled Referrals Name Type Priority Associated Diagnoses Order Schedule Amb Referral to Cardiac Electrophysiology Outpatient Referral Routine Atrial fibrillation, unspecified type (HCC) Ordered: 11/28/2022 documented as of this encounter Visit Diagnoses Diagnosis Atrial fibrillation, unspecified type (HCC)- Primary documented in this encounter Care Teams Honing Machine Operator Relationship Specialty Start Date End Date Shree Gonzalez DO [address] [place] [address] 2 [place] [address] PCP - General Internal Medicine 12/28/21 10/29/24 Unknown Unknow Provider Address PCP - General 10/30/24 Carmen Workman [address] [place] [address], [address] [place] [address] Java Sdet 01/08/22 Luis Glover MD [address] [place] [address] [address] [place] [address] Primary Java Sdet Cardiovascular Disease 06/29/22 documented as of this encounter
--- OUTSIDE RECORDS SUMMARY | 2025-06-09 19:42 | XMS_ITS | Clinical Summary ---
Author Organization [facility] Address [address] [address] Phone Care Team Providers Care Finger Waver Name Role Phone LisaShree DO Primary Care Provider [phone] Social History Tobacco Use Types Packs/Day Years [...] on file Sexual Orientation Not on file Last Filed Vital Signs Vital Sign Reading Time Taken Comments Blood Pressure 126/82 08/23/2010 3:58 AM EST Pulse 80 08/23/2010 3:58 AM EST Temperature - - Respiratory Rate - - Oxygen Saturation - - Inhaled Oxygen Concentration - - Weight 91.2 kg (201 lb) 08/23/2010 3:58 AM EST Height 171.5 cm (5' 7.5 ) 08/23/2010 3:58 AM EST Body Mass Index 31.02 08/23/2010 3:58 AM EST Plan of Treatment Not on file Medical Devices Not on file Insurance [place] PPO BLUE REPLACEMENT [facility] MEDICARE PPO BLUE REPLACEMENT [facility] MEDICARE PPO BLUE REPLACEMENT [facility] MEDICARE PPO BLUE REPLACEMENT [facility] MEDICARE PPO BLUE REPLACEMENT [facility] MEDICARE PPO BLUE REPLACEMENT Care Teams Finger Waver Relationship Specialty Start Date End Date Shree Gonzalez DO [address] [place] [address] PCP - General 06/13/24 Additional Source Comments The information contained in this document represents components of the legal health record. It is not the complete legal health record.[facility]
--- OUTSIDE RECORDS SUMMARY | 2025-06-09 19:42 | XMS_ITS | Encounter Summary ---
Author Organization [facility] Address [address] [place] [address] Care Team Providers Care Brick Sorter Name Role Phone LisaShree DO Primary Care Provider + [phone] SpiritismCarmen sosa Unavailable Luis Glover MD Unavailable [phone] Unknown Primary Care Provider [phone] Reason for Referral * Cardiology (Routine) - Closed Specialty Diagnoses / Procedures Referred By Contact Referred To Contact Cardiac Electrophysiology / Cardiology Diagnoses Atrial fibrillation, unspecified type (HCC) Luis Glover MD [address] [place] [address] [address] [place] [address] Phone: tel:[phone] fax:[phone] [facility] Heart & Vascular [place] - Electrophysiology [address] [place] [address] Phone: tel: fax: Referral ID Status Reason Start Date Expiration Date V isits Requested Visits Authorized [id number] Closed Consult 04/17/2023 04/17/2024 1 1 Comments DX A FIB Encounter Details Date Type Department Care Team (Late st Contact Info) Description 04/17/2023 Community [facility], [address] [address] Luis Glover MD [address] [place] [address] [address] [place] [address] Atrial fibrillation, unspecified type (HCC) (Primary Dx) [...] Description 11/09/2025 8:30 AM EDT Office Visit [facility] Heart & Vascular [place] - Electrophysiology [address] [place] [phone] Gertrude Weldon APRN [address] [place] [address] Scheduled Referrals Name Type Priority Associated Diagnoses Order Schedule Amb Referral to Cardiac Electrophysiology Outpatient Referral Routine Atrial fibrillation, unspecified type (HCC) Ordered: 04/17/2023 documented as of this encounter Visit Diagnoses Diagnosis Atrial fibrillation, unspecified type (HCC)- Primary documented in this encounter Care Teams Brick Sorter Relationship Specialty Start Date End Date Shree Gonzalez DO [address] [place] [address] PCP - General Internal Medicine 12/28/21 10/29/24 Unknown Unknow Provider Address PCP - General 10/30/24 Carmen Workman [address], [address] [place] [address] Community Relations Specialist 01/08/22 Luis Glover MD [address] [place] [address] [address] [place] [address] Primary Community Relations Specialist Cardiovascular Disease 06/29/22 documented as of this encounter
--- OUTSIDE RECORDS SUMMARY | 2025-06-09 19:42 | XMS_ITS | Encounter Summary ---
Author Organization [facility] Address [address] [place] [address] Care Team Providers Care Associate Property Manager Name Role Phone Shree Gonzalez DO Primary Care Provider + [phone] Carmen Workman Unavailable Luis Glover MD Unavailable [phone] Unknown Primary Care Provider [phone] Encounter Details Date Type Department Care Team (Late st Contact Info) Description 10/07/2024 [address] Document [facility] Heart & Vascular [place] - Electrophysiology [address] [place] [address] Mary [place]FREE [place], [place] [address] [place] [address] Social History Tobacco Use Types Packs/Day Years Used Date Smoking Tobacco: Never Smokeless Tobacco: Never Alcohol Use Standard Drinks/Week Comments Not Currently 14 (1 standard drink = 0.6 oz pure alcohol) Used to drink, but has laid off caffeine and alcohol since being told. [facility] Utilities Answer Date Recorded In the past 12 months has [employer], [employer], oil, or water [employer] threatened to shut off services in your [...] place to sleep or slept in a fpc (including now)? No 06/25/2023 Sex and Gender [...] [facility] Heart & Vascular [place] - Electrophysiology [address] [place] [phone] Shiraz, Gertrude Beaulieu APRN [address] [place], [place] [phone] documented as of this encounter Visit Diagnoses Not on filedocumented in this encounter Care Teams Associate Property Manager Relationship Specialty Start Date End Date Shree Gonzalez DO [address] [place] [address] 2 [place] [address] PCP - General Internal Medicine 12/28/21 10/29/24 Unknown Unknow Provider Address PCP - General 10/30/24 Carmen Workman [address] [place] [address], [address] [place] [address] Wire Mill Rover 01/08/22 Luis Glover MD [address] [place] [address] [address] [place] [address] Primary Wire Mill Rover Cardiovascular Disease 06/29/22 documented as of this encounter
--- OUTSIDE RECORDS SUMMARY | 2025-06-09 19:42 | XMS_ITS | Encounter Summary ---
Author Organization [facility] Address [address] [facility] [address] [place] [address] Phone Care Team Providers Care Librarian Special Library Name Role Phone Shree Gonzalez DO Primary Care Provider Encounter Details Date Type Department Care Team (Late st Contact Info) Description 06/13/2024 Ancillary Orders [facility], X-Ray - [address] [address] Shree Gonzalez DO [address] [place] [address] Left wrist pain (Primary Dx) Social History [...] as of this encounter Results * XR WRIST 3 OR MORE VIEWS (LEFT) (06/13/2024 8:23 AM EDT) Anatomical Region Laterality Modality Wrist Left Computed Radiogr aphy 06/15/2024 9:13 AM [...] forearm documented in this encounter Care Teams Librarian Special Library Relationship Specialty Start Date End Date Shree Gonzalez DO [address] [place] [address] PCP - General 06/13/24 documented as of this encounter Additional Source Comments The information contained in this document represents components of the legal health record. It is not the complete legal health record.[facility]
--- OUTSIDE RECORDS SUMMARY | 2025-06-09 19:42 | XMS_ITS | Encounter Summary ---
Author Organization [facility] Address [address] [place] [address] Care Team Providers Care Stitcher Standard Machine Name Role Phone Shree Gonzalez DO Primary Care Provider + [phone] Carmen Workman Unavailable Luis Glover MD Unavailable [phone] Unknown Primary Care Provider [phone] Reason for Visit * Reason Comments Appointment Encounter Details Date Type Department Care Team (Late st Contact Info) Description 03/07/2022 Telephone [facility] Heart & Vascular [place] [address] [address] Ozzy Rodriguez MD [address] [place] [id number] Appointment Social History Tobacco Use Types Packs/Day [...] Description 11/09/2025 8:30 AM EDT Office Visit [facility] Heart & Vascular [place] - Electrophysiology [address] [place] [phone] Gertrude Weldon APRN [address] [place], [place] [phone] documented as of this encounter Visit Diagnoses Not on filedocumented in this encounter Care Teams Stitcher Standard Machine Relationship Specialty Start Date End Date Shree Gonzalez DO [address] [place] [address] PCP - General Internal Medicine 12/28/21 10/29/24 Unknown Unknow Provider Address PCP - General 10/30/24 Carmen Workman [address], [address] [place] [address] Corporate Secretary 01/08/22 Luis Glover MD [address] [place] [address] [address] [place] [address] Primary Corporate Secretary Cardiovascular Disease 06/29/22 documented as of this encounter
--- OUTSIDE RECORDS SUMMARY | 2025-06-09 19:42 | XMS_ITS | Encounter Summary ---
Author Organization Formerly [facility] Address [address] [place] [address] Care Team Providers Care Holistic Pulser Name Role Phone Shree Gonzalez DO Primary Care Provider + [phone] Carmen Workman Unavailable Luis Glover MD Unavailable [phone] Unknown Primary Care Provider [phone] Encounter Details Date Type Department Care Team (Late st Contact Info) Description 06/10/2024 Scanned Document [facility] [address] [address] Elen Hunter [address] [place] [address] Social History Tobacco Use Types Packs/Day Years Used Date Smoking Tobacco: Never Smokeless Tobacco: Never Alcohol Use Standard Drinks/Week Comments Not Currently 14 (1 standard drink = 0.6 oz pure alcohol) Used to drink, but has laid off caffeine and alcohol since being told. [facility] Utilities Answer Date Recorded In the past 12 months has [employer], gas, oil, or water [employer] threatened to shut off services in your [...] place to sleep or slept in a care home (including now)? No 06/25/2023 Sex and Gender [...] Description 11/09/2025 8:30 AM EDT Office Visit [facility] Heart & Vascular [place] - Electrophysiology [address] [place] [phone] Gertrude Weldon APRN 65 [facility], [place] [phone] documented as of this encounter Visit Diagnoses Not on filedocumented in this encounter Care Teams Holistic Pulser Relationship Specialty Start Date End Date Shree Gonzalez DO [address] [place] [address] 2 [place] [address] PCP - General Internal Medicine 12/28/21 10/29/24 Unknown Unknow Provider Address PCP - General 10/30/24 Carmen Workman [address], [address] [place] [address] Countersinker 01/08/22 Luis Glover MD [address] [place] [address] [address] [place] [address] Primary Countersinker Cardiovascular Disease 06/29/22 documented as of this encounter
--- OUTSIDE RECORDS SUMMARY | 2025-06-09 19:42 | XMS_ITS | Encounter Summary ---
Author Organization [facility] Address [address] [place] [address] Care Team Providers Care Forging Press Setter Up Name Role Phone Shree Gonzalez DO Primary Care Provider + [phone] Carmen Workman Unavailable Luis Glover MD Unavailable [phone] Unknown Primary Care Provider [phone] Encounter Details Date Type Department Care Team (Late st Contact Info) Description 10/27/2024 Documentation [facility] Heart & Vascular [place] - Electrophysiology [address] [place] [address] Alfredo Beckham, PARKER [address] [place] [address] Social History Tobacco Use Types Packs/Day Years Used Date Smoking Tobacco: Never Smokeless Tobacco: Never Alcohol Use Standard Drinks/Week Comments Not Currently 0 (1 standard drink = 0.6 oz pure alcohol) Used to drink, but has laid off caffeine and alcohol since being told. [facility] Utilities Answer Date Recorded In the past 12 months has [employer], gas, oil, or water [employer] threatened to shut off services in your [...] as of this encounter Functional Status * Level of Risk per Screen Answer Date of Assessment Author Low Risk 10/30/2024 6:29 AM Geeta Frey RN documented as of this encounter Plan of Treatment Upcoming Encounters Date Type Department Care Team (Late st Contact Info) Description 11/09/2025 8:30 AM EDT Office Visit [facility] Heart & Vascular [place] - Electrophysiology [address] [place] [phone] Gertrude Weldon APRN [address] [place] [address] documented as of this encounter Visit Diagnoses Not on filedocumented in this encounter Care Teams Forging Press Setter Up Relationship Specialty Start Date End Date Shree Gonzalez DO [address] [place] [address] PCP - General Internal Medicine 12/28/21 10/29/24 Unknown Unknow Provider Address PCP - General 10/30/24 Carmen Workman [address], [address] [place] [address] Justowriter Operator 01/08/22 Luis Glover MD [address] [place] [address] [address] [place] [address] Primary Justowriter Operator Cardiovascular Disease 06/29/22 documented as of this encounter
--- OUTSIDE RECORDS SUMMARY | 2025-06-09 19:42 | XMS_ITS | Encounter Summary ---
Author Organization [facility] Address [address] [place] [address] Care Team Providers Care Fifth Hand Name Role Phone Shree Gonzalez DO Primary Care Provider + [phone] Carmen Workman Unavailable Luis Glover MD Unavailable [phone] Unknown Primary Care Provider [phone] Reason for Visit * Reason Comments Appointment Encounter Details Date Type Department Care Team (Late st Contact Info) Description 03/08/2022 Telephone [facility] Heart & Vascular [place] - Electrophysiology [address] [place] [address] Ozzy Rodriguez MD [address] [place], [place] [phone] Appointment Social History Tobacco Use Types Packs/Day [...] Description 11/09/2025 8:30 AM EDT Office Visit [facility] Heart & Vascular [place] - Electrophysiology [address] [place] [phone] Gertrude Weldon APRN [address] [place], [place] [phone] documented as of this encounter Visit Diagnoses Not on filedocumented in this encounter Care Teams Fifth Hand Relationship Specialty Start Date End Date Shree Gonzalez DO [address] [place] [address] PCP - General Internal Medicine 12/28/21 10/29/24 Unknown Unknow Provider Address PCP - General 10/30/24 Carmen Workman [address], [address] [place] [address] Musculoskeletal Physician 01/08/22 Luis Glover MD [address] [place] [address] [address] [place] [address] Primary Musculoskeletal Physician Cardiovascular Disease 06/29/22 documented as of this encounter
--- OUTSIDE RECORDS SUMMARY | 2025-06-09 19:42 | XMS_ITS | Encounter Summary ---
Author Organization [facility] Address [address] [place] [address] Care Team Providers Care Accounting System Expert Name Role Phone Shree Gonzalez DO Primary Care Provider + [phone] Carmen Workman Unavailable Luis Glover MD Unavailable [phone] Unknown Primary Care Provider [phone] Encounter Details Date Type Department Care Team (Late st Contact Info) Description 06/21/2023 Prep for Surgery [facility] Heart & Vascular [place] - Electrophysiology [address] [facility] [address] [place] [address] Antonia Chilel, FLUOROSCOPE OPERATOR [address] [address] Social History Tobacco Use Types Packs/Day Years Used Date Smoking Tobacco: Never Smokeless Tobacco: Never Alcohol Use Standard Drinks/Week Comments Not Currently 14 (1 standard drink = 0.6 oz pure alcohol) Used to drink, but has laid off caffeine and alcohol since being told. [facility] Utilities Answer Date Recorded In the past 12 months has [employer], gas, oil, or water [employer] threatened to shut off services in your [...] place to sleep or slept in a [facility] (including now)? No 06/25/2023 Sex and Gender Information Value Date Recorded Sex Assigned at Male 11/20/2022 8:05 AM EDT Legal Sex Male 9:04 AM EDT Gender Identity Male 11/20/2022 8:05 AM EDT Sexual Orientation Heterosexual (straight) 11/20 8:05 AM EDT documented as of this encounter Functional Status * AUDIT-C Score Answer Date of Assessment Author 0 06/24/2023 4:12 PM Magda Angela RN * Question Answer Date of Assessment Author AUDIT-C Total Score - Male 0 06/24/2023 4:12 PM EDT Magda Santiago , RN Q1: How often do you have a drink containing alcohol? Never 06/24/2023 4:12 PM EDT Magda Santiago , RN Q2: How many drinks containing alcohol do you have on a typical day when you are drinking? Patient does not drink 06/24/2023 4:12 PM EDT Magda Santiago RN Q3: How often do you have six or more drinks on one occasion? Never 06/24/2023 4:12 PM EDT Magda Santiago RN * PHQ-2 Total Score Answer Date of Assessment Author 0 06/24/2023 4:12 PM EDT Magda Santiago RN * Question Answer Date of Assessment [...] 4:12 PM EDT Magda Santiago RN * Level of Risk per Screen Answer Date of Assessment Author Low Risk 06/24/2023 4:12 PM EDT Magda Santiago RN documented as of this encounter Plan of Treatment Upcoming Encounters Date Type Department Care Team (Late st Contact Info) Description 11/09/2025 8:30 AM EDT Office Visit [facility] Heart & Vascular [place] - Electrophysiology [address] [place] [phone] Gertrude Weldon APRN [address] [place], [place] [phone] documented as of this encounter Visit Diagnoses Not on filedocumented in this encounter Care Teams Accounting System Expert Relationship Specialty Start Date End Date Shree Gonzalez DO [address] [place] [address] PCP - General Internal Medicine 12/28/21 10/29/24 Unknown Unknow Provider Address PCP - General 10/30/24 Carmen Workman [address] [place] [address], [address] [place] [address] Neurologist 01/08/22 Luis Glover MD [address] [place] [address] [address] [place] [address] Primary Neurologist Cardiovascular Disease 06/29/22 documented as of this encounter
--- OUTSIDE RECORDS SUMMARY | 2025-06-09 19:42 | XMS_ITS | Encounter Summary ---
Author Organization [facility] Address [address] [facility] [address] [place] [address] Phone Care Team Providers Care Double Head Machine Operator Name Role Phone Shree Gonzalez DO Primary Care Provider Encounter Details Date Type Department Care Team (Late st Contact Info) Description 06/13/2024 Ancillary Orders [facility], X-Ray - [address] [address] Shree Gonzalez DO [address] [place] [address] Left wrist pain (Primary Dx) Social History [...] forearm documented in this encounter Care Teams Double Head Machine Operator Relationship Specialty Start Date End Date Shree Gonzalez DO [address] [place] [address] PCP - General 06/13/24 documented as of this encounter Additional Source Comments The information contained in this document represents components of the legal health record. It is not the complete legal health record.[facility]
--- OUTSIDE RECORDS SUMMARY | 2025-06-09 19:42 | XMS_ITS | Clinical Summary ---
Author Organization [facility]ly [facility] Address [address] [place] [address] Care Team Providers Care Creative Writing Professor Name Role Phone Carmen Workman Unavailable Luis Glover MD Unavailable [phone] Unknown Primary Care Provider [phone] Allergies No known active allergies Medications atorvastatin (LIPITOR) 80 MG tablet Take 1 tablet (80 mg total) by mouth every evening. Active lisinopril (PRINIVIL,ZeSTRIL ) 10 MG tablet Take 1 tablet (10 mg total) by mouth daily. 3 Active metoPROLOL SUCCINATE (TOPROL-XL) 50 MG 24 hr tablet Take 1 tablet (50 mg total) by mouth daily. Active Vitamin D3 (CHOLECALCIFEROL) 50 MCG (2000 UT) tablet Take 1 tablet (2,000 Units total) by mouth daily. Active magnesium (MAGTAB) 84 MG (7MEQ) Tab CR Take 1 tablet (84 mg total) by mouth daily. Active apixaban (ELIQUIS) 5 MG tabletIndications :Paroxysmal atrial fibrillation (HCC) Take 1 tablet (5 mg total) by mouth 2 (two) times a day. 5 Active apixaban (ELIQUIS) 5 MG tabletIndications :Paroxysmal atrial fibrillation (HCC) Take 1 tablet (5 mg total) by mouth 2 (two) times a day. Do not start before October 31, 2024. 5 05/12/20 25 Discontinu ed(Reorder ) Active Problems Problem Noted Date Diagnosed Date Paroxysmal atrial fibrillation 08/03/2024 A-fib 06/24/2023 Abnormal cardiovascular stress test 11/09/2022 Overview (11/09/2022): Added automatically from request for surgery [id number] Cholelithiasis with choledocholithiasis 02/29/20 RYAN (acute kidney injury) 02/27/2022 S/P CABG (coronary artery bypass graft) 12/31/19 Atrial fibrillation 12/30/2021 Class 1 obesity 12/30/2021 Hypercholesterolemia 12/30/2021 Hypertension 12/30/2021 Acute on chronic cholecystitis 12/30/2021 Tubular adenoma of colon 04/17/2019 Overview (12/30/2021): repeat screening colonoscopy in 2023 Encounters Date Type Department Care Team Description 05/12/2025 8:30 AM EDT Office Visit [facility] Heart & Vascular [place] - Electrophysiology [address] [place] [address] Gertrude Weldon APRN Paroxysmal atrial fibrillation (HCC) (Primary Dx); Persistent atrial fibrillation (HCC) 05/12/2025 Travel from Last 3 Months Immunizations Immunization [...] Not Answered Alcohol Use Standard Drinks/Week Comments Yes 0 (1 standard drink = 0.6 oz pur e alcohol) [facility] Utilities Answer Date Recorded In the past 12 months has e [employer], gas, oil, or water [employer] threatened to shut off services in your [...] place to sleep or slept in a prison (including now)? No 06/25/2023 Sex and Gender Information Value Date Recorded Sex Assigned at Male 11/20/2022 8:05 AM EDT Legal Sex Male 9:04 AM EDT Gender Identity Male 11/20/2022 8:05 AM EDT Sexual Orientation Heterosexual (straight) 11/20 8:05 AM EDT Last Filed Vital Signs Vital Sign Reading Time Taken Comments Blood Pressure 156/76 05/12/2025 8:35 AM EDT Pulse 64 05/12/2025 8:35 AM EDT Temperature 35.7 C (96.3 F) 10/30/2024 2:00 PM EST Respiratory Rate 12 10/30/2024 2:45 PM EST Oxygen Saturation 98% 05/12/2025 8:26 AM EDT Inhaled Oxygen Concentration - - Weight 102 kg (225 lb) 05/12/2025 8:26 AM EDT Height 172.7 cm (5' 8 ) 05/12/2025 8:26 AM EDT Body Mass Index 34.21 05/12/2025 8:26 AM EDT Plan of Treatment Upcoming Encounters Date Type Department Care Team (Late st Contact Info) Description 11/09/2025 8:30 AM EDT Office Visit [facility] Heart & Vascular [place] - Electrophysiology [address] [place] [phone] Gertrude Weldon APRN [address] [facility], [place] [phone] Health Maintenance Due Date Last Done Comments Advance Care Planning 1955 Hepatitis C Virus Screening 1955 DTaP/Tdap/Td Vaccines (1 - Tdap) 1974 Colonoscopy 2000 Pneumococcal Vaccines 50+ (1 of 1 - PCV) 2005 Zoster (Shingles) Vaccine (1 of 2) 2005 RSV Vaccine 50 years and older and Patients (1 - Risk 60-74 years 1-dose series) 2015 Influenza Vaccine 03/26/2025 COVID-19 Vaccine ( season) 2025 12/06/2021, 05/23/2021, 10/21/2020, Additional history exists Hepatitis B Vaccines Aged Out No long er eligible based on patient's age to complete this topic Procedures Procedure Name Priority Date/Time Associated Diagnosis Comments ECG 12-LEAD Routine 05/12/2025 8:33 AM EDT Paroxysmal atrial fibrillation (HCC) Persistent atrial fibrillation (HCC) from Last 3 Months Results * ECG 12 lead (05/12/2025 8:33 AM EDT) Ventricular rate 64 BPM EKG [facility] Atrial rate 64 BPM EKG [facility] P-R interval [address] [facility] QRS duration [address] [facility] Q-T interval [address] [facility] QTC calculation (Bazett) 400 ms EKG [facility] P axis -8 degrees EKG [facility] R axis 41 degrees EKG [facility] T axis [address] [facility] 05/12/2025 8:33 AM EDT Narrative EKG [facility] - 05/28/2025 5:07 PM EDT Normal sinus rhythm Nonspecific T wave abnormality Abnormal ECG When compared with ECG of 08-Feb-2025 09:15, No significant change was found Confirmed by MD Rocha Eric ([id number]) on 05/28/2025 5:07:07 PM Procedure Note Олег Rocha MD - 05/28/2025 Normal sinus rhythm Nonspecific T wave abnormality Abnormal ECG When compared with ECG of 08-Feb-2025 09:15, No significant change was found Confirmed by MD Rocha Eric ([id number]) on 05/28/2025 5:07:07 PM us Олег Rocha MD ECG ORDERABLES Final Result EKG [facility] from Last 3 Months Insurance [employer] MEDICARE OUT OF NETWORK [employer] MEDICARE OUT OF NETWORK Advance Directives * [...] 12:28 PM 02/28/2022 1:45 PM Care Teams Creative Writing Professor Relationship Specialty Start Date End Date Unknown Unknow Provider Address PCP - General 10/30/24 Carmen Workman [address], [address] [place] [address] Vamp Creaser 01/08/22 Luis Glover MD [address] [place] [address] [address] [place] [address] Primary Vamp Creaser Cardiovascular Disease 06/29/22
== END 2025-06-09 19:39 | disposition home or self-care (01) ==
LOC: HO.MRI 19:38
PROVIDERS: PCP Internal Medicine; Visit Provider Physician Assistant Medical
DX: M54.2 Cervicalgia (principal)
CPT/HCPCS: 72141

== ENCOUNTER → 2025-06-09 19:47 | Outpatient (BNV) | payer MEDICARE, SELFPAY | PROVIDERS: PCP Internal Medicine; Visit Provider Radiology Diagnostic Radiology | DX: M47.812 Spondylosis without myelopathy or radiculopathy, cervical region (principal); Z98.1 Arthrodesis status | CPT/HCPCS: 72141 ==

== ENCOUNTER 2025-07-16 15:21 | Outpatient (AMB) | payer MEDICARE, SELFPAY ==
[2025-07-16 15:22] VITALS: BP 147/67; PULSE 82; RESP 14; TEMP 36.6; O2SAT 99; BMI 35.0
--- NOTE | 2025-07-16 15:22 | MHC.PC.OV ---
Vital Signs 07/16/25 15:22 07/16/25 16:48 Height 5 ft 7.25 in Weight 225 lb BMI 35.0 BP 147/67 H 135/67 Blood Pressure Location Rt brachial Position Sitting Respiration 14 Pulse 82 Pulse Source Pulse Oximeter Temp 97.8 F Temp Source Temporal Artery Scan Pulse Oximetry (%) 99 Oxygen Delivery Method Room Air Intake Visit Reasons: 6 month follow up - see comments Ux Developer Required: No Allergies No Known Allergies (No Known Allergies*) Allergy (Verified 07/16/25 16:48) Medication List - Last Reconciled 07/16/25 by Marielena Valdez PA-C apixaban (Eliquis) 1 tab PO BID atorvastatin 1 tab PO BEDTIME cholecalciferol (vitamin D3) 50 mcg PO DAILY lisinopril 10 mg PO DAILY magnesium L-lactate ER 84 mg PO BID metoprolol succinate ER 25 mg PO DAILY Tobacco use date assessed: 01/13/25 Dental Screening Dental Screen Date: 01/13/25 HPI HPI Comments History of Present Illness Details History of Present Illness The patient is a 69 year old individual presenting for a follow-up visit for blood pressure management. The patient reports that blood pressure has been a little high at home. The patient has seen a perinatal breastfeeding assistant who recommended increasing the lisinopril dose. The patient's metoprolol dose was reduced to 25 mg daily by the perinatal breastfeeding assistant after a cardiac ablation in September, following which dofetilide was discontinued. The patient's current weight is 228 lbs, which is down from 242 lbs in September but up from 225 lbs in February. The patient acknowledges a liking for snacking and eating foods high in salt. Past laboratory results showed a prediabetic hemoglobin A1c of 6.3 and a fasting glucose of 131 in December. The patient has a history of a cervical fusion and recently started physical therapy for tight neck muscles, which has been helpful. The patient reports not taking Mag-Tab daily as there is no trouble with constipation or headaches. Social History - Retired: The patient is retired and on Medicare. - Family Status: The patient lives with their , who is a nurse. - Nutritional Intake: Reports a liking for snacking and eating, particularly salty foods like kielbasa and sweets. - Exercise: Attends physical therapy and performs stretching exercises at home. - Weight Management: The patient is trying to lose more weight. [facility] Medical History Obesity, Class II, BMI 35-39.9 Type 2 diabetes mellitus with hemoglobin A1c goal of less than 7.0% Degenerative disc disease Neuroforaminal stenosis of cervical spine Cervical stenosis of spine Neck pain Dyslipidemia Hypertension Vitamin D deficiency History of myocardial infarction Tubular adenoma Snoring BRYAN (obstructive sleep apnea) Obesity (BMI 30-39.9) Hypercholesteremia On anticoagulant therapy Retinal tear of right eye Atrial fibrillation CAD (coronary artery disease) Myocardial infarct Gout Surgical History History of fusion of cervical spine S/P cervical spinal fusion H/O eye surgery (~10/12/24) History of cardiac ablation for atrial fibrillation (~10/30/24) History of colonoscopy (~08/10/24) Hx of cataract extraction History of vitrectomy Hx of coronary artery bypass graft History of tonsillectomy [place] teeth extracted Hx of repair of right rotator cuff Hx of repair of left rotator cuff History of surgery on right wrist Hx of left inguinal hernia repair Family History Mother CAD (coronary artery disease) Social History Household Members: Spouse Housing: House Are you a primary foster care case manager to a significant other at home: No Do you presently have visiting nurse or other home services: No Alcohol intake: current Alcohol intake frequency: holidays/special occasions only Comment: for nstemi Patient Tobacco Use Status: Never used Tobacco Second Hand Smoke Exposure: No service: No Current occupational status: employed Cognitive needs: No Hearing needs: No Vision needs: Yes (reading glasses) Questionnaire PHQ-9 Over the last 2 weeks, how often have you been bothered by any of the following problems? 1. Little interest or pleasure in doing things: not at all 2. Feeling down, depressed, or hopeless: not at all 3. Trouble falling or staying asleep, or sleeping too much: not at all 4. Feeling tired or having little energy: not at all 5. Poor appetite or overeating: not at all 6. Feeling bad about yourself - or that you are a failure or have let yourself or your family down: not at all 7. Trouble concentrating on things, such as reading the newspaper or watching television: not at all 8. Moving or speaking so slowly that other people could have noticed. Or the opposite - being so fidgety or restless that you have been moving around a lot more than usual: not at all 9. Thoughts that you would be better off or of hurting yourself in some way: not at all Total score: 0 Depression Screening Interpretation: Negative Depression Screening Done: Yes 18433 - PHQ-9 Billing: Yes Source: Developed by Drs. Shree Marshall, Marian Eaton, Iron Mcghee and colleagues, with an educational casie from [employer]. Thrive Questionnaire Date Thrive assessed: 01/13/25 I am a: Patient What is your living situation today?: I have a steady place to live Within the past 12 months, did the food you bought not last and you didn't have the money to get more?: Never true Within the past 12 months, did you worry whether your food would run out before you got money to buy more?: Never true Do you have trouble paying for medicines?: No Do you have trouble getting transportation to medical appointments?: No Do you have trouble paying your heating and electricity bill?: No Do you have trouble taking care of your child, family member or friend?: No Do you have trouble with day-to-day activities such as bathing, preparing meals, shopping, managing finances, etc.?: No Are you currently unemployed and looking for a job?: No Are you interested in more education?: No Please select the resources that you would like help with: None THRIVE Score: 0 AUDIT C Alcohol Use Questionnaire (AUDIT-C) 1. How often do you have a drink containing alcohol?: Monthly or less 2. How many drinks containing alcohol do you have on a typical day when you are drinking?: 1 or 2 3. How often do you have six or more drinks on one occasion?: Never Total Score: 1 Score Reviewed/Action Taken: No ERIN-7 AMB Questionnaire ERIN-7 Date ERIN - 7 assessed: 01/13/25 Feeling nervous, anxious, or on edge: 0 = Not at all Not being able to stop or control worryin = Not at all Worrying too much about different things: 0 = Not at all Trouble relaxin = Not at all Being so restless that it is hard to sit still: 0 = Not at all Becoming easily annoyed or irritable: 0 = Not at all Feeling afraid as if something awful might happen: 0 = Not at all Total ERIN-7 score (0-4 normal; 5-9 mild; 10-14 moderate; 15-21 severe): 0 Source: Developed by Drs. Shree Marshall, Marian Eaton, Iron Mcghee and colleagues, with an educational casie from [employer]. ERIN-7 Assessment Billing ERIN-7 Assessment Tool: ERIN-7 Assessment 37580 Review of Systems Narrative Review of Systems - Constitutional: Reports liking to eat and snack. - Gastrointestinal: Denies constipation. - Neurological: Denies headaches. Const All systems reviewed & are unremarkable except as noted in HPI and below Physical exam (Primary Care) Vital Signs: Last Vital Signs Temp 97.8 F 07/16/25 15:22 Pulse 82 07/16/25 15:22 Resp 14 07/16/25 15:22 BP 135/67 07/16/25 16:48 Pulse Ox 99 07/16/25 15:22 Oxygen Delivery Method Room Air 07/16/25 15:22 Care Plan Goal for BP management: <140/90 at Goal BMI result Body Mass Index 35.0 BMI Assessment/Plan discussion: High BMI High, discussed plan: lifestyle, weight reduction, dietary, physical activity, alcohol moderation and other Tobacco/Smoking Status: Tobacco use Status Tobacco use date assessed 01/13/25 07/16/25 15:24 Patient Tobacco Use Status Never used Tobacco 07/16/25 15:24 PHQ-9: PHQ-9 Score PHQ-9: Total score 0 07/16/25 15:38 Depression Screening Interpretation: Negative Thrive Assessment: Date of Thrive Assessment Date Thrive assessed 01/13/25 07/16/25 15:24 Narrative Physical Exam Appearance: Alert. Oriented X3. No acute distress. Head: Normal external exam. Normocephalic. Atraumatic. Eyes: Pupils are equal, round, and reactive to light. Extraocular movements intact. Conjunctiva and sclera normal. Eyelids normal. Throat: Pharynx normal. Uvula midline. Moist mucous membranes. Neck: Normal inspection. Neck supple. Full range of motion. Cardiovascular: Normal heart rate and rhythm. Respiratory: No respiratory distress. Painless inspiration. Back: Full range of motion noted. Skin: Skin warm and dry. Normal skin color. Extremities: Extremities exhibit normal range of motion. Results AMB Hemoglobin A1c AMB Hemoglobin A1c 6.3 % Last Edit by LUCRECIA Vasquez on 07/16/25 16:51 Results Reviewed Results Reviewed: Results - Labs: - Hemoglobin A1c: 6.3 (current visit). - Prior labs reviewed include: normal PSA, vitamin B12, vitamin D, and thyroid function tests. - Prior hemoglobin A1c was 6.3. - Prior fasting glucose was 131 mg/dL in December. - Tests and Diagnostics: - A urine test for microalbumin was ordered to check for proteinuria or glucosuria. Coding Level of Care Code Est Pt Level 4 (53911) Complex visit Add On G2211 Diagnoses Type 2 diabetes mellitus with hemoglobin A1c goal of less than 7.0% E11.9 Hypertension I10 Obesity, Class II, BMI 35-39.9 E66.812 Additional Codes ERIN-7 Assessment Billing - ERIN-7 Assessment Tool: ERIN-7 Assessment 06397 ([id number]) PHQ-9 - 75682 - PHQ-9 Billing: Yes ([id number]) Assessment & Plan Assessment & Plan (1) Type 2 diabetes mellitus with hemoglobin A1c goal of less than 7.0%: Code(s): E11.9 - Type 2 diabetes mellitus without complications Category: Medical Plan: The patient's hemoglobin A1c is 6.3, consistent with prior results, and is now being treated as type 2 diabetes. The plan is to initiate metformin 500 mg once daily with food. A discussion was held regarding a weight loss injection (Zepbound), but the patient prefers to try metformin first. Dietary counseling was provided on limiting sugar, carbohydrates, and choosing fruits with lower sugar content. A urinalysis was ordered to screen for microalbuminuria. Follow-up is scheduled in one month to assess tolerance to metformin, with subsequent visits every three months to monitor A1c. (2) Hypertension: Code(s): I10 - Essential (primary) hypertension Category: Medical Plan: Blood pressure remains elevated despite current treatment, with an in-office reading of 135/61 mmHg on recheck. The plan is to increase the dose of lisinopril to 10 mg twice daily. The patient will continue taking metoprolol 25 mg daily. The patient was educated on diet and blood pressure monitoring at home. (3) Obesity, Class II, BMI 35-39.9: Code(s): E66.812 - Obesity, class 2 Category: Medical Plan: The patient's weight is 228 lbs, and the patient expressed a desire to lose more weight. Management includes dietary counseling and the initiation of metformin, which may aid in weight loss. An injectable medication for weight loss was offered but declined by the patient at this time. Plan Plan Patient was informed and verbally consented to the use of an ambient scribe for clinic note documentation during this visit. 1. Type 2 Diabetes Mellitus The patient's hemoglobin A1c is 6.3, consistent with prior results, and is now being treated as type 2 diabetes. The plan is to initiate metformin 500 mg once daily with food. A discussion was held regarding a weight loss injection (Zepbound), but the patient prefers to try metformin first. Dietary counseling was provided on limiting sugar, carbohydrates, and choosing fruits with lower sugar content. A urinalysis was ordered to screen for microalbuminuria. Follow-up is scheduled in one month to assess tolerance to metformin, with subsequent visits every three months to monitor A1c. 2. Essential (Primary) Hypertension Blood pressure remains elevated despite current treatment, with an in-office reading of 135/61 mmHg on recheck. The plan is to increase the dose of lisinopril to 10 mg twice daily. The patient will continue taking metoprolol 25 mg daily. The patient was educated on diet and blood pressure monitoring at home. 3. Overweight The patient's weight is 228 lbs, and the patient expressed a desire to lose more weight. Management includes dietary counseling and the initiation of metformin, which may aid in weight loss. An injectable medication for weight loss was offered but declined by the patient at this time. Discussion Notes I have diagnosed the patient with type 2 diabetes based on a persistent hemoglobin A1c of 6.3. I discussed initiating treatment with metformin 500 mg daily, explaining that it should be taken with food and may cause some diarrhea as a side effect. For the patient's elevated blood pressure, I recommended increasing the lisinopril dose to 10 mg twice daily, which the patient agreed to. I also reviewed dietary modifications for both diabetes and hypertension, providing educational materials on food choices, including recommendations for fruits and avoidance of sweets and excessive salt. I offered a weekly weight loss injection, Zepbound, given the new diagnosis of diabetes and the patient's BMI, but the patient preferred to start with metformin and lifestyle changes first. I instructed the patient to return for a follow-up visit in one month to assess medication tolerance and blood pressure, and then every three months thereafter to monitor the A1c. Orders: Orders Microalbumin, Random (w Creat) Today E11.9 - Type 2 diabetes mellitus without complications UA CC w/rflx Micro + Cult Today Z00.00 - Encounter for general adult medical examination without abnormal findings AMB Hemoglobin A1c Today E11.9 - Type 2 diabetes mellitus without complications Medications: New metformin ER (Glucophage XR) 500 mg PO DAILY 90 tabs 3RF Changed From lisinopril 10 mg PO DAILY 90 tabs 3RF To lisinopril 10 mg PO BID 180 tabs 3RF 3 months Patient Instructions: Patient Instructions - Take metformin 500 mg once a day with food. - This new medication may cause some diarrhea at first. - Change your lisinopril to 10 mg twice a day, once in the morning and once at night. - Please follow the diet information provided. - Try to avoid sweets like cakes and cookies, and limit foods with a lot of salt and sugar. - Provide a urine sample today at the lab. - Schedule a follow-up appointment in one month.
--- OUTSIDE RECORDS SUMMARY | 2025-07-16 15:29 | XMS_ITS | Clinical Summary ---
Author Organization [facility] Address [address] [address] Phone Care Team Providers Care Geriatric Care Manager Name Role Phone LisaShree DO Primary Care Provider Social History Tobacco Use Types Packs/Day Years [...] [place] MEDICARE PPO BLUE REPLACEMENT [facility] MEDICARE PPO BLUE REPLACEMENT [facility] MEDICARE PPO BLUE REPLACEMENT [facility] MEDICARE PPO BLUE REPLACEMENT [facility] MEDICARE PPO BLUE REPLACEMENT [facility] MEDICARE PPO BLUE REPLACEMENT Care Teams Geriatric Care Manager Relationship Specialty Start Date End Date Shree Gonzalez DO [address] [place] [address] PCP - General 06/13/24 Additional Source Comments The information contained in this document represents components of the legal health record. It is not the complete legal health record.[facility]
--- OUTSIDE RECORDS SUMMARY | 2025-07-16 15:29 | XMS_ITS | Clinical Summary ---
Author Organization [facility] Address [address] [place] [address] Care Team Providers Care Misdraw Hand Name Role Phone Carmen Workman Unavailable Luis Glover MD Unavailable [phone] Unknown Primary Care Provider [phone] Allergies No known active allergies Medications atorvastatin (LIPITOR) 80 MG tablet Take 1 tablet (80 mg total) by mouth every evening. Active lisinopril (PRINIVIL,ZeSTRIL ) 10 MG tablet Take 1 tablet (10 mg total) by mouth daily. 04/10/2023 Active metoPROLOL SUCCINATE (TOPROL-XL) 50 MG 24 [...] by mouth 2 (two) times a day. 05/12/2025 Active Active Problems Problem Noted Date Diagnosed Date Paroxysmal atrial fibrillation 08/03/2024 A-fib 06/24/2023 Abnormal cardiovascular stress test 11/09/2022 Overview (11/09/2022): Added automatically from request for surgery [id number] Cholelithiasis with choledocholithiasis 02/29/20 22 RYAN (acute kidney injury) 02/27/2022 S/P CABG (coronary artery bypass graft) 12/31/19 22 Atrial fibrillation 12/30/2021 Class 1 obesity 12/30/2021 Hypercholesterolemia 12/30/2021 Hypertension 12/30/2021 Acute on chronic cholecystitis 12/30/2021 Tubular adenoma of colon 04/17/2019 Overview (12/30/2021): repeat screening colonoscopy in 2023 Encounters Date Type Department Care Team Description 05/12/2025 8:30 AM EDT Office Visit [facility] Heart & Vascular [place] - Electrophysiology [address] [place] [address] Gertrude Weldon APRN Paroxysmal atrial fibrillation (HCC) (Primary Dx); Persistent atrial fibrillation (HCC) from Last 3 Months Immunizations Immunization Administration [...] drink = 0.6 oz pur e alcohol) [facility] Utilities Answer Date Recorded In the past 12 months has [employer], [employer], oil, or water [employer] threatened to shut off services in your [...] 05/12/2025 8:26 AM EDT Plan of Treatment Health Maintenance Due Date Last Done Comments Advance Care Planning 1955 Hepatitis C Virus Screening 1955 DTaP/Tdap/Td Vaccines (1 - Tdap) 1974 Colonoscopy 2000 Pneumococcal Vaccines 50+ (1 of 1 - PCV) 2005 RSV Vaccine 50 years and older and Patients (1 - Risk 50-74 years 1-dose series) 2005 Zoster (Shingles) Vaccine (1 of 2) 2005 Influenza Vaccine 03/26/2025 COVID-19 Vaccine ( - season) 2025 12/06/2021, 05/23/2021, 10/21/2020, Additional history exists Hepatitis B Vaccines Aged Out No long er eligible based on patient's age to complete this topic Procedures Procedure Name Priority Date/Time Associated Diagnosis Comments ECG 12-LEAD Routine 05/12/2025 8:33 AM EDT Paroxysmal atrial fibrillation (HCC) Persistent atrial fibrillation (HCC) from Last 3 Months Results * ECG 12 lead (05/12/2025 8:33 AM EDT) [facility] Ventricular rate 64 BPM EKG [facility] Atrial rate 64 BPM EKG [facility] P-R interval 156 ms EKG [facility] duration 80 [facility] 388 ms EKG [facility] QTC calculation (Bazett) 400 ms EKG [facility] P axis -8 degrees EKG [facility] R axis 41 degrees EKG [facility] T axis 64 degrees [facility] 05/12/2025 8:33 AM EDT Narrative EKG [facility] - 05/28/2025 5:07 PM EDT Normal [...] Rocha MD ECG ORDERABLES Final Result EKG [facility] from Last 3 Months Insurance [employer] MEDICARE OUT OF NETWORK [employer] MEDICARE OUT OF NETWORK Advance Directives [...] 12:28 PM 02/28/2022 1:45 PM Care Teams Misdraw Hand Relationship Specialty Start Date End Date Unknown Unknow Provider Address PCP - General 10/30/24 Carmen Workman [address], [address] [place] [address] Metal Expediter 01/08/22 Luis Glover MD [address] [place] [address] [address] [place] [address] Primary Metal Expediter Cardiovascular Disease 06/29/22
--- OUTSIDE RECORDS SUMMARY | 2025-07-16 15:29 | XMS_ITS | Encounter Summary ---
Author Organization [facility] Address [address] [facility] [address] [place] [address] Phone Care Team Providers Care Laborer Electroplating Name Role Phone Shree Gonzalez DO Primary Care Provider Encounter Details Date Type Department Care Team (Late st Contact Info) Description 06/13/2024 Ancillary Orders [facility], X-Ray - [address] [address] Shree Gonzalez DO [address] [place] [address] Left wrist pain (Primary Dx) Social History [...] forearm documented in this encounter Care Teams Laborer Electroplating Relationship Specialty Start Date End Date Shree Gonzalez DO [address] [place] [address] PCP - General 06/13/24 documented as of this encounter Additional Source Comments The information contained in this document represents components of the legal health record. It is not the complete legal health record.[facility]
--- OUTSIDE RECORDS SUMMARY | 2025-07-16 15:29 | XMS_ITS | Encounter Summary ---
Author Organization [facility] Address [address] [place] [address] Care Team Providers Care Institutional Research Director Name Role Phone Shree Gonzalez DO Primary Care Provider + [phone] Carmen Workman Unavailable Luis Glover MD Unavailable [phone] Unknown Primary Care Provider [phone] Encounter Details Date Type Department Care Team (Late st Contact Info) Description 10/27/2024 Documentation [facility] Heart & Vascular [place] - Electrophysiology [address] [place] [address] Alfredo Beckham, PARKER [address] [place] [address] Social History Tobacco Use Types Packs/Day Years Used Date Smoking Tobacco: Never Smokeless Tobacco: Never Alcohol Use Standard Drinks/Week Comments Not Currently 0 (1 standard drink = 0.6 oz pure alcohol) Used to drink, but has laid off caffeine and alcohol since being told. [facility] Utilities Answer Date Recorded In the past 12 months has [employer], gas, oil, or water [employer] threatened to shut off services in your [...] place to sleep or slept in a jail (including now)? No 06/25/2023 Sex and Gender [...] on file documented as of this encounter Visit Diagnoses Not on filedocumented in this encounter Care Teams Institutional Research Director Relationship Specialty Start Date End Date Shree Gonzalez DO [address] [place] [address] PCP - General Internal Medicine 12/28/21 10/29/24 Unknown Unknow Provider Address PCP - General 10/30/24 Carmen Workman [address], [address] [place] [address] Section Laborer 01/08/22 Luis Glover MD [address] [place] [address] [address] [place] [address] Primary Section Laborer Cardiovascular Disease 06/29/22 documented as of this encounter
--- OUTSIDE RECORDS SUMMARY | 2025-07-16 15:29 | XMS_ITS | Encounter Summary ---
Author Organization [facility] Address [address] [place] [address] Care Team Providers Care Airport Operations Manager Name Role Phone Shree Gonzalez DO Primary Care Provider [phone] Carmen Workman Unavailable Luis Glover MD Unavailable [phone] Unknown Primary Care Provider [phone] Encounter Details Date Type Department Care Team (Late st Contact Info) Description 10/07/2024 Scanned Document [facility] Heart & Vascular [place] - Electrophysiology [address] [place] [address] [place], [place] [address] [place] [address] Social History Tobacco Use Types Packs/Day Years Used Date Smoking Tobacco: Never Smokeless Tobacco: Never Alcohol Use Standard Drinks/Week Comments Not Currently 14 (1 standard drink = 0.6 oz pure alcohol) Used to drink, but has laid off caffeine and alcohol since being told. [facility] Utilities Answer Date Recorded In the past 12 months has [employer], [employer], oil, or water [employer] threatened to shut off services in your [...] on filedocumented in this encounter Care Teams Airport Operations Manager Relationship Specialty Start Date End Date Shree Gonzalez DO [address] [place] [address] PCP - General Internal Medicine 12/28/21 10/29/24 Unknown Unknow Provider Address PCP - General 10/30/24 Carmen Workman [address], [address] [place] [address] Mathematics Improvement Teacher 01/08/22 Luis Glover MD [address] [place] [address] [address] [place] [address] Primary Mathematics Improvement Teacher Cardiovascular Disease 06/29/22 documented as of this encounter
--- OUTSIDE RECORDS SUMMARY | 2025-07-16 15:29 | XMS_ITS | Encounter Summary ---
Author Organization [facility] Address [address] [facility] [address] [place] [address] Phone Care Team Providers Care Director Of Compensation Name Role Phone Shree Gonzalez DO Primary Care Provider [phone] Encounter Details Date Type Department Care Team (Late st Contact Info) Description 06/13/2024 Ancillary Orders [facility], X-Ray - [address] [address] Shree Gonzalez DO [address] [place] [address] Left wrist pain (Primary Dx) Social History [...] forearm documented in this encounter Care Teams Director Of Compensation Relationship Specialty Start Date End Date Shree Gonzalez DO [address] [place] [address] PCP - General 06/13/24 documented as of this encounter Additional Source Comments The information contained in this document represents components of the legal health record. It is not the complete legal health record.[facility]
--- OUTSIDE RECORDS SUMMARY | 2025-07-16 15:29 | XMS_ITS | Encounter Summary ---
Author Organization [facility] Address [address] [place] [address] Care Team Providers Care Metal Grader Name Role Phone LisaShree DO Primary Care Provider + [phone] AdventistCarmen sosa Unavailable Luis Glover MD Unavailable [phone] Unknown Primary Care Provider [phone] Reason for Referral * Cardiology (Routine) - Closed Specialty Diagnoses / Procedures Referred By Contact Referred To Contact Cardiac Electrophysiology / Cardiology Diagnoses Atrial fibrillation, unspecified type (HCC) Luis Glover MD [address] [place] [address] [address] [place] [address] Phone: tel:[phone] fax:[phone] [facility] Heart & Vascular [place] - Electrophysiology [address] [place] [address] Phone: tel: fax: Referral ID Status Reason Start Date Expiration Date V isits Requested Visits Authorized [id number] Closed Consult 11/28/2022 11/29/2023 1 1 Comments DX NSVT/ ATRIAL FIB HISTORY OF CAD Encounter Details Date Type Department Care Team (Late st Contact Info) Description 11/28/2022 Community Orders [facility]ologists, [address] [address] Luis Glover MD [address] [place] [address] [address] [place] [address] Atrial fibrillation, unspecified type (HCC) (Primary Dx) [...] as of this encounter Plan of Treatment Scheduled Referrals Name Type Priority Associated Diagnoses Order Schedule Amb Referral to Cardiac Electrophysiology Outpatient Referral Routine Atrial fibrillation, unspecified type (HCC) Ordered: 11/28/2022 documented as of this encounter Visit Diagnoses Diagnosis Atrial fibrillation, unspecified type (HCC)- Primary documented in this encounter Care Teams Metal Grader Relationship Specialty Start Date End Date Shree Gonzalez DO [address] [place] [address] PCP - General Internal Medicine 12/28/21 10/29/24 Unknown Unknow Provider Address PCP - General 10/30/24 Carmen Workman [address], [address] [place] [address] Surveyor Instrument Assistant 01/08/22 Luis Glover MD [address] [place] [address] [address] [place] [address] Primary Surveyor Instrument Assistant Cardiovascular Disease 06/29/22 documented as of this encounter
--- OUTSIDE RECORDS SUMMARY | 2025-07-16 15:29 | XMS_ITS | Encounter Summary ---
Author Organization [facility] Address [address] [place] [address] Care Team Providers Care Panel Maker Name Role Phone Shree Gonzalez DO Primary Care Provider + [phone] Carmen Workman Unavailable Luis Glover MD Unavailable [phone] Unknown Primary Care Provider [phone] Encounter Details Date Type Department Care Team (Late st Contact Info) Description 06/10/2024 Scanned Document [facility] [address] [address] Elen Hunter [address] [place] [address] Social History Tobacco Use Types Packs/Day Years Used Date Smoking Tobacco: Never Smokeless Tobacco: Never Alcohol Use Standard Drinks/Week Comments Not Currently 14 (1 standard drink = 0.6 oz pure alcohol) Used to drink, but has laid off caffeine and alcohol since being told. [facility] Utilities Answer Date Recorded In the past 12 months has [employer], gas, oil, or water [employer] threatened to shut off services in your [...] on filedocumented in this encounter Care Teams Panel Maker Relationship Specialty Start Date End Date Shree Gonzalez DO [address] [place] [address] PCP - General Internal Medicine 12/28/21 10/29/24 Unknown Unknow Provider Address PCP - General 10/30/24 Carmen Workman [facility] [address], [address] [place] [address] It Systems Engineer 01/08/22 Luis Glover MD [address] [place] [address] [address] [place] [address] Primary It Systems Engineer Cardiovascular Disease 06/29/22 documented as of this encounter
--- OUTSIDE RECORDS SUMMARY | 2025-07-16 15:29 | XMS_ITS | Encounter Summary ---
Author Organization [facility] Address [address] [place] [address] Care Team Providers Care Computer Forwarding System Markup Clerk Name Role Phone LisaShree DO Primary Care Provider + [phone] Mu-IsmCarmen sosa Unavailable Luis Glover MD Unavailable [phone] Unknown Primary Care Provider [phone] Reason for Referral * Cardiology (Routine) - Closed Specialty Diagnoses / Procedures Referred By Contact Referred To Contact Cardiac Electrophysiology / Cardiology Diagnoses Atrial fibrillation, unspecified type (HCC) Luis Glover MD [address] [place] [address] [address] [place] [address] Phone: tel:[phone] fax:[phone] [facility] Heart & Vascular [place] - Electrophysiology [address] [place] [address] Phone: tel: fax: Referral ID Status Reason Start Date Expiration Date V isits Requested Visits Authorized [id number] Closed Consult 04/17/2023 04/17/2024 1 1 Comments DX A FIB Encounter Details Date Type Department Care Team (Late st Contact Info) Description 04/17/2023 Community Orders Consulting Cardiologists, [address] [address] Luis Glover MD [address] [place] [address] [address] [place] [address] Atrial fibrillation, unspecified type (HCC) (Primary Dx) [...] Primary documented in this encounter Care Teams Computer Forwarding System Markup Clerk Relationship Specialty Start Date End Date Shree Gonzalez DO [address] [place] [address] PCP - General Internal Medicine 12/28/21 10/29/24 Unknown Unknow Provider Address PCP - General 10/30/24 Carmen Workman [address], [address] [place] [address] Modeling Agency Manager 01/08/22 Luis Glover MD [address] [place] [address] [address] [place] [address] Primary Modeling Agency Manager Cardiovascular Disease 06/29/22 documented as of this encounter
--- OUTSIDE RECORDS SUMMARY | 2025-07-16 15:29 | XMS_ITS | Encounter Summary ---
Author Organization [facility] Address [address] [place] [address] Care Team Providers Care Laundry Machine Mechanic Name Role Phone Shree Gonzalez DO Primary Care Provider + [phone] Carmen Workman Unavailable Luis Glover MD Unavailable [phone] Unknown Primary Care Provider [phone] Encounter Details Date Type Department Care Team (Late st Contact Info) Description 06/21/2023 Prep for Surgery [facility] Heart & Vascular [place] - Electrophysiology [address] [facility] [address] [place] [address] Antonia Chilel, FISHING ROD MECHANIC [address] [address] Social History Tobacco Use Types Packs/Day Years Used Date Smoking Tobacco: Never Smokeless Tobacco: Never Alcohol Use Standard Drinks/Week Comments Not Currently 14 (1 standard drink = 0.6 oz pure alcohol) Used to drink, but has laid off caffeine and alcohol since being told. [facility] Utilities Answer Date Recorded In the past 12 months has [employer], gas, oil, or water [employer] threatened to shut off services in your [...] on one occasion? Never 06/24/2023 4:12 PM Magda Angela RN * PHQ-2 Total Score Answer Date of Assessment Author 0 06/24/2023 4:12 PM Magda Angela RN * Question Answer Date of Assessment Author Little interest or pleasure in doing things Not at all 06/24/2023 4:12 PM EDMagda Bryant RN Feeling down, depressed, or hopeless Not at all 06/24/2023 4:12 PM Magda Angela RN * Over the past 2 weeks, how often have you been bothered by any of the following problems? Question Answer Date of Assessment Author Patient Health Questionnaire -2 Score 0 06/24/2023 4:12 PM Magda Angela RN * Level of Risk per Screen Answer Date of Assessment Author Low Risk 06/24/2023 4:12 PM Magda Angela RN documented as of this encounter Plan of Treatment Not on file documented as of this encounter Visit Diagnoses Not on filedocumented in this encounter Care Teams Laundry Machine Mechanic Relationship Specialty Start Date End Date Shree Gonzalez DO [address] [place] [address] PCP - General Internal Medicine 12/28/21 10/29/24 Unknown Unknow Provider Address PCP - General 10/30/24 Carmen Workman [address], [address] [place] [address] Narrow Fabric Calenderer 01/08/22 Luis Glover MD [address] [place] [address] [address] [place] [address] Primary Narrow Fabric Calenderer Cardiovascular Disease 06/29/22 documented as of this encounter
[2025-07-16 16:48] VITALS: BP 135/67
== END 2025-07-16 16:14 | disposition home or self-care (01) ==
LOC: HO.HMCSH 15:21
PROVIDERS: PCP Physician Assistant Medical; Visit Provider Physician Assistant Medical
DX: E11.9 Type 2 diabetes mellitus without complications (principal); I10 Essential (primary) hypertension; E66.812 Obesity, class 2

== ENCOUNTER 2025-07-16 15:21 | Outpatient (REF) | payer MEDICARE, SELFPAY ==
--- OUTSIDE RECORDS SUMMARY | 2025-07-11 23:59 | XMS_ITS | Continuity of Care Document ---
Author Organization [facility] Address [address] [place] [address] kana, [address] [place] [address]- Care Team Providers Care Mixing Plant Operator Name Role Phone Solomon SAL, Orlando Johnson Primary Care Physician Encounter [facility] Date(s): 06/11/25 - 07/11/[address] [place], [place] [address] Encounter Type: Triage Allergies, Adverse Reactions, Alerts No Known Allergies Medications atorvastatin 80 mg oral tablet 1 tablet, By Mouth, Daily at bedtime, # 30 tablet, 11 Refills, Maintenance, 08/12/23 8:10:00 AM EST, [id number], 175, cm, 02/02/22 13:26:00 EDT, Height Start Date: 08/12/23 Status: Ordered Medication Dispense Status: Completed Quantity: 30.0 Unit: tablet Total Allowed Fills: 1 Fills Dispensed: 0 Eliquis 5 mg oral tablet 1 tablet, By Mouth, 2 times a day, # 60 tablet, 0 Refills, Maintenance, 09/20/23 7:52:00 AM EST, [facility], 175, cm, 02/02/22 13:26:00 EDT, Height Start Date: 09/20/23 Status: Ordered Medication Dispense Status: Completed Quantity: 60.0 Unit: tablet Total Allowed Fills: 1 Fills Dispensed: 0 lisinopril 10 mg oral tablet Refills 0, Maintenance, 01/23/24 9:36:00 AM EDT, Partial fill upon patient request if the prescription is for a schedule II opioid drug. Start Date: 01/23/24 Status: Ordered Medication Dispense Status: Completed Total Allowed Fills: 1 Fills Dispensed: 0 magnesium (as citrate) 85 mg oral tablet, chewable 1 tablet = 85 mg, By Mouth, Daily, # 60 tablet, 0 Refills, Maintenance, 10/06/24 8:35:00 AM EST, Chew Tablet, Partial fill upon patient request if the prescription is for a schedule II opioid drug. Start Date: 10/06/24 Status: Ordered Medication Dispense Status: Completed Quantity: 60.0 Unit: tablet Total Allowed Fills: 1 Fills Dispensed: 0 metoprolol 50 mg oral tablet, extended release 50 mg, 1, tablet, By Mouth, Daily, # 30 tablet, Refills 11, Tot. Refills 11, Maintenance, 02/02/22 1:35:00 PM EDT, Route to Pharmacy Electronically, [facility]pharm[facility] #[id number], Partial fill upon patient request if the prescription is for a schedule II opioid drug., 175, cm, 02/02/22 13:26:00 EDT, Height, 96.6, kg, 06/23/20 2:50:00 EDT, Dry Weight Start Date: 02/02/22 Stop Date: 01/28/23 Status: Ordered Medication Dispense Status: Completed Quantity: 30.0 Unit: tablet Total Allowed Fills: 12 Fills Dispensed: 0 Vitamin D3 1000 intl units oral capsule 1 capsule = 25 mcg, By Mouth, Daily, # 75 capsule, 0 Refills, Maintenance, 10/06/24 8:36:00 AM EST, Capsule, Partial fill upon patient request if the prescription is for a schedule II opioid drug. Start Date: 10/06/24 Status: Ordered Medication Dispense Status: Completed Quantity: 75.0 Unit: capsule Total Allowed Fills: 1 Fills Dispensed: 0 Problem List Condition Confirmation Course Effective Dates Status Health Status Informant Postoperative atrial fibrillation Confirmed Active Hx of CABG Confirmed Active Hypercholesterolemia Confirmed Active Hypertension Confirmed Active Obese class I Confirmed Active Tubular adenoma of colon 1 Confirmed 04/17/19 Active 1repeat screening colonoscopy in 2023 Social History Social History Type Response Sexual Gender identity: Itzel ntifies as male. Smoking Status Never (less than 100 in lifetime) entered on: 10/06/24 Sex Sex Representation Male (finding) Patient Care team information Care Team Personnel Name: Estela Gann RN Position: [facility] RN Member Role: Primary Care Nurse Name: Geoff Chadwick MD Position: [facility] Renal MD Member Role: Lifetime Consulting Physician Address: [address] [place] [address] [id number] [facility] [place], [place] - Telecom: Name: Inocente Grover CRNA Position: [facility] SN RN Member Role: Primary Care Nurse Name: Arcelia Patel RN Position: [facility] RN Member Role: Primary Care Nurse Name: Marsha Hinojosa RN Position: [facility] RN Supv Member Role: Primary Care Nurse Name: [place] Molina RN Position: [facility] RN Member Role: Primary Care Nurse Name: Mirian Randall RN Position: [facility] RN Member Role: Primary Care Nurse Name: Maris Ann RN Position: [facility] RN Member Role: Primary Care Nurse Name: Jose Antonio Oates MD Position: [facility] Outreach Member Role: Lifetime Consulting Physician Address: [address] [facility] [place] [address]- Telecom: Name: Nikole Galloway RN Position: [facility] RN Member Role: Primary Care Nurse Name: Orlando Carbajal MD Position: Reference Physician Member Role: PCP Address: [address] [place] [address]- Telecom: Care Team Related Persons Name: JOSY ESTRELLA Name: PONCE ESTRELLA Name: SUPRIYA ESTRELLA, DEFAULTED Insurance Providers Guarantor name: YOLANDE ESTRELLA Health Plan Information #: 1 Payer: [facility] PPO Payer Identifier: NA Member Number: [id number] Group Number: [id number] Subscriber Identifier: NA Relationship to Subscriber: self Coverage Type: Medicare PPO Coverage Verification Date: NA Telecom: Address:
[2025-07-16 19:17] LABS: Appearance Urine Clear; Glucose Urine UA Negative (Negative); PH 5.5 (5.0-9.0); Specific Gravity - Urine <= 1.005 (1.005-1.025)
== END 2025-07-16 15:22 | disposition home or self-care (01) ==
LOC: HO.LAB 15:21
PROVIDERS: PCP Physician Assistant Medical; Visit Provider Physician Assistant Medical
DX: E11.9 Type 2 diabetes mellitus without complications (principal); I10 Essential (primary) hypertension; E66.812 Obesity, class 2; Z79.899 Other long term (current) drug therapy; Z13.31 Encounter for screening for depression
CPT/HCPCS: 81003; 82570; 83036; 96127; 99212

== ENCOUNTER 2025-08-05 13:59 | Outpatient (AMB) | payer MEDICARE, SELFPAY ==
[2025-08-05 14:10] VITALS: BMI 35.0
--- NOTE | 2025-08-05 14:10 | A.PHYSOV_ITS ---
Vital Signs 08/05/25 14:10 Height 5 ft 7.25 in Weight 225 lb BMI 35.0 Intake Visit Reasons: NPV [facility] Ref- neck pain Intake Note: Patient is a 70 year old male in office today for his new patient visit. Patient referred by [facility] for neck pain. Office Runner Required: No Allergies No Known Allergies (No Known Allergies*) Allergy (Verified 08/05/25 14:07) HPI Comments Details: History of Present Illness The patient is a 70 year old male presenting with chronic neck pain. He has a history of a C3-C4 fusion for a ruptured disc, which was performed in a previous year. He was told he has thickened ligaments in his neck and has been attending physical therapy for stretching, which he reports has been helpful. Following a recent evaluation with a PA, who determined his pain was muscular and not surgical, it was suggested he might benefit from an injection. The patient describes the pain as a constant ache that is worse upon waking and feels very tight, staying in the neck and shoulder area without radiation down the arms. He denies associated numbness, tingling, or headaches. The patient's past medical history is significant for atrial fibrillation, for which he takes Eliquis, and a history of a triple bypass surgery. He does not take any medications for pain, including Tylenol, unless urged to do so. Pain Description - Location: Pain is located in the neck and extends to the shoulder. - Character: Described as a constant ache and tightness. - Radiation: The pain does not radiate down the arms. - Timing: Pain is worse upon waking from sleep. - Associated Symptoms: The patient reports muscle tightness but denies headaches, numbness, or tingling. - Relieving Factors: Stretching during physical therapy has been helpful. Results - Imaging: Unspecified imaging shows wear and tear below the level of his prior surgical fusion. [facility] Medical History (Updated 08/05/25 @ 17:05 by Isiah Anderson DO) Post laminectomy syndrome Spondylosis of cervical region without myelopathy or radiculopathy Obesity, Class II, BMI 35-39.9 Type 2 diabetes mellitus with hemoglobin A1c goal of less than 7.0% Degenerative disc disease Neuroforaminal stenosis of cervical spine Cervical stenosis of spine Neck pain Dyslipidemia Hypertension Vitamin D deficiency History of myocardial infarction Tubular adenoma Snoring BRYAN (obstructive sleep apnea) Obesity (BMI 30-39.9) Hypercholesteremia On anticoagulant therapy Retinal tear of right eye Atrial fibrillation CAD (coronary artery disease) Myocardial infarct Gout Surgical History History of fusion of cervical spine S/P cervical spinal fusion H/O eye surgery (~10/12/24) History of cardiac ablation for atrial fibrillation (~10/30/24) History of colonoscopy (~08/10/24) Hx of cataract extraction History of vitrectomy Hx of coronary artery bypass graft History of tonsillectomy [place] teeth extracted Hx of repair of right rotator cuff Hx of repair of left rotator cuff History of surgery on right wrist Hx of left inguinal hernia repair Family History Mother CAD (coronary artery disease) Social History Household Members: Spouse Housing: House Are you a primary eye care professional to a significant other at home: No Do you presently have visiting nurse or other home services: No Alcohol intake: current Alcohol intake frequency: holidays/special occasions only Comment: for nstemi Patient Tobacco Use Status: Never used Tobacco Second Hand Smoke Exposure: No service: No Current occupational status: employed Cognitive needs: No Hearing needs: No Vision needs: Yes (reading glasses) Review of Systems Narrative Review of Systems - Musculoskeletal: Reports chronic neck pain, stiffness, and tightness extending into the shoulder. - Neurological: Denies headaches, numbness, and tingling. Physical Exam Exam Exam: Physical Exam - Neck: Tenderness to palpation over the posterior neck, bilaterally, and behind the ear. - Range of motion of the neck is very restricted. Spurling maneuver was negative. Lhermitte's sign was negative. Neurological examination of upper extremities was nonfocal. Patient was able to ambulates without antalgia. Patient demonstrated no upper motor neuron signs. Vital Signs: BMI result Body Mass Index 35.0 Assessment & Plan Assessment & Plan (1) Neck pain: Code(s): M54.2 - Cervicalgia Category: Medical (2) S/P cervical spinal fusion: Code(s): Z98.1 - Arthrodesis status Category: Surgical (3) Spondylosis of cervical region without myelopathy or radiculopathy: Code(s): M47.812 - Spondylosis without myelopathy or radiculopathy, cervical region Category: Medical (4) Post laminectomy syndrome: Code(s): M96.1 - Postlaminectomy syndrome, not elsewhere classified Category: Medical Plan Pain Management - Affect: The patient expresses a desire to get rid of the pain. - Analgesia: The patient does not take any medications for pain, including Tylenol, unless strongly encouraged. - Activities of Daily Living: The patient is retired but works part-time. - Aberrant Drug Related Behaviors: None noted; the patient is avoidant of pain medications. Plan Patient was informed and verbally consented to the use of an ambient scribe for clinic note documentation during this visit. 1. Chronic Neck Pain The patient's chronic neck pain is assessed to be secondary to wear and tear in the facet joints below his C3-C4 fusion, rather than a new surgical issue. His ongoing neck stiffness is considered a likely permanent outcome of the fusion surgery. The plan is to proceed with a diagnostic and therapeutic injection at the C4-5 and C5-6 levels to determine if this relieves his pain. The procedure will be scheduled at [facility] and will be performed with conscious sedation. If the injection provides significant but short-term relief, a radiofrequency ablation procedure will be considered for longer-term pain control. Other advanced implantable options such as a peripheral nerve stimulator were also discussed as future possibilities. Risks and benefits of the procedure were discussed with the patient. Potential alternative measures were also discussed. Patient understands that the procedure is completely elective. Potential side effects associated with injectable medications were discussed. All questions were answered to the patient's satisfaction. The patient is advised to continue with his physical therapy and home stretching exercises. 2. Atrial Fibrillation The patient will continue taking Eliquis for atrial fibrillation. He does not need to stop the medication for the planned neck injection. He was advised to avoid supplements like turmeric, as they can increase bleeding risk when taken with Eliquis. Discussion Notes I discussed with the patient and his that his chronic neck pain is not a surgical issue but is likely related to arthritic changes and wear and tear in the joints below his prior C3-C4 fusion. I explained that a certain degree of stiffness may be a permanent consequence of the fusion. I proposed a diagnostic and therapeutic injection at two levels below the fusion (C4-5 and C5-6) to see if this provides relief. I informed him that the procedure would take place at the hospital with conscious sedation and he would require a cryogenic transport driver to take him home. I confirmed that he does not need to stop his Eliquis for the procedure. We discussed that if the injection is effective but short-lived, we could consider a radiofrequency ablation for longer-lasting relief. I also advised against using supplements like turmeric due to its potential interaction with Eliquis. The patient and his understood the plan and consented to proceed with scheduling the injection. Patient Instructions - Continue with your physical therapy and home stretching exercises for your neck. - We will schedule an injection for your neck pain to be done at [facility]. - You will receive sedation to keep you comfortable during the procedure, so you must arrange for someone to drive you home afterward. - Continue taking your Eliquis medication as prescribed; you do not need to stop it for the injection. - Do not take supplements like turmeric, as it can interfere with your Eliquis and increase your risk of bleeding. - Based on how you respond to this injection, we may discuss other treatments in the future, such as a procedure to burn the small pain nerves. Orders: Referrals Physiatry Procedure Notification M47.812 - Spondylosis without myelopathy or radiculopathy, cervical region, M54.2 - Cervicalgia, Z98.1 - Arthrodesis status Coding Level of Care Code New Pt Level 4 (00763) Add On Problem Visit Only Diagnoses Neck pain M54.2 S/P cervical spinal fusion Z98.1 Spondylosis of cervical region without myelopathy or radiculopathy M47.812 Post laminectomy syndrome M96.1
--- OUTSIDE RECORDS SUMMARY | 2025-08-05 21:25 | XMS_ITS | Encounter Summary ---
Author Organization [facility] Address [address] [place] [address] Care Team Providers Care Financial Controller Name Role Phone Shree Gonzalez DO Primary Care Provider + [phone] Carmen Workman Unavailable Luis Glover MD Unavailable [phone] Unknown Primary Care Provider [phone] Encounter Details Date Type Department Care Team (Late st Contact Info) Description 10/27/2024 Documentation [facility] Heart & Vascular [place] - Electrophysiology [address] [place] [address] Alfredo Beckham, PARKER [address] [place] [address] Social History Tobacco Use Types Packs/Day Years Used Date Smoking Tobacco: Never Smokeless Tobacco: Never Alcohol Use Standard Drinks/Week Comments Not Currently 0 (1 standard drink = 0.6 oz pure alcohol) Used to drink, but has laid off caffeine and alcohol since being told. [facility] Utilities Answer Date Recorded In the past 12 months has [employer], gas, oil, or water [employer] threatened to shut off services in your [...] Description 11/09/2025 8:30 AM EDT Office Visit [facility] Heart & Vascular [place] - Electrophysiology [address] [place] [phone] Gertrude Weldon APRN [address] [place] [address] documented as of this encounter Visit Diagnoses Not on filedocumented in this encounter Care Teams Financial Controller Relationship Specialty Start Date End Date Shree Gonzalez DO [address] [place] [address] PCP - General Internal Medicine 12/28/21 10/29/24 Unknown Unknow Provider Address PCP - General 10/30/24 Carmen Workman [address], [address] [place] [address] Chef Assistant 01/08/22 Luis Glover MD [address] [place] [address] [address] [place] [address] Primary Chef Assistant Cardiovascular Disease 06/29/22 documented as of this encounter
--- OUTSIDE RECORDS SUMMARY | 2025-08-05 21:25 | XMS_ITS | Encounter Summary ---
Author Organization [facility] Address [address] [place] [address] Care Team Providers Care Cat Cracker Operator Name Role Phone Shree Gonzalez DO Primary Care Provider + [phone] Carmne Workman Unavailable Luis Glover MD Unavailable [phone] Unknown Primary Care Provider [phone] Encounter Details Date Type Department Care Team (Late st Contact Info) Description 10/07/2024 Scanned Document [facility] Heart & Vascular [place] - Electrophysiology [address] [place] [address] [place], [place] [address] [place] [address] Social History Tobacco Use Types Packs/Day Years Used Date Smoking Tobacco: Never Smokeless Tobacco: Never Alcohol Use Standard Drinks/Week Comments Not Currently 14 (1 standard drink = 0.6 oz pure alcohol) Used to drink, but has laid off caffeine and alcohol since being told. [facility] Utilities Answer Date Recorded In the past 12 months has [employer], [employer], oil, or water [employer] threatened to shut off services in your [...] Description 11/09/2025 8:30 AM EDT Office Visit [facility] Heart & Vascular [place] - Electrophysiology [address] [place] [phone] Shiraz, Gertrude Beaulieu APRN [address] [place], [place] [id number] documented as of this encounter Visit Diagnoses Not on filedocumented in this encounter Care Teams Cat Cracker Operator Relationship Specialty Start Date End Date Shree Gonzalez DO [address] [place] [address] [address] [place] [address] PCP - General Internal Medicine 12/28/21 10/29/24 Unknown Unknow Provider Address PCP - General 10/30/24 Carmen Workman [address] [place] [address], [address] [place] [address] Dope Worker 01/08/22 Luis Glover MD [address] [place] [address] [address] [place] [address] Primary Dope Worker Cardiovascular Disease 06/29/22 documented as of this encounter
--- OUTSIDE RECORDS SUMMARY | 2025-08-05 21:25 | XMS_ITS | Clinical Summary ---
Author Organization [facility] Address [address] [address] Phone Care Team Providers Care Rolls Baker Name Role Phone LisaShree DO Primary Care [...] [place] P[place] BLUE REPLACEMENT [facility] MEDICARE PPO BLUE REPLACEMENT [facility] MEDICARE PPO BLUE REPLACEMENT [facility] MEDICARE PPO BLUE REPLACEMENT [facility] MEDICARE PPO BLUE REPLACEMENT [facility] MEDICARE PPO BLUE REPLACEMENT Care Teams Rolls Baker Relationship Specialty Start Date End Date Shree Gonzalez DO [address] [place] [address] PCP - General 06/13/24 Additional Source Comments The information contained in this document represents components of the legal health record. It is not the complete legal health record.[facility]
--- OUTSIDE RECORDS SUMMARY | 2025-08-05 21:25 | XMS_ITS | Encounter Summary ---
Author Organization [facility] Address [address] [place] [address] Care Team Providers Care Environmental Health Manager Name Role Phone Shree Gonzalez DO Primary Care Provider + [phone] Carmen Workman Unavailable Luis Glover MD Unavailable [phone] Unknown Primary Care Provider [phone] Encounter Details Date Type Department Care Team (Late st Contact Info) Description 06/10/2024 Scanned Document [facility] [address] [address] Elen Hunter [address] [place] [address] Social History Tobacco Use Types Packs/Day Years Used Date Smoking Tobacco: Never Smokeless Tobacco: Never Alcohol Use Standard Drinks/Week Comments Not Currently 14 (1 standard drink = 0.6 oz pure alcohol) Used to drink, but has laid off caffeine and alcohol since being told. [facility] Utilities Answer Date Recorded In the past 12 months has [employer], gas, oil, or water [employer] threatened to shut off services in your [...] Description 11/09/2025 8:30 AM EDT Office Visit [facility] Heart & Vascular [place] - Electrophysiology [address] [place] [id number] Gertrude Weldon APRN 65 [facility], [place] [id number] documented as of this encounter Visit Diagnoses Not on filedocumented in this encounter Care Teams Environmental Health Manager Relationship Specialty Start Date End Date Shree Gonzalez DO [address] [place] [address] 2 [place] [address] PCP - General Internal Medicine 12/28/21 10/29/24 Unknown Unknow Provider Address PCP - General 10/30/24 Carmen Workman [address], [address] [place] [address] Mail List Processor 01/08/22 Luis Glover MD [address] [place] [address] [address] [place] [address] Primary Mail List Processor Cardiovascular Disease 06/29/22 documented as of this encounter
--- OUTSIDE RECORDS SUMMARY | 2025-08-05 21:25 | XMS_ITS | Encounter Summary ---
Author Organization [facility] Address [address] [facility] [address] [place] [address] Phone Care Team Providers Care Scratcher Name Role Phone Shree Gonzalez DO Primary Care Provider [phone] Encounter Details Date Type Department Care Team (Late st Contact Info) Description 06/13/2024 Ancillary Orders [facility], X-Ray - [address] [address] Shree Gonzalez DO [address] [place] [address] Left wrist pain (Primary Dx) Social History [...] forearm documented in this encounter Care Teams Scratcher Relationship Specialty Start Date End Date Shree Gonzalez DO [address] [place] [address] PCP - General 06/13/24 documented as of this encounter Additional Source Comments The information contained in this document represents components of the legal health record. It is not the complete legal health record.[facility]
--- OUTSIDE RECORDS SUMMARY | 2025-08-05 21:25 | XMS_ITS | Encounter Summary ---
Author Organization [facility] Address [address] [place] [address] Care Team Providers Care Waist Pleater Name Role Phone LisaShree DO Primary Care Provider + [phone] AnabaptistCarmen sosa Unavailable Luis Glover MD Unavailable [phone] Unknown Primary Care Provider [phone] Reason for Referral * Cardiology (Routine) - Closed Specialty Diagnoses / Procedures Referred By Contact Referred To Contact Cardiac Electrophysiology / Cardiology Diagnoses Atrial fibrillation, unspecified type (HCC) Luis Glover MD [address] [place] [address] [address] [place] [address] Phone: tel:[phone] fax:[phone] [facility] Heart & Vascular [place] - Electrophysiology [address] [place] [phone] Phone: tel: fax: Referral ID Status Reason Start Date Expiration Date V isits Requested Visits Authorized [id number] Closed Consult 04/17/2023 04/17/2024 1 1 Comments DX A FIB Encounter Details Date Type Department Care Team (Late st Contact Info) Description 04/17/2023 Community Orders [facility], [address] [address] Luis Glover MD [address] [place] [address] [address] [place] [address] Atrial fibrillation, unspecified type (HCC) (Primary Dx) [...] Description 11/09/2025 8:30 AM EDT Office Visit [facility] Heart & Vascular [place] - Electrophysiology [address] [place] [phone] Gertrude Weldon APRN [address] [place] [address] Scheduled Referrals Name Type Priority Associated Diagnoses Order Schedule Amb Referral to Cardiac Electrophysiology Outpatient Referral Routine Atrial fibrillation, unspecified type (HCC) Ordered: 04/17/2023 documented as of this encounter Visit Diagnoses Diagnosis Atrial fibrillation, unspecified type (HCC)- Primary documented in this encounter Care Teams Waist Pleater Relationship Specialty Start Date End Date Shree Gonzalez DO [address] [place] [address] PCP - General Internal Medicine 12/28/21 10/29/24 Unknown Unknow Provider Address PCP - General 10/30/24 Carmen Workman [address], [address] [place] [address] Office Administration Instructor 01/08/22 Luis Glover MD [address] [place] [address] [address] [place] [address] Primary Office Administration Instructor Cardiovascular Disease 06/29/22 documented as of this encounter
--- OUTSIDE RECORDS SUMMARY | 2025-08-05 21:25 | XMS_ITS | Encounter Summary ---
Author Organization [facility] Address [address] [facility] [address] [place] [address] Phone Care Team Providers Care Engine Wiper Name Role Phone Shree Gonzalez DO Primary Care Provider Encounter Details Date Type Department Care Team (Late st Contact Info) Description 06/13/2024 Ancillary Orders [facility], X-Ray - [address] [address] Shree Gonzalez DO [address] [place] [address] Left wrist pain (Primary Dx) Social History [...] forearm documented in this encounter Care Teams Engine Wiper Relationship Specialty Start Date End Date Shree Gonzalez DO [address] [place] [address] PCP - General 06/13/24 documented as of this encounter Additional Source Comments The information contained in this document represents components of the legal health record. It is not the complete legal health record.[facility]
--- OUTSIDE RECORDS SUMMARY | 2025-08-05 21:25 | XMS_ITS | Encounter Summary ---
Author Organization [facility] Address [address] [place] [address] Care Team Providers Care Closing Coordinator Name Role Phone LisaShree DO Primary Care Provider + [phone] ShintoCarmen sosa Unavailable Luis Glover MD Unavailable [phone] Unknown Primary Care Provider [phone] Reason for Referral * Cardiology (Routine) - Closed Specialty Diagnoses / Procedures Referred By Contact Referred To Contact Cardiac Electrophysiology / Cardiology Diagnoses Atrial fibrillation, unspecified type (HCC) Luis Glover MD [address] [place] [address] [address] [place] [address] Phone: tel:[phone] fax:[phone] [facility] Heart & Vascular [place] - Electrophysiology [address] [place] [address] Phone: tel: fax: Referral ID Status Reason Start Date Expiration Date V isits Requested Visits Authorized [id number] Closed Consult 11/28/2022 11/29/2023 1 1 Comments DX NSVT/ ATRIAL FIB HISTORY OF CAD Encounter Details Date Type Department Care Team (Late st Contact Info) Description 11/28/2022 Community Orders Consulting Cardiologists, [address] [address] Luis Glover MD [address] [place] [address] [address] [place] [address] Atrial fibrillation, unspecified type (HCC) (Primary Dx) [...] Description 11/09/2025 8:30 AM EDT Office Visit [facility] Heart & Vascular [place] - Electrophysiology [address] [place] [address] Shiraz, Gertrude Beaulieu APRN [address] [place] [address] Scheduled Referrals Name Type Priority Associated Diagnoses Order Schedule Amb Referral to Cardiac Electrophysiology Outpatient Referral Routine Atrial fibrillation, unspecified type (HCC) Ordered: 11/28/2022 documented as of this encounter Visit Diagnoses Diagnosis Atrial fibrillation, unspecified type (HCC)- Primary documented in this encounter Care Teams Closing Coordinator Relationship Specialty Start Date End Date Shree Gonzalez DO [address] [place] [address] 2 [place] [address] PCP - General Internal Medicine 12/28/21 10/29/24 Unknown Unknow Provider Address PCP - General 10/30/24 Carmen Workman [address] [place] [address], [address] [place] [address] Residential Door Unit Installer 01/08/22 Luis Glover MD [address] [place] [address] [address] [place] [address] Primary Residential Door Unit Installer Cardiovascular Disease 06/29/22 documented as of this encounter
--- OUTSIDE RECORDS SUMMARY | 2025-08-05 21:25 | XMS_ITS | Encounter Summary ---
Author Organization [facility] Address [address] [place] [address] Care Team Providers Care Music Box Mechanic Name Role Phone Shree Gonzalez DO Primary Care Provider + [phone] Carmen Workman Unavailable Luis Glover MD Unavailable [phone] Unknown Primary Care Provider [phone] Encounter Details Date Type Department Care Team (Late st Contact Info) Description 06/21/2023 Prep for Surgery [facility] Heart & Vascular [place] - Electrophysiology [address] [facility] [address] [place] [address] Antonia Chilel, TELECOM BILLING ANALYST [address] [address] Social History Tobacco Use Types Packs/Day Years Used Date Smoking Tobacco: Never Smokeless Tobacco: Never Alcohol Use Standard Drinks/Week Comments Not Currently 14 (1 standard drink = 0.6 oz pure alcohol) Used to drink, but has laid off caffeine and alcohol since being told. [facility] Utilities Answer Date Recorded In the past 12 months has [employer], gas, oil, or water [employer] threatened to shut off services in your [...] Description 11/09/2025 8:30 AM EDT Office Visit [facility] Heart & Vascular [place] - Electrophysiology [address] [place] [phone] Gertrude Weldon APRN [address] [place], [place] [id number] documented as of this encounter Visit Diagnoses Not on filedocumented in this encounter Care Teams Music Box Mechanic Relationship Specialty Start Date End Date Shree Gonzalez DO [address] [place] [address] PCP - General Internal Medicine 12/28/21 10/29/24 Unknown Unknow Provider Address PCP - General 10/30/24 Carmen Workman [address] [place] [address], [address] [place] [address] Fountain Waitress/Waiter 01/08/22 Luis Glover MD [address] [place] [address] [address] [place] [address] Primary Fountain Waitress/Waiter Cardiovascular Disease 06/29/22 documented as of this encounter
--- OUTSIDE RECORDS SUMMARY | 2025-08-05 21:25 | XMS_ITS | Clinical Summary ---
Author Organization [facility] Address [address] [place] [address] Care Team Providers Care Water Manager Name Role Phone Carmen Workman Unavailable Luis Glover MD Unavailable [phone] Unknown Primary Care Provider [phone] Allergies No known active allergies Medications atorvastatin [...] (11/09/2022): Added automatically from request for surgery [id number] Cholelithiasis with choledocholithiasis 02/29/20 22 RYAN (acute kidney injury) 02/27/2022 S/P CABG (coronary artery bypass graft) 12/31/19 22 Atrial fibrillation 12/30/2021 Class 1 obesity 12/30/2021 Hypercholesterolemia 12/30/2021 Hypertension 12/30/2021 Acute on chronic cholecystitis 12/30/2021 Tubular adenoma of colon 04/17/2019 Overview (12/30/2021): repeat screening colonoscopy in 2023 Encounters Date Type Department Care Team Description 05/12/2025 8:30 AM EDT Office Visit [facility] Heart & Vascular [place] - Electrophysiology [address] [place] [address] Gertrude Weldon APRN Paroxysmal atrial fibrillation [...] drink = 0.6 oz pur e alcohol) [facility] Utilities Answer Date Recorded In the past 12 months has [employer], [employer], oil, or water [employer] threatened to shut off services in your [...] place to sleep or slept in a half-way (including now)? No 06/25/2023 Sex and Gender [...] Description 11/09/2025 8:30 AM EDT Office Visit [facility] Heart & Vascular [place] - Electrophysiology [address] [facility] [place] [address] ShirazGertrude Christofer, LOSS PREVENTION LEAD [address] [place], [place] [phone] Health Maintenance Due Date Last Done Comments Advance Care Planning 1955 Hepatitis C Virus Screening 1955 DTaP/Tdap/Td Vaccines (1 - Tdap) 1974 Colonoscopy 2000 Pneumococcal Vaccines 50+ (1 of 1 - PCV) 2005 RSV Vaccine 50 years and older and Patients (1 - Risk 50-74 years 1-dose series) 2005 Zoster (Shingles) Vaccine (1 of 2) 2005 Influenza Vaccine 03/26/2025 COVID-19 Vaccine ( - 2024- season) 2025 12/06/2021, 05/23/2021, 10/21/2020, Additional history [...] AM EDT) Ventricular rate 64 BPM EKG [facility] Atrial rate 64 BPM EKG [facility] P-R interval 156 ms EKG [facility] QRS duration 80 ms EKG [facility] Q-T interval 388 ms EKG [facility] QTC calculation (Bazett) 400 ms EKG [facility] P axis -8 degrees EKG [facility] R axis 41 degrees EKG [facility] T axis 64 [facility] 05/12/2025 8:33 AM EDT Narrative EKG [facility] - 05/28/2025 5:07 PM EDT Normal sinus [...] Rocha Eric (121) on 05/28/2025 5:07:07 PM Олег Rocha MD ECG ORDERABLES Final Result EKG [facility] from Last 3 Months Insurance flexReceipts [facility] MEDICARE OUT OF NETWORK flexReceipts [facility] MEDICARE OUT OF NETWORK Advance Directives * [...] 12:28 PM 02/28/2022 1:45 PM Care Teams Water Manager Relationship Specialty Start Date End Date Unknown Unknow Provider Address PCP - General 10/30/24 Carmen Workman [address], [address] [place] [address] Cps Team Lead 01/08/22 Luis Glover MD [address] [place] [address] [address] [place] [address] Primary Cps Team Lead Cardiovascular Disease 06/29/22
== END 2025-08-05 14:49 | disposition home or self-care (01) ==
LOC: HO.HPHYS 13:59
PROVIDERS: PCP Physician Assistant Medical; Visit Provider Physical Medicine & Rehabilitation
DX: M54.2 Cervicalgia (principal); Z98.1 Arthrodesis status; M47.812 Spondylosis without myelopathy or radiculopathy, cervical region; M96.1 Postlaminectomy syndrome, not elsewhere classified
CPT/HCPCS: 99204; G2211

== ENCOUNTER → 2025-08-05 13:59 | Outpatient (BNVA) | payer MEDICARE, SELFPAY | PROVIDERS: PCP Physician Assistant Medical; Visit Provider Physical Medicine & Rehabilitation | DX: M47.812 Spondylosis without myelopathy or radiculopathy, cervical region (principal); G89.29 Other chronic pain; M54.2 Cervicalgia; M96.1 Postlaminectomy syndrome, not elsewhere classified; Z98.1 Arthrodesis status; I48.91 Unspecified atrial fibrillation; Z79.01 Long term (current) use of anticoagulants | CPT/HCPCS: 99202 ==